=== PATIENT | female | born 1995 | race Caucasian/White ===

== ENCOUNTER 2020-06-27 22:24 | Outpatient (REF) | payer MEDICARE, MEDICAID, SELFPAY ==
[2020-06-27 20:25] LABS: Abs Immature Grans 0.01 10^3/uL (0.0-0.06); Absolute Basophil Count 0.04 10^3/uL (0.0-0.2); Absolute Lymphocyte Count 2.31 10^3/uL (1.2-3.4); Absolute Monocyte Count 0.61 10^3/uL (0.1-0.8); Absolute Neutrophil Count 4.68 10^3/uL (1.2-6.7); Basophils % 0.5; Eosinophils % 1.3; HCT 40.9 % (36.0-46.0); HGB 13.3 g/dL (11.2-15.7); Immature Grans % 0.1; Lymphocytes % 29.8; MCH 31.3 pg (27.0-33.0); MCHC 32.5 % (32.0-36.0); MCV 96.2 fL (80-95); MPV 10.3 fL (8.0-11.0); Monocytes % 7.9; Neutrophils % 60.4; Nucleated RBC 0 %; Platelet Count 260 10^3/uL (130-400); RBC 4.25 10^6/uL (3.93-5.22); RDW 12.1 % (11.7-14.6); RDW-SD 42.7 fL; WBC 7.75 10^3/uL (4.4-10.8)
[2020-06-27 21:10] LABS: ALT 21 U/L (14-59); AST 20 U/L (15-37); Albumin 4.1 g/dL (3.4-5.0); Alkaline Phosphatase 60 U/L (46-116); BUN 13 mg/dL (7-18); Bilirubin, Total 0.8 mg/dL (0.2-1.0); CREATININE 0.7 mg/dL (0.55-1.02); Calcium 8.4 mg/dL (8.5-10.1); Chloride 105 mmol/L (98-107); Glucose 78 mg/dL (74-106); Sodium 140 mmol/L (136-145); TSH (W/Ref FT4) 0.84 uIU/mL (0.36-3.74); Total Protein 7.3 g/dL (6.4-8.2)
[2020-07-03 13:56] LABS: IgA 333 mg/dL (85-499); Interpretation (See Note); Tissue Transglutaminase IgA <1.2 U/mL (<4.0)
== END 2020-06-27 22:25 | disposition home or self-care (01) ==
LOC: NCHCN 22:24
PROVIDERS: PCP Family Medicine; Visit Provider Family Medicine
DX: R10.84 Generalized abdominal pain (principal); K59.09 Other constipation
CPT/HCPCS: 80053; 82784; 83516; 84443; 85025

== ENCOUNTER 2021-02-24 18:42 | Outpatient (REF) | payer MEDICARE, MEDICAID, SELFPAY ==
[2021-02-26 15:35] LABS: COVID-19 RT-PCR UVMMC Result Negative (Negative)
== END 2021-02-24 18:43 | disposition home or self-care (01) ==
LOC: LBN 18:42
PROVIDERS: PCP Family Medicine; Visit Provider Physician Assistant Medical
DX: Z20.822 Contact with and (suspected) exposure to COVID-19 (principal)
CPT/HCPCS: U0003

== ENCOUNTER 2021-03-08 15:08 | Outpatient (CLI) | payer MEDICARE, MEDICAID, SELFPAY ==
--- NOTE | 2021-03-08 09:00 | DI.RAD_ITS ---
Exam(s) XR KNEE LT 4V AP,LAT,FRANCISCO,PAT EXAM: XR KNEE LT 4V AP,LAT,FRANCISCO,PAT CLINICAL HISTORY: left knee pain. TECHNIQUE: 2D digital imaging was performed. COMPARISON: No exams were available for comparison FINDINGS: There is no evidence of acute fracture or obvious joint effusion. No joint space narrowing. No oste ophytes. No osteochondral defects seen. Growth arrest lines are incidentally noted in the femur and tibia. IMPRESSION: DATA REPOSITORY: RADIATION DOSE DELIVERED:
== END 2021-03-08 15:09 | disposition home or self-care (01) ==
LOC: DIORS 15:08
PROVIDERS: PCP Family Medicine; Referring Provider Family Medicine; Visit Provider Student in an Organized Health Care Education/Training Program
DX: M25.562 Pain in left knee (principal); S83.005A Unspecified dislocation of left patella, initial encounter; X58.XXXA Exposure to other specified factors, initial encounter
CPT/HCPCS: 99203; 73564

== ENCOUNTER → 2021-05-24 08:41 | Outpatient (BNVA) | payer MEDICARE, MEDICAID, SELFPAY | PROVIDERS: PCP Family Medicine; Referring Provider Family Medicine; Visit Provider Student in an Organized Health Care Education/Training Program | DX: M23.92 Unspecified internal derangement of left knee (principal); W19.XXXA Unspecified fall, initial encounter | CPT/HCPCS: 99213 ==

== ENCOUNTER 2021-05-29 02:54 | Outpatient (CLI) | payer MEDICARE, MEDICAID, SELFPAY ==
--- NOTE | 2021-05-29 11:40 | DI.MRI_ITS ---
Exam(s) MR LOWER JOINT LT WO EXAM: MR LOWER JOINT LT WO CLINICAL HISTORY: LT KNEE PAIN,DISLOCATION LT PATELLA,S83.005A,M25.562. TECHNIQUE: Multiplanar multisequence MRI was performed. COMPARISON: CR XR KNEE LT 4V AP,LAT,FRANCISCO,PAT from 03/08/2021 FINDINGS: BONES: There is no fracture or contusion pattern. JOINTS: Articular cartilage is unremarkable. No effusion is present. TENDONS: Extensor mechanism: Unremarkable. Medial retinaculum: Unremarkable. Lateral retinaculum: Unremarkable. Popliteus: Unremarkable. MUSCLES: Unremarkable. MENISCI: There is hyperintense signal seen in the body and posterior horn of the medial meniscus cons istent with a tear. The lateral meniscus is unremarkable. SOFT TISSUES: There is mild edema seen in the soft tissues anterior to the inferior patella. LIGAMENTS: Anterior Cruciate: The anterior cruciate ligament is not visualized and is entirely consistent with a tear. Posterior Cruciate: Unremarkable. Medial Collateral:Unremarkable. Lateral Collateral: Unremarkable. OTHER: IMPRESSION: 1. Findings of a tear of the body and posterior horn of the medial meniscus. 2. Findings of anterior cruciate ligament tear. 3. No findings to suggest an occult fracture. DATA REPOSITORY:
== END 2021-05-29 03:14 ==
PROVIDERS: PCP Family Medicine; Visit Provider Student in an Organized Health Care Education/Training Program
DX: M25.562 Pain in left knee (principal); S83.512A Sprain of anterior cruciate ligament of left knee, initial encounter; S83.242A Other tear of medial meniscus, current injury, left knee, initial encounter; S83.092A Other subluxation of left patella, initial encounter; X58.XXXA Exposure to other specified factors, initial encounter
CPT/HCPCS: 73721

== ENCOUNTER → 2021-05-30 15:48 | Outpatient (BNVA) | payer MEDICARE, MEDICAID, SELFPAY | PROVIDERS: PCP Family Medicine; Referring Provider Family Medicine; Visit Provider Student in an Organized Health Care Education/Training Program | DX: S83.242A Other tear of medial meniscus, current injury, left knee, initial encounter (principal); W19.XXXA Unspecified fall, initial encounter | CPT/HCPCS: 99214 ==

== ENCOUNTER 2021-07-18 02:21 | Outpatient (CLI) | payer MEDICARE, MEDICAID, SELFPAY ==
[2021-07-18 11:37] LABS: Source Nasal/Nares
[2021-07-18 22:43] LABS: COVID-19 PCR Negative (Negative)
== END 2021-07-18 02:22 | disposition home or self-care (01) ==
LOC: LBO 02:21
PROVIDERS: PCP Family Medicine; Visit Provider Student in an Organized Health Care Education/Training Program
DX: Z20.822 Contact with and (suspected) exposure to COVID-19 (principal)
CPT/HCPCS: 87635

== ENCOUNTER 2021-07-20 07:16 | Day surgery (SDC) | payer MEDICARE, MEDICAID, SELFPAY ==
[2021-07-20] VITALS (9 sets, daily range): BP systolic 84–125; BP diastolic 40–96; PULSE 64–97; RESP 14–20; TEMP 36.5–36.9; O2SAT 99–100; BMI 27.8
--- NOTE | 2021-07-20 06:55 | W.ANESPRE ---
General Info Date of Service Date Performed: 07/20/21 Height: 4 ft 9 in Weight: 58.315 kg Body Mass Index (BMI): 27.8 Surgical Procedure: Operation Date: 07/20/21 10:40 Proposed Procedure Side Surgeon p Knee ACL Reconstruction, allograft and lateral meniscus repair Getachew Leon MD Meds Allergies and Home Medications Allergies Allergy/AdvReac Type Severity Reaction Status Date / Time No Known Allergies Allergy Unverified 07/20/21 07:41 Home Medication Medication Instructions Recorded cholecalciferol (vitamin D3) 25 2,000 unit PO DAILY 12/20/13 mcg (1,000 unit) capsule pramipexole 4.5 mg tablet,extended 4.5 mg PO PRN PRN 08/16/16 release 24 hr (Mirapex ER) clonazepam 0.125 mg disintegrating 0.125 mg PO DAILY PRN 03/09/21 tablet Current Visit Medications: Current Medications Generic Name Dose Route Start Last Admin Trade Name Freq PRN Reason Stop Dose Admin Ringer's Solution 1,000 mls @ 100 mls/hr 07/20/21 06:00 IV 08/02/21 23:59 INFUSION JARRETT Cefazolin Sodium/Dextrose 2 gm in 50 mls @ 100 mls/hr 07/20/21 06:00 Ancef Duplex IVPB 07/20/21 23:59 PREOP JARRETT IV Miscellaneous Supplies 1 each 07/20/21 06:00 Iv Access IV 08/02/21 23:59 DIRECTED JARRETT Sodium Chloride 0 ml 07/20/21 06:00 Normal Saline Flush 10 Ml Syr IV 08/02/21 23:59 PRN PRN Sodium Chloride 0 ml 07/20/21 06:00 Normal Saline 10 Ml Vial IJ 08/02/21 23:59 DIRECTED PRN Sterile Water 0 ml 07/20/21 06:00 Water,Injection,Sterile 10 Ml Vial IJ 08/02/21 23:59 DIRECTED PRN PFSH Active Problems Active Problems: Problem Status Onset Code Chronic constipation K59.09 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 Has had multi back surgerys and has had a ralph placed in her back. Surgical History Surgical History (Updated 07/19/21 @ 10:05 by Lashawn Campos RN) History of back surgery Per patient mother has Ralph in her back and has had multi back surgical procedures. History of ear surgery Per patient mother, patient had an abscess form from ear tube which required surgery. History of placement of ear tubes History of removal of skin mole History of repair of congenital atrial septal defect (ASD) Tobacco Smoking/Tobacco Use Status: Never Passive smoking exposure: No Second hand exposure: No Alcohol Alcohol Intake: never Substance Use Substance use: Never Substance use type: does not use Vital Signs and Lab Results Vital Signs Most Recent Vital Signs in EMR: Temp Pulse Resp BP Pulse Ox 36.5 C 66 16 123/70 100 07/20/21 07:43 07/20/21 07:43 07/20/21 07:43 07/20/21 07:43 07/20/21 07:43 Lab Results Blood Type / Crossmatch: No Data to Display Complete Blood Count: No Data to Display Complete Metabolic Panel: No Data to Display Liver Function Panel: No Data to Display Coagulation Panel: No Data to Display Cardiac Panel: No Data to Display Arterial Blood Gas: No Data to Display Venous Blood Gas: No Data to Display Pancreas Panel: No Data to Display Thyroid Panel: No Data to Display Infectious Disease: Coronavirus (COVID-19)(PCR) Negative (Negative) 07/18/21 10:00 07/18/21 Coronavirus 2019 Source Nasal/Nares 07/18/21 10:00 07/18/21 Blood Cultures: No Data to Display Toxicology Panel: No Data to Display Panel: No Data to Display Imaging and Studies Imaging and Studies Study information below may be from another EMR and interpreted by another provider. Please see original notes in EMR for more complete details. Echocardiogram Summary: 07/18/21: no residual atrial septal defect or PDA. trivial MR, TV mild prolapse. Anesthesia Assessment and Plan Anesthesia History Personal History: No History of Anesthesia Complications Family History: No Family History of Anesthesia Complications Exercise Tolerance Exercise Tolerance: Metabolic Equivalents>4 Cardiac & Pulmonary Exam Cardiac Exam: Normal S1/S2 Heart Sounds Pulmonary Exam: Clear Bilateral Breath Sounds Implantable Cardiac Device Does patient have a Pacemaker or an ICD?: No Airway Exam Known Difficult Airway: No Mallampati Class: 4 Mouth Opening: Narrow (< 3cm) Thyromental Distance: Less than 3 cm Neck Range of Motion: Full ROM Neck Circumference: Normal Teeth Condition: Normal Dentition ASA Classification ASA Score: ASA 3 Emergency Case?: No NPO Status NPO Status: NPO Clears >2 hours, Solids >8 hours Status Status: Not Relevant due to Medical History Anesthesia Plan Resuscitation Status: Full Code Anesthesia Technique: General Anesthesia Airway Planned: Endotracheal Tube Pain Management: Surgeon and patient request nerve block Monitors Used: Standard Monitors Preoperative Comments:: 25 yo female for ACL. Sig PMHx: chromosome 2 partial deletion, scoliosis with rodding, pseudobulbar affect. Angelman syndrome is listed on the problem list, but mother is certain that this is not the case. Plan: GA with regional anes (iPAK, adductor, genicular).
[2021-07-20] MEDS: Lactated Ringers 1,000 ML 100 ML IV (08:40)
--- NOTE | 2021-07-20 09:59 | W.ANESNERVE ---
Nerve Block Single Injection Procedure Date and Time Date Performed: 07/20/21 Procedure Start: 09:20 Location Where Procedure Performed Procedure Location: Day Surgery Unit Reason Performed: Postoperative Analgesia Requesting Provider: Getachew Leon Timeout Performed Timeout Performed: Yes Monitoring Used ECG, Blood Pressure and SpO2 Sterility Sterility: Hand Hygiene, Surgical Cap, Surgical Mask, Sterile Gloves and Chlorhexidine Sedation Given During Procedure Sedation Given (Indicate Dose Given): Versed IV Dose:: 5 mg Patient Mental Status Patient Mental Status: Awake Nerve Block 1st Nerve Block: Laterality: Left Block Type: iPACK Needle / Catheter Used: 100mm SonoPlex II Local Anesthetic Bolus (Indicate Dose Given): Lidocaine used for local infiltration of skin, Injected in 3-5ml increments after negative blood aspiration and Bupivacaine 0.25% Dose:: 12 mL Additives (Indicate Dose Given): Epinephrine to make 1:200,000 (5mcg/ml) Dose:: 5 mcg/ml and Decadron Dose:: 2 mg Ultrasound: Sterile probe cover and gel used Ultrasound Image Saved?: Yes Nerve Stimulator: Not Used Paresthesia: None Procedure Tolerated: No Complications Procedure Outcome: Successful Performed By: Dami Verma 2nd Nerve Block: Laterality: Left Block Type: Adductor Canal Needle / Catheter Used: 100mm SonoPlex II Local Anesthetic Bolus (Indicate Dose Given): Lidocaine used for local infiltration of skin and Bupivacaine 0.375% Dose:: 7 mL Additives (Indicate Dose Given): Epinephrine to make 1:200,000 (5mcg/ml) Dose:: 5 mcg/ml and Decadron Dose:: 2 mg Ultrasound: Sterile probe cover and gel used Ultrasound Image Saved?: Yes Nerve Stimulator: Not Used Paresthesia: None Procedure Tolerated: No Complications Procedure Outcome: Successful Performed By: Dami Verma 3rd Nerve Block: Laterality: Left Block Type: Other Needle / Catheter Used: 100mm SonoPlex II Local Anesthetic Bolus (Indicate Dose Given): Lidocaine used for local infiltration of skin and Bupivacaine 0.25% Dose:: 16 mL Additives (Indicate Dose Given): Epinephrine to make 1:200,000 (5mcg/ml) Dose:: 5 mcg/ml and Decadron Dose:: 2 Ultrasound: Sterile probe cover and gel used Ultrasound Image Saved?: Yes Nerve Stimulator: Not Used Paresthesia: None Procedure Tolerated: No Complications Procedure Outcome: Successful Procedure Comment: 4 mL applied to SMGN, ILGN, SLGN, IMGN. At the end of the procedure the mother noted that the knee did have some ecemosis on the front that she states was not there before. likely inadvertent superficial vessel puncture. Performed By: Dami Verma
[2021-07-20] MEDS: ceFAZolin 2 GM/50 ML BAG IVPB (10:24)
[2021-07-20] MEDS: EPINEPHrine 30 MG/30 ML VIAL (12:19)
[2021-07-20] MEDS: Bupivacaine 0.25% Pres-Free 30 ML VIAL (12:30)
--- NOTE | 2021-07-20 12:54 | ROE_ITS ---
Date of service: 07/20/21 Time of Service: 11:00 Operative Note Operative Note DATE OF PROCEDURE: 07/20/21 PRE-OP DIAGNOSIS: Left knee: 1. ACL rupture 2. Medial meniscus tear PROCEDURE: Left knee: 1. Allograft ACL reconstruction, CPT #89176 2. Partial medial meniscectomy, CPT #60037 SURGEON: Getachew Leon ANESTHESIA TYPE: Local By Surgeon, General LMA/ETT and Primary Nerve Block Refer to Anesthesia Record ESTIMATED BLOOD LOSS: 10 TOURNIQUET TIME: 0 COMPLICATIONS: None Patient was transported to: PACU Patient's condition: stable Implants: Arthrex ACL TightRope II RT and 8x20 mm tibial BioComposite FastThread interference screw Indications: Please see complete medical record for details. Findings: Significant knee laxity with about 15 degrees hyperextension and significant translation with Lida anterior drawer no endpoint. Positive obvious pivot shift. Procedure Description: In the operating room, general anesthesia was induced. The patient was positioned supine on the operating room table. All bony prominences were well- padded. Preoperative antibiotics were administered. The knee was prepped and draped in the usual sterile fashion. The correct patient, procedure, and side of the procedure were all verified prior to incision. Exam under anesthesia was performed. The standard high and tight anterolateral anteromedial portals were established and a complete diagnostic arthroscopy was performed with relevant findings detailed above. An 8 x 2 passport was inserted in both the anteromedial anterolateral portals. In the intercondylar area, the mechanical shaver was used to remove the remnant ACL leaving but leave just enough footprint on the femur and tibia to localize tunnels. Only a small notchplasty was necessary to allow visualization of the back wall as well as optimize bone marrow stimulation for healing. Medial meniscus tear was vertical somewhat white zone with displacement of this tissue from the posterior horn into the medial compartment. The tear was rasped there was limited healthy tissue at the margin with fraying showing chronicity and no bleeding. Consideration was made for trephination and repair. The all inside device was localized to the tear but the needle insertion size was larger than the diminutive knee and meniscus size. Inside out versus outside in techniques were considered with a needle brought in for posterior medial to the tear location and again showed diminutive meniscus and tear size. Given the somewhat degenerative nature and largely avascular location of the tear decision was made to proceed with meniscectomy instead of repair. Meniscus biter was used to free the anterior margin and the shaver used to resect the resulting free edge and smooth at the posterior horn body junction and near the root contoured to a stable margin. The remnant was probed and showed no other tears and resulting stable posterior horn. On the back table the allograft was prepared. The graft was doubled over in Arthrex tight rope device and each and prepared with fiber loop stitches. The doubled over diameter was 7 mm. Back in the knee, the 6 and 9 guide was used to target the appropriate location for anatomic placement of the ACL origin. A small incision was made at the lateral thigh for placement of the drill guide down to bone. The flip cutter was used targeting the appropriate location. The drill guide malleted 7 mm appropriately into the far cortex. The remainder of the handling guide was removed. The flip cutter was deployed to 7 mm and then retrograde reaming done for socket of 30 mm depth. A fiber stick was then used to find the entrance to the tunnel laterally and then securing shuttle suture through the anterior lateral portal. The tibial guide was then used in some remnant ACL at the tibial insertion was removed centrally to allow best placement for the guide. A pretibial incision was made in the drill guide placed on bone. The flip cutter was then used to drill drilled to the appropriate location. The drill guide malleted 7 mm into the cortex the remainder of the guide and handle removed. The flip cutter deployed to 7 mm and then in retrograde fashion a socket of 25 mm created before removing the drill guide and completing the tunnel out the anterior tibial cortex. The mechanical shaver was used to remove bone drilling debriding thoroughly as well as carefully chamfer and remove soft tissue from the edges of the sockets to allow for best graft passage. The femoral passing sutures were then withdrawn out the tibial tunnel. The graft and device were marked for planned femoral tunnel length flipping and at least 20 m meters of graft insertion on the femoral side. The prepared graft was then brought over to the knee. The femoral tight rope sutures were then shuttled through the tunnel into the knee and out the lateral thigh. Under direct visualization the button was then advanced into the femoral tunnel and then at the appropriate felipa advanced slightly further than flipped on the cortex. This was confirmed with tactile feedback, pullback, and confirmed under direct visualization. Maintaining appropriate countertraction the graft was then advanced with the tightening sutures through the tibial tunnel into the knee and then into the femoral tunnel. It was advanced just past 20 mm cheung. The knee was then tested through range of motion and the graft demonstrated excellent isometry. The leg was brought into full extension on the table with extension and moderate reverse Lockman downward pressure maintained by the pathology assistant. The sutures were maintained distally under traction with the interference screw clinical data management director, wire, and then screw inserted taking care to and the screw flush with the anterior tibial cortex to avoid prominence. The femoral tightening sutures were then advanced as fully as possible. The knee ranged about 22 times through cycles motion. The knee was brought back into full extension with a reverse Lida applied and final tightening applied to the femoral side. The camera is brought back in the knee and the graft demonstrated excellent trajectory with no notching in full extension and good tension. Pulling the tibial sutures demonstrated no sliding of the graft. There was no more advancing of the femoral side tightening sutures. The knee was copiously irrigated and then drained of arthroscopic fluid. The shuttle sutures were cut and removed on the femoral side. Knots were tied as backup over the femoral device. The graft was then cut flush on the pretibial side to avoid prominence. Knee exam demonstrated excellent firm endpoint to Lida exam. Pivot shift was negative. All portals and incisions were copiously irrigated. 3-0 Monocryl was used to close the portals and small incisions in a buried interrupted fashion. Mastisol Steri-Strips Xeroform and 4 x 4 gauze applied over the incisions. 30 cc lidocaine and bupivacaine was infiltrated about the portals and ACL surgical sites. The knee was wrapped in sterile soft roll and the extremity gently in an Raghav bandage. The soft knee immobilizer placed. The patient awoke from anesthesia without complication and was transferred to the recovery room in a stable condition.
--- NOTE | 2021-07-20 12:54 | W.PM.DSUDISC ---
Discharge Plan Disposition Patient Disposition: HOME Condition: Stable Discharge Details Reason For Visit: Left knee surgery Attending Provider: Getachew Leon Primary Care Provider: Sara Gaines Home Meds and New Rx's Prescriptions: New naproxen 250 mg tablet 250 - 500 mg PO BID PRNQty: 40 0RF Rx Instructions: take with a meal aspirin 81 mg tablet,delayed release (DR/EC) 81 mg PO DAILY 14 Days Qty: 14 0RF oxycodone 5 mg tablet 5 - 10 mg PO Q4H MDD 30 mg PRN (Reason: moderate to severe pain) Qty: 18 0RF Continued clonazepam 0.125 mg tablet,disintegrating 0.125 mg PO DAILY PRN0RF cholecalciferol (vitamin D3) 1,000 UNIT capsule 2,000 unit PO DAILY 0RF pramipexole [Mirapex ER] 4.5 MG tablet extended release 24 hr 4.5 mg PO PRN PRN0RF Discharge Instructions Additional Instructions: Surgery: Left knee arthroscopy with partial medial meniscectomy and allograft ACL reconstruction Activity: Weightbearing as tolerated. Advance range of motion as comfort allows. No knee brace or walker needed as soon as comfortable. Recommend avoiding sporting activiteis for 6-9 months. A physical therapy prescription will be sent electronically to start in about 3 weeks. Prescriptions: Aspirin 81 mg take 1 daily to prevent a blood clot for 14 days Naproxen 250 mg take 1-2 every 12 hours with a meal as needed for moderate pain Oxycodone 5 mg take 1-2 every 4-6 hours as needed for severe pain You may use [id number] Tylenol (acetaminophen) as needed for mild pain. These pain medications may be taken all at once or in different combinations as needed. Also, recommend Colace (docusate) as a stool softener as surgery and pain medicine cause constipation. Dressings: Leave dressing in place for 5 days. May then remove and leave open to air or cover incisions with Band-Aids. May shower after 7 days. Follow-up: 10-[address] Leon Let us know right away if you develop any redness, drainage, fevers, chest pain, or trouble breathing. Do not drink alcohol or drive for at least 24 hours after anesthesia. Please call the office during business hours with any questions or concerns. Referrals: Getachew Leon MD [ [facility] STAFF PHYSICIAN] - Discharge Orders Discharge Orders: Discharge Order (Routine); Ordered 07/20/21 Ordered By: Getachew Leon DS: Diagnosis Discharge Diagnosis (1) Acute medial meniscus tear of left knee: Status: Acute (2) Left ACL tear: Status: Acute
--- NOTE | 2021-07-20 14:22 | W.ANESPOSTOP ---
Postoperative Evaluation Date, Time and Location Date Performed: 07/20/21 Time Performed: :22 Patient Location: Day Surgery Unit Vital Signs Most Recent Imported Vital Signs: Most Recent Vital Signs Temp Pulse Resp BP Pulse Ox 36.5 C 73 16 90/59 L 99 07/20/21 13:44 07/20/21 13:44 07/20/21 13:44 07/20/21 13:44 07/20/21 13:44 Pain Score Most Recent Pain Score: Most Recent Pain Score Pain Level 0 07/20/21 13:44 Assessment Mental Status: Awake (Alert & Oriented to Patient Baseline) Airway and Respiratory Function: Patent airway with normal (patient baseline) respiratory exam Cardiovascular Function: Hemodynamically Stable Hydration Status: Adequately Hydrated Nausea & Vomiting: No Nausea or Vomiting Pain: Pain is tolerable per patient Peripheral Nerve Block: Regional nerve block not resolved at time of post operative discharge
== END 2021-07-20 15:00 | disposition home or self-care (01) ==
PROVIDERS: PCP Family Medicine; Visit Provider Student in an Organized Health Care Education/Training Program
PROC: (CPT 29888; principal; 2021-07-20 10:30)
DX: S83.242A Other tear of medial meniscus, current injury, left knee, initial encounter (principal); S83.512A Sprain of anterior cruciate ligament of left knee, initial encounter; X58.XXXA Exposure to other specified factors, initial encounter; Q93.89 Other deletions from the autosomes
CPT/HCPCS: 29888; 29881; C1776; 76942; 81025; 99213; J0131; J0171; J0690; J1100; J1885; J2001; J2250; J2270; J2405; J2704; J3475

== ENCOUNTER → 2021-08-01 13:11 | Outpatient (BNVA) | payer MEDICARE, MEDICAID, SELFPAY | PROVIDERS: PCP Family Medicine; Referring Provider Family Medicine; Visit Provider Student in an Organized Health Care Education/Training Program | DX: S83.242A Other tear of medial meniscus, current injury, left knee, initial encounter (principal); S83.512A Sprain of anterior cruciate ligament of left knee, initial encounter; X58.XXXA Exposure to other specified factors, initial encounter ==

== ENCOUNTER → 2021-09-26 08:06 | Outpatient (BNVA) | payer MEDICARE, MEDICAID, SELFPAY | PROVIDERS: PCP Family Medicine; Referring Provider Family Medicine; Visit Provider Student in an Organized Health Care Education/Training Program | DX: X58.XXXA Exposure to other specified factors, initial encounter (principal); S83.242A Other tear of medial meniscus, current injury, left knee, initial encounter; S83.512A Sprain of anterior cruciate ligament of left knee, initial encounter ==

== ENCOUNTER 2022-04-24 15:20 | Outpatient (CLI) | payer MEDICARE, MEDICAID, SELFPAY ==
--- NOTE | 2022-04-24 15:15 | DI.RAD_ITS ---
Exam(s) XR KNEE LT 2V AP,LAT EXAM: XR KNEE LT 2V AP,LAT CLINICAL HISTORY: left knee pain. TECHNIQUE: 2D digital imaging was performed. COMPARISON: CR XR KNEE LT 4V AP,LAT,FRANCISCO,PAT from 03/08/2021 FINDINGS: Two views: There has been interval ACL surgery. No fracture nor obvious joint effusion. No obvious degenerativ e changes. IMPRESSION: ACL surgery. No joint effusion. DATA REPOSITORY: RADIATION DOSE DELIVERED:
== END 2022-04-24 15:21 | disposition home or self-care (01) ==
LOC: DIORS 04-25 07:59
PROVIDERS: PCP Family Medicine; Visit Provider Student in an Organized Health Care Education/Training Program
DX: S83.242D Other tear of medial meniscus, current injury, left knee, subsequent encounter (principal); S83.512D Sprain of anterior cruciate ligament of left knee, subsequent encounter; X58.XXXD Exposure to other specified factors, subsequent encounter
CPT/HCPCS: 99214; 73560

== ENCOUNTER 2022-05-04 19:13 | Emergency (ER) | payer MEDICARE, MEDICAID, SELFPAY ==
[2022-05-04 19:27] VITALS: BP 107/65; PULSE 76; RESP 16; TEMP 36.4; O2SAT 100
--- NOTE | 2022-05-04 20:00 | DI.RAD_ITS ---
Exam(s) XR ABDOMEN FLAT PLATE EXAM: 2D digital imaging was performed. CLINICAL HISTORY: rectal mass, probable prolapse. COMPARISON: No exams were available for comparison TECHNIQUE: Supine views of the abdomen performed. FINDINGS: BOWEL GAS PATTERN: Nondistended. Large quantity of stool. CALCIFICATIONS: No radiopaque calcifications. OSSEOUS STRUCTURES: Scoliosis. Rods in the spine. OTHER FINDINGS: Visualized left lungs are clear. IMPRESSION: 1. Nonobstructive bowel gas pattern. Large quantity of stool. 2. No radiopaque calculi. DATA REPOSITORY: RADIATION DOSE DELIVERED:
--- NOTE | 2022-05-04 20:03 | ED.GENADUL_ITS ---
Discharge Plan Disposition Patient Disposition: Home Condition: Stable Discharge Details Clinical Impression: Rectal prolapse Primary Care Provider: Sara Gaines ED Provider: Christopher Avery Home Meds and New Rx's Prescriptions: Continued clonazepam 0.125 mg tablet,disintegrating 0.125 mg PO DAILY PRN cholecalciferol (vitamin D3) 1,000 UNIT capsule 2,000 unit PO DAILY pramipexole [Mirapex ER] 4.5 MG tablet extended release 24 hr 4.5 mg PO PRN PRN naproxen 250 mg tablet 250 - 500 mg PO BID PRNQty: 40 0RF Rx Instructions: take with a meal Discharge Instructions Instructions: Constipation in Children (ED), Constipation (ED) Additional Instructions: Continue regular medications. Please try to avoid prolonged seated time on the toilet. Add daily fiber such as Metamucil 1-2 times per day. Our care managers will refer you to general surgery clinic. Medical Decision Making 26-year-old female with chronic constipation, on MiraLAX, often has prolonged se ated time on the toilet. We will having a bowel movement this evening there is noted to be a protuberant mass from her rectum. It was bloody and appeared raw. The family came to the ER and by the time of evaluation the mass had self reduced. On exam there is normal rectal tone and unremarkable internal digital rectal examination. I am highly suspicious for rectal prolapse, now reduced. Screening abdominal flatplate was obtained. We will have the patient add fiber to the diet, continue MiraLAX, and I will refer to general surgery clinic for further evaluation, examination. High suspicion for rectal prolapse. [facility] General Mode of arrival: ambulatory . Date/Time Provider Initiated Documentation: 05/04/22 19:13 . Limitations to Documentation: no limitations . Information obtained by: patient . History of Present Illness 26 year old F presents to the emergency department with the chief complaint of Rectal mass, now reduced, described as moderate, and is localized to the abdomen. Patient reports no radiation. Patient started experiencing this minute(s) No relieving factors improve symptom(s), No exacerbating factors reported . Patient notes denies syncope and weakness. Patient did receive the following treatments prior to arrival, none Related Data Home Medications Medication Instructions Recorded Confirmed cholecalciferol (vitamin D3) 25 2,000 unit PO DAILY 08/18/14 12/21/22 mcg (1,000 unit) capsule pramipexole 4.5 mg tablet,extended 4.5 mg PO PRN PRN 08/16/16 04/24/22 release 24 hr (Mirapex ER) clonazepam 0.125 mg disintegrating 0.125 mg PO DAILY PRN 03/09/21 04/24/22 tablet naproxen 250 mg tablet 250 - 500 mg PO BID PRN #40 tabs 07/20/21 04/24/22 Previous Rx's Medication Instructions Recorded naproxen 250 mg tablet 250 - 500 mg PO BID PRN #40 tabs 07/20/21 Allergies Allergy/AdvReac Type Severity Reaction Status Date / Time No Known Allergies Allergy Unverified 04/24/22 15:14 General Stated Complaint: GenMedical YUSUF: 3 Review of Systems Narrative: No recent illness, normal recent menses. Chronic constipation and prolonged seated time on the toilet. 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 History of ear surgery Per patient mother, patient had an abscess form from ear tube which required surgery. History of placement of ear tubes History of removal of skin mole History of repair of congenital atrial septal defect (ASD) Family History Maternal Grandmother Heart disease Paternal Grandfather Cancer Maternal Grandmother Cancer Maternal Grandmother Diabetes Social History Smoking/Tobacco Use Status: Never Second Hand Exposure: No Smoking risk assessment performed?: Yes Alcohol Intake: never Drug use: Never Substance use type: does not use Current gender identity: female Do you feel safe at home: Yes Do you feel safe in your relationship?: Yes Additional Social history: unable to assess privately Exam Narrative Exam Narrative: GEN: awake, alert, pleasant, well groomed, interactive. HEAD: Normocephalic, atraumatic ENT: Mucous membranes moist, oropharynx unremarkable, External ear exam unr emarkable EYES: PERRL, EOMI NECK: Full ROM, no ROBERT, no menigismus CHEST/RESP: Nontender, clear to auscultation bilateral, no wheeze/rhonchi/rales CARDIOVASCULAR: RRR, no murmur, rub sanjay. 2+ Rad pulse bilateral ABDOMEN: Soft, nontender, no mass. Normal rectal tone and inspection. Internal digital rectal exam without mass. No blood present. +Bowel sounds EXT: Full ROM, no edema, no rash Neuro: Grossly normal neurologic exam, conversant, interactive. Psych: Speech fluent, thoughts congruent, affect normal Course Vital Signs Vital signs: Vital Signs Temperature 36.4 C L 05/04/22 19:27 Pulse 76 05/04/22 19:27 Respiratory Rate 16 05/04/22 19:27 Blood Pressure 107/65 05/04/22 19:27 Pulse Oximetry 100 05/04/22 19:27 Temperature 36.4 C L 05/04/22 19:27 Temperature Source Tympanic 05/04/22 19:27 Pulse 76 05/04/22 19:27 Respiratory Rate 16 05/04/22 19:27 Respiratory Effort 05/04/22 19:23 Respiratory Depth Normal 05/04/22 19:23 Respiratory Pattern Normal 05/04/22 19:23 Blood Pressure 107/65 05/04/22 19:27 Pulse Oximetry 100 05/04/22 19:27 Oxygen Delivery Method Room Air 05/04/22 19:27 Oxygen Flow Rate 0 05/04/22 19:27 Pain Level 0 05/04/22 19:27
--- NOTE | 2022-05-04 20:55 | DI.VRAD_ITS ---
PROCEDURE INFORMATION: Exam: XR Abdomen Exam date and time: 05/04/2022 8:31 PM Age: 26 years old Clinical indication: Mass, lump, or swelling; Prior surgery; Surgery type: Lspine rods; Patient HX: Rectal mass, probable prolapse TECHNIQUE: Imaging protocol: Radiologic exam of the abdomen. Views: Frontal supine view of the abdomen. 1 View. COMPARISON: No relevant prior studies available. FINDINGS: Gastrointestinal tract: No bowel obstruction or distention. Pelvic soft tissues are unremarkable. Urinary bladder is evident. Mildly distended. Bones/joints: Previous scoliosis surgery with Handy hernan placement across the thoracolumbar junction. Degenerative thoracolumbar spine features. IMPRESSION: 1. No acute bowel obstruction or edema evident. 2. Mildly distended urinary bladder. 3. Previous scoliosis surgery with bilateral Handy rods. Degenerative thoracolumbar spine change. Dictated and Authenticated by: Azam Soler MD. Ordering:LOBITO White MD
[2022-05-04 21:00] VITALS: BP 111/79; PULSE 81; RESP 18; TEMP 37; O2SAT 99
--- NOTE | 2022-05-04 23:21 | NUR.NOTE ---
[facility]erral [facility]-2 [facility] f/u, rectal prolapse.Nursing Note:
== END 2022-05-04 21:00 | disposition home or self-care (01) ==
PROVIDERS: Emergency Provider Emergency Medicine; PCP Family Medicine
DX: K62.3 Rectal prolapse (principal); K59.09 Other constipation
CPT/HCPCS: 99283; 74018

== ENCOUNTER 2022-05-17 00:18 | Outpatient (CLI) | payer MEDICARE, MEDICAID, SELFPAY ==
--- NOTE | 2022-05-17 09:45 | DI.MRI_ITS ---
Exam(s) MR LOWER JOINT LT WO EXAM: MR LOWER JOINT LT WO CLINICAL HISTORY: ACL laxity,lt acl tear,[id number]. TECHNIQUE: Multiplanar multisequence MRI was performed. COMPARISON: MR MR LOWER JOINT LT WO from 05/29/2021 CR XR KNEE LT 2V AP,LAT from 04/24/2022 FINDINGS: BONES: There is no fracture or contusion pattern. JOINTS: Articular cartilage is unremarkable. No effusion is present. TENDONS: Extensor mechanism: Unremarkable. Medial retinaculum: Unremarkable. Lateral retinaculum: Unremarkable. Popliteus: Unremarkable. MUSCLES: Unremarkable. MENISCI: The posterior horn is decreased in size likely reflecting prior surgery. No evidence of a r e-tear is seen. The lateral meniscus is unremarkable. SOFT TISSUES: Postsurgical changes are seen anterior to the patellar ligament. LIGAMENTS: Anterior Cruciate: Since the prior examination the patient has undergone an ACL repair. The ACL is p oorly defined but there do appear to be a few intact fibers. There is soft tissue seen anterior to t he ACL repair. It has a spiculated appearance rather than a rounded appearance. Posterior Cruciate: Unremarkable. Medial Collateral:Unremarkable. Lateral Collateral: Unremarkable. OTHER: IMPRESSION: 1. Status post ACL repair. Poorly defined ACL ligament. This may represent a partial tear or scarri ng. 2. Spiculated appearing soft tissue anterior to the ACL. This is likely scarring. Cyclops lesion, t horacio not excluded, may be considered less likely. 3. No other evidence of a ligament or meniscal tear. DATA REPOSITORY:
== END 2022-05-17 00:38 ==
LOC: DI 00:18
PROVIDERS: PCP Family Medicine; Visit Provider Student in an Organized Health Care Education/Training Program
DX: S83.512D Sprain of anterior cruciate ligament of left knee, subsequent encounter (principal)
CPT/HCPCS: 73721

== ENCOUNTER → 2022-05-21 14:56 | Outpatient (BNVA) | payer MEDICARE, MEDICAID, SELFPAY | PROVIDERS: PCP Family Medicine; Referring Provider Family Medicine; Visit Provider Student in an Organized Health Care Education/Training Program | DX: S83.512D Sprain of anterior cruciate ligament of left knee, subsequent encounter (principal); X58.XXXD Exposure to other specified factors, subsequent encounter | CPT/HCPCS: 20610; 99214; J1030 ==

== ENCOUNTER → 2022-07-23 15:02 | Outpatient (BNVA) | payer MEDICARE, MEDICAID, SELFPAY | PROVIDERS: PCP Family Medicine; Referring Provider Family Medicine; Visit Provider Student in an Organized Health Care Education/Training Program | DX: Z47.89 Encounter for other orthopedic aftercare (principal); M25.562 Pain in left knee | CPT/HCPCS: 99213 ==

== ENCOUNTER → 2023-06-23 02:26 | Outpatient (CLI) | payer MEDICARE, MEDICAID, SELFPAY ==
--- NOTE | 2023-06-23 | DI.US_ITS ---
Exam(s) US ABDOMEN EXAM: US ABDOMEN CLINICAL HISTORY: CHRONIC ABD PAIN R10.9 TECHNIQUE: Ultrasound abdomen performed using standard protocol. COMPARISON: CR,XR XR ABDOMEN FLAT PLATE from 05/04/2022 FINDINGS: ABDOMINAL AORTA AND IVC: Visualized portions normal caliber. PANCREAS: Normal where visualized. LIVER: Normal. Hepatopedal flow in the Portal Vein. GALLBLADDER:The gallbladder is not visualized on this examination. BILIARY SYSTEM: Common bile duct measures < 7 mm. No intrahepatic biliary ductal dilation. KIDNEYS: The right kidney was not well visualized. The lower pole could not be seen sonographically. The kidney was obscured by overlying bowel gas. No evidence of renal calculi. No evidence of hydro nephrosis. No renal mass or cyst identified. SPLEEN: Not enlarged. ASCITES: None seen. IMPRESSION: 1. Examination limited by overlying bowel gas. 2. The gallbladder was not visualized on this examination. There is no biliary ductal dilatation. 3. If there is continued clinical concern, CT scan of the abdomen may be considered for further evalu ation. DATA REPOSITORY:
== END ==
PROVIDERS: PCP Family Medicine; Visit Provider Family Medicine
DX: R10.9 Unspecified abdominal pain (principal)
CPT/HCPCS: 76700

== ENCOUNTER 2023-09-24 15:44 | Outpatient (CLI) | payer MEDICARE, MEDICAID, SELFPAY ==
--- NOTE | 2023-09-24 10:47 | DI.RAD_ITS ---
Exam(s) XR KNEE LT 3V AP,LAT,FRANCISCO EXAM: XR KNEE LT 3V AP,LAT,FRANCISCO CLINICAL HISTORY: pain. TECHNIQUE: 2D digital imaging was performed. COMPARISON: CR XR KNEE LT 2V AP,LAT from 04/24/2022 FINDINGS: Four views. Again noted is evidence of prior ACL surgery. There is no evidence of fracture nor progressive joint space narrowing. Joint space in all 3 compart ment appears satisfactory. Mild degenerative changes in the medial compartment but without significa nt narrowing on the weight-bearing view. Bone density normal. No osseous lesions. No patellar disp lacement. IMPRESSION: Stable appearance without radiographic change from 04/24/2022. Evidence of ACL surgery again evident . DATA REPOSITORY: RADIATION DOSE DELIVERED:
== END 2023-09-24 15:45 | disposition home or self-care (01) ==
LOC: DIORS 15:45
PROVIDERS: PCP Family Medicine; Referring Provider Family Medicine; Visit Provider Student in an Organized Health Care Education/Training Program
DX: S83.242D Other tear of medial meniscus, current injury, left knee, subsequent encounter (principal); S83.512D Sprain of anterior cruciate ligament of left knee, subsequent encounter; X58.XXXD Exposure to other specified factors, subsequent encounter
CPT/HCPCS: 73562; 99214

== ENCOUNTER 2024-02-05 13:12 | Outpatient (CLI) | payer MEDICARE, MEDICAID, SELFPAY ==
--- OUTSIDE RECORDS SUMMARY | 2024-02-05 13:18 | XMS_ITS | Encounter Summary ---
Author Organization [facility] Address [facility] [place] [address] Care Team Providers Care Sound Technician Name Role Phone Baltazar Gaines MD Primary Care Provider [phone] Reason for Visit * Reason Comments Skin Check * Consultation (Routine) - Specialty Diagnoses / Procedures Referred By Contleena t Referred To Contact Dermatology Diagnoses Other benign neoplasm of skin, unspecified Baltazar Gaines MD [address] [place] [address] [facility] Dermatology [address] [place] [address] Referral ID Status Reason Start Date Expiration Date V isits Requested Visits Authorized [id number] Consult, Test & Treat [facility] PCP Updated and/or Approved 06/27/2020 08/08/2020 6 6 Encounter Details Date Type Department Care Team (Late st Contact Info) Description 07/31/2020 3:00 PM EDT Office Visit Dermatology at [facility] [address] [place] [address] Tatyana Mensah MD [facility] [place] [address] Multiple benign nevi Social History Tobacco Use Types Packs/Day Years Used Date Smoking Tobacco: Never Assessed Sex and Gender Information Value Date Recorded Sex Assigned at Not on file Gender Identity Not on file Sexual Orientation Not on file documented as of this encounter Progress Notes * Tatyana Barlow MD - 07/31/2020 3:00 PM EDT Images from the original note were not included. DERMATOLOGY - NEW PATIENT NOTE Date of service: 07/31/2020 Alison Thornton : 1995, 24 y.o. Chief Complaint: Chief Complaint Patient presents with ??? Skin Check HPI: Alison Thornton is a 24 y.o. female referred by Baltazar Gaines MD with the following concerns: New patient here today for a full skin exam. She has some concerning lesions on the abdomen and back that have been present since . Mom reports that they are not bothersome to the patient but appear to be oddly shaped and may be getting larger. Relevant Skin History: - Okay to leave detailed message with results? Yes, speak with Mom-Rachel - Skin cancer (including type): no Family History: Melanoma: Maternal and paternal grandparents- per patient's mom Meds: No current outpatient medications on file. No current facility-administered medications for this visit. Allergies: Not on File Review of Systems: - General: Feels well - Skin: No other skin concerns. Examination: - Constitutional: Patient was alert, well-appearing and in no noticeable distress. - Full Skin Exam: Skin examination of the scalp, face, ears, neck, back, chest, axillae, abdomen, right and left upper extremities, right and left lower extremities, hands, feet, and buttocks was normal with the exception of the findings listed below. Genitalia not examined. - A nurse/MA was present and on standby during my examination. Diagnosis/Skin findings/Assessment/Plan: #. Benign nevi - Scattered medium-brown macules and papules on the trunk and extremities. Lower abdomen and macules with more oblong shaped, slightly raised macules and papules with brown pigment in the center and pink pigment at the periphery - Reassured of benign appearance on exam today. - Reviewed ABCDEs of melanoma - Recommend daily sun protection with protective clothing and SPF 30+ RTC: 1 year FSE, recall placed Note initiated by NAOMI Ashby. I, NAOMI Ashby, have performed the documentation for this encounter in the presence of and acting as a scribe for Tatyana Barlow MD. I performed the services which were documented by the scribe, and I agree with the accuracy of the documentation in this encounter. Tatyana Barlow MD Reviewed and signed by Tatyana Barlow MD Resident in Dermatology [facility] Patient seen in conjunction with staff sealer dry cell: Freddy Kunz MD Department of Dermatology [facility] * Freddy Kunz MD - 07/31/2020 3:00 PM EDT I directly supervised Dr. Barlow during this office visit. Dr. Barlow presented the history and physical exam to me. I, then, saw and examined this patient with Dr. Barlow. We reviewed the history and pertinent details and I confirmed the physical findings. I agree with the details of the history and physical exam as documented in Dr. Barlow's note. FREDDY KUNZ MD Staff Physician documented in this encounter Plan of Treatment Not on file documented as of this encounter Visit Diagnoses Diagnosis Multiple benign nevi Benign neoplasm of skin, site unspecified documented in this encounter Care Teams Sound Technician Relationship Specialty Start Date End Date Baltazar Gaines MD [address] [place] [address] PCP - General Family Medicine 07/05/20 documented as of this encounter
--- OUTSIDE RECORDS SUMMARY | 2024-02-05 13:18 | XMS_ITS | Clinical Summary ---
Author Organization [facility] [place] [address] Care Team Providers Care Assistant Chief Train Dispatcher Name Role Phone Baltazar Gaines MD Primary Care Provider [phone] Social History Tobacco Use Types Packs/Day Years Used Date Smoking Tobacco: Never Assessed Sex and Gender Information Value Date Recorded Sex Assigned at Not on file Gender Identity Not on file Sexual Orientation Not on file Plan of Treatment Health Maintenance Due Date Last Done Comments HIV screen 2014 Hepatitis C Screening 2014 Hepatitis B vaccine (0-59 yrs) (1) 08/20/2015 Tetanus/Diphtheria/Pertussis Vaccines (1 - Tdap) 08/19 PAP Smear 2017 Covid-19 Vaccine (1 - season) 2024 Influenza (Flu) vaccine (1 o f 1 - Influenza standard series) 01/04/2024 Care Teams Assistant Chief Train Dispatcher Relationship Specialty Start Date End Date Baltazar Gaines MD [address] [place] [address] PCP - General Family Medicine 07/05/20
--- OUTSIDE RECORDS SUMMARY | 2024-02-05 13:18 | XMS_ITS | Encounter Summary ---
Author Organization [facility] Address [address] [place] [address] Care Team Providers Care Mold Making Plastics Sheets Supervisor Name Role Phone Deandra Ramos MD Primary Care Provider [phone] Reason for Visit * Reason Comments Heart Disease hx. of an ASD, s/p s urgical closure 08/25/97. Here today for f/u. No concerns from mother. Has been healthy. Gets physical therapy at school twice a week - on the treadmill & with a ball. Gym class also. Encounter Details Date Type Department Care Team (Late st Contact Info) Description 03/06/2011 13:00 EDT Office Visit [facility] Pediatric Cardiology - Main [place] [address] [place] [id number] Luzma Neri MD ASD (atrial septal defect) (Primary Dx) Discharge Disposition: Auto Discharge Social History Tobacco Use Types Packs/Day Years Used Date Smoking Tobacco: Never Alcohol Use Standard Drinks/Week Comments No 0 (1 standard drink = 0.6 oz pur e alcohol) ? exposure at dad's house Sex and Gender Information Value Date Recorded Sex Assigned at Not on file Gender Identity Not on file Sexual Orientation Not on file documented as of this encounter Last Filed Vital Signs Vital Sign Reading Time Taken Comments Blood Pressure 111/58 03/06/2011 1328 EDT r. arm Pulse 92 03/06/2011 1328 EDT Temperature - - Respiratory Rate 16 03/06/2011 1328 EDT Oxygen Saturation 100% 03/06/2011 1328 EDT Inhaled Oxygen Concentration - - Weight 48.6 kg (107 lb 2.3 oz) 03/06/2011 1328 E DT Height 147.8 cm (4' 10.19) 03/06/2011 1328 EDT Body Mass Index 22.25 03/06/2011 1328 EDT Body Mass Index Percentile 76.70% 03/06/2011 132 8 EDT Growth Chart: CDC (Girls, 2- 20 Years) documented in this encounter Discharge Disposition Disposition Code Departure Means Destination Auto Discharge documented in this encounter Progress Notes * Luzma Neri MD - 03/08/2011 1239 EDT Subjective: Patient ID: Alison Thornton is an 15 y.o. female. Chief Complaint Patient presents with ??? Heart Disease hx. of an ASD, s/p surgical closure 08/25/97. Here today for f/u. No concerns from mother. Has been healthy. Gets physical therapy at school twice a week - on the treadmill & with a ball. Gym class also. HPI We have followed Alison since infancy. She was initially seen for evaluation of a murmur and by examand echo she had a small muscular ventricular septal defect. 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 There has been spontaneous closure of her ventricular defect. She required surgical closure of the atrial defect. ligation of a small patent ductus arrteriosus and the LSVC was ligated so the deoxygenated blood no longer could reach the systemic circuit. She has a right SVC as well. Alison tolerated her surgery well and has not had any significant cardiac abnormalities. She is here for a routinely scheduled visit. Alison is due to have another surgical procedure for her scoliosis at [facility]. This will be her 10th or 11th surgery for spinal surgery and she has had an excellent result. There have been no anesthetic complications. Her other medical history includes developmental delay and she has really come along well with a 1:1 Aide and is using a talking board for communication in addition to speech. She is followed by Dr. Donaldson for osteopenia. There have been two humeral fractures since our last visit. There is no history of apparent chest pains, palpitations, a racing heart, dizzy spells or syncope. She has not had a decline in exercise tolerance and is not easily fatigued or short of gloria ath.There have been no hospitalizations. Patient Active Problem List Diagnoses ??? Developmental delay ??? Scoliosis ??? Spitz nevus ??? 2q partial monosomy syndrome ??? Mitral valve regurgitation ??? Hearing impairment Past Medical History Diagnosis Date ??? ASD (atrial septal defect) 08/14/2009 ??? Hydrocephalus 08/14/2009 ??? Strabismus ? ? Fracture of arm 2009 & 2009 fractured each arm - almost a year apart - fall 1st time, ? second injury- not witnessed ??? Osteopenia [address] Donaldson re. this ??? 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 Asd repair 08/25/97 This was performed with a pericardial patch of the ASD. She has had a small residual ventricular atrial septal defect with no other cardiovascular abnormality. 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 The left superior vena cava was ligated, as well as ligation of the patent ductus arteriosus. ??? Spine surgery first was 05/2005, most recent 02/2010 multiple procedures for scoliosis ??? Tympanostomy tube placement 2005 ??? Dental surgery 2000 Family History Family Problem Relation Name Age of Onset Comments Source as of 03/06/2011 Diabetes Other [facility]GGM T2 Provider Glaucoma Other MGGM Provider High Blood Pressure Other MGGM Provider High Cholesterol Other MGGM Provider Heart Disease Other MGGM has had two CT's Provider Recurrent Fractures Neg Hx Provider Osteoporosis Neg Hx Provider Urolithiasis Neg Hx Provider Hearing Loss Neg Hx Provider Thyroid Disease Neg Hx Provider High Blood Pressure Maternal Grandfather Provider High Cholesterol Maternal Grandfather Provider Diabetes Maternal Grandfather borderline Provider Cancer Paternal Grandfather ? prostate Provider Cancer Other [facility] cancer in the spine Provider Family Status Relation Name Status Age Comments Source as of 03/06/2011 Other MGGM Alive Provider Mother Alive Provider Father Alive Provider Sister Torsten Alive -04/23/2008, half sib dad's, healthy Provider Brother Frankie Alive -10/29/89, healthy Provider Maternal Grandmother Alive Provider Maternal Grandfather Alive Provider Paternal Grandmother Alive Provider Paternal Grandfather Alive Provider Brother Corby Alive -10/07/90, healthy Provider Other MGGF Provider Social Social History ??? Lives with Equally between both parents' homes ? ? Other individuals living in the home mother's partner in mom's house/ dad's household his & their children ??? Parents status ??? Mother's name Delilah Santiago ??? Mother's employment [employer] master ??? Father's name Frankie Thornton Sr. ??? Father's employment Unemployed ??? Stepfather's name Osiel Cooper mother's partner ??? Stepfather's employment scrap carrier ??? Education Grade 8 ??? 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 Reported academic performance Doing well ? ? Pets Yes 2 dogs & guinea pig ??? Carpets Yes History Social History ??? Marital Status: Single Spouse Name: N/A Number of Children: N/A ??? Years of Education: N/A Occupational History ??? Not on file. Social History Main Topics ??? Smoking status: Never Smoker ??? Smokeless tobacco: Not on file ??? Alcohol Use: No ? exposure at dad's house ??? Drug Use: No limited for soda intake ??? Sexually Active: Other Topics Concern ??? Not on file Social History Narrative ??? No narrative on file Outpatient Prescriptions Marked as Taking for the 03/06/11 encounter (Office Visit) with Luzma Neri MD Medication Sig Dispense Refill ??? amoxicillin-clavulanate (AUGMENTIN) 500-125 mg per tablet Take 4 Tabs by mouth once. 4 tabs, 500 mg each for dentist appointment today ??? Cholecalciferol, Vitamin D3, 2,000 unit Cap Take 2,000 Units by mouth daily. 90 Cap 1 Allergies No Known Allergies Review of Systems Constitutional: Negative for fever, weight loss and malaise/fatigue. HENT: Negative for congestion. Eyes: Negative for discharge. Respiratory: Negative for cough, shortness of breath and wheezing. Cardiovascular: Negative for chest pain and palpitations. Gastrointestinal: Negative for abdominal pain. Genitourinary: Negative for dysuria. Musculoskeletal: Negative for myalgias. Skin: Negative for rash. Neurological: Negative for dizziness and seizures. Psychiatric/Behavioral: Negative for depression. Seems to be doing well with school secretary Objective: BP 111/58 Pulse 92 Resp 16 Ht 147.8 cm (58.19) Wt 48.6 kg (107 lb 2.3 oz) BMI 22.25 kg/m2 SpO2 100% LMP 02/28/2011 Body mass index is 22.25 kg/(m^2). Body surface area is 1.41 meters squared. 76.70% of growth percentile based on BMI-for-age. Normalized gadsdv-hoj-bteebwovn length data available only for age 0 to 36 months. 1.86% of growth percentile based on wadrgdw-vwt-qub. 39.64% of growth percentile based on pjljca-kqz-ktc. Physical Exam Constitutional: She appears well-developed and well-nourished. No distress. HENT: Head: Normocephalic. Mouth/Throat: No oropharyngeal exudate. Eyes: Conjunctivae are normal. Pupils are equal, round, and reactive to light. Only brief eye contact; has glasses on Neck: Normal range of motion. No JVD present. No thyromegaly present. Pulmonary/Chest: Effort normal and breath sounds normal. No respiratory distress. She has no wheezes. Abdominal: Soft. She exhibits no distension and no mass. Musculoskeletal: Normal range of motion. She exhibits no edema. Lymphadenopathy: She has no cervical adenopathy. Neurological: She is alert. She exhibits normal muscle tone. Coordination normal. Skin: No rash noted. Well healed sternotomy and spinal scars Psychiatric: She has a normal mood and affect. EKG - Sinus rhythm with normal intervals and QRS axis. No atrial enlargement, ventricular hypertrophy or ST, T wave changes of significance. (ECHO in 2009 revealed a very small residual atrial septal defect with no right ventricular volume overload. no residual patent ductus arteriosus, trivial mitral regurgitation with no mitral valve prolapse and normal biventricular systolic function.) Assessment: Alison is a young girl with a history of a secundum ASD that required surgical closure along with ligation of a left SVC draining into the left atrium that required ligation. There is no connecting vein readily seen so if central venous acces is required I would suggest using the right sided neck veins. She has had no post-operative difficulties and we do not anticipate any significant cardiac issues to develop in future. I like to follow patients for any change in history, exam or EKG. Alison has had a trivial residual atrial defect and mild mitral regurgitation and I would like to keep an eyeon these issues as well. There is no mitral regurgitation murmur today and I have not felt a follow-up echocardiogram is indicated at this time. Plan: We have suggested routine cardiology visit in another year. No restrictions to physical activity. SBE prophylaxis is indicated due to a residual atrial defect by the surgical patch. We encourage good daily oral hygiene as well as routine physical activity for overall cardiovascular health. Copy of today's letter to be sent to Dr. Khan @ [facility] in [place], [place]. documented in this encounter Procedure Notes * Manager Security, Scan - 03/18/2011 0846 ESTAssociated Order(s): ECG REPORT - SCANNED documented in this encounter Plan of Treatment Scheduled Orders Name Type Priority Associated Diagnoses Orde r Schedule EKG 12-LEAD ECG Routine ASD (atrial septal defect) Ordered: 03/06/2011 documented as of this encounter Procedures Procedure Name Priority Date/Time Associated Diagnosis Comments ECG REPORT - SCANNED 03/18/2011 8:46 EST documented in this encounter Results * ECG REPORT - SCANNED (03/18/2011 8:46 EST) 03/18/2011 8:46 EST Narrative Transcriptions Manager Security, Scan - 03/18/2011 8:46 EST Scan Manager Security PROCEDURE/MINOR SURG ICAL ORDERABLES documented in this encounter Visit Diagnoses Diagnosis ASD (atrial septal defect)- Primary Ostium secundum type atrial septal defect documented in this encounter Discontinued Medications Medication Sig Discontinue Reason Start Date End Da te SODIUM FLUORIDE (FLUORIDE TATI ORAL) Take by mouth daily. Discontinued by another clinician 12/26/2010 03/06/2011 documented as of this encounter Care Teams [employer] Supervisor Relationship Specialty Start Date End Date Deandra Ramos MD [address] [place] [phone] PCP - General 12/15/09 06/23/22 documented as of this encounter
--- OUTSIDE RECORDS SUMMARY | 2024-02-05 13:18 | XMS_ITS | Encounter Summary ---
Author Organization [facility] Address [address] [place] [address] Care Team Providers Care Boat Outfitter Name Role Phone Deandra Ramos MD Primary Care Provider [phone] Reason for Visit * Reason Onset Date Comments MEDICATION CHECK 11/10/2012 Encounter Details Date Type Department Care Team (Late st Contact Info) Description 11/10/2012 Telephone [facility] Main [place] [address], [place] [id number] Pradeep Castillo MD [address] [place] [address] [place] [phone] MEDICATION CHECK Social History Tobacco Use Types Packs/Day Years Used Date Smoking Tobacco: Never Alcohol Use Standard Drinks/Week Comments No 0 (1 standard drink = 0.6 oz pur e alcohol) Sex and Gender Information Value Date Recorded Sex Assigned at Not on file Gender Identity Not on file Sexual Orientation Not on file documented as of this encounter Ordered Prescriptions Prescription Sig Dispensed Refills Start Date End Da te mometasone (ELOCON) 0.1 % ointment Use topically as directed, one 45 gram tube 1 Tube 1 11/11/2012 04/04/2020 documented in this encounter Miscellaneous Notes * Telephone Encounter - Lucho Leavitt, RN - 11/11/2012 1456 EDT elecon oint [address] Dr. Castillo. * Telephone Encounter - Aneta Jones - 11/10/2012 1356 EDT Mom states that she was asked to call back with a medication that the patient is on and it's [place]-cortisone cream 2.5%. documented in this encounter Plan of Treatment Not on file documented as of this encounter Visit Diagnoses Not on filedocumented in this encounter Care Teams Boat Outfitter Relationship Specialty Start Date End Date Deandra Ramos MD [address] [place] [phone] PCP - General 12/15/09 06/23/22 documented as of this encounter
--- OUTSIDE RECORDS SUMMARY | 2024-02-05 13:18 | XMS_ITS | Encounter Summary ---
Author Organization [facility] Address [address] [place] [address] Care Team Providers Care Mattress Renovator Name Role Phone Baltazar Gaines MD Primary Care Provide r Reason for Visit * Reason Onset Date Comments Pre-Op Clearance 11/03/2023 Encounter Details Date Type Department Care Team (Late st Contact Info) Description 11/03/2023 Telephone [facility] Card[facility] - [facility] [address] [place] [address] Sánchez Leon MD [address] [place], [place] [address] [facility] [address] [place] [address] Pre-Op Clearance Social History Tobacco Use Types Packs/Day Years Used Date Smoking Tobacco: Never Smokeless Tobacco: Never Alcohol Use Standard Drinks/Week Comments No 0 (1 standard drink = 0.6 oz pur e alcohol) Interpersonal Safety Answer Date Record ed Physically Hurt Never 02/22/2020 Verbally Threaten Not on file 02/22/2020 Sex and Gender Information Value Date Recorded Sex Assigned at Not on file Gender Identity Not on file Sexual Orientation Not on file documented as of this encounter Miscellaneous Notes * Telephone Encounter - Erasto Diop RN - 11/03/2023 1554 EDT Clearance form signed and faxed back to [facility] * Telephone Encounter - Lin Ahn - 11/03/2023 1358 EDT Renata singh from [facility] requesting update on clearance for 11/04 endoscopies originally faxed on 10/30. Please call back to advise. documented in this encounter Plan of Treatment Not on file documented as of this encounter Visit Diagnoses Not on filedocumented in this encounter Care Teams Mattress Renovator Relationship Specialty Start Date End Date Baltazar Gaines MD [address] [place] [id number] PCP - General 06/24/22 documented as of this encounter
--- OUTSIDE RECORDS SUMMARY | 2024-02-05 13:18 | XMS_ITS | Encounter Summary ---
Author Organization [facility] Address [address] [place] [address] Care Team Providers Care Meeting Specialist Name Role Phone Baltazar Gaines MD Primary Care Provide r Reason for Visit * Cardiology (Routine/Next Available) - Closed Specialty Diagnoses / Procedures Referred By Contac t Referred To Contact Diagnoses H/O congenital atrial septal defect (ASD) repair Adult congenital heart disease Procedures CONGENITAL TRANSTHORACIC ECHO (TTE) COMPLETE [place] ECHO XTHORACIC,KENNY ANOM,COMPLETE Sánchez Leon MD [employer] [facility] [address] [place] [address] [facility] Referral ID Status Reason Start Date Expiration Date Visits Re quested Visits Authorized [id number] Closed 07/24/2022 1 1 Encounter Details Date Type Department Care Team (Latest Contact Info) Description 04/22/2023 7:15 EST Ancillary Procedure [facility] Cardiology - [address] [place] [address] H/O congenital atrial septal defect (ASD) repair; Adult congenital heart disease Social History Tobacco Use Types Packs/Day Years [...] Sign Reading Time Taken Comments Blood Pressure 122/81 04/22/2023 0802 EST Pulse - - Temperature - - Respiratory Rate - - Oxygen Saturation - - Inhaled Oxygen Concentration - - Weight 57.2 kg (126 lb) 04/22/2023 08 EST Height 152.4 cm (5') 04/22/2023 0802 EST Body Mass Index 24.61 04/22/2023 08 EST documented in this encounter Plan of Treatment Not on file documented as of this encounter Procedures Procedure Name Priority Date/Time Associated Diagnosis Comments CONGENITAL TRANSTHORACIC ECHO (TTE) COMPLETE Routine 04/22/2023 7:56 EST H/O congenital atrial septal defect (ASD) repair Adult congenital heart disease documented in this encounter Results * CONGENITAL TRANSTHORACIC ECHO (TTE) COMPLETE NO CONTRAST (04/22/2023 7:56 EST) Pathologist [facility] Mitral deceleration time 257 ms MERGE CARDIO LV Diastolic Volume 108 mL MERGE CARDIO LV Systolic Volume 44 mL MERGE CARDIO Mitral A-wave peak velocity 0.5 m/s MERGE CARDIO Mitral E-wave peak velocity 0.8 m/s MERGE CARDIO Mitral peak gradient, D 3 mmHg MERGE CARDIO Stroke volume (SV), LVOT DP 69 ml MERGE CARDIO LVOT VTI, S 27.3 cm MERGE CARDIO LVOT peak velocity, S 1.3 m/s MERGE CARDIO LVOT area 2.5 cm2 MERGE CARDIO LVOT ID, S 1.8 cm MERGE CARDIO LV IVRT, DP 74 msec MERGE CARDIO AV LVOT peak gradient 6 mmHg MERGE CARDIO LVOT mean gradient, S 4 mmHg MERGE CARDIO LV ejection fraction, 1-p A4C 60 % MERGE CARDIO LV ejection fraction, 1-p A2C 61 % MERGE CARDIO Aortic root ID 2.1 cm MERGE CARDIO EF 61 % MERGE CARDIO LV ID, ES, PLAX 3.3 2.1 - 4.0 cm MERGE CARDIO LV PW thickness, ED, PLAX 0.9 0.6 - 1.1 cm MERGE CARDIO LV ID, ED, PLAX 4.8 3.5 - 6.0 cm MERGE CARDIO LVIDD BY MMODE 4.8 cm MERGE CARDIO LA volume/bsa, ES, BP 18.0 ml/m2 MERGE CARDIO LA volume, ES, BP 27.0 ml MERGE CARDIO LA volume/bsa, ES, A4C 17.0 ml/m2 MERGE CARDIO LA Atrial Area A2C 12.0 cm2 MERGE CARDIO LA Atrial Length A2C 4.0 cm MERGE CARDI O LA volumes, ES, A4C 27.0 ml MERGE CARDIO LA Atrial Area A4C 12.0 cm2 MERGE CARDIO LA Atrial Length A4C 3.9 cm MERGE CARDI O Pulmonic valve mean velocity, S 1 cm/s MERGE CARDIO LA ID, A-P, ES 2.8 cm MERGE CARDIO LV end-diastolic volume, 1-p A4C 56 ml MERGE CARDIO LV end diastolic volume 1-p A2C 56 ml MERGE CARDIO Stroke index (SV/bsa) LVOT DP 45.0 ml/m2 MERGE CARDIO LA/aortic root ratio 1.33 MERGE CARDI O LV E/e', medial 9.7 MERGE CARDIO LV e', lateral 14.00 m/s MERGE CARDIO LV e', medial 9.70 m/s MERGE CARDIO LVOT mean velocity, S 0.9 m/s MERGE CARDIO Interventricular Septum to Posterior Wall Thickness Ratio 1 MERGE CARDIO Anatomical Region Laterality Modality Ultrasound Narrative 04/22/2023 8:43 EST ?Left??Ventricle: The left ventricular cavity was normal in size. Left ventricular systolic function was normal with an ejection fraction of 60-65%. The left ventricular estimated ejection fraction by biplane Barnes's method was 61%. Left ventricular diastolic parameters were normal. ?Right??Ventricle: The right ventricular cavity was normal in size. Right ventricular systolic function was normal. Normal tricuspid annular plane systolic excursion (TAPSE) >1.7 cm. Normal RV S' >9.5cm/s. ?Left??Atrium: There was no evidence of residual flow across the surgically repaired atrial septal defect. ?Pulmonic??Artery: Pulmonary systolic pressure was within the normal range, estimated to be 25 mmHg. Left Ventricle The left ventricular cavity was normal in size. Left ventricular systolic function was normal with an ejection fraction of 60-65%. The left ventricular estimated ejection fraction by biplane Barnes's method was 61%. Left ventricular diastolic parameters were normal. Left ventricular wall thickness was normal. Left ventricular wall motion was normal; there were no regional wall motion abnormalities. Right Ventricle The right ventricular cavity was normal in size. Right ventricular systolic function was normal. Normal tricuspid annular plane systolic excursion (TAPSE) >1.7 cm. Normal RV S' >9.5cm/s. Right ventricular wall thickness was normal. Left Atrium The left atrium was normal in size. There was no evidence of residual flow across the surgically repaired atrial septal defect. Right Atrium The right atrium was normal in size. IVC/SVC The inferior vena cava was normal in size. Mitral Valve Mitral valve structure was normal. There was trace mitral regurgitation. There was no significant mitral valve stenosis. Tricuspid Valve Tricuspid valve structure was normal. There was trace tricuspid valve regurgitation. There was no tricuspid valve stenosis. Aortic Valve The aortic valve structure was probably trileaflet. The aortic leaflets were not thickened. There was no aortic valve stenosis. There was trace aortic valve regurgitation. Pulmonic Valve There was no significant pulmonic valve regurgitation. There was no pulmonic valve stenosis. Ascending Aorta The aortic root was normal in size. The transverse aorta was normal in size. Pericardium There was no pericardial effusion. Pulmonic Artery Pulmonary systolic pressure was within the normal range, estimated to be 25 mmHg. Study Details Study status: Routine. Transthoracic echocardiography. M-Mode, complete 2D, complete spectral Doppler, and color Doppler.The study was interpreted by [facility]. Pertinent images and digital data are archived for permanent storage and are available for subsequent review. Scanning was performed from the apical, parasternal, subcostal and suprasternal acoustic windows. Overall the study quality was adequate. The study was difficult due to patient body habitus. Images were obtained using cardiac ultrasound machine EPIQ #12. Sánchez Leon MD CARDIAC ECHO O RDERABLES documented in this encounter Visit Diagnoses Diagnosis H/O congenital atrial septal defect (ASD) repair Adult congenital heart disease Unspecified congenital anomaly of heart documented in this encounter Care Teams Meeting Specialist Relationship Specialty Start Date End Date Baltazar Gaines MD [address] [facility] [address] [place] [address] PCP - General 06/24/22 documented as of this encounter
--- OUTSIDE RECORDS SUMMARY | 2024-02-05 13:18 | XMS_ITS | Encounter Summary ---
Author Organization [facility] Address [address] [place] [address] Care Team Providers Care Research Manager Name Role Phone Deandra Ramos MD Primary Care Provider [phone] Reason for Referral * Cardiology (Routine) - Closed Specialty Diagnoses / Procedures Referred By Camacho murray Referred To Contact Cardiology / Pediatric Cardiology Diagnoses ASD (atrial septal defect) Procedures CONGENITAL ECHOCARDIOGRAM OK ECHO XTHORACIC,KENNY ANOM,COMPLETE OK DOPPLER ECHO HEART,COMPLETE OK DOPPLER COLOR FLOW VELOCITY MAP Luzma Singh MD [facility] Ep4 Pedi Cardiology [address] [place] [id number] Referral ID Status Reason Start Date Expiration Date Visits Re quested Visits Authorized [id number] Closed 01/31/2014 1 1 Reason for Visit * Reason Comments 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 Mild M.R. Hx. of scoliosis, mult. surgeries. No new health history to report. Has gym class at school, no sports or other physical activity. Encounter Details Date Type Department Care Team (Late st Contact Info) Description 01/31/2014 12:00 EDT Office Visit [facility] [place] [address] Luzma Singh MD ASD (atrial septal defect) (Primary Dx) [...] Sign Reading Time Taken Comments Blood Pressure 108/66 01/31/2014 1214 EDT r. 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 female. Chief Complaint Patient presents with ??? 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 Mild M.R. Hx. of scoliosis, mult. surgeries. No new health history to report. Has gym class at school, no sports or other physical activity. Salty has generally been well with no change in her exercise tolerance. She enjoys riding the Trike her family bought last year and she is no easily fatigued or short of breath. She has had no newmedical problems and mostly is seen for her conductive hearing loss and ear infections. Her mother has been doing a great job helping avoid cerumen impaction. Juan does not like to brush her teeth, however her parents have been diligent about brushing the mat least once a day and she sees the dentist every 3 months. There have been no apparent chest pain or dizzy spells and she has not experience syncope. Her scoliosis repair has healed well and she has no interventions planned in the forseeable future. She takes vitamin D for osteopenia Juan has a modified gym class and she seems to enjoy this. She will be able to stay in her school for several more years on her IEP. Her mother and step father relay no concerns today. Patient Active Problem List Diagnosis ??? Developmental delay ??? Scoliosis ??? 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 Mitral valve insufficiency ??? Hearing loss ??? Status post patch closure of atrial septal defect Past Medical History Diagnosis Date ??? ASD [...] chromosome 2 None Past Surgical History Procedure Laterality Date ??? Asd repair 08/25/97 Dr. Gonzalez @ [facility] This was performed with a pericardial patch of the ASD. She has had a small residual ventricular atrial septal defect with no other cardiovascular abnormality. 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 The left superior vena cava was ligated, as well as ligation of the patent ductus arteriosus. ??? Spine surgery first was 05/2005, most recent 02/2010 multiple procedures for scoliosis ??? Tympanostomy tube placement 2005 ??? Dental surgery 2000 ??? Hx atrial septal defect repair ??? Mastoidectomy 10/22/2005 Left CWD tympanomastoidectomy, absent stapes superstructure, Dr. 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 Father's name Frankie Parker Sr. ??? Father's employment Unemployed ??? Stepfather's name Osiel Cooper mother's partner ??? Stepfather's employment bat carrier ??? Education Grade 11 ? ? Educational Aides 1-to-1 aide PT, OT & INSURANCE APPLICATION INVESTIGATOR at school ??? Reported academic performance Doing well ??? Pets Yes 2 dogs ??? Carpets Yes History Social History ??? Marital Status: Single Spouse Name: N/A Number of Children: N/A ??? Years of Education: N/A Occupational History ??? Not on file. Social History Main Topics ??? Smoking status: Never Smoker ??? Smokeless tobacco: Not on file ??? Alcohol Use: No ??? Drug Use: No Comment: caffeine -limited for soda intake ??? Sexual Activity: Not on file Other Topics Concern ??? Not on file Social History Narrative ??? No narrative on file Outpatient Prescriptions Marked as Taking for the 01/31/14 encounter (Office Visit) with Luzma Singh MD Medication Sig Dispense Refill ??? Cholecalciferol, Vitamin D3, 2,000 unit Cap Take 2,000 Units by mouth daily. 90 Cap 1 ??? PEG 3350-Electrolytes (MIRALAX) 17 gram packet Take 17 g by mouth daily. No Facility-Administered Medications for the 01/31/14 encounter (Office Visit) with Luzma Singh MD. Allergies No Known Allergies ROS 10 point ROS performed with pertinent positives and negatives in HPI Objective: BP 108/66 Pulse 76 Resp 20 Ht 149.7 cm (58.94) Wt 56.4 kg (124 lb 5.4 oz) BMI 25.17 kg/m2 SpO2 100% LMP 01/18/2014 Body mass index is 25.17 kg/(m^2). Body surface area is 1.53 meters squared. 84%ile (Z=0.99) based on CDC 2-20 Years BMI-for-age data. Normalized mylcix-cvo-hptukcvfv length data available only for age 0 to 36 months. 2%ile (Z=-2.06) based on CDC 2-20 Years qckjfyg-vsn-pir data. 53%ile (Z=0.09) based on CDC 2-20 Years cxqrgx-rfr-wfh data. No flowsheet data found. Physical Exam Constitutional: She appears well-developed and well-nourished. No distress. Cooperative and speaks slow single words to me with nasal phonation. HENT: Head: Normocephalic. Hearing aids in place; fair oral hygiene with plaque noted Eyes: Conjunctivae and EOM are normal. Neck: Normal range of motion. No JVD present. No tracheal deviation present. No thyromegaly present. Cardiovascular: Normal precordial impulse with no bulge, pectus or thrill. The heart sounds are regular with normalintensity and normal S2 split and closure. There is no click or ectopy. There is only a very soft grade 1/6 early systolic murmur heard at the LLSB when seated. There is no radiation of the murmur and no diastolic murmur or rub is present. The pulses are equal in the upper and lower extremities without delay. There is no JVD or hepatomegaly. Pulmonary/Chest: Effort normal and breath sounds normal. No respiratory distress. She has no wheezes. Abdominal: Soft. She exhibits no distension and no mass. Musculoskeletal: Normal range of motion. She exhibits no edema. Lymphadenopathy: She has no cervical adenopathy. Neurological: She is alert. She exhibits normal muscle tone. Coordination normal. Skin: Skin is warm. No rash noted. Well healed, thin sternal scar Psychiatric: She has a normal mood and affect. EKG - Sinus rhythm vs low right atrial rhythm with mild interventricular conduction delay with normal intervals and QRS axis. No atrial enlargement, ventricular hypertrophy or ST, T wave changes of significance. ECHO - On initial review, there is no residual atrial septal defect noted. She has no structural abnormality is identified. There is mild mitral and tricuspid regurgitation.There are normal chamber sizes with normal biventricular systolic function Assessment and Plan: In summary, Juan is a young girl who has undergone surgical closure of an atrial septal defect with no residual septal defect noted at this time. She has mild mitral regurgitation by echocardiogram that is a bit easier to appreciate on todays study but is not associated with any murmur of significance She has no residual cardiac defect that should place her at and increased risk for endocarditis, however we again reviewed the importance of good daily oral hygiene. SBE prophylaxis is no longer suggested given her echo today and the fact that pericardium was used for her atrial defect closure.I would suggest a visit in another 2 years for repeat exam, EKG and tentative echocardiogram. In the interim we are certainly available if there is any questions or concerns about her cardiovascular status or there is any murmur suggesting increase AV valve regurgitation. No restrictions are placedon her activities and I would encourage her continued participation in physical activities. documented in this encounter Plan of Treatment Not on file documented as of this encounter Procedures Procedure Name Priority Date/Time Associated Diagnosis Comments ECG REPORT - SCANNED 02/02/2014 9:56 EDT CONGENITAL ECHOCARDIOGRAM Routine 01/31/2014 12:35 EDT ASD (atrial septal defect) EKG 12-LEAD Routine 01/31/2014 12:17 EDT ASD (atrial septal defect) documented in this encounter Results * ECG REPORT - SCANNED (02/02/2014 9:56 EDT) 02/02/2014 9:56 EDT Scan 2 Hearing Screener PROCEDURE/MINOR GISELA GICAL ORDERABLES * CONGENITAL ECHOCARDIOGRAM (01/31/2014 12:35 EDT) Anatomical Region Laterality Modality Other 01/31/2014 12:3 5 EDT Narrative 02/01/2014 15:22 EDT Patient Name: JUAN PARKER Chart Number: [id number] Site Location: Date of Appt: Friday, January 31, 2014, 12:35 PM Pediatric Echocardiogram Report Demographics and Visit Data: : 1995. ??Age: 18y/5m/12d. ??Sex: F. ??BSA (m 2): 1.55. ?? Height (cm): 149.7. ??Weight (kg): 56.4. ??BMI (kg/m 2): 25.17. ?? Height Centile: 1.32. ??Weight Centile: 48.29. ??Person requesting test: EL COWART MD. ?? Slater Apprentice: Linda Baeza. ??Reason for test: 745.5-Ostium secundum type atrial septal nqfalo-XSO-1-CM; ASD repair. ?? 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 LSVC. ??Procedure Description: CONGENITAL ECHOCARDIOGRAM. ?? Summary: Difficult parasternal and suprasternal notch echocardiogram images. 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 No residual atrial septal defect or patent ductus arteriosus seen. Very mild mitral regurgitation with mildly redundant mitral valve with no mitral valve prolapse. Very mild tricuspid regurgitation with low estimated right ventricular pressure. Normal Doppler study of the other intracardiac valves. Normal left ventricular size, wall thickness and systolic function. Qualitatively good right ventricular systolic function. Complete 2-dimensional study performed, with pulse/continuous wave Doppler samplings, and color flow Doppler imaging reviewed. Findings: ?? Veins and Atria: ?? >> Superior vena cava entering left atrium Status post ligation of the left superior vena cava. There is brief color demonstrated in the innominate vein. No imaging or color Doppler is seen in the right superior vena cava likely due to limited suprasternal notch images. ?? >> S/p secundum atrial septal defect surgery There is no residual atrial septal defect detected by images or color Doppler. ?? >> Normal Left Atrium >> Normal Right Atrium ?? A-V Canal: ?? >> Mitral regurgitation, mild The mitral valve is mildly thickened with leaflets that superintendent meters towards the left atrium with no mitral valve prolapse demonstrated. There is very mild mitral regurgitation demonstrated by color Doppler. ?? >> Tricuspid regurgitation, mild Very mild tricuspid regurgitation. By tricuspid regurgitation jet, the estimated right ventricular pressure is approximately 21 mmHg plus right atrial pressure. ? Ventricles: ?? >> Left ventricular dysfunction, ruled out Difficult parasternal imaging. The left ventricular function is brisk with no regional wall motion abnormalities identified. ?? >> Left ventricular dilation or enlargement, ruled out >> Right ventricular dysfunction global, ruled out Qualitatively preserved right ventricular function. ?? >> Right ventricular dilation or enlargement, ruled out On limited images, the right ventricular size does not appear enlarged. ? Conotruncus: ?? >> Aortic regurgitation, ruled out >> Pulmonary stenosis, ruled out Only the very proximal branch pulmonary arteries are seen with no pulmonary stenosis identified. ? Great Arteries: ?? >> Left aortic arch No coarctation noted. ?? >> S/p patent ductus arteriosus surgery No residual patent ductus arteriosus flow seen. ?? >> Normal Aorta Adjacent to the aortic valve. ? Pericardium: ?? (No abnormalities seen) ?? Measures: ?? Systemic Arterial Function: ?? Name ?Value ?Units ?Z-Score ?Min ?Max ?? Systolic BP ? 108 ?mmHg ? 0.05 ? 83.75 ??131.04 ?? Diastolic BP ?66 ? mmHg ? 1.1 ?36.67 ??74.31 ?? Pulse Pressure ?42.00 ?mmHg ? Mean BP ? 80.0 ? mmHg ? 0.09 ? 58.11 ??99.93 ? M-Mode: ?? Name ?Value ?Units ?Z-Score ?Min ?Max ?? LV Diastolic Septal ? 0.86 ? cm ? -0.21 ?0.63 ?? 1.15 ?? Thickness M-Mode LV Diastolic ? 4.61 ? cm ? -0.33 ?4.05 ?? 5.4 ?? Dimension LV Diastolic Wall ? 0.80 ? cm ? -0.31 ?0.61 ?? 1.06 ?? Thickness M-Mode LV Systolic ?3.00 ? cm ? -0.15 ?2.42 ?? 3.68 ?? Dimension LV Fractional Shortening ?34.92 ?% ?-0.03 ?28.82 ??42.57 ?? M-Mode LV Mass / Height 2 ? 55.41 ?g/m 2 ? Relative Wall Thickness ? 0.36 ? LV Systolic Function: ?? Name ?Value ?Units ?Z-Score ?Min ?Max ?? Endocardial FS ?34.92 ?% ?-0.03 ?28.82 ??42.57 ?? FS Vs Stress ?34.92 ?% ? Cardiac Geometry: ?? Name ?Value ?Units ?Z-Score ?Min ?Max ?? M-Mode LV Mass ?124.17 ?? gm ? -0.32 ?89.99 ??194.29 ?? M-Mode LV Mass Index ?80.11 ?g/m 2 ? LV Midwall Diastolic ?5.41 ? cm ? -0.43 ?4.89 ?? 6.23 ?? Dimension M-Mode LV Mass / Height ? 82.94 ?g/m ? M-Mode LV Mass / ?41.77 ?g/m ? 19.4 ?? 38.6 ?? Height 2.7 ?? Aorta: ?? Name ?Value ?Units ?Z-Score ?Min ?Max ?? Ao Annulus Diameter ? 1.76 ? cm ? -1.05 ?1.6 ?2.31 ?? Ao Root Diameter ?2.60 ? cm ? 0.1 ?2.02 ?? 3.13 ?? AV Area (using Diameter) ?2.43 ? cm 2 ? Sinotubular Junction ?2.43 ? cm ? 0.83 ? 1.73 ?? 2.71 ?? Diameter Ascending Ao Diameter ? 2.51 ? cm ? 0.62 ? 1.8 ?2.88 ? Analysis Aortic Valve Doppler: ?? Name ?Value ?Units ?? AV Area (using Diameter) ?2.43 ? cm 2 ? [place]'s Name: LUZMA SINGH MD Date/time of reading: Feb 01 2014 - 3:21:12 PM Report created at 3:23:01 PM on Saturday, February 01, 2014 Report Number: Note:Study interpreted at [facility] unless otherwise noted Procedure Note 02/01/2014 Patient Name: JUAN PARKER Chart Number: [id number] Site Location: Date of Appt: Friday, January 31, 2014, 12:35 PM Pediatric Echocardiogram Report Demographics and Visit Data: : 1995. Age: 18y/5m/12d. Sex: F. BSA (m 2): 1.55. Height (cm): 149.7. Weight (kg): 56.4. BMI (kg/m 2): 25.17. Height Centile: 1.32. Weight Centile: 48.29. Person requesting test: EL COWART MD. Slater Apprentice: Linda Baeza. Reason for test: 745.5-Ostium secundum type atrial septal melpxe-UXN-1-CM; ASD repair. 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 LSVC. Procedure Description: CONGENITAL ECHOCARDIOGRAM. Summary: Difficult parasternal and suprasternal notch echocardiogram images. 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 No residual atrial septal defect or patent ductus arteriosus seen. Very mild mitral regurgitation with mildly redundant mitral valve with no mitral valve prolapse. Very mild tricuspid regurgitation with low estimated right ventricular pressure. Normal Doppler study of the other intracardiac valves. Normal left ventricular size, wall thickness and systolic function. Qualitatively good right ventricular systolic function. Complete 2-dimensional study performed, with pulse/continuous wave Doppler samplings, and color flow Doppler imaging reviewed. Findings: Veins and Atria: >> Superior vena cava entering left atrium Status post ligation of the left superior vena cava. There is brief color demonstrated in the innominate vein. No imaging or color Doppler is seen in the right superior vena cava likely due to limited suprasternal notch images. >> S/p secundum atrial septal defect surgery There is no residual atrial septal defect detected by images or color Doppler. >> Normal Left Atrium >> Normal Right Atrium A-V Canal: >> Mitral regurgitation, mild The mitral valve is mildly thickened with leaflets that superintendent meters towards the left atrium with no mitral valve prolapse demonstrated. There is very mild mitral regurgitation demonstrated by color Doppler. >> Tricuspid regurgitation, mild Very mild tricuspid regurgitation. By tricuspid regurgitation jet, the estimated right ventricular pressure is approximately 21 mmHg plus right atrial pressure. Ventricles: >> Left ventricular dysfunction, ruled out Difficult parasternal imaging. The left ventricular function is brisk with no regional wall motion abnormalities identified. >> Left ventricular dilation or enlargement, ruled out >> Right ventricular dysfunction global, ruled out Qualitatively preserved right ventricular function. >> Right ventricular dilation or enlargement, ruled out On limited images, the right ventricular size does not appear enlarged. Conotruncus: >> Aortic regurgitation, ruled out >> Pulmonary stenosis, ruled out Only the very proximal branch pulmonary arteries are seen with no pulmonary stenosis identified. Great Arteries: >> Left aortic arch No coarctation noted. >> S/p patent ductus arteriosus surgery No residual patent ductus arteriosus flow seen. >> Normal Aorta Adjacent to the aortic valve. Pericardium: (No abnormalities seen) Measures: Systemic Arterial Function: Name Value Units Z-Score Min Max Systolic BP 108 mmHg 0.05 83.75 131.04 Diastolic BP 66 mmHg 1.1 36.67 74.31 Pulse Pressure 42.00 mmHg Mean BP 80.0 mmHg 0.09 58.11 99.93 M-Mode: Name Value Units Z-Score Min Max LV Diastolic Septal 0.86 cm -0.21 0.63 1.15 Thickness M-Mode LV Diastolic 4.61 cm -0.33 4.05 5.4 Dimension LV Diastolic Wall 0.80 cm -0.31 0.61 1.06 Thickness M-Mode LV Systolic 3.00 cm -0.15 2.42 3.68 Dimension LV Fractional Shortening 34.92 % -0.03 28.82 42.57 M-Mode LV Mass / Height 2 55.41 g/m 2 Relative Wall Thickness 0.36 LV Systolic Function: Name Value Units Z-Score Min Max Endocardial FS 34.92 % -0.03 28.82 42.57 FS Vs Stress 34.92 % Cardiac Geometry: Name Value Units Z-Score Min Max M-Mode LV Mass 124.17 gm -0.32 89.99 194.29 M-Mode LV Mass Index 80.11 g/m 2 LV Midwall Diastolic 5.41 cm -0.43 4.89 6.23 Dimension M-Mode LV Mass / Height 82.94 g/m M-Mode LV Mass / 41.77 g/m 19.4 38.6 Height 2.7 Aorta: Name Value Units Z-Score Min Max Ao Annulus Diameter 1.76 cm -1.05 1.6 2.31 Ao Root Diameter 2.60 cm 0.1 2.02 3.13 AV Area (using Diameter) 2.43 cm 2 Sinotubular Junction 2.43 cm 0.83 1.73 2.71 Diameter Ascending Ao Diameter 2.51 cm 0.62 1.8 2.88 Analysis Aortic Valve Doppler: Name Value Units AV Area (using Diameter) 2.43 cm 2 [place]'s Name: LUZMA SINGH MD Date/time of reading: Feb 01 2014 - 3:21:12 PM Report created at 3:23:01 PM on Saturday, February 01, 2014 Report Number: Note:Study interpreted at [facility] unless otherwise noted Luzma Singh MD CARDIAC ECHO ORDERA BLES * EKG 12-LEAD (01/31/2014 12:17 EDT) 01/31/2014 12:1 7 EDT Narrative [facility] EKG - 01/31/2014 20:38 EDT ?[facility] ? Test Date: ?2014-01-31 Pat Name: ? JUAN PARKER ?Department: ?? [facility] ? Room: ? Gender: ? F ?Automat Car Attendant: ?? [id number] : ?1995 ? Requested By: LUZMA SINGH MD Order Number: [id number] ?Reading : ?? LUZMA SINGH MD ? Measurements Intervals ?[place] ? Rate: ? 69 ? P: ?6 OK: ? 93 ? QRS: ?14 QRSD: ? 86 ? T: ?24 QT: ? 389 ? QTc: ?418 ? Interpretive Statements SINUS RHYTHM mild interventricular conduction delay Compared to ECG 05/29/2012 08:49:08 No significant changes I reviewed the tracing and agreed or edited the report. Electronically Signed On 01-31-14 20:38:58 EDT by LUZMA SINGH MD. Procedure Note Luzma Singh MD - 01/31/2014 [facility] Test Date: 2014-01-31 Pat Name: JUAN PARKER Department: Pedi-Card Room: Gender: F Automat Car Attendant: [id number] : 1995 Requested By: LUZMA SINGH MD Order Number: [id number] Reading MD: LUZMA SINGH MD Measurements Intervals [place] Rate: 69 P: 6 OK: 93 QRS: 14 QRSD: 86 T: 24 QT: 389 QTc: 418 Interpretive Statements SINUS RHYTHM mild interventricular conduction delay Compared to ECG 05/29/2012 08:49:08 No significant changes I reviewed the tracing and agreed or edited the report. ElectronicallySigned On 01-31-14 20:38:58 EDT by LUZMA SINGH MD. Luzma Singh MD CARDIAC ECG ORDERAB LES [facility] EKG documented in this encounter Visit Diagnoses Diagnosis ASD (atrial septal defect)- Primary Ostium secundum type atrial septal defect documented in this encounter Discontinued Medications Medication Sig Discontinue Reason Start Date End Da te Psyllium Seed-Sucrose (METAMUCIL) Powd Take by mouth. Taking 1 tablespoon daily Error 01/31/2014 documented as of this encounter Historical Medications * This list may reflect changes made after this encounter. Medication Sig Dispensed Refills Start Date End Date PEG 3350-Electrolytes (MIRALAX) 17 gram packet Take 17 g by mouth daily as needed. added in this encounter Care Teams Research Manager Relationship Specialty Start Date End Date Deandra Ramos MD [address] [place] [id number] PCP - General 12/15/09 06/23/22 documented as of this encounter
--- OUTSIDE RECORDS SUMMARY | 2024-02-05 13:18 | XMS_ITS | Encounter Summary ---
Author Organization [facility] Address [address] [place] [address] Care Team Providers Care Virtual Customer Assistant Name Role Phone Deandra Ramos MD Primary Care Provider [phone] Reason for Referral * Referral (Other (Specify in Question)) - Closed Specialty Diagnoses / Procedures Referred By Contact Referred To Contact Cardiovascular Disease / Cardiology Diagnoses Mitral regurgitation, congenital Status post patch closure of atrial septal defect S/P repair of PDA Halle, MD Carolyn Adair, Sánchez Ma MD [address] [place] [phone] Referral ID Status Reason Start Date Expiration Date V isits Requested Visits Authorized [id number] Closed Specialty Services Required 06/12/2020 1 1 Question Answer Reason for Request: transition to Dr. Leon dx: MR, hx PDA & ASD repair Scheduling Comments (optional ? describe specific scheduling needs if applicable): 3 years - 04/2023 Reason for Visit * Reason Onset Date Comments Referral Request 06/12/2020 Encounter Details Date Type Department Care Team (Late st Contact Info) Description 06/12/2020 Telephone [facility] Pediatric Cardiology - Main [place] [address] [place] [address] Arlin Cardoza, BETY [address] [place] [address] Referral Request Social History Tobacco Use Types Packs/Day Years [...] encounter Miscellaneous Notes * Telephone Encounter - Arlin Cardoza RN - 06/12/[address] Neri, f/u in [address] Leon. Order placed and routed to adult schedulers. documented in this encounter Plan of Treatment Scheduled Referrals Name Type Priority Associated Diagnoses Order Schedule AMB CONS/FOLLOW UP CARDIOLOGY Outpatient Referral Routine Mitral regurgitation, congenital Status Post Patch Closure Of Atrial Septal Defect S/P repair of PDA Expected: 04/11/2023 documented as of this encounter Visit Diagnoses Diagnosis Mitral regurgitation, congenital- Primary Congenital mitral insufficiency Status post patch closure of atrial septal defect Other postprocedural status S/P repair of PDA Other postprocedural status documented in this encounter Care Teams Virtual Customer Assistant Relationship Specialty Start Date End Date Deandra Ramos MD [address] [place] [phone] PCP - General 12/15/09 06/23/22 documented as of this encounter
--- OUTSIDE RECORDS SUMMARY | 2024-02-05 13:18 | XMS_ITS | Encounter Summary ---
Author Organization [facility] Address [address] [place] [address] Care Team Providers Care Order Builder Loader Name Role Phone Baltazar Gaines MD Primary Care Provide r Encounter Details Date Type Department Care Team (Late st Contact Info) Description 10/28/[address] [facility] Pelvic Medicine and Reconstructive Surgery - Medical Office [facility] [address] [place] [phone] Getachew Forrest MD [address] [facility], [address] [place] [address] Social History Tobacco Use Types Packs/Day Years [...] encounter Miscellaneous Notes * Telephone Encounter - Jamil Garrett - 10/28/2022 1047 EDT lmom to reschedule OV with Lon documented in this encounter Plan of Treatment Not on file documented as of this encounter Visit Diagnoses Not on filedocumented in this encounter Care Teams Order Builder Loader Relationship Specialty Start Date End Date Baltazar Gaines MD [address] [facility] [address] [place] [address] PCP - General 06/24/22 documented as of this encounter
--- OUTSIDE RECORDS SUMMARY | 2024-02-05 13:18 | XMS_ITS | Encounter Summary ---
Author Organization [facility] Address [address] [place] [address] Care Team Providers Care Looping Inspector Name Role Phone Deandra Ramos MD Primary Care Provider [phone] Reason for Visit * Reason Comments New Patient Visit excessivecrying * Consult (Routine) - Closed Specialty Diagnoses / Procedures Referred By Contleena t Referred To Contact Pediatric Neurology Diagnoses Hemiplegia, unspecified affecting unspecified side (HCC-CMS) Unspecified intellectual disabilities Deandra Ramos MD [address] [place] [phone] Provider, Pedi-Neuro Referral ID Status Reason Start Date Expiration Date Visits Re quested Visits Authorized [id number] Closed 1 1 Encounter Details Date Type Department Care Team (Late st Contact Info) Description 10/04/2016 14:45 EDT Office Visit [facility] Pediatric Neurology - [address] [id number] Sanket Maldonado MD [address] [place] [address], [facility] [address] [place] [phone] Obsessive-compulsive behavior (Primary Dx); 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 Discharge Disposition: Auto Discharge Social History Tobacco [...] Sign Reading Time Taken Comments Blood Pressure 106/62 10/04/2016 1459 EDT Pulse 58 10/04/2016 1459 EDT Temperature - - Respiratory Rate 16 10/04/2016 1459 EDT Oxygen Saturation - - Inhaled Oxygen Concentration - - Weight 55.3 kg (122 lb) 10/04/2016 1459 EDT Height 151.9 cm (4' 11.8) 10/04/2016 1459 EDT Body Mass Index 23.99 10/04/2016 1459 EDT documented in this encounter Discharge Diagnoses Diagnosis R46.81 Obsessive-compulsive behavior-R46.81[ICD-10-CM] F79 Unspecified intellectual disabilities-F79[ICD-10-CM] F80.9 Developmental disorder of speech and language, unspecified-F80.9[ICD-10-CM] documented in this encounter Ordered Prescriptions Prescription Sig Dispensed Refills Start Date End Da te clonazePAM (KLONOPIN WAFERS) 0.125 mg disintegrating tablet Take 1 Tab by mouth as needed for Anxiety. Daily Max: 0.25 mg 12 Tab 1 10/04/2016 04/22/2023 documented in this encounter Discharge Disposition Disposition Code Departure Means Destination Auto Discharge documented in this encounter Progress Notes * Sanket Maldonado MD - 10/04/2016 1445 EDT General: No adenopathy, normal range of motion, no remarkable skin lesions, normal heart sounds, easy clear respirations, no mucosal lesions, good peripheral pulses, benign abdomen. Neurological Exam Active, non-verbal, doesn't clearly or consistently follow commands;without dyskinesias Full eye movements, good red reflex, face symmetric, tongue midline Normal tone, reflexes This office note has been dictated. 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 Unfortunately, I had to start about 30 minutes late for our scheduled visit, but the family was patient, and we had time to push into the next hour and over a net 60-minute visit, I spent 32 minutes in coordination of care regarding behavioral approaches to what seems to be an increased reactivity rather than a pseudobulbar affect, per se; options for pharmacotherapeutic approach including sertraline or clonazepam where we settled on a trial of clonazepam and I reviewed side effects, emphasizing sedation or dangerous effect on respiration at high doses; the basis of my impression that this is not pseudobulbar affect, per se, and represents a dimension of baseline tenacious OCD, as her parents' put it, style or temperament, natural course of her signs and symptoms that are of concern and the essential family core value is at stake and their concern about what has emerged in the last 2 years, persistent tearfulness in certain circumstances. We also had a detailed discussion about a p.r.n. approach to pharmacotherapy versus daily medicine and the trial nature of this approach and side effects of SSRIs including increased irritability, depression or suicidality. The full details of her pre and history and early developmental history are as per medical record, incoming, and we spent most of our time discussing her emotional reactions. She has had remotely in her life history the cardiac surgery at [facility]. She is described as always having had some degree of a rigid temperament and having resistance to change, though in other respects in terms of her social interactiveness, understanding of her family's emotions and empathy for them, she does not have a clear picture of autism, but we did spend some time discussing the autistic-type features that she has and the idea of an autistic spectrum and thepros and cons or value of such a diagnosis in this setting and that was not the main focus of the visit. For instance, in terms of her rigidity, the position of a garbage can in the home, a bed time ritual, checking rooms at departure, irritability with self- limited fusses that may go on for 2 minutes or up to an hour when routines are changed and both self-directed and outwardly directed aggression in that setting, throwing a fit, spitting, self picking. With this and independent of these reactive mood changes, she has repetitive phrases, what might be termed echolalia to doctors for example on the way into the visit today. She has nice ready way of laughing and smiling and in an appropriate context, and it seems that hercrying behavior which can be surprisingly tenacious is uniformly in reaction to certain settings, thus contradicting the initial sense it makes no sense, there is no reason, which is really to say I think from the parents own account that the precipitants are relatively small. She also has some tics including a shoulder tic and some eye movements that fit in a general way with developmental delay with an obsessive-compulsive temperamental style. We took some time to discuss the threshold between temperament style and disorder in the setting of obsessive-compulsive behaviors, and it is not entirely clear to me that she does warrant a diagnosis of OCD, but she certainly approaches that borderline considering the troubles that arise because of her tenacious fixation on certain details. Other than mother's history of tic, there is no other relevant family history here and I infer thatthe chromosome anomaly is a new event. Developmentally, she is said to span ages 2 to 4 chronologically. Medical history is remarkable for no other surgeries. She is said to have had hydrocephalus that was shunted, chromosome anomaly, congenital heart disease and previous MRI and I will review those. She has some ability to self regulate and reflect upon her crying behavior, which is promising in terms of any approach to promote her own creative habits such as drawing or painting to help integrate these behaviors in this scheme and continuity of her experiences, though she could learn to regulate them better, which I think she probably can, as opposed to a pharmacotherapeutic approach. The family has worked with behavior therapists in detail and it seems that they are at a point where they feel that all behavioral management type approaches have been tried and failed, and I did not explore that in greater detail with them. Examination shows mildly decrease resting tone, motor incoordination, definitively immature speech patterns relative to her chronologic age, but a nice sociable way and good eye contact, and she is patient in the course of the lengthy interview, which does reflect some degree of resilience and flexibility considering the stressful situation and it also reflects on her own sense of this appointment perhaps over the crying behavior because this had been sustained for nearly 2 hours it seems during the course of the car ride, paradoxically since the night before, she had been in a happy excitement about the prospect of the doctor visit today. Her weight is 122 pounds, height near 5 feet. No signs of neurocutaneous disease. Mild facial dysmorphism commensurate with her chromosome difference and differences with the digit; for example, a remarkably foreshortened index finger compared to other digits and a small nail on the 5th digits of her hands and there are likely other mild dysmorphic f eatures. Reflexes present. Good red reflex, conjugate gaze, normal head and spine. I did not measure her head circumference. We will initiate a trial of Klonopin and I emphasized in the coordination of care to the family that this will depend on their own sense of reliably being able to predict periods of upset and crying and that there could be a backfire in effect, a worsening of the symptom intended to be improved with the clonazepam or sedation, but were using a decidedly low dose to start, that is 0.125 to 0.25 mgand they will choose whether they want to keep a formal record, as though some type of graphing could support any impression of efficacy versus an overwhelming sense of efficacy that might result which would obviate the need for such close tracking, which can have its own problems in terms of the family self consciousness about the child's symptoms. We will follow up by phone in 1 or 2 months' time or whenever the parents' deem appropriate and I did not suggest other neurodiagnostic testing considering what is outlined above, the low likelihood of a neurological diagnostic yield. I appreciate the chance to see Alison and hope the above is helpful. 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
--- OUTSIDE RECORDS SUMMARY | 2024-02-05 13:18 | XMS_ITS | Encounter Summary ---
Author Organization [facility] Address [address] [place] [address] Care Team Providers Care Internal Communications Writer Name Role Phone Deandra Ramos MD Primary Care Provider [phone] Reason for Visit * Reason Onset Date Comments Follow-up 10/25/2014 Encounter Details Date Type Department Care Team (Late st Contact Info) Description 10/25/2014 Telephone [facility] Pediatric Cardiology - Main [address] [id number] Sally Jose RN Follow-up Social History Tobacco Use Types Packs/Day Years Used Date Smoking Tobacco: Never Alcohol Use Standard Drinks/Week Comments No 0 (1 standard drink = 0.6 oz pur e alcohol) Sex and Gender Information Value Date Recorded Sex Assigned at Not on file Gender Identity Not on file Sexual Orientation Not on file documented as of this encounter Miscellaneous Notes * Telephone Encounter - Sally Jose - 10/25/2014 1620 EDT [facility] office requesting medical documents from 08/2012 to present. Medical release obtained with parent having guardianship. Records mailed as requested. documented in this encounter Plan of Treatment Not on file documented as of this encounter Visit Diagnoses Not on filedocumented in this encounter Care Teams Internal Communications Writer Relationship Specialty Start Date End Date Deandra Ramos MD [address] [place] [phone] PCP - General 12/15/09 06/23/22 documented as of this encounter
--- OUTSIDE RECORDS SUMMARY | 2024-02-05 13:18 | XMS_ITS | Encounter Summary ---
Author Organization [facility] Address [address] [place] [address] Care Team Providers Care Metal Grinder Name Role Phone Baltazar Gaines MD Primary Care Provide r Reason for Referral * Cardiology (Routine/Next Available) - Closed Specialty Diagnoses / Procedures [facility] To [facility] Diagnoses H/O congenital atrial septal defect (ASD) repair Adult congenital heart disease Procedures CONGENITAL TRANSTHORACIC ECHO (TTE) COMPLETE CT ECHO XTHORACIC,KENNY ANOM,COMPLETE Sánchez Leon MD [address] [place] [phone] [facility] Referral ID Status Reason Start Date Expiration Date Visits Re quested Visits Authorized [id number] Closed 07/24/2022 1 1 Encounter Details Date Type Department Care Team (Late st Contact Info) Description 07/24/2022 Orders Only [facility] Cardiology - [place] [address] [place] [address] Sánchez Leon MD [address] [place] [phone] H/O congenital atrial septal defect (ASD) repair (Primary Dx); Adult congenital heart disease Social History Tobacco [...] on file documented as of this encounter Plan of Treatment Not on file documented as of this encounter Results * CONGENITAL TRANSTHORACIC ECHO (TTE) COMPLETE NO CONTRAST (04/22/2023 7:56 EST) Mitral deceleration time 257 ms MERGE CARDIO [...] color Doppler.The study was interpreted by [facility]. Pertinent images and digital [...] Diagnosis H/O congenital atrial septal defect (ASD) repair- Primary Adult congenital heart disease Unspecified congenital anomaly of heart H/O congenital atrial septal defect (ASD) repair Adult congenital heart disease Unspecified congenital anomaly of heart documented in this encounter Care Teams Metal Grinder Relationship Specialty Start Date End Date Baltazar Gaines MD [address] [place] [phone] PCP - General 06/24/22 documented as of this encounter
--- OUTSIDE RECORDS SUMMARY | 2024-02-05 13:18 | XMS_ITS | Referral Summary ---
Author Organization [facility] Address [address] [place] [address] Care Team Providers Care Actuarial Mathematician Name Role Phone Baltazar Gaines MD Primary Care Provide r Encounters Date Type Department Care Team Description 12/22/[address] [facility] Cardiology - [facility] [address] [place] [address] Sánchez Leon MD Advice Only 11/07/2023 Lab Requisition [facility] Pathology & Laboratory Medicine - [facility] [address] [place] [address] Costa Kramer MD Diarrhea, unspecified; Change in bowel habit; Nausea with vomiting, unspecified from Last 3 Months Allergies No known active allergies Medications Medication Sig Dispensed Refills Start Date End Date Status Cholecalciferol, Vitamin D3, 2,000 unit Cap Take 2,000 Units by mouth daily. 90 Cap 1 06/15/2010 Active PEG 3350-Electrolytes (MIRALAX) 17 gram packet Take 17 g by mouth daily as needed. Active psyllium husk (METAMUCIL ORAL) Take by mouth. 1 tea daily Active UNABLE TO FIND 2 times daily. 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 Social History Tobacco Use Types Packs/Day Years [...] on file Sexual Orientation Not on file Last Filed Vital Signs Vital Sign Reading Time Taken Comments Blood Pressure 114/76 04/22/2023 0823 EST Pulse 66 04/22/2023 0823 EST Temperature - - Respiratory Rate 18 04/04/2020 1418 EST Oxygen Saturation 97% 04/22/2023 08 EST Inhaled Oxygen Concentration - - Weight 59.4 kg (131 lb) 04/22/2023 08 EST Height 152.4 cm (5') 04/22/2023 0802 EST Body Mass Index 25.58 04/22/2023 0802 EST Plan of Treatment Not on file Procedures Procedure Name Priority Date/Time Associated Diagnosis Comments SURGICAL PATHOLOGY Today 11/05/2023 10 :53 EDT Diarrhea, unspecified Change in bowel habit Nausea with vomiting, unspecified from Last 3 Months Results * SURGICAL PATHOLOGY (11/05/2023 10:53 EDT) Note to Patient The following pathology results have been interpreted by your pathologist and may be available to you before your health provider has had the opportunity to review them. Please allow time for your provider to receive these results and explore management options, if applicable. 11/10/2023 14:19 EDT [facility] Final Diagnosis A. DUODENUM, BIOPSY: - Duodenal mucosa with no significant pathologic change. B. DUODENAL BULB, BIOPSY: - Duodenal mucosa with chronic inflammation and Ronald gland hyperplasia, consistent with peptic etiology. - No evident active inflammation or significant increase in intraepithelial lymphocytes; preserved villous architecture. C. STOMACH, ANTRUM, BIOPSY: - Antral mucosa with features of reactive (chemical) gastropathy. - No evident active inflammation or intestinal metaplasia. - No Helicobacter pylori like organisms identified on routine sections. D. STOMACH, BODY, BIOPSY: - Oxyntic mucosa with chronic inflammation and solitary lymphoid aggregate. - No evident active inflammation or intestinal metaplasia. - No Helicobacter pylori like organisms identified on routine sections. E. DISTAL ESOPHAGUS, BIOPSY: - Squamous mucosa with no significant pathologic change. - No evident active inflammation or intraepithelial eosinophils. F. MID ESOPHAGUS, BIOPSY: - Squamous mucosa with no significant pathologic change. - No evident active inflammation or intraepithelial eosinophils. 11/10/2023 14:19 [facility] Diagnosis Comment The technical component of the specimen processing was performed at the Pathology Department, [address] [place] [address] (CLIA [id number]). The professional component of the specimen evaluation (slide review and issuing of the final diagnosis) was performed at [facility], [address] [place] [address] (CLIA License Number [id number]). 11/10/2023 14:19 [facility] Attestation By the signature below, the attending physician certifies that they have 1) personally conducted a gross and/or microscopic examination of the described specimen(s), and/or personally interpreted the results of laboratory testing of the described specimen(s), and 2) personally rendered or confirmed the above diagnosis. 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 Received in formalin labelled with proper patient identification (initials M, A) and A. Duodenum are six rausch tissues (0.2 x 0.2 x 0.1 cm to 0.4 x 0.3 x 0.2 cm). Entirely submitted in A1 and A2. B. Received in formalin labelled with proper patient identification (initials M, A) and B. Duodenal bulb is a rausch tissue (0.6 x 0.3 x 0.1 cm). Entirely submitted in B1. C. Received in formalin labelled with proper patient identification (initials M, A) and C. Gastric antrum are 2 white-rausch tissues (0.3 x 0.3 x 0.1 cm and 0.4 x 0.2 x 0.1 cm). Entirely submitted in C1. D. Received in formalin labelled with proper patient identification (initials M, A) and D. Gastric body is a rausch tissue (0.4 x 0.3 x 0.2 cm). Entirely submitted in D1. E. Received in formalin labelled with proper patient identification (initials M, A) and E. Distal esophagus are 2 white tissues (0.2 x 0.1 x 0.1 cm and 0.3 x 0.2 x 0.1 cm). Entirely submitted in E1. F. Received in formalin labelled with proper patient identification (initials M, A) and F. Mid esophagus are 2 white semi-translucent tissues (0.2 x 0.1 x 0.1 cm and 0.3 x 0.2 x 0.1 cm). Entirely submitted in F1, however the smallest tissue may not survive processing. LAURA DAWSON(ASC) 11/07/2023 9:49 11/10/2023 14:19 EDT [facility] Performing Lab [facility] 14:19 EDT [facility] Scanned Images 11/10/2023 14:19 EDT [facility] Tissue ESOPHAGEAL STRUCTURE / Unknown 11/05/2023 10:53 EDT 11/07/2023 8:42 EDT Tissue specimen (specimen) STRUCTURE OF SMALL INTESTINE / Unknown 11/05/2023 10:53 EDT 11/07/2023 8:42 EDT Tissue specimen (specimen) STOMACH STRUCTURE / Unknown 11/05/2023 10:53 EDT 11/07/2023 8:42 EDT Tissue specimen (specimen) STOMACH STRUCTURE / Unknown 11/05/2023 10:53 EDT 11/07/2023 8:42 EDT Tissue specimen (specimen) ESOPHAGEAL STRUCTURE / Unknown 11/05/2023 10:53 EDT 11/07/2023 8:42 EDT Tissue specimen (specimen) ESOPHAGEAL STRUCTURE / Unknown 11/05/2023 10:53 EDT 11/07/2023 8:42 EDT Costa Kramer MD PATHOLOGY ORD ERABLES [facility] [address] [place], [place] [id number] from Last 3 Months Care Teams Actuarial Mathematician Relationship Specialty Start Date End Date Baltazar Gaines MD [address] [facility] [address] [place] [address] [facility] - General 06/24/22
--- OUTSIDE RECORDS SUMMARY | 2024-02-05 13:18 | XMS_ITS | Encounter Summary ---
Author Organization [facility] Address [address] [place] [address] Care Team Providers Care Coo & Co Founder Name Role Phone Deandra Ramos MD Primary Care Provider [phone] Baltazar Gaines MD Primary Care Provide r Reason for Visit * Reason Comments Other Encounter Details Date Type Department Care Team (Late st Contact Info) Description 05/01/2011 Refill [facility] Pediatric [facility]ocrinology - [facility] [address] [place], [place] [id number] [facility] [address] [place] [phone] Other Social History Tobacco Use Types Packs/Day Years [...] on filedocumented in this encounter Care Teams Coo & Co Founder Relationship Specialty Start Date End Date [place] [phone] PCP - General 12/15/09 06/23/22 Baltazar Gaines MD [address] [place] [address] PCP - General 06/24/22 documented as of this encounter
--- OUTSIDE RECORDS SUMMARY | 2024-02-05 13:18 | XMS_ITS | Encounter Summary ---
Author Organization [facility] Address [address] [place] [address] Care Team Providers Care Performance Instructor Name Role Phone Deandra Ramos MD Primary Care Provider [phone] Reason for Visit * Reason Onset Date Comments Results 06/15/2010 Medication Management 06/15/2010 Encounter Details Date Type Department Care Team (Late st Contact Info) Description 06/15/2010 Telephone [facility] Pediatric Endocrinology - [address] [address] Kellie Marcus RN [address] [place] [address] Results; Medication Management Social History Tobacco Use Types Packs/Day Years Used Date Smoking Tobacco: Never Assessed Sex and Gender Information Value Date Recorded Sex Assigned at Not on file Gender Identity Not on file Sexual Orientation Not on file documented as of this encounter Ordered Prescriptions Prescription Sig Dispensed Refills Start Date End Da te Cholecalciferol, Vitamin D3, 2,000 unit Cap Take 2,000 Units by mouth daily. 90 Cap 1 06/15/2010 documented in this encounter Miscellaneous Notes * Telephone Encounter - Kellie Marcus RN - 06/15/2010 1422 EST Message copied by KELLIE MARCUS on FriJun 15, 2010 1422 ------ Message from: IDALMIS KNOWLES Created: FriJun 15, 2010 1251 Vit D a little low, even after starting the Calcium and D supplement Want to increase the vit D intake, not so concerned about the calcium intake given her diet Discontinue the Ca + D supplement Start Vit D 2,000 IU per day Rest of labs look good, including some evidence of early puberty Bone age Xray showed that she has completed about 97% of her growth (wanted to know this due to timing of future spine surgery) Left message on phone for mom, Delilah, about the lab results with medication changes as above, and her BA x-ray. documented in this encounter Plan of Treatment Not on file documented as of this encounter Visit Diagnoses Not on filedocumented in this encounter Discontinued Medications Medication Sig Discontinue Reason Start Date End Da te CALCIUM CARBONATE/VITAMIN D3 (CALCIUM + D ORAL) Take by mouth. 750mg Calcium 500IU Vit D Duplicate Therapy 06/15/2010 documented as of this encounter Care Teams Performance Instructor Relationship Specialty Start Date End Date Deandra Ramos MD [address] [place] [phone] PCP - General 12/15/09 06/23/22 documented as of this encounter
--- OUTSIDE RECORDS SUMMARY | 2024-02-05 13:18 | XMS_ITS | Encounter Summary ---
Author Organization [facility] Address [address] [place] [address] Care Team Providers Care Tax Associate Name Role Phone Deandra Ramos MD Primary Care Provider [phone] Reason for Visit * Reason Onset Date Comments Returning Call 06/28/2021 Encounter Details Date Type Department Care Team (Late st Contact Info) Description 06/28/2021 Telephone [facility] Pediatric Cardiology - Main [address] [phone] Luzma Neri MD Returning Call Social History Tobacco Use Types Packs/Day Years [...] encounter Miscellaneous Notes * Telephone Encounter - Andria Galloway RN - 06/28/2021 1402 EST Called mother back. No answer, left message to call back. Mother called back returning Arlin's (RN) call on 06/15. Per mother, pt has a speech problem and is unable to call herself and mother is guardian. Pt has surgery on 07/20. Arlin's phone call likely related to this. Relayed to mother that per chart review, it does not appear that there are any concerns re: surgery from the cardiology perspective. However, this RN to confirm with Arlin (RN) when she returns next week. This office to follow up with mother next week. Mother agreeable. * Telephone Encounter - Marion Zoila - 06/28/2021 1353 EST Mom is calling to follow up on RN call from encounter dated 06/15. Please call Mom sometime this afternoon to discuss. documented in this encounter Plan of Treatment Not on file documented as of this encounter Visit Diagnoses Not on filedocumented in this encounter Care Teams Tax Associate Relationship Specialty Start Date End Date Deandra Ramos MD [address] [place] [phone] PCP - General 12/15/09 06/23/22 documented as of this encounter
--- OUTSIDE RECORDS SUMMARY | 2024-02-05 13:18 | XMS_ITS | Encounter Summary ---
Author Organization [facility] Address [address] [place] [address] Care Team Providers Care Coating Mixer Supervisor Name Role Phone Deandra Ramos MD Primary Care Provider [phone] Reason for Referral * Cardiology (Routine) - New Request Specialty Diagnoses / Procedures Referred By Camacho murray Referred To Contact Diagnoses Status post patch closure of atrial septal defect Mitral regurgitation, congenital S/P repair of PDA Procedures TRANSTHORACIC ECHO (TTE) COMPLETE Luzma Singh MD Referral ID Status Reason Start Date Expiration Date V isits Requested Visits Authorized [id number] New Request 04/04/2020 1 1 Reason for Visit * Reason Comments Heart Disease s/p ASD surgical donna sure 08/25/97, mild MR. Hx. of 2 Q partial monosomy sequence. Doing well per mom. No new medical hx. or concerns. Was volunteering in multiple places & working - all on hold with [employer]abi. Has a personal crae attendant that works with her while mom is working- 50 hrs/wk. Encounter Details Date Type Department Care Team (Late st Contact Info) Description 04/04/2020 14:00 EST Office Visit [facility] Pediatric Cardiology - Main [place] [address] [place] [address] Luzma Singh MD 2Q partial monosomy syndrome (Primary Dx); Status post patch closure of atrial septal defect; Mitral regurgitation, congenital; S/P repair of PDA Social History Tobacco Use Types Packs/Day Years [...] on file Sexual Orientation Not on file COVID-19 Exposure Response Date Recorded In the last month, have you been in contact with someone who was confirmed or suspected to have Coronavirus / COVID-19? No / Unsure 04/04/2020 14:12 EST documented as of this encounter Last Filed Vital Signs Vital Sign Reading Time Taken Comments Blood Pressure 110/66 04/04/2020 1418 EST Pulse 96 04/04/2020 1418 EST Temperature - - Respiratory Rate 18 04/04/2020 1418 EST Oxygen Saturation 100% 04/04/2020 1418 EST Inhaled Oxygen Concentration - - Weight 56.3 kg (124 lb 1.9 oz) 04/04/[address] Height 150.9 cm (4' 11.41) 04/04/2020 1418 EST Body Mass Index 24.72 04/04/2020 1418 EST documented in this encounter Progress Notes * Luzma Singh MD - 04/04/2020 1400 EST Subjective: Patient ID: Juan Parker is an 24 y.o. female. Chief Complaint Patient presents with ??? Heart Disease s/p ASD surgical closure 08/25/97, mild MR. Hx. of 2 Q partial monosomy sequence. Doing well per mom. No new medical hx. or concerns. Was volunteering in multiple places & working - all on hold with [employer]. Has a personal crae attendant that works with her while mom is working- 50 hrs/wk. HPI Juan is seen in cardiology clinic today with her mother for follow up after uncomplicated surgical ASD closure and PDA ligation and ligation of a left SVC draining into the left atrium in 1997. Since our visit almost 4 years ago, Juan has been healthy with no chronic or significant acute medical illnesses. She has had stable scoliosis since hernan placement and she sees no other subspecialistsat this time. 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 Unforturtunately due to Covid pandemic, she has had to give up these jobs but still has daily activities with her HUMAN RESOURCES BENEFITS MANAGER, Mojgan. They go to the gym most days and Juan has had no exerciseintolerance, apparent chest discomfort or shortness of breath. She has maintained good oral hygienewith assistance. No concerns are raised today. Patient Active Problem List Diagnosis ??? Developmental delay ??? Scoliosis ??? Epithelioid and spindle cell nevus ??? 2Q partial monosomy syndrome ??? Mitral valve insufficiency ??? Hearing loss ??? Status post patch closure of atrial septal defect Past Medical History: Diagnosis Date ??? ASD (atrial septal defect) 08/14/2009 ??? 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 ? Fracture of arm 2009 & 2009 fractured each arm - almost a year apart - fall 1st time, ? second injury- not witnessed ??? Hydrocephalus (HCC-CMS) 08/14/2009 ??? Osteopenia [address] Donaldson re. this ??? Strabismus as of 04/04/2020 None Past Surgical History: Procedure Laterality Date ??? ASD REPAIR 08/25/97 Dr. Gonzalez @ [facility] This was performed with a pericardial patch of the ASD. Small residual atrial septal defect initially post-op with no other cardiovascular abnormality. 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 The left superior vena cava was ligated, as well as ligation of the patent ductus arteriosus. ??? DENTAL SURGERY 05/05/2000 ??? HX ATRIAL SEPTAL DEFECT REPAIR ??? MASTOIDECTOMY 10/22/2005 Left CWD tympanomastoidectomy, absent stapes superstructure, Dr. Skaggs ??? SPINE SURGERY first was 05/2005, most recent 02/2010 multiple procedures for scoliosis ??? TYMPANOSTOMY TUBE PLACEMENT 05/05/2005 Family History Family as of 04/04/2020 Problem Relation Name Age of Onset Comments Source Diabetes Other MGGM -- T2 Provider Glaucoma Other MGGM -- -- Provider High Blood Pressure Other MGGM -- -- Provider High Cholesterol Other MGGM -- -- Provider Heart Disease Other MGGM -- has had two AL's Provider High Blood Pressure Maternal Grandfather -- -- -- Provider High Cholesterol Maternal Grandfather -- -- -- Provider Diabetes Maternal Grandfather -- -- borderline Provider Dementia Paternal Grandmother -- -- -- Provider Cancer Paternal Grandfather -- -- ? prostate Provider Cancer Other MGGF -- cancer in the spine Provider Recurrent Fractures Neg Hx -- -- -- Provider Osteoporosis Neg Hx -- -- -- Provider Urolithiasis Neg Hx -- -- -- Provider Hearing Loss Neg Hx -- -- -- Provider Thyroid Disease Neg Hx -- -- -- Provider Family Status as of 04/04/2020 Relation Name Status Comments Sex (Gender) Father Mother Source Other MGGM Alive -- U -- -- Provider Mother -- Alive -- F Patient's maternal grandfather Patient's maternal grandmother Provider Father -- Alive -- M Patient's paternal grandfather Patient's paternal grandmother Provider Sister Torsten Alive -04/23/2008, half sib dad's, healthy F Patient's father Patient's mother Provider Brothlourdes David Alive -10/29/89, healthy M Patient's father Patient's mother Provider Maternal Grandmother -- Alive -- F -- -- Provider Maternal Grandfather -- Alive -- M -- -- Provider Paternal Grandmother -- -- F -- -- Provider Paternal Grandfather -- -- M -- -- Provider Brothlourdes Tavarez Alive -10/07/90, healthy M Patient's father Patient's mother Provider Other MGGF -- U -- -- Provider Neg Hx -- -- -- -- -- -- Social Social History ??? Lives with Mother exclusively ? ? Other individuals living in the home & mom's ??? Other caregivers regularly involved interpersonal communications professor - about 50 hrs./wk. ??? Parents status ??? Mother's name Delilah Santiago ??? Mother's employment Post master ??? Father's name Frankie Parker Sr. ??? Father's employment Unemployed ??? Stepfather's name Osiel Cooper mother's partner ??? Stepfather's employment mold carrier ??? Pets Yes ??? Carpets Yes Outpatient Medications Marked as Taking for the 04/04/20 encounter (Office Visit) with Luzma Singh MD Medication Sig Dispense Refill ??? Cholecalciferol, Vitamin D3, 2,000 unit Cap Take 2,000 Units by mouth daily. 90 Cap 1 ??? PEG 3350-Electrolytes (MIRALAX) 17 gram packet Take 17 g by mouth daily as needed. Allergies No Known Allergies ROS 10 point ROS performed with pertinent positives and negatives in HPI Objective: BP 110/66 (BP Cuff Location: Right arm, BP Patient Position: Sitting, BP Cuff Sizes: Adult, regular) Pulse 96 Resp 18 Ht (!) 150.9 cm (59.41) Wt 56.3 kg (124 lb 1.9 oz) LMP 04/02/2020 (Approximate) SpO2 100% BMI 24.72 kg/m?? Body mass index is 24.72 kg/m??. Body surface area is 1.54 meters squared. Facility age limit for growth percentiles is 20 years. Facility age limit for growth percentiles is 20 years. Facility age limit for growth percentiles is 20 years. Facility age limit for growth percentiles is 20 years. Vitals - PT Extended 05/24/2016 10/04/2016 04/04/2020 Orthostatic BP -- -- -- Orthostatic Pulse -- -- -- BP (PT) -- -- -- BP Device -- -- -- BP Cuff Location Right arm Left arm Right arm BP Cuff Sizes Adult, regular Adult, small Adult, regular BP Patient Position Sitting Sitting Sitting Physical Exam Constitutional: She is a tabitha young woman who is well developed and well- nourished with no distress. Head: Normocephalic. Hearing aids noted. Mask in place Eyes: Conjunctivae and EOM are normal. Neck: Normal range of motion. No JVD present. Normal carotid pulses Cardiovascular: Normal precordial impulse with no bulge, pectus or thrill. The heart sounds are regular with normal intensity and normal S2 split with no click or ectopy. There is no murmur of significance on careful auscultation supine and when seated. Her pulses are equal in the upper and lower extremities without delay. Pulmonary/Chest: Effort normal and breath sounds normal with no wheezing noted. Abdominal: Soft with no hepatomegaly Musculoskeletal: Normal range of motion with no peripheral edema. Lymphadenopathy: No cervical adenopathy Neurological: She is alert. Grossly normal muscle tone and strength. Skin: Skin is warm. No rash noted. Well healed, thin sternal scar Psychiatric: She is cooperative and follows her mothers requests without difficulty EKG - Sinus rhythm vs low atrial rhythm with normal intervals. No atrial enlargement or ventricularhypertrophy. ECHO ?Status post surgical closure of an atrial septal defect, patent ductus ?arteriosus and ligation of left superior vena cava to left atrium. ?No residual atrial septal defect or patent ductus arteriosus seen on suboptimal images ?Trivial mitral regurgitation with normal appearing valve ? Mildly redundant tricuspid valve with suggestion of prolapse. There are two small jets of tricuspid regurgitation with low estimated right ventricular pressure ?Normal Doppler study of the other intracardiac valves. ?Normal left ventricular size, wall thickness and systolic function. ?Normal appearing right ventricular size with qualitatively normal systolic function. Assessment and Plan: In summary, Juan is a young woman status post surgical closure of an atrial septal defect. Although there was a little residual septal defect noted on her first postoperative echo, we have not been able to see any residual defect since then and she has normal RV size. In past she had mild mitral regurgitation that now is trivial and would be considered within normal limits for age. Interestingly, her tricuspid valve leaflets are mildly elongated with appearance of prolapse in the apical view and this would warrant follow up in several years to be sure there is no progressive regurgitation. She has no other structural abnormalities noted. We reviewed the importance of good daily oral hygiene and we discussed that SBE prophylaxis is not needed at this time. No restrictions are placed on her activities and I would encourage her continued participation in physical activities. I do not anticipate any significant change in Juan's cardiovascular status in early adult life butwould recommend that she be followed periodically to be sure. I have suggested a visit with our adult cardiology colleague, Dr. Sánchez Leon, in 3 years. I have reviewed with her mother that if a significant murmur is noted on examination a sooner appointment would be jimenez. I would be happy to help with appropriate cardiac care if there are any questions or concerns before Juan's visit with Dr. Leon. It has been a real pleasure to help care for Juan during her young life and we wish herwell in future. documented in this encounter Plan of Treatment Not on file documented as of this encounter Procedures Procedure Name Priority Date/Time Associated Diagnosis Comments ECG REPORT - SCANNED 04/07/2020 11:46 EST EKG 12-LEAD Routine 04/04/2020 14:22 EST 2Q partial monosomy syndrome Status post patch closure of atrial septal defect documented in this encounter Results * ECG REPORT - SCANNED (04/07/2020 11:46 EST) 04/07/2020 11:4 6 EST Scan 2 Electrical Instrument Maker PROCEDURE/MINOR GISELA GICAL ORDERABLES * TRANSTHORACIC ECHO (TTE) COMPLETE W/DOPPLER W/CF NO CONTRAST (04/04/2020 15:49 EST) Anatomical Region Laterality Modality Ultrasound 04/04/2020 15:0 0 EST Narrative 04/04/2020 18:19 EST Pediatric Cardiology [address] [place] [address] Date of study: 04/04/2020 Transthoracic Echocardiogram Report M-mode, complete 2D, complete spectral Doppler, and color Doppler *STUDY CONCLUSIONS* Summary: - Difficult echocardiogram images. ??Status post surgical closure of an atrial septal defect, patent ductus ??arteriosus and ligation of left superior vena cava to left atrium. ??No residual atrial septal defect or patent ductus arteriosus seen. ??Trivial mitral regurgitation with no mitral valve prolapse or mitral ??stenosis . ??Two small jets of tricuspid regurgitation with low estimated right ??ventricular pressure. On apical images, the tricuspid valve appears to ??have mild prolapse. ??Normal Doppler study of the other intracardiac valves. ??Normal left ventricular size, wall thickness and systolic function. ??Normal appearing right ventricular size with qualitatively good right ??ventricular systolic function. *PATIENT PRESENTATION* Age: ?24yr Height: ? 151cm (59.4in ) S/D Pressure: 110 / 66 Weight: ? 56.3kg (123.9lb ) BSA: ?1.55m^2 Location: ? Echocardiography Laboratory Facility: ? [facility] Attending: ?Luzma Singh MD Referring: ?Luzma Singh MD ?Liana Ordering: ? Luzma Singh MD Test start time: ??03:00 PM. Test stop time: ??03:40 PM. *PROCEDURE DATA* Procedure information: ??Pertinent images and digital data are archived for permanent storage and are available for subsequent review. ??Study status: ??Routine. Transthoracic echocardiography. ??M-mode, complete 2D, complete spectral Doppler, and color Doppler. Transthoracic echocardiography was performed. Images were obtained using a [employer] Epiq 16 cardiac ultrasound machine. ??Blood pressure: ? 110/66 *INDICATIONS AND HISTORY* Indications: ?? (Q21.1) ASD. ??I34.0. ??Q21.1. ??Q26.1. ??Asd. ??Mr. ??Lscv. Asd. History: ?? PMH: ?? Patent ductus arteriosus. Labs, prior tests, procedures, and surgery: Secundum atrial septal defect repair. ?Pericardial patch closure of a large secundum atrial septal defect 08/25/97. There is no residual atrial septal defect detected by images or color Doppler. Patent ductus arteriosus ligation. ?08/25/97. Status post ligation of a patent ductus arteriosus with no residual patent ductus arteriosus detected. *CARDIAC ANATOMY* VEINS AND ATRIA Left atrium: ??Normal Left Atrium. Right atrium: ??Normal Right Atrium. 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 Status post surgical ligation 08/25/97. The superior vena cava/innominate vein are not imaged on this study. A-V CANAL Tricuspid valve: ??From apical image the tricuspid valve leaflets appear mildly elongated with suggestion of mild prolapse. Two small jets of mild tricuspid regurgitation. By tricuspid regurgitation jet, the estimated right ventricular pressure is 18 mmHg plus right atrial pressure. ?Transvalvular velocity is within the normal range. Mitral valve: ?? The valve is structurally normal. ? There is no evidence for stenosis. ?? There is trivial regurgitation. VENTRICLES Right ventricle: ??The cavity size is normal. Wall thickness is normal. Systolic function is qualitatively normal. Left ventricle: ??The cavity size is normal. Systolic function is qualitatively normal. Difficult parasternal imaging. The left ventricular function is brisk with no regional wall motion abnormalities identified. CONOTRUNCUS Aortic valve: ? Transvalvular velocity is within the normal range. There is no regurgitation. Pulmonary valve: ?? Poorly visualized. ? There is no evidence for stenosis. GREAT ARTERIES Aorta: ??The aorta is normal. Aortic arch: Left Aortic Arch. No coarctation noted. PERICARDIUM There is no significant pericardial effusion. *MEASUREMENT TABLES* Left ventricle ?Value ? 05/24/2016 Reference ?? Z LV ID, ED, MM ? 4.60 ??cm ?4.85 ? 4.05 - 5.39 -0.4 LV ID/bsa, ED, MM ? 3.0 ?? cm/m^2 ??3.2 ? ---- LV mid-wall fx ?20 ?% ? 16 ? ---- shortening, MM LV PW thickness, ?0.73 ??cm ?0.95 ? 0.61 - 1.06 -0.9 ED, MM IVS/LV PW ratio, ?1 ? 1 ?0.72 - 1.41 -0.4 ED, MM LV relative wall ?0.32 ?0.39 ? ---- thickness, ED, MM LV wall mass, MM ?105 ?? g ? 162 ?90 - 204 ?-1.2 LV wall mass/bsa, ? 68 ?g/m^2 ?? 105 ? ---- MM LV mass/height, MM ?0.69 ??g/cm ?1.07 ? ---- LV mass/height^2.7, ? 34.44 g/m^2.7 53.77 ? ---- MM Ventricular septum ?Value ? 05/24/2016 Reference ?? Z IVS thickness, ED, ?0.73 ??cm ?0.95 ? 0.63 - 1.15 -1.2 MM Legend: (L) ??and ??(H) ??felipa values outside specified reference range. I have personally reviewed the images and have reviewed and edited the reported findings. Electronically signed by Luzma Singh MD 04/04/2020 18:19 Procedure Note Luzma Singh MD - 04/04/2020 Pediatric Cardiology [address] [place] [address] Date of study: 04/04/2020 Transthoracic Echocardiogram Report M-mode, complete 2D, complete spectral Doppler, and color Doppler *STUDY CONCLUSIONS* Summary: - Difficult echocardiogram images. 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 No residual atrial septal defect or patent ductus arteriosus seen. Trivial mitral regurgitation with no mitral valve prolapse or mitral stenosis . Two small jets of tricuspid regurgitation with low estimated right ventricular pressure. On apical images, the tricuspid valve appears to have mild prolapse. Normal Doppler study of the other intracardiac valves. Normal left ventricular size, wall thickness and systolic function. Normal appearing right ventricular size with qualitatively good right ventricular systolic function. *PATIENT PRESENTATION* Age: 24yr Height: 151cm (59.4in ) S/D Pressure: 110 / 66 Weight: 56.3kg (123.9lb ) BSA: 1.55m^2 Location: Echocardiography Laboratory Facility: [facility] Attending: Luzma Singh MD Referring: Luzma Singh MD [facility] Ordering: Luzma Singh MD Test start time: 03:00 PM. Test stop time: 03:40 PM. *PROCEDURE DATA* Procedure information: Pertinent images and digital data are archived for permanent storage and are available for subsequent review. Study status: Routine. Transthoracic echocardiography. M-mode, complete 2D, complete spectral Doppler, and color Doppler. Transthoracic echocardiography was performed. Images were obtained using a [employer] Epiq 16 cardiac ultrasound machine. Blood pressure: 110/66 *INDICATIONS AND HISTORY* Indications: (Q21.1) ASD. I34.0. Q21.1. Q26.1. Asd. Mr. Graham. Asd. History: PMH: Patent ductus arteriosus. Labs, prior tests, procedures, and surgery: Secundum atrial septal defect repair. Pericardial patch closure of a large secundum atrial septal defect 08/25/97. There is no residual atrial septal defect detected by images or color Doppler. Patent ductus arteriosus ligation. 08/25/97. Status post ligation of a patent ductus arteriosus with no residual patent ductus arteriosus detected. *CARDIAC ANATOMY* VEINS AND ATRIA Left atrium: Normal Left Atrium. Right atrium: Normal Right Atrium. 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 Status post surgical ligation 08/25/97. The superior vena cava/innominate vein are not imaged on this study. A-V CANAL Tricuspid valve: From apical image the tricuspid valve leaflets appear mildly elongated with suggestion of mild prolapse. Two small jets of mild tricuspid regurgitation. By tricuspid regurgitation jet, the estimated right ventricular pressure is 18 mmHg plus right atrial pressure. Transvalvular velocity is within the normal range. Mitral valve: The valve is structurally normal. There is no evidence for stenosis. There is trivial regurgitation. VENTRICLES Right ventricle: The cavity size is normal. Wall thickness is normal. Systolic function is qualitatively normal. Left ventricle: The cavity size is normal. Systolic function is qualitatively normal. Difficult parasternal imaging. The left ventricular function is brisk with no regional wall motion abnormalities identified. CONOTRUNCUS Aortic valve: Transvalvular velocity is within the normal range. There is no regurgitation. Pulmonary valve: Poorly visualized. There is no evidence for stenosis. GREAT ARTERIES Aorta: The aorta is normal. Aortic arch: Left Aortic Arch. No coarctation noted. PERICARDIUM There is no significant pericardial effusion. *MEASUREMENT TABLES* Left ventricle Value 05/24/2016 Reference Z LV ID, ED, MM 4.60 cm 4.85 4.05 - 5.39 -0.4 LV ID/bsa, ED, MM 3.0 cm/m^2 3.2 ---- LV mid-wall fx 20 % 16 ---- shortening, MM LV PW thickness, 0.73 cm 0.95 0.61 - 1.06 -0.9 ED, MM IVS/LV PW ratio, 1 1 0.72 - 1.41 -0.4 ED, MM LV relative wall 0.32 0.39 ---- thickness, ED, MM LV wall mass, MM 105 g 162 90 - 204 -1.2 LV wall mass/bsa, 68 g/m^2 105 ---- MM LV mass/height, MM 0.69 g/cm 1.07 ---- LV mass/height^2.7, 34.44 g/m^2.7 53.77 ---- MM Ventricular septum Value 05/24/2016 Reference Z IVS thickness, ED, 0.73 cm 0.95 0.63 - 1.15 -1.2 MM Legend: (L) and (H) felipa values outside specified reference range. I have personally reviewed the images and have reviewed and edited the reported findings. Electronically signed by Luzma Singh MD 04/04/2020 18:19 Luzma Singh MD CARDIAC ECHO ORDERA BLES * EKG 12-LEAD (04/04/2020 14:22 EST) 04/04/2020 14:2 2 EST Narrative [facility] EKG - 04/04/2020 17:44 EST ? [facility] ? Test Date: ?2020-04-04 Pat Name: ? JUAN PARKER ?Department: ?? [id number] ? Room: ? Gender: ? Female ? Rn Supplemental: ?? [id number] : ?1995 ? Requested By: SAMANTHA PATEL Order Number: [id number] ?Reading : ?? LUZMA SINGH MD ? Measurements Intervals ?[place] ? Rate: ? 100 ?P: ?-6 [place]: ? 97 ? QRS: ?30 QRSD: ? 90 ? T: ?36 QT: ? 337 ? QTc: ?435 ? Interpretive Statements Sinus rhythm vs low right atrial rhythm. Compared to ECG 05/24/2016 09:16:14 atrial rhythm has shifted and is similar to the EKG in 2013 I reviewed the tracing and have either agreed or edited the findings in this report. Electronically Signed On 04-04-2020 17:44:21 EST by LUZMA SINGH MD. Procedure Note Luzma Singh MD - 04/04/2020 [facility] Test Date: 2020-04-04 Pat Name: JUAN PARKER Department: [id number] Room: Gender: Female Rn Supplemental: [id number] : 1995 Requested By: SAMANTHA PATEL Order Number: [id number] Reading MD: LUZMA SINGH MD Measurements Intervals [place] Rate: 100 P: -6 [place]: 97 QRS: 30 QRSD: 90 T: 36 QT: 337 QTc: 435 Interpretive Statements Sinus rhythm vs low right atrial rhythm. Compared to ECG 05/24/2016 09:16:14 atrial rhythm has shifted and is similar to the EKG in 2013 I reviewed the tracing and have either agreed or edited the findings inthis report. Electronically Signed On 04-04-2020 17:44:21 EST by LUZMA TAI. 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 Status post patch closure of atrial septal defect Other postprocedural status Mitral regurgitation, congenital Congenital mitral insufficiency S/P repair of PDA Other postprocedural status Status post patch closure of atrial septal defect Other postprocedural status Mitral regurgitation, congenital Congenital mitral insufficiency S/P repair of PDA Other postprocedural status documented in this encounter Discontinued Medications Medication Sig Discontinue Reason Start Date End Da te mometasone (ELOCON) 0.1 % ointment Use topically as directed, one 45 gram tube Therapy completed 11/11/2012 04/04/2020 documented as of this encounter Care Teams Coating Mixer Supervisor Relationship Specialty Start Date End Date Deandra Ramos MD [address] [place] [address] PCP - General 12/15/09 06/23/22 documented as of this encounter
--- OUTSIDE RECORDS SUMMARY | 2024-02-05 13:18 | XMS_ITS | Encounter Summary ---
Author Organization [facility] Address [address] [place] [address] Care Team Providers Care Plunger Machine Operator Name Role Phone Deandra Ramos MD Primary Care Provider [phone] Reason for Visit * Reason Onset Date Comments Follow-up 02/14/2014 Encounter Details Date Type Department Care Team (Late st Contact Info) Description 02/14/2014 Telephone [facility] Pediatric Cardiology - Main [address] [phone] Luzma Neri MD Follow-up Social History Tobacco Use Types Packs/Day Years Used Date Smoking Tobacco: Never Alcohol Use Standard Drinks/Week Comments No 0 (1 standard drink = 0.6 oz pur e alcohol) Sex and Gender Information Value Date Recorded Sex Assigned at Not on file Gender Identity Not on file Sexual Orientation Not on file documented as of this encounter Miscellaneous Notes * Telephone Encounter - Zofia Kathleen - 02/15/2014 0904 EDT We tried to fax the notes three times yesterday and called to double check the fax number. They hadgiving us their phone number. The notes have now been faxed over to [phone]. * Telephone Encounter - Lester Sanders - 02/14/2014 5084 EDT Checking on the notes that were to be faxed to their office: [phone] documented in this encounter Plan of Treatment Not on file documented as of this encounter Visit Diagnoses Not on filedocumented in this encounter Care Teams Plunger Machine Operator Relationship Specialty Start Date End Date Deandra Ramos MD [address] [place] [address] PCP - General 12/15/09 06/23/22 documented as of this encounter
--- OUTSIDE RECORDS SUMMARY | 2024-02-05 13:18 | XMS_ITS | Encounter Summary ---
Author Organization [facility] Address [address] [place] [address] Care Team Providers Care Instrument Panel Assembler Name Role Phone Deandra Ramos MD Primary Care Provider [phone] Reason for Visit * Reason Onset Date Comments Appointment Related 09/16/2019 Encounter Details Date Type Department Care Team (Late st Contact Info) Description 09/16/2019 Telephone [facility] Pediatric Cardiology - Main [place] [address] [place], [place] [phone] Luzma Neri MD Appointment Related Social History Tobacco Use Types Packs/Day Years Used Date Smoking Tobacco: Never Alcohol Use Standard Drinks/Week Comments No 0 (1 standard drink = 0.6 oz pur e alcohol) Sex and Gender Information Value Date Recorded Sex Assigned at Not on file Gender Identity Not on file Sexual Orientation Not on file documented as of this encounter Miscellaneous Notes * Telephone Encounter - Sandra Hu - 09/16/2019 1050 EDT Called to schedule an in-person appointment with Dr. Neri. Left message, included c/b number. documented in this encounter Plan of Treatment Not on file documented as of this encounter Visit Diagnoses Not on filedocumented in this encounter Care Teams Instrument Panel Assembler Relationship Specialty Start Date End Date Deandra Ramos MD [address] [place] [id number] PCP - General 12/15/09 06/23/22 documented as of this encounter
--- OUTSIDE RECORDS SUMMARY | 2024-02-05 13:18 | XMS_ITS | Encounter Summary ---
Author Organization [facility] Address [address] [place] [address] Care Team Providers Care Multicultural Manager Name Role Phone Deandra Ramos MD Primary Care Provider [phone] Reason for Visit * Reason Onset Date Comments Medication Management 10/09/2010 Encounter Details Date Type Department Care Team (Late st Contact Info) Description 10/09/2010 Telephone [facility] Pediatric Endocrinology - [address] [phone] Rigoberto Donaldson, [facility] [address] [place] [phone] Medication Management Social History Tobacco Use Types Packs/Day Years Used Date Smoking Tobacco: Never Assessed Sex and Gender Information Value Date Recorded Sex Assigned at Not on file Gender Identity Not on file Sexual Orientation Not on file documented as of this encounter Miscellaneous Notes * Telephone Encounter - Kellie Lopez RN - 10/09/2010 1142 EDT Original rx was for Vitamin D, 90 capsules + 1 RF. Called and left message for mom, Delilah, that there should be a refill left. If not, I will certainly contact pharmacy. * Telephone Encounter - Ruth Avendano - 10/09/2010 1015 EDT She has been on vitamin D and will run out, if Dr. Donaldson wants her to continue they will need a new RX called in to [facility]. She will not be seeing Dr. Donaldson again until December 26. Call mom to let her know if she is to continue or not. documented in this encounter Plan of Treatment Not on file documented as of this encounter Visit Diagnoses Not on filedocumented in this encounter Care Teams Multicultural Manager Relationship Specialty Start Date End Date Deandra Ramos MD [address] [place] [phone] PCP - General 12/15/09 06/23/22 documented as of this encounter
--- OUTSIDE RECORDS SUMMARY | 2024-02-05 13:18 | XMS_ITS | Encounter Summary ---
Author Organization [facility] Address [address] [place] [address] Care Team Providers Care Digital Performance Analyst Name Role Phone Deandra Ramos MD Primary Care Provider [phone] Reason for Referral * Cardiology (Routine) - Closed Specialty Diagnoses / Procedures Referred By Camacho murray Referred To Contact Diagnoses ASD secundum Mitral valve insufficiency, unspecified etiology LSVC (persistent left superior vena cava) VSD (ventricular septal defect) Procedures CONGENITAL ECHOCARDIOGRAM Luzma Singh MD Referral ID Status Reason Start Date Expiration Date Visits Re quested Visits Authorized [id number] Closed 05/24/2016 1 1 Reason for Visit * Reason Comments Heart Disease hx. of a secundum D s/p surgical closure 08/25/97. Mild M.R. Here for f/u. No new medical hx. since last seen & no concerns. Mom wondering about if she needs SBE for dental visits -may need wisdom teeth removed. Will need letter for her dentist either way. Has a hernan in her back from past spinal surgery. Encounter Details Date Type Department Care Team (Late st Contact Info) Description 05/24/2016 9:00 EST Office Visit [facility] Pediatric Cardiology - [address] [place] [address], [place] [id number] Luzma Singh MD ASD secundum (Primary Dx); Mitral valve insufficiency, unspecified etiology; LSVC (persistent left superior vena cava); VSD (ventricular septal defect); Status post patch closure of atrial septal defect Discharge Disposition: Auto Discharge Social History Tobacco [...] Sign Reading Time Taken Comments Blood Pressure 110/74 05/24/2016912 EST Pulse 72 05/24/2016912 EST Temperature - - Respiratory Rate 20 05/24/2016912 EST Oxygen Saturation 100% 05/24/2016912 EST Inhaled Oxygen Concentration - - Weight 55.5 kg (122 lb 5.7 oz) 05/24/2016912 E ST Height 150.3 cm (4' 11.17) 05/24/2016912 EST Body Mass Index 24.57 05/24/2016912 EST documented in this encounter Discharge Diagnoses Diagnosis Q21.1 Atrial septal defect-Q21.1[ICD-10-CM] I34.0 Nonrheumatic mitral (valve) insufficiency-I34.0[ICD-10-CM] documented in this encounter Discharge Disposition Disposition Code Departure Means Destination Auto Discharge documented in this encounter Progress Notes * Luzma Singh MD - 05/24/2016 09 EST Subjective: Patient ID: Juan Parker is an 20 y.o. female. Chief Complaint Patient presents with ??? Heart Disease hx. of a secundum ASD s/p surgical closure 08/25/97. Mild M.R. Here for f/u. No new medical hx. since last seen & no concerns. Mom wondering about if she needs SBE for dental visits -may need wisdom teeth removed. Will need letter for her dentist either way. Has a hernan in her back from past spinal surgery. HPI Juan is seen in cardiology clinic today with her mother. She has generally been well since hervisit a couple of years ago and there is no new medical history for review. She sees no other subspecialists and really seems to be coming along quite well. The only medical concern at present is that Juan will likely be needing her wisdom teeth removed. We have discussed that her cardiovascular history should not pose significant increased risk for anesthesia and that antibiotic prophylaxis is not necessary. Juan's mother has been doing a great job brushing her teeth however Juan does not do this if left alone. She sees the dentist every 3 months. There have been no chest pains or dizzy sp rebecca and Juan's mother feels her activity level is normal. She has not had any problems related toher scoliosis repair. Patient Active Problem List Diagnosis ??? Developmental [...] ? second injury- not witnessed ??? Hydrocephalus 08/14/2009 ??? Osteopenia [address] Donaldson re. this ??? Strabismus None Past Surgical History: Procedure Laterality Date ??? ASD REPAIR 08/25/97 Dr. Gonzalez @ [facility] This was performed with a pericardial patch of the ASD. She has had a small residual ventricular atrial septal defect with no other cardiovascular abnormality. 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 The left superior vena cava was ligated, as well as ligation of the patent ductus arteriosus. ??? DENTAL SURGERY 2000 ??? HX ATRIAL SEPTAL DEFECT REPAIR ??? MASTOIDECTOMY 10/22/2005 Left CWD tympanomastoidectomy, absent stapes superstructure, Dr. Skaggs ??? SPINE SURGERY first was 05/2005, most recent 02/2010 multiple procedures for scoliosis ??? TYMPANOSTOMY TUBE PLACEMENT 2006 Family History Family Problem Relation Name Age of Onset Comments Source as of 05/24/2016 Diabetes Other MGGM T2 Provider Glaucoma Other MGGM Provider High Blood Pressure Other MGGM Provider High Cholesterol Other MGGM Provider Heart Disease Other MGGM has had two MS's Provider High Blood Pressure Maternal Grandfather Provider High Cholesterol Maternal Grandfather Provider Diabetes Maternal Grandfather borderline Provider Cancer Paternal Grandfather ? prostate Provider Cancer Other MGGF cancer in the spine Provider Recurrent Fractures Neg Hx Provider Osteoporosis Neg Hx Provider Urolithiasis Neg Hx Provider Hearing Loss Neg Hx Provider Thyroid Disease Neg Hx Provider Family Status Relation Name Status Comments Sex as of 05/24/2016 Other MGGM Alive U Mother Alive F Father Alive M Sister Torsten Alive -04/23/2008, half sib dad's, healthy F Brother Frankie Alive -10/29/89, healthy M Maternal Grandmother Alive F Maternal Grandfather Alive M Paternal Grandmother Alive F Paternal Grandfather Alive M Brother Corby Alive -10/07/90, healthy M Other MGGF U Neg Hx Social Social History ??? Lives with Mother exclusively ? ? Other individuals living in the home & mom's ??? Parents status ??? Mother's name Delilah Santiago ??? Mother's employment Post master ??? Father's name Frankie Parker Sr. ??? Father's employment Unemployed ??? Stepfather's name Osiel Cooper mother's partner ??? Stepfather's employment core carrier ??? Education Grade 12 ? ? 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 Reported academic performance Doing well ??? Pets Yes 2 dogs ??? Carpets Yes Social History Social History ??? Marital status: Single Spouse name: N/A ??? Number of children: N/A ??? Years of education: N/A Occupational History ??? Not on file. Social History Main Topics ??? Smoking status: Never Smoker ??? Smokeless tobacco: Not on file ??? Alcohol use No ??? Drug use: No Comment: caffeine -limited for soda intake ??? Sexual activity: Not on file Other Topics Concern ??? Not on file Social History Narrative Outpatient Prescriptions Marked as Taking for the 05/24/16 encounter (Office Visit) with Luzma Singh MD Medication Sig Dispense Refill ??? Cholecalciferol, Vitamin D3, 2,000 unit Cap Take 2,000 Units by mouth daily. 90 Cap 1 ??? mometasone (ELOCON) 0.1 % ointment Use topically as directed, one 45 gram tube 1 Tube 1 ??? PEG 3350-Electrolytes (MIRALAX) 17 gram packet Take 17 g by mouth daily. Allergies No Known Allergies ROS 10 point ROS performed with pertinent positives and negatives in HPI Objective: Visit Vitals ??? BP 110/74 (BP Cuff Location: Right arm, Patient Position: Sitting, BP Cuff Sizes: Adult, regular) ??? Pulse 72 ??? Resp 20 ??? Ht (!) 150.3 cm (59.17) ??? Wt 55.5 kg (122 lb 5.7 oz) ??? LMP 05/07/2016 (Approximate) ??? SpO2 100% ??? BMI 24.57 kg/m2 Body mass index is 24.57 kg/(m^2). Body surface area is 1.52 meters squared. 76 %ile (Z= 0.71) based on CDC 2-20 Years BMI-for-age data using vitals from 05/24/2016. Normalized onbhti-dgq-qdrqmwhuv length data not available for patients older than 36 months. 2 %ile (Z= -2.00) based on CDC 2-20 Years jashzxm-hya-jet data using vitals from 05/24/2016. 39 %ile (Z= -0.28) based on [facility] 2-20 Years ftswpb-ncz-hre data using vitals from 05/24/2016. Extended Vitals 05/24/2016 BP -- BP Device -- BP Cuff Location Right arm BP Cuff Sizes Adult, regular Patient Position Sitting Physical Exam Constitutional: She appears well-developed and well-nourished and in no distress. Head: Normocephalic. Hearing aids in place; fair oral hygiene Eyes: Conjunctivae and EOM are normal. Neck: Normal range of motion. No JVD present. No tracheal deviation present. No thyromegaly present. Cardiovascular: Normal precordial impulse with no bulge, pectus or thrill. The heart sounds are regular with normal intensity and normal S2 split and closure. There [...] hepatomegaly. Pulmonary/Chest: Effort normal and breath sounds normal with no wheezing noted. Abdominal: Soft. She exhibits no distension and no mass. Musculoskeletal: Normal range of motion. She exhibits no edema. Lymphadenopathy: She has no cervical adenopathy or JVD. Neurological: She is alert. She exhibits normal muscle tone. Skin: Skin is warm. No rash noted. Well healed, thin sternal scar Psychiatric: She is cooperative and follows her mothers requests without difficulty EKG - probable low atrial rhythm P-wave axis of -90 (as on some of her prior EKGs). She has normal intervals with no atrial enlargement or ventricular hypertrophy. ECHO Fair echocardiogram images. ?Status post surgical closure of an atrial septal defect, patent ductus ?arteriosus and ligation of left superior vena cava to left atrium. ?No residual atrial septal defect or patent ductus arteriosus seen. ?Normal flow noted in the right superior vena cava with no left ?superior vena cava seen. ?Mild mitral regurgitation with mildly redundant mitral valve with no ?mitral valve prolapse. ?Mild tricuspid regurgitation with low estimated right ventricular ?pressure. ?Normal Doppler study of the other intracardiac valves. ?Normal left ventricular size, wall thickness and systolic function. ?Qualitatively good right ventricular systolic function. ?No significant change since the study 01/31/14. Assessment and Plan: In summary, Juan is a young woman status post surgical closure of an atrial septal defect with no residual septal defect. She has very mild mitral regurgitation by echocardiogram that has not progressed over the past several years. She has no other structural abnormalities noted. I do not anticipate her mitral regurgitation to change significantly during early adult life but would recommend thatpartha be followed intermittently to be sure this is the case. I have reviewed with her mother that ifa significant murmur is noted on examination it would be jimenez to give us a call. I must say that onexamination today she had only a very soft early systolic murmur only noted at the apex. We again reviewed the importance of good daily oral hygiene and we discussed that SBE prophylaxis is not needed at this time. As Juan is having her wisdom teeth removed a copy of today's letter will be sent home for reference. I will plan on scheduling Juan to see us in another 3 years or so however will remain available if there is any questions or concerns about her cardiovascular status before that visit. No restrictions are placed on her activities and I would encourage her continued participation in physical activities. Enrollment in [facility]: Reviewed. Patient was enrolled in clinic. 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) VSD (ventricular septal defect) EKG 12-LEAD Routine 05/24/2016 9:16 EST ASD secundum documented in this encounter Results * STRESS TEST - SCANNED (05/31/2016 6:29 EST) Anatomical Region Laterality Modality Other 05/31/2016 6:29 EST Scan 2 Advertising Sales Agent IMG OTHER IMAGING O RDERABLES * ECG REPORT - SCANNED (05/28/2016 8:26 EST) 05/28/2016 8:26 EST Scan 2 Advertising Sales Agent PROCEDURE/MINOR GISELA GICAL ORDERABLES * CONGENITAL ECHOCARDIOGRAM (05/24/2016 10:44 EST) Anatomical Region Laterality Modality Other 05/24/2016 10:4 4 EST Narrative 05/24/2016 15:32 EST Pediatric Cardiology [address] [place] [address] Date of study: 05/24/2016 Transthoracic Echocardiogram Report M-mode, complete 2D, complete spectral Doppler, and color Doppler *STUDY CONCLUSIONS* Summary: - Fair echocardiogram images. ??Status post surgical closure of an atrial septal defect, patent ductus ??arteriosus and ligation of left superior vena cava to left atrium. ??No residual atrial septal defect or patent ductus arteriosus seen. ??Normal flow noted in the right superior vena cava with no left ??superior vena cava seen. ??Mild mitral regurgitation with mildly redundant mitral valve with no ??mitral valve prolapse. ??Mild tricuspid regurgitation with low estimated right ventricular ??pressure. ??Normal Doppler study of the other intracardiac valves. ??Normal left ventricular size, wall thickness and systolic function. ??Qualitatively good right ventricular systolic function. ??No significant change since the study 01/31/14. *PATIENT PRESENTATION* Age: ?20yr Height: ? 150.3cm (59.2in ) S/D Pressure: 110 / 76 Weight: ? 55.5kg (122.1lb ) BSA: ?1.53m^2 Location: ? Echocardiography Laboratory Facility: ? [facility] Advisor: ??Elyssa Strong Attending: ?Luzma Singh MD Referring: ?Deandra Ramos Ordering: ? Luzma Singh MD Test start time: ??Test start time: 09:30 AM. Test stop time: ??Test stop time: 10:00 AM. *PROCEDURE DATA* Procedure information: ??Pertinent images and digital data are archived for permanent storage and are available for subsequent review. ??Study status: ??Routine. Congenital transthoracic echocardiography. ??M-mode, complete 2D, complete spectral Doppler, and color Doppler. Transthoracic echocardiography was performed. Images were obtained using a [employer] Genaro IE33 2 cardiac ultrasound machine. ??Blood pressure: ? 110/76 Height percentile: 2.3. ?Weight percentile: 42.1. *INDICATIONS AND HISTORY* Indications: ?? I34.0. ??Q21.1. ??Q26.1. ??Asd. ??Mr. ??Lscv. ??Asd. History: ?? PMH: ?? Patent ductus arteriosus. [...] Right atrium: ??Normal Right Atrium. Systemic veins: Superior vena cava: Normal flow is noted in the right superior vena cava. 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 Status post surgical ligation 08/25/97. No left superior vena cava is seen. A-V CANAL Tricuspid valve: ??Very mild tricuspid regurgitation. By tricuspid regurgitation jet, the estimated right ventricular pressure is less than 20 mmHg plus right atrial pressure. ?There is mild regurgitation. Mitral valve: ??The mitral valve is mildly thickened with mild bending of the anterior leaflet towards the left atrium with no mitral valve prolapse demonstrated. There is very mild mitral regurgitation demonstrated by color Doppler. ?There is mild regurgitation. VENTRICLES Right ventricle: ??The cavity size is normal. On limited images, the right ventricular size does not appear enlarged. Left ventricle: ??The cavity size is normal. Systolic function is qualitatively normal. Difficult parasternal imaging. The left ventricular function is brisk with no regional wall motion abnormalities identified. CONOTRUNCUS Aortic valve: ? Transvalvular velocity is within the normal range. There is no regurgitation. Pulmonary valve: ? There is no evidence for stenosis. ?? There is no regurgitation. GREAT ARTERIES Aorta: ??The aorta is normal. Adjacent to the aortic valve. Aortic arch: Left Aortic Arch. No coarctation noted. PERICARDIUM There is no significant pericardial effusion. *MEASUREMENT TABLES* Left ventricle ?Value ? 01/31/2014 Reference ?? Z LV end-diastolic ?56 ?ml ? ---- volume, 3D LV end-systolic ? 13 ?ml ? ---- volume, 3D LV ejection ? 77 ?% ? ---- fraction, 3D Stroke volume, 3D ? 43 ?ml ? ---- LV end-diastolic ?36 ?ml/m^2 ?? ---- volume/bsa, 3D LV end-systolic ? 8 ? ml/m^2 ?? ---- volume/bsa, 3D Stroke volume/bsa, ?27.8 ??ml/m^2 ?? ---- 3D LV wall mass, 3D ?102 ?? g ? ---- LV wall mass/bsa, ? 66 ?g/m^2 ?? ---- 3D LV mass/height, 3D ?0.68 ??g/cm ? ---- LV mass/height^2.7, ? 33.95 g/m^2.7 ---- 3D LV ID, ED, MM ? 4.85 ??cm ?4.61 ? 4.04 - 5.37 0.4 LV ID, ES, MM ? 3.29 ??cm ?3.00 ? 2.41 - 3.66 0.8 LV ID/bsa, ED, MM ? 3.2 ?? cm/m^2 ??3.0 ? ---- LV ID/bsa, ES, MM ? 2.1 ?? cm/m^2 ??1.9 ? ---- LV fx shortening, ? 32 ?% ? 35 ? 29 - 43 ? -0.8 MM LV mid-wall fx ?16 ?% ? 18 ? ---- shortening, MM LV PW thickness, ?0.95 ??cm ?0.80 ? 0.61 - 1.05 1.1 ED, MM IVS/LV PW ratio, ?1 ? 1.08 ? 0.72 - 1.42 -0.4 ED, MM LV relative wall ?0.39 ?0.36 ? ---- thickness, ED, MM LV end-diastolic ?63 ?ml ? ---- volume, Teichholz MM LV end-systolic ? 19 ?ml ? ---- volume, Teichholz MM LV ejection ? 70 ?% ? ---- fraction, Teichholz MM LV end-diastolic ?41 ?ml/m^2 ?? ---- volume/bsa, Teichholz MM LV end-systolic ? 12 ?ml/m^2 ?? ---- volume/bsa, Teichholz MM LV wall mass, MM ?162 ?? g ? 124 ?89 - 201 ?0.9 LV wall mass/bsa, ? 105 ?? g/m^2 ?? 80 ? ---- MM LV mass/height, MM ?1.07 ??g/cm ?0.83 ? ---- LV mass/height^2.7, ? 53.77 g/m^2.7 41.78 ? ---- MM Ventricular septum ?Value ? 01/31/2014 Reference ?? Z IVS thickness, ED, ?0.95 ??cm ?0.86 ? 0.62 - 1.14 0.5 MM Aortic valve ?Value ? 01/31/2014 Reference ?? Z Aortic annulus ?1.83 ??cm ? 1.61 - 2.24 - 0.6 diameter, S Aorta ? Value ? 01/31/2014 Reference ?? Z Aortic root ID ?2.69 ??cm ?2.60 ? 2.07 - 3.11 0.4 Aortic root ID, ? 2.15 ??cm ? 1.73 - 2.53 0.1 STJ, S Legend: (L) ??and ??(H) ??felipa values outside specified reference range. I have personally reviewed the images and have reviewed and edited the reported findings. Electronically signed by Luzma Singh MD 05/24/2016 15:31 Procedure Note Luzma Singh MD - 05/24/2016 Pediatric Cardiology [address] [place] [address] Date of study: 05/24/2016 Transthoracic Echocardiogram Report M-mode, complete 2D, complete spectral Doppler, and color Doppler *STUDY CONCLUSIONS* Summary: - Fair echocardiogram images. 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 No residual atrial septal defect or patent ductus arteriosus seen. Normal flow noted in the right superior vena cava with no left superior vena cava seen. Mild mitral regurgitation with mildly redundant mitral valve with no mitral valve prolapse. Mild tricuspid regurgitation with low estimated right ventricular pressure. Normal Doppler study of the other intracardiac valves. Normal left ventricular size, wall thickness and systolic function. Qualitatively good right ventricular systolic function. No significant change since the study 01/31/14. *PATIENT PRESENTATION* Age: 20yr Height: 150.3cm (59.2in ) S/D Pressure: 110 / 76 Weight: 55.5kg (122.1lb ) BSA: 1.53m^2 Location: Echocardiography Laboratory Facility: [facility] [place] [employer] Advisor: Elyssa Strong Attending: Luzma Singh MD Referring: Deandra Ramos Ordering: Luzma Singh MD Test start time: Test start time: 09:30 AM. Test stop time: Test stop time: 10:00 AM. *PROCEDURE DATA* Procedure information: Pertinent images and digital data are archived for permanent storage and are available for subsequent review. Study status: Routine. Congenital transthoracic echocardiography. M-mode, complete 2D, complete spectral Doppler, and color Doppler. Transthoracic echocardiography was performed. Images were obtained using a [employer] Genaro IE33 2 cardiac ultrasound machine. Blood pressure: 110/76 Height percentile: 2.3. Weight percentile: 42.1. *INDICATIONS AND HISTORY* Indications: I34.0. Q21.1. Q26.1. Asd. Mr. Graham. Asd. [...] Right atrium: Normal Right Atrium. Systemic veins: Superior vena cava: Normal flow is noted in the right superior vena cava. 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 Status post surgical ligation 08/25/97. No left superior vena cava is seen. A-V CANAL Tricuspid valve: Very mild tricuspid regurgitation. By tricuspid regurgitation jet, the estimated right ventricular pressure is less than 20 mmHg plus right atrial pressure. There is mild regurgitation. Mitral valve: The mitral valve is mildly thickened with mild bending of the anterior leaflet towards the left atrium with no mitral valve prolapse demonstrated. There is very mild mitral regurgitation demonstrated by color Doppler. There is mild regurgitation. VENTRICLES Right ventricle: The cavity size is normal. On limited images, the right ventricular size does not appear enlarged. Left ventricle: The cavity size is normal. Systolic function is qualitatively normal. Difficult parasternal imaging. The left ventricular function is brisk with no regional wall motion abnormalities identified. CONOTRUNCUS Aortic valve: Transvalvular velocity is within the normal range. There is no regurgitation. Pulmonary valve: There is no evidence for stenosis. There is no regurgitation. GREAT ARTERIES Aorta: The aorta is normal. Adjacent to the aortic valve. Aortic arch: Left Aortic Arch. No coarctation noted. PERICARDIUM There is no significant pericardial effusion. *MEASUREMENT TABLES* Left ventricle Value 01/31/2014 Reference Z LV end-diastolic 56 ml ---- volume, 3D LV end-systolic 13 ml ---- volume, 3D LV ejection 77 % ---- fraction, 3D Stroke volume, 3D 43 ml ---- LV end-diastolic 36 ml/m^2 ---- volume/bsa, 3D LV end-systolic 8 ml/m^2 ---- volume/bsa, 3D Stroke volume/bsa, 27.8 ml/m^2 ---- 3D LV wall mass, 3D 102 g ---- LV wall mass/bsa, 66 g/m^2 ---- 3D LV mass/height, 3D 0.68 g/cm ---- LV mass/height^2.7, 33.95 g/m^2.7 ---- 3D LV ID, ED, MM 4.85 cm 4.61 4.04 - 5.37 0.4 LV ID, ES, MM 3.29 cm 3.00 2.41 - 3.66 0.8 LV ID/bsa, ED, MM 3.2 cm/m^2 3.0 ---- LV ID/bsa, ES, MM 2.1 cm/m^2 1.9 ---- LV fx shortening, 32 % 35 29 - 43 -0.8 MM LV mid-wall fx 16 % 18 ---- shortening, MM LV PW thickness, 0.95 cm 0.80 0.61 - 1.05 1.1 ED, MM IVS/LV PW ratio, 1 1.08 0.72 - 1.42 -0.4 ED, MM LV relative wall 0.39 0.36 ---- thickness, ED, MM LV end-diastolic 63 ml ---- volume, Teichholz MM LV end-systolic 19 ml ---- volume, Teichholz MM LV ejection 70 % ---- fraction, Teichholz MM LV end-diastolic 41 ml/m^2 ---- volume/bsa, Teichholz MM LV end-systolic 12 ml/m^2 ---- volume/bsa, Teichholz MM LV wall mass, MM 162 g 124 89 - 201 0.9 LV wall mass/bsa, 105 g/m^2 80 ---- MM LV mass/height, MM 1.07 g/cm 0.83 ---- LV mass/height^2.7, 53.77 g/m^2.7 41.78 ---- MM Ventricular septum Value 01/31/2014 Reference Z IVS thickness, ED, 0.95 cm 0.86 0.62 - 1.14 0.5 MM Aortic valve Value 01/31/2014 Reference Z Aortic annulus 1.83 cm 1.61 - 2.24 -0.6 diameter, S Aorta Value 01/31/2014 Reference Z Aortic root ID 2.69 cm 2.60 2.07 - 3.11 0.4 Aortic root ID, 2.15 cm 1.73 - 2.53 0.1 STJ, S Legend: (L) and (H) felipa values outside specified reference range. I have personally reviewed the images and have reviewed and edited the reported findings. Electronically signed by Luzma Singh MD 05/24/2016 15:31 Luzma Singh MD CARDIAC ECHO ORDERA BLES * EKG 12-LEAD (05/24/2016 9:16 EST) 05/24/2016 9:16 EST Narrative [facility] EKG - 05/24/2016 14:38 EST ? [facility] ? Test Date: ?2016-05-24 Pat Name: ? JUAN PARKER ?Department: ?? [id number] ? Room: ? Gender: ? F ?Food Porter: ?? [id number] : ?1995 ? Requested By: SAMANTHA ACOSTA JORGE Order Number: [id number] ?Reading MD: ?? LUZMA SINGH MD ? Measurements Intervals ?[place] ? Rate: ? 73 ? P: ?263 FL: ? 96 ? QRS: ?12 QRSD: ? 87 ? T: ?23 QT: ? 368 ? QTc: ?406 ? Interpretive Statements Low right atrial rhythm with P waves best seen in the inferior leads. ?? No other abnormality identified. ?? Compared to ECG 01/31/2014 12:17:46 there has been a change in P-wave focus I reviewed the tracing and have either agreed or edited the findings in this report. Electronically Signed On 05-24-16 14:38:15 EST by LUZMA SINGH MD. Procedure Note Luzma Singh MD - 05/24/2016 [facility] [facility] Test Date: 2016-05-24 Pat Name: JUAN PARKER Department: [id number] Room: Gender: Food Porter: [id number] : 1995 Requested By: SAMANTHA PATEL Order Number: [id number] Reading MD: LUZMA SINGH MD Measurements Intervals [place] Rate: 73 P: 263 FL: 96 QRS: 12 QRSD: 87 T: 23 QT: 368 QTc: 406 Interpretive Statements Low right atrial rhythm with P waves best seen in the inferior leads. No other abnormality identified. Compared to ECG 01/31/2014 12:17:46 there has been a change in P-wave focus I reviewed the tracing and have either agreed or edited the findings inthis report. Electronically Signed On 05-24-16 14:38:15 EST by LUZMA TAI. 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
--- OUTSIDE RECORDS SUMMARY | 2024-02-05 13:18 | XMS_ITS | Encounter Summary ---
Author Organization [facility] Address [address] [place] [address] Care Team Providers Care Emergency Generator Mechanic Name Role Phone Deandra Ramos MD Primary Care Provider [phone] Baltazar Gaines MD Primary Care Provide r Encounter Details Date Type Department Care Team (Late st Contact Info) Description 06/28/2020 Lab Requisition [facility] Pathology & Laboratory Medicine - [facility] [address], [place] [id number] Outr Resulting Lab, Provider Social History Tobacco Use Types Packs/Day Years [...] Procedure Name Priority Date/Time Associated Diagnosis Comments CELIAC DISEASE PANEL Routine 06/27/2020 11:33 EST documented in this encounter Results * CELIAC DISEASE PANEL (06/27/2020 11:33 EST) Tissue Transglutaminase Antibody IGA <1.2 <4.0 U/mL 07/03/2020 13:51 EST [facility] Comment: A negative result may be due to IgA deficiency and does not rule out celiac disease. ? Negative: ??<4.0 U/mL ? Weak Positive: ??4.0 - 10.0 U/mL ? Positive: ??>10.0 U/mL Results were obtained with the [employer] QUANTA Lite R h-tTG IgA JAVIER assay on the [employer] DSX. IgA 333 85 - 499 mg/dL 07/03/2020 13:51 EST [facility] Celiac Disease Interpretation Negative Serology. Celiac disease unlikely. Approximately 10% of patients with celiac disease are seronegative. Patients who are already adhering to a gluten-free diet may also be seronegative. If celiac disease is highly clinically suspected, referral to gastroenterology for additional evaluation is recommended. 07/03/2020 13:51 EST [facility] Blood VENOUS BLOOD / Unknown 06/27/2020 11:33 EST 06/28/2020 16:08 EST Provider Outr Resulting Lab IMMUNOLOGY A ND SEROLOGY ORDERABLES Performing Organization Address [facility] Co de Phone Number [facility] [address] [place] [address] documented in this encounter Visit Diagnoses Not on filedocumented in this encounter Care Teams Emergency Generator Mechanic Relationship Specialty Start Date End Date Deandra Ramos MD [address] [place] [phone] PCP - General 12/15/09 06/23/22 Baltazar Gaines MD 4 [facility] [address] [place], [place] [address] PCP - General 06/24/22 documented as of this encounter
--- OUTSIDE RECORDS SUMMARY | 2024-02-05 13:18 | XMS_ITS | Encounter Summary ---
Author Organization [facility] Address [address] [place] [address] Care Team Providers Care Carrot Tier Name Role Phone Deandra Ramos MD Primary Care Provider [phone] Reason for Visit * Reason Comments Heart Disease hx. of a ASD, s/p genao rgical closure 08/25/97. Mild M.R. Hx. of scoliosis, s/p multiple surgeries. No recent surgeries & no more planned for the future, has finished growing & is stable. Has had a little cold lately. No concerns from mom. Physical activity includes treadmill & bike use, goes for walks when at home. Encounter Details Date Type Department Care Team (Latest Contact Info) Description 05/29/2012 8:30 EST Office Visit [facility] Pediatric Cardiology - [address] [address] Luzma Singh MD Status post patch closure of ASD (Primary Dx); Mitral regurgitation; Mitral valve insufficiency Social History Tobacco Use Types Packs/Day Years [...] Sign Reading Time Taken Comments Blood Pressure 105/70 05/29/2012 0854 EST r. arm Pulse 84 05/29/2012 0854 EST Temperature - - Respiratory Rate 16 05/29/2012 0854 EST Oxygen Saturation 99% 05/29/2012 0854 EST Inhaled Oxygen Concentration - - Weight 52.9 kg (116 lb 10 oz) 05/29/2012 0854 ES T Height 149.7 cm (4' 10.94) 05/29/2012 0854 EST Body Mass Index 23.61 05/29/2012 0854 EST Body Mass Index Percentile 80.55% 05/29/2012 085 4 EST Growth Chart: [facility] (Girls, 2- 20 Years) documented in this encounter Progress Notes * Luzma Singh MD - 05/29/2012 0912 EST Subjective: Patient ID: Juan Parker is an 16 y.o. female. Chief Complaint Patient presents with ??? Heart Disease hx. of a ASD, s/p surgical closure 08/25/97. Mild M.R. Hx. of scoliosis, s/p multiple surgeries. No recent surgeries & no more planned for the future, has finished growing & is stable. Has hada little cold lately. No concerns from mom. Physical activity includes treadmill & bike use, goes for walks when at home. HPI Juan is a young girl who is status post surgical closure of a large secundum atrial septal defect as well as ligation of a patent ductus arteriosus and ligation of a left superior vena cava. Shehas had no significant cardiovascular abnormality since that time. On her last echocardiogram therewas a very small residual atrial defect with no significant shunt and trivial mitral regurgitation.She returns at this time for followup visit. She seems to be coming along quite well and enjoys school. She has been receiving OT and PT at school and seems to have good result using the [employer] for communication. Her mother states she is able to speak short sentences and is progressively improving. She remembers to put in her hearing aids every day and has been in speech therapy 2 days a week. She has had normal diet and sleep pattern. There was difficulty with large bulky stools which has improved after MiraLax was begun. She has had good dental hygiene and is seen every 3 months and is dueto be seen later today. The only concern that remains at this time is that Juan has had a couple of bone fractures and she is on vitamin D. She unfortunately remains uncoordinated and when she fallshe does not tend to catch herself. She has had scoliosis repair and there are no further surgeries planned in future. She has not had any decline in exercise tolerance and is not easily short of breath or dizzy. She has not had apparent chest pains or syncope. Patient Active Problem List Diagnoses ??? Developmental delay ??? Scoliosis ??? 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 Mitral valve insufficiency ??? Hearing loss ??? Status post patch closure of ASD Past Medical History Diagnosis Date ??? ASD [...] History Procedure Date ??? Asd repair 08/25/97 Dr. Gonzalez @ [facility] This was performed with a [...] 2000 ??? Hx atrial septal defect repair Family History Family Problem Relation Name Age of Onset Comments Source as of 05/29/2012 Diabetes Other MGGM T2 Provider Glaucoma Other MGGM Provider High Blood Pressure Other MGGM Provider High Cholesterol Other MGGM Provider Heart Disease Other MGGM has had two AK's Provider Recurrent Fractures Neg Hx Provider Osteoporosis [...] Name Status Age Comments Source as of 05/29/2012 Other MGGM Alive Provider Mother Alive Provider [...] Osiel Cooper mother's partner ??? Stepfather's employment key carrier ??? Education Grade 9 ? ? 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 Reported academic performance Doing [...] Alcohol Use: No ??? Drug Use: No caffeine -limited for soda intake ??? Sexually Active: Not on file Other Topics Concern ??? Not on file Social History Narrative ??? No narrative on file Outpatient Prescriptions Marked as Taking for the 05/29/12 encounter (Office Visit) with Luzma Singh MD Medication Sig Dispense Refill ??? amoxicillin-clavulanate (AUGMENTIN) 500-125 mg per tablet Take 4 Tabs by mouth once. 4 tabs, 500 mg each for dentist appointment today ??? Cholecalciferol, Vitamin D3, 2,000 unit Cap Take 2,000 Units by mouth daily. 90 Cap 1 (Takes Miralax not metamucil) Allergies No Known Allergies ROS10 point ROS performed with pertinent positives and negatives in HPI Objective: BP 105/70 Pulse 84 Resp 16 Ht 149.7 cm (58.94) Wt 52.9 kg (116 lb 10 oz) BMI 23.61 kg/m2 SpO2 99% LMP 05/23/2012 Body mass index is 23.61 kg/(m^2). Body surface area is 1.48 meters squared. 80.56%ile based on CDC 2-20 Years BMI-for-age data. Normalized yalzvj-rjk-hnebsfyww length data available only for age 0 to 36 months. 2.43%ile based on CDC 2-20 Years brtendk-zor-uyl data. 47.22%ile based on CDC 2-20 Years hdexqz-sar-pqv data. Physical Exam Constitutional: She appears well-developed and well-nourished. No distress. Cooperative and speaks slow single words to me with nasal phonation. HENT: Head: Normocephalic. Hearing aids in place Eyes: Conjunctivae and EOM are normal. Neck: Normal range of motion. No JVD present. No tracheal deviation present. No thyromegaly present. Cardiovascular: Cardiac - normal precordial impulse with no bulge, pectus or thrill. The heart sounds are regular with normal intensity and normal S2 split and variation with respiration. No click, gallop or ectopy.There is no murmur or rub. The pulses are equal in the upper [...] a normal mood and affect. EKG - Low right atrial rhythm with a mild interventricular conduction delay, normal intervals and QRS axis. No atrial enlargement, ventricular hypertrophy or ST, T wave changes of significance. ECHO - ordered for today, but given Juan's dental appointment at 10 AM we will perform this at hernext visit. Assessment and Plan: In summary, Juan is a young girl who has undergone surgical closure of an atrial septal defect. Tariq noted very mild mitral regurgitation by echocardiogram in past. I do not hear any murmur today to suggest cardiovascular pathology of significance. I would suggest a visit in another year for repeat exam, EKG and echocardiogram. In the interim we are certainly available if there is any questions or concerns about her cardiovascular status. I reviewed with Juan's mother that SBE prophylaxis is not indicated as I had thought there was no residual atrial defect. On review of the echo report after our visit, however, there was a small residual defect noted at the last echo, so we would suggest SBE prophylaxis be followed until we relook at her heart. I was able to speak with Juan's motherby phone after her visit and she had given Juan her antibiotic prior to the dental visit and understands we would suggest this for the time being. A copy of this letter will be sent to [facility] to be sure they are aware of our suggestion as well. Juan is followed every 3 months fordental evaluation and she has become compliant enough that she no longer requires inhaled relaxants. They are no restrictions placed on her physical activities. She really seems to be doing quite well at this time and I am quite pleased with her progress. documented in this encounter Procedure Notes * BOOKSTORE CLERK, SCAN 2 - 06/09/2012 1012 ESTAssociated Order(s): ECG REPORT - SCANNED documented in this encounter Plan of Treatment Not on file documented as of this encounter Procedures Procedure Name Priority Date/Time Associated Diagnosis Comments ECG REPORT - SCANNED 06/09/2012 10:12 EST EKG 12-LEAD Routine 05/29/2012 8:49 EST Status post patch closure of ASD Mitral regurgitation documented in this encounter Results * ECG REPORT - SCANNED (06/09/2012 10:12 EST) 06/09/2012 10:1 2 EST Narrative 06/09/2012 15:16 EST Procedure Note BOOKSTORE CLERK, SCAN 2 - 06/09/2012 10:12 EST Scan 2 Sustainable Design Coordinator PROCEDURE/MINOR GISELA GICAL ORDERABLES * EKG 12-LEAD (05/29/2012 8:49 EST) 05/29/2012 8:49 EST Narrative [facility] - 06/07/2012 9:36 EST ?[facility] ? Test Date: ?2012-05-29 Pat Name: ? JUANPiotr PARKER ?Department: ?? Pedi-Card ? Room: ? Gender: ? F ?Floor Mechanic: ?? [id number] : ?1995 ? Requested By: SAMANTHA ACOSTA JORGE Order Number: [id number] ?Reading MD: ?? LUZMA SINGH MD ? Measurements Intervals ?[place] ? Rate: ? 69 ? P: ?-22 [place]: ? 115 ?QRS: ?19 QRSD: ? 80 ? T: ?31 QT: ? 353 ? QTc: ?372 ? Interpretive Statements ..PEDIATRIC ECG INTERPRETATION SINUS RHYTHM VS LOW RIGHT ATRIAL RHYTHM RV3 INTERVENTRICULAR CONDUCTION DELAY Electronically Signed On 06-07-12 09:36:01 EST by LUZMA SINGH MD Procedure Note Luzma Singh MD - 06/07/2012 [facility] Test Date: 2012-05-29 Pat Name: JUAN PARKER Department: Pedi-Card Room: Gender: F Floor Mechanic: [id number] : 1995 Requested By: SAMANTHA PATEL Order Number: [id number] Fortunato MD: LUZMA SINGH MD Measurements Intervals [place] Rate: 69 P: -22 WV: 115 QRS: 19 QRSD: 80 T: 31 QT: 353 QTc: 372 Interpretive Statements ..PEDIATRIC ECG INTERPRETATION SINUS RHYTHM VS LOW RIGHT ATRIAL RHYTHM RV3 INTERVENTRICULAR CONDUCTION DELAY Electronically Signed On 06-07-12 09:36:01 EST by LUZMA SINGH MD Luzma Singh MD CARDIAC ECG ORDERAB LES [facility] [address] [place] [address] documented in this encounter Visit Diagnoses Diagnosis Status post patch closure of ASD- Primary Other postprocedural status Mitral regurgitation Mitral valve disorders Mitral valve insufficiency Mitral valve disorders documented in this encounter Historical Medications * This list may reflect changes made after this encounter. Medication Sig Dispensed Refills Start Date End Date Psyllium Seed-Sucrose (METAMUCIL) Powd Take by mouth. Taking 1 tablespoon daily 01/31/2014 added in this encounter Care Teams Carrot Tier Relationship Specialty Start Date End Date Deandra Ramos MD [address] [place] [phone] PCP - General 12/15/09 06/23/22 documented as of this encounter
--- OUTSIDE RECORDS SUMMARY | 2024-02-05 13:18 | XMS_ITS | Encounter Summary ---
Author Organization [facility] Address [address] [place] [address] Care Team Providers Care Art Handler Name Role Phone Deandra Ramos MD Primary Care Provider [phone] Encounter Details Date Type Department Care Team (Late st Contact Info) Description 12/26/2010 Phlebotomy Only [facility] [address] [place] [address] Dentist Private Practice, Outpatient Osteopenia Social History Tobacco Use Types Packs/Day Years Used Date Smoking Tobacco: Never Assessed Sex and Gender Information Value Date Recorded Sex Assigned at Not on file Gender Identity Not on file Sexual Orientation Not on file documented as of this encounter Plan of Treatment Not on file documented as of this encounter Procedures Procedure Name Priority Date/Time Associated Diagnosis Comments VITAMIN D (25,OH) Routine 12/26/2010 13: 40 EDT Osteopenia PHOSPHORUS Routine 12/26/2010 13:40 EDT Osteopenia ALKALINE PHOSPHATASE Routine 12/26/2010 13:40 EDT Osteopenia CALCIUM Routine 12/26/2010 13:40 EDT Osteopenia documented in this encounter Results * ALKALINE PHOSPHATASE (12/26/2010 13:40 EDT) Total Alkaline Phosphatase 194 70 - 230 U/L [facility] Blood specimen (specimen) 12/26/2010 13:40 EDT 12/26/2010 13:42 EDT [facility] CHEMIS TRY & BLOOD GAS ORDERABLES Performing Organization Address [facility] [address] [facility] de Phone Number [facility] [address] [place] [address] * CALCIUM (12/26/2010 13:40 EDT) Calcium 9.1 8.5 - 10.5 mg/dl [facility] Calculated Calcium 8.8 8.5 - 10.5 mg/dl [facility] Blood specimen (specimen) 12/26/2010 13:40 EDT 12/26/2010 13:42 EDT [facility]oberto Donalds[facility] CHEMIS TRY & BLOOD GAS ORDERABLES Performing Organization Address [facility] de Phone Number [facility] [address] [place] [address] * PHOSPHORUS (12/26/2010 13:40 EDT) Phosphorus 4.9 2.9 - 5.4 mg/dl [facility] Blood specimen (specimen) 12/26/2010 13:40 EDT 12/26/2010 13:42 EDT Rigoberto Donaldson [facility] CHEMIS TRY & BLOOD GAS ORDERABLES Performing Organization Address [facility] de Phone Number [facility] [address] [place] [address] * VITAMIN D (25,OH) (12/26/2010 13:40 EDT) 25OH Vitamin D Tot 40.0 ng/ml [facility] Comment: Reference Range: <10 ng/ml: Deficient 10-30 ng/ml: Insufficient 30-100 ng/ml: Sufficient >100 ng/ml: Toxic Blood specimen (specimen) 12/26/2010 13:40 EDT 12/26/2010 13:42 EDT [facility]ober[facility] Donalds[facility] CHEMIS TRY & BLOOD GAS ORDERABLES Performing Organization Address [facility] [address]/[facility] Co de Phone Number [facility] [address] [place] [address] documented in this encounter Visit Diagnoses Diagnosis Osteopenia Disorder of bone and cartilage, unspecified documented in this encounter Care Teams Art Handler Relationship Specialty Start Date End Date Deandra Ramos MD [address] [place] [address] PCP - General 12/15/09 06/23/22 documented as of this encounter
--- OUTSIDE RECORDS SUMMARY | 2024-02-05 13:18 | XMS_ITS | Encounter Summary ---
Author Organization [facility] Address [address] [place] [address] Care Team Providers Care Mover Name Role Phone Deandra Ramos MD Primary Care Provider [phone] Encounter Details Date Type Department Care Team (Late st Contact Info) Description 12/26/2010 13:32 EDT - 12/26/2010 23:59 EDT Hospital Encounter [facility] - [address] [address] [facility] [address] [place] [phone] Discharge Disposition: Home or Self Care Social History Tobacco Use Types Packs/Day Years Used Date Smoking Tobacco: Never Assessed Sex and Gender Information Value Date Recorded Sex Assigned at Not on file Gender Identity Not on file Sexual Orientation Not on file documented as of this encounter Medications at Time of Discharge Medication Sig Dispensed Refills Start Date End Date Cholecalciferol, Vitamin D3, 2,000 unit Cap Take 2,000 Units by mouth daily. 90 Cap 1 06/15/2010 amoxicillin-clavulanat e (AUGMENTIN) 500-125 mg per tablet Take 4 Tabs by mouth once. 4 tabs, 500 mg each for dentist appointment today 12/26/2010 11/09/2012 SODIUM FLUORIDE (FLUORIDE TATI ORAL) Take by mouth daily. 12/26/2010 03/06/2011 documented as of this encounter Discharge Disposition Disposition Code Departure Means Destination Home or Self Snf documented in this encounter Plan of Treatment Not on file documented as of this encounter Visit Diagnoses Not on filedocumented in this encounter Care Teams Mover Relationship Specialty Start Date End Date Deandra Ramos MD [address] [place] [phone] PCP - General 12/15/09 06/23/22 documented as of this encounter
--- OUTSIDE RECORDS SUMMARY | 2024-02-05 13:18 | XMS_ITS | Encounter Summary ---
Author Organization [facility] Address [address] [place] [address] Care Team Providers Care Railroad Maintenance Clerk Name Role Phone Deandra Ramos MD Primary Care Provider [phone] Baltazar Gaines MD Primary Care Provide r Encounter Details Date Type Department Care Team (Late st Contact Info) Description 02/25/2021 Lab Requisition [facility] Pathology & Laboratory Medicine - [facility] [address] [place], [place] [address] Outr Resulting Lab, Provider Social History Tobacco [...] Procedure Name Priority Date/Time Associated Diagnosis Comments ZZCOVID-19 TEST [facility] PCR Today 02/24/2021 13:05 EDT COVID-19 TESTING Routine 02/24/2021 13:0 5 EDT documented in this encounter Results * COVID-19 TEST [facility] PCR (02/24/2021 13:05 EDT) Swab ENTIRE NASOPHARYNX / Unknown 02/24/2021 13:05 EDT 02/25/2021 16:50 EDT Provider Outr Resulting Lab MICROBIOLOGY - GENERAL ORDERABLES [facility] [address] [place] [address] * COVID-19 TESTING (02/24/2021 13:05 EDT) COVID-19 rt-PCR Result Negative Negative 02/26/2021 15:29 EDT [facility] Comment: This test has not been FDA cleared or approved. This test has been authorized by FDA under an EUA for use by authorized laboratories. This test has been authorized only for detection of nucleic acid from 2019-nCoV, not for any other viruses or pathogens. This test is only authorized for the duration of the declaration that circumstances exist justifying the authorization of emergency use of in vitro diagnostic tests for detection and/or diagnosis of 2019-nCoV under section 564(b)(1) of Act, 21 U.S.C ?? 360bbb-3(b) (1), unless the authorization is terminated or revoked sooner. Negative results do not preclude 2019-nCoV infection and should not be used as the sole basis for treatment or other patient management decisions. Negative results must be combined with clinical observations, patient history, and epidemiological information. Testing was performed using the alicja SARS-CoV-2 assay ([employer] on the Alicja 6800 System Performing Lab Alicja [address] [facility] 02/26/2021 15:29 EDT [facility] Swab 02/24/2021 13:0 5 EDT 02/25/2021 16:50 EDT Provider Outr Resulting Lab MICROBIOLOGY - GENERAL ORDERABLES [facility] [address] [place] [address] documented in this encounter Visit Diagnoses Not on filedocumented in this encounter Care Teams Railroad Maintenance Clerk Relationship Specialty Start Date End Date Deandra Ramos MD [address] [place] [address] PCP - General 12/15/09 06/23/22 Baltazar Gaines MD [address] [address] PCP - General 06/24/22 documented as of this encounter
--- OUTSIDE RECORDS SUMMARY | 2024-02-05 13:18 | XMS_ITS | Encounter Summary ---
Author Organization [facility] Address [address] [place] [address] Care Team Providers Care Supply Coordinator Name Role Phone Deandra Ramos MD Primary Care Provider [phone] Encounter Details Date Type Department Care Team (Latest Contact Info) Description 04/04/2020 Travel Social History Tobacco Use Types Packs/Day Years [...] 14:12 EST documented as of this encounter Plan of Treatment Not on file documented as of this encounter Visit Diagnoses Not on filedocumented in this encounter Care Teams Supply Coordinator Relationship Specialty Start Date End Date Deandra Ramos MD [address] [place] [phone] PCP - General 12/15/09 06/23/22 documented as of this encounter
--- OUTSIDE RECORDS SUMMARY | 2024-02-05 13:18 | XMS_ITS | Clinical Summary ---
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 Gonzalez @ [facility] This was performed with a pericardial patch of the ASD. Small residual atrial septal defect initially post-op with no other cardiovascular abnormality. 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 The left superior vena cava was ligated, as well as ligation of the patent ductus arteriosus. SPINE SURGERY first was 05/2005, most recent 02/2010 multiple procedures for scoliosis TYMPANOSTOMY TUBE PLACEMENT 05/05/2005 DENTAL SURGERY 05/05/2000 HX ATRIAL SEPTAL DEFECT REPAIR MASTOIDECTOMY 10/22/2005 Left CWD tympanomastoidectomy, absent stapes superstructure, Dr. Skaggs Medical History Medical History Date Comments ASD (atrial septal defect) 08/14/2009 Hydrocephalus (HCC-CMS) 08/14/2009 Strabismus Fracture of arm 2009 & 2009 fractured each arm - almost a year apart - fall 1st time, ? second injury- not witnessed Osteopenia [address] Blood as re. 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 prostate Dementia Paternal Grandmother Hearing Loss Neg Hx Osteoporosis Neg Hx Recurrent Fractures Neg Hx Thyroid Disease Neg Hx Urolithiasis Neg Hx Relation Status Comments Brother 1 Alive -10/29/89, hea lthy Brother 2 Alive -10/07/90, heal thy Father Alive Maternal Grandfather Alive Maternal Grandmother Alive Mother Alive Other 1 Alive Other 2 Paternal Grandfather Paternal Grandmother Sister Alive -04/23/2008, half sib dad's, healthy Social History Tobacco Use Types Packs/Day Years [...] on file Sexual Orientation Not on file Obstetrics History Last Filed Vital Signs Vital Sign Reading Time Taken Comments Blood Pressure 114/76 04/22/2023 0823 EST Pulse 66 04/22/2023 0823 EST Temperature - - Respiratory Rate 18 04/04/2020 1418 EST Oxygen Saturation 97% 04/22/2023 0823 EST Inhaled Oxygen Concentration - - Weight 59.4 kg (131 lb) 04/22/2023 0823 EST Height 152.4 cm (5') 04/22/2023 0802 EST Body Mass Index 25.58 04/22/2023 0802 EST Plan of Treatment Health Maintenance Due Date Last Done Comments Hepatitis C Screen 1996 Hepatitis B Vaccine (1 of - + 3-dose series) 08/19 COVID-19 Vaccine (2022- season) 2024 Procedures Procedure Name Priority Date/Time Associated Diagnosis [...] management options, if applicable. 11/10/2023 14:19 [facility] Final Diagnosis A. DUODENUM, BIOPSY: [...] active inflammation or intraepithelial eosinophils. 11/10/2023 14:19 [facility] Diagnosis Comment The technical component of the specimen processing was performed at the [facility] Pathology Department, [address] [place] [address] (CLIA [id number]). The professional component of the specimen evaluation (slide review and issuing of the final diagnosis) was performed at [facility], [address] [place] [address] (CLIA License Number [id number]). 11/10/2023 14:19 [facility] Attestation By the signature below, the attending physician certifies that they have 1) personally conducted a gross and/or microscopic examination of the described specimen(s), and/or personally interpreted the results of laboratory testing of the described specimen(s), and 2) personally rendered or confirmed the above diagnosis. 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 Received in [...] smallest tissue may not survive processing. LAURA DAWSON([facility]) 11/07/2023 9:49 11/10/2023 14:19 [facility] Performing Lab [facility] 14:19 [facility] Scanned Images 11/10/2023 14:19 [facility] Tissue ESOPHAGEAL STRUCTURE / Unknown [...] EDT Costa Kramer MD PATHOLOGY ORD ERABLES [facility] [address] [place], [place] [address] from Last 3 Months Bishop Thorntonyse C Personal/Famil y Self 1995 [address] [facility] [place] [address] Bishop Thorntonyse C Personal/Famil y Self 1995 [address] [facility] [place] [address] Bishop Thorntonyse C Personal/Famil y Self 1995 [address] [facility] [place] [address] Care Teams Logistics Support Relationship Specialty Start Date End Date Baltazar Gaines MD [address] [facility] [address] [place] [address] [facility] - General 06/24/22
--- OUTSIDE RECORDS SUMMARY | 2024-02-05 13:18 | XMS_ITS | Encounter Summary ---
Author Organization [facility] Address [address] [place] [address] Care Team Providers Care Drainage Inspector Name Role Phone Baltazar Gaines MD Primary Care Provide r Reason for Visit * Reason Onset Date Comments Advice Only 12/22/2023 Encounter Details Date Type Department Care Team (Late st Contact Info) Description 12/22/2023 Telephone [facility] - [facility] [address] [place] [address] Sánchez Leon MD [address] [place] [address] Advice Only Social History Tobacco Use Types Packs/Day Years [...] Telephone Encounter - Erasto Diop RN - 12/24/2023 0808 EDT This question needs to be directed to patients orthopedic team. Spoke deseano Delilah to advise. She is all set. Was able to obtain information. No questions or barriers to learning. * Telephone Encounter - Devan Alexander - 12/22/2023 1634 EDT Patient's mother called states she is legal guardian and calling to speak with nurse about what type of hardware patient has in her back; states she no longer has access to patient mychart information to locate documentation documented in this encounter Plan of Treatment Not on file documented as of this encounter Visit Diagnoses Not on filedocumented in this encounter Care Teams Drainage Inspector Relationship Specialty Start Date End Date Baltazar Gaines MD [address] [facility] [address] [place] [address] PCP - General 06/24/22 documented as of this encounter
--- OUTSIDE RECORDS SUMMARY | 2024-02-05 13:18 | XMS_ITS | Encounter Summary ---
Author Organization [facility] Address [address] [place] [address] Care Team Providers Care Geophysical Engineer Name Role Phone Deandra Ramos MD Primary Care Provider [phone] Reason for Visit * Cardiology (Routine) - New Request Specialty Diagnoses / Procedures Referred By Camacho murray Referred To Contact Diagnoses Status post patch closure of atrial septal defect Mitral regurgitation, congenital S/P repair of PDA Procedures TRANSTHORACIC ECHO (TTE) COMPLETE Luzma Neri MD Referral ID Status Reason Start Date Expiration Date V isits Requested Visits Authorized [id number] New Request 04/04/2020 1 1 Encounter Details Date Type Department Care Team (Latest Contact Info) Description 04/04/2020 14:45 EST Ancillary Procedure [facility] Pediatric Cardiology - Main [place] [address] [place] [address] Status post patch closure of atrial septal [...] Procedure Name Priority Date/Time Associated Diagnosis Comments TRANSTHORACIC ECHO (TTE) COMPLETE Routine 04/04/2020 15:49 EST Status post patch closure of atrial septal defect Mitral regurgitation, congenital S/P repair of PDA documented in this encounter Results * TRANSTHORACIC ECHO (TTE) COMPLETE W/DOPPLER W/CF NO CONTRAST (04/04/2020 15:49 EST) Anatomical Region Laterality Modality Ultrasound 04/04/2020 15:0 0 EST Narrative 04/04/2020 18:19 EST Pediatric Cardiology [address] [place] [address] Date of study: 04/04/2020 Transthoracic Echocardiogram Report [...] ?1.55m^2 Location: ? Echocardiography Laboratory Facility: ? [facility] Attending: ?Luzma Neri MD Referring: ?Luzma Neri MD ?Liana Ordering: ? Luzma Neri MD Test start time: ??03:00 PM. Test stop time: ??03:40 PM. *PROCEDURE DATA* Procedure information: ??Pertinent images and digital data are archived for permanent storage and are available for subsequent review. ??Study status: ??Routine. Transthoracic echocardiography. ??M-mode, complete 2D, complete spectral Doppler, and color Doppler. Transthoracic echocardiography was performed. Images were obtained using a [employer] Epiq 16 cardiac ultrasound machine. ??Blood pressure: [...] the reported findings. Electronically signed by Luzma Neri MD 04/04/2020 18:19 Procedure Note Luzma Neri MD - 04/04/2020 Pediatric Cardiology [address] [place] [address] Date of study: 04/04/2020 Transthoracic Echocardiogram Report [...] ) BSA: 1.55m^2 Location: Echocardiography Laboratory Facility: [facility] Attending: Luzma Neri MD Referring: Luzma Neri MD [facility] Ordering: Luzma Neri MD Test start time: 03:00 PM. Test stop time: 03:40 PM. *PROCEDURE DATA* Procedure information: Pertinent images and digital data are archived for permanent storage and are available for subsequent review. Study status: Routine. Transthoracic echocardiography. M-mode, complete 2D, complete spectral Doppler, and color Doppler. Transthoracic echocardiography was performed. Images were obtained using a [employer] Epiq 16 cardiac ultrasound machine. Blood pressure: 110/66 *INDICATIONS AND HISTORY* Indications: (Q21.1) ASD. I34.0. Q21.1. Q26.1. Asd. Mr. Lscv. Asd. History: PMH: Patent ductus arteriosus. Labs, [...] the reported findings. Electronically signed by Luzma Neri MD 04/04/2020 18:19 Luzma Neri MD CARDIAC ECHO ORDERA BLES documented in this encounter Visit Diagnoses Diagnosis Status post patch closure of atrial septal defect Other postprocedural status Mitral regurgitation, congenital Congenital mitral insufficiency S/P repair of PDA Other postprocedural status documented in this encounter Care Teams Geophysical Engineer Relationship Specialty Start Date End Date Deandra Ramos MD [address] [place] [phone] PCP - General 12/15/09 06/23/22 documented as of this encounter
--- OUTSIDE RECORDS SUMMARY | 2024-02-05 13:18 | XMS_ITS | Encounter Summary ---
Author Organization [facility] Address [address] [place] [address] Care Team Providers Care Motorcycle Riding Instructor Name Role Phone Deandra Silvestre MD Primary Care Provider [phone] Reason for Referral * (Routine/Next Available) - Closed Specialty Diagnoses / Procedures Referred By Camacho murray Referred To Contact Diagnoses CHL (conductive hearing loss) Procedures HEARING EVALUATION Pradeep Castillo MD [address] [place] [address] [place] [phone] Referral ID Status Reason Start Date Expiration Date Visits Re quested Visits Authorized [id number] Closed 11/10/2012 1 1 Reason for Visit * Reason Comments Hearing Loss Ear Drainage mostly right ear Encounter Details Date Type Department Care Team (Late st Contact Info) Description 11/09/2012 13:30 EDT Office Visit [facility]- Main [address] [id number] Pradeep Castillo MD [address] [place] [address] [place] [phone] CHL (conductive hearing loss) (Primary Dx); Impacted cerumen Social History Tobacco Use Types Packs/Day Years Used Date Smoking Tobacco: Never Alcohol Use Standard Drinks/Week Comments No 0 (1 standard drink = 0.6 oz pur e alcohol) Sex and Gender Information Value Date Recorded Sex Assigned at Not on file Gender Identity Not on file Sexual Orientation Not on file documented as of this encounter Progress Notes * Pradeep Castillo MD - 11/09/2012 5751 EDT DIVISION OF OTOLARYNGOLOGY CONSULTATION 11/09/2012 CHIEF COMPLAINT: Hearing loss HPI: The patient is a 17-year-old white female who is seen today in consultation at the request of Faith Null for evaluation of bilateral conductive hearing loss. The patient previously had been seen in our department by Dr Angulo and Dr Skaggs. The patient has a history of left tympanoplasty with mastoidectomy on 10/22/2005 for left cholesteatoma. The patient has a past history of 1 set of myringotomy tubes at approximately 2-1/2 years of age. The patient has worn binaural amplification for 4 years. Over the past 6 months, the family has found it quite difficult to keep the hearing aids on Alison due to significant irritation of the ears. The patient appears to be pressing on the hearing aids, which is irritating and excoriating the skin of the pinnae. The patient has had different fittingsfor her hearing aids; however, due to the significant difficulty she is having using the hearing aids, ENT evaluation was recommended for consideration of a bone-anchored hearing aid. The patient hasdermatitis of the scalp and has used ointment on the pinnae at times but not regularly. Past Medical History Diagnosis Date ??? ASD (atrial septal defect) 08/14/2009 ??? Hydrocephalus 08/14/2009 ??? Strabismus ? ? Fracture of arm 2009 & 2009 fractured each arm - almost a year apart - fall 1st time, ? second injury- not witnessed ??? Osteopenia [address] Donaldson re. this ??? 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 Asd repair 08/25/97 Dr. Gonzalez @ [facility] This was performed with a [...] CWD tympanomastoidectomy, absent stapes superstructure, Dr. Skaggs Current Outpatient Prescriptions Medication Sig Dispense Refill ??? Psyllium Seed-Sucrose (METAMUCIL) Powd Take by mouth. Taking 1 tablespoon daily ??? Cholecalciferol, Vitamin D3, 2,000 unit Cap Take 2,000 Units by mouth daily. 90 Cap 1 No Known Allergies Family History Problem Relation Age of Onset ??? Diabetes Other T2 ??? Glaucoma Other ??? High Blood Pressure Other ??? High Cholesterol Other ??? Heart Disease Other has had two [place]'s ??? Recurrent Fractures Neg Hx ??? Osteoporosis Neg Hx ??? Urolithiasis Neg Hx ??? Hearing Loss Neg Hx ??? Thyroid Disease Neg Hx ??? High Blood Pressure Maternal Grandfather ??? High Cholesterol Maternal Grandfather ??? Diabetes Maternal Grandfather borderline ??? Cancer Paternal Grandfather ? prostate ??? Cancer Other cancer in the spine History Social History ??? Marital Status: Single Spouse Name: N/A Number of Children: N/A ??? Years of Education: N/A Social History Main Topics ??? Smoking status: Never Smoker ??? Smokeless tobacco: Not on file Review of systems: Negative for ten point review of systems Department of Otolaryngology PHYSICAL EXAMINATION CONSTITUTIONAL: APPEARANCE: The patient appears alert, cooperative, and comfortable. ABILITY TO COMMUNICATE / VOICE: Normal HEAD AND FACE: SALIVARY GLANDS: Submandibular and Parotid glands are normal bilaterally FACIAL STRENGTH: Intact and symmetrical bilaterally EARS, NOSE, MOUTH AND THROAT: OTOSCOPY: Right external auditory canal: obstructed by cerumen Left external auditory canal: Meatoplasty widely patent Right tympanic membrane: intact and normally mobile without retraction, perforation or effusion Left tympanic membrane: retracted onto the facial nerve. Stapes superstructure absent. NOSE: normal turbinates and mucosa: septum in midline LIPS, TEETH & GUMS: normal for age ORAL CAVITY & OROPHARYNX: normal HYPOPHARYNX & PHARYNGEAL HURD: Not examined LARYNX: Not examined NECK: GENERAL: Supple, no asymmetry or crepitus, trachea midline THYROID: Not examined LYMPHATIC: CERVICAL LYMPH NODES: No pathologic cervical lymphadenopathy noted Bilateral pinna have excoriations in the process of healing. ENT Cerumenectomy Indications for Procedure: Cerumen impairs exam of clinically significant portions of the ear(s). Careful examination of the ear and removal of cerumen was done on the right ear using the operatingmicroscope and microinstruments/suction. The patient tolerated this procedure well. Complications: None Findings: See physical exam AUDIOGRAM: I have reviewed the audiogram performed today by our audiology staff on Alison Thornton and it demonstrates: Bilateral CHL which is worse on the Left. DATA REVIEW: Audiometric testing and notes from Faith Null MS, [facility] have been reviewed. CT temporal bones from 2005 have been reviewed. There is no obvious source for the Right conductivehearing loss. ASSESSMENT: Bilateral CHL Right cerumen impaction removed today Left CWD mastoid cavity which appears to be self-cleaning. PLAN: Examination findings, audiometric testing results, past CT images and outside notes were reviewed with the patient's parents. The patient is found to have left-sided conductive hearing loss; however,she has absent stapes superstructure and a significantly retracted tympanic membranes. The patient's parents were informed that revision surgery for the left mastoid would not likely be beneficial and would possibly contribute to cholesteatoma formation. The right conductive hearing loss may be related to stapes fixation or lateral chain fixation; however, the CT scan did not show any obvious abnormality. On my review of the CT scan, the oval window is positioned in an axial plane as opposed toa sagittal plane, which make work on the stapes footplate difficult. Due to the narrow nature of the ear canals, the patient would likely require postauricular approach for access to the middle ear. It is most likely that surgery would only reveal difficult anatomy which may preclude surgical interv ention for the conductive hearing loss. I discussed bone anchored hearing aids with the patient's family. We previously were entertaining consideration of a sophono device, which is completely implanted magnets with a magnetic attached to bone oscillator. [facility] has decided not to pursue this device. The [employer] cooperation has stated that they are coming out with a completely implantable device within the next 12 months. The patient's name has been reported by our implant twisting frame fixer and they will be contacted once this is available for further discussion. At this point, I recommended avoidance of hearing aid use for at least 2 weeks with use of steroid ointment on the affected portions of the pinna twice a day for 1 week. The patient's mother will call with the name of the ointment that they have home in order to determine if we need to provide a different prescription. Pradeep Castillo MD CC: DEANDRA SILVESTRE MD documented in this encounter Procedure Notes * SLATER APPRENTICE, SCAN 2 - 12/01/2012 0854 EDTAssociated Order(s): AUDIOGRAM - SCANNED documented in this encounter Plan of Treatment Scheduled Orders Name Type Priority Associated Diagnoses Orde r Schedule HEARING EVALUATION Audiology Routine CHL (conductive hearing loss) Ordered: 11/10/2012 documented as of this encounter Procedures Procedure Name Priority Date/Time Associated Diagnosis Comments AUDIOGRAM - SCANNED 12/01/2012 8:54 EDT documented in this encounter Results * AUDIOGRAM - SCANNED (12/01/2012 8:54 EDT) 12/01/2012 8:54 EDT Narrative 12/01/2012 8:54 EDT Procedure Note SLATER APPRENTICE, SCAN 2 - 12/01/2012 8:54 EDT Scan 2 Meter Inspector PROCEDURE/MINOR GISELA GICAL ORDERABLES documented in this encounter Visit Diagnoses Diagnosis CHL (conductive hearing loss)- Primary Unspecified conductive hearing loss Impacted cerumen documented in this encounter Discontinued Medications Medication Sig Discontinue Reason Start Date End Da te amoxicillin-clavulanat e (AUGMENTIN) 500-125 mg per tablet Take 4 Tabs by mouth once. 4 tabs, 500 mg each for dentist appointment today 12/26/2010 11/09/2012 documented as of this encounter Care Teams Motorcycle Riding Instructor Relationship Specialty Start Date End Date Deandra Silvestre MD [address] [place] [address] [place] [phone] PCP - General 12/15/09 06/23/22 documented as of this encounter
--- OUTSIDE RECORDS SUMMARY | 2024-02-05 13:18 | XMS_ITS | Encounter Summary ---
Author Organization [facility] Address [address] [place] [address] Care Team Providers Care Mat Repairer Name Role Phone Deandra Ramos MD Primary Care Provider [phone] Reason for Visit * Reason Onset Date Comments Paperwork request 06/14/2021 Encounter Details Date Type Department Care Team (Late st Contact Info) Description 06/14/2021 Telephone [facility] Pediatric Cardiology - Main [address] [id number] Luzma Neri MD Paperwork request Social History Tobacco Use Types Packs/Day Years [...] encounter Miscellaneous Notes * Telephone Encounter - Miguel Cardoza RN - 06/15/2021 1125 EST D/w provider and left detailed message. Faxed copy of encounter. MIGUEL CARDOZA RN 06/15/2021 11:25' * Telephone Encounter - Miguel Cardoza RN - 06/15/2021 1101 EST Received call from Elyssa at [facility]. Pt have allograft ACL and lateral menicus w/ [facility] through [facility] on 07/20. Faxed last note for continuity of care. Will verify no concerns from provider perspective. MIGUEL CARDOZA RN 06/15/2021 11:06 * Telephone Encounter - Miguel Cardoza RN - 06/15/2021 0944 EST LM with RN to determine what was being performed to discuss with provider. MIGUEL CARDOZA RN 06/15/2021 9:44 * Telephone Encounter - Miguel Cardoza RN - 06/15/2021 0842 EST Called Alison to obtain more information. Left detailed message to call back and then can follow up with [facility] office. MIGUEL CARDOZA RN 06/15/2021 8:43 * Telephone Encounter - Avis Dorman - 06/14/2021 1427 EST Nurse Elyssa calling from [facility]. They are looking for cardiology clearance for upcoming procedure Alison has in July. C/b number is [phone]. documented in this encounter Plan of Treatment Not on file documented as of this encounter Visit Diagnoses Not on filedocumented in this encounter Care Teams Mat Repairer Relationship Specialty Start Date End Date Deandra Ramos MD [address] [place] [phone] PCP - General 12/15/09 06/23/22 documented as of this encounter
--- OUTSIDE RECORDS SUMMARY | 2024-02-05 13:18 | XMS_ITS | Encounter Summary ---
Author Organization [facility] Address [address] [place] [address] Care Team Providers Care Hydrogeology Professor Name Role Phone Deandra Ramos MD Primary Care Provider [phone] Reason for Visit * Reason Onset Date Comments Paperwork request 06/20/2010 Encounter Details Date Type Department Care Team (Late st Contact Info) Description 06/20/2010 Telephone [facility] Pediatric Endocrinology - [address] [phone] Rigoberto Donadlson, [facility] [address] [place] [phone] Paperwork request Social History Tobacco Use Types Packs/Day Years Used Date Smoking Tobacco: Never Assessed Sex and Gender Information Value Date Recorded Sex Assigned at Not on file Gender Identity Not on file Sexual Orientation Not on file documented as of this encounter Miscellaneous Notes * Telephone Encounter - Ruth Avendano - 06/20/2010 1343 EST Sent progress note to mom as requested for meeting at school. * Telephone Encounter - Nithya Sinha - 06/20/2010 1138 EST Mother states she has a meeting at school today and is waiting for report to be faxed to her. Her fax number is [phone]. documented in this encounter Plan of Treatment Not on file documented as of this encounter Visit Diagnoses Not on filedocumented in this encounter Care Teams Hydrogeology Professor Relationship Specialty Start Date End Date Deandra Ramos MD [address] [place] [phone] PCP - General 12/15/09 06/23/22 documented as of this encounter
--- OUTSIDE RECORDS SUMMARY | 2024-02-05 13:18 | XMS_ITS | Encounter Summary ---
Author Organization [facility] Address [address] [place] [address] Care Team Providers Care Diorama Model Maker Name Role Phone Deandra Silvestre MD Primary Care Provider [phone] Reason for Visit * Reason Comments Osteopenia Encounter Details Date Type Department Care Team (Late st Contact Info) Description 12/26/2010 12:30 EDT Office Visit [facility] Pediatric Endocrinology - [address] [phone] Rigoberto Knowles [facility] [address] [place] [address] Osteopenia (Primary Dx) Social History Tobacco Use Types Packs/Day Years Used Date Smoking Tobacco: Never Assessed Sex and Gender Information Value Date Recorded Sex Assigned at Not on file Gender Identity Not on file Sexual Orientation Not on file documented as of this encounter Last Filed Vital Signs Vital Sign Reading Time Taken Comments Blood Pressure 101/68 12/26/2010 1232 EDT Pulse 113 12/26/2010 1232 EDT Temperature - - Respiratory Rate - - Oxygen Saturation - - Inhaled Oxygen Concentration - - Weight 46.4 kg (102 lb 4.7 oz) 12/26/2010 1232 EDT Height 147.1 cm (4' 9.93) 12/26/2010 1 232 EDT 147.1, 146.9, 147.4 Body Mass Index 21.43 12/26/2010 1232 EDT Body Mass Index Percentile 71.19% 12/26 1232 EDT Growth Chart: CDC (Girls, 2- 20 Years) documented in this encounter Progress Notes * Rigoberto Knowles MD - 12/26/2010 1244 EDT Pediatric Endocrinology Progress note Patient Identification: 15 y.o. 4 m.o. old female Reason for follow up: osteopenia on bone mineral density Date of service: 12/26/2010 Primary Care Provider: DEANDRA SILVESTRE MD History obtained from: mother Interval history: No interval illnesses. No interval fractures. No concerns regarding bone pain. Scheduled for final spine surgery in 03/2011. No longer wearing a brace. Weight bearing: no restrictions and ambulates independantly although clumsy, mother states that the school is no longer restricting her physical activity level Pubertal status: menarche 07/2010, menses have been regular Reported intake of vitamin D and calcium: 18-24 oz of fortified milk per day, 16 oz of calcium and vitamin D fortified juice per day , 0-1 servings of cheese per day and 1 servings of yogurt per day and the vitamin D supplement of 2,000 IU per day Glucocorticoid exposure: none Anti-convulsant exposure: no Tobacco use: no Carbonated beverages: 1-2x/month Positive for: nothing reported Negative for: bone pain, back pain, flank pain, weight change, appetite change , polyuria, dysuria and hematuria Review of Systems: A ten point review of systems was performed. Pertinent items are noted in the HPI, all others are negative. Bone History: Fracture history: 05/2009: right humerus, non-displaced, fell from standing height and tripped while walking, sling 03/2010: left humerus, non-displaced, mechanism of injury unknown, was at father's house, reportedly was in pain but was not brought in to see MD until several days later (mother's report) sling only Had DEXA scan performed at [facility] on 04/19/2010 because of the unknown mechanism of injury resulting in the last fracture. DEXA machine type not reported but used pediatric normative data, z-score ofhip -2.6 and spine could not be evaluated due to rods Problem List Patient Active Problem List Diagnoses Code ??? Developmental delay 315.9V ??? Scoliosis 737.30D ??? Spitz nevus 216.9EC ??? 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 Mitral valve regurgitation 424.0Q ??? Hearing impairment 389.9V Past Medical History: Past Medical History Diagnosis Date ??? ASD (atrial septal defect) 08/14/2009 ??? Hydrocephalus 08/14/2009 ??? Strabismus Medications: Current outpatient prescriptions Medication Sig Dispense Refill ??? SODIUM FLUORIDE (FLUORIDE TATI ORAL) Take by mouth daily. ??? amoxicillin-clavulanate (AUGMENTIN) 500-125 mg per tablet Take 4 Tabs by mouth once. 4 tabs, 500 mg each for dentist appointment today ??? Cholecalciferol, Vitamin D3, 2,000 unit Cap Take 2,000 Units by mouth daily. 90 Cap 1 Allergies: Review of patient's allergies indicates no known allergies. Social History: Living Conditions ??? Lives with Equally between both parents' homes Weekdays ??? Education Grade 7 ??? 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 Physical Exam: Vitals: BP 101/68 Pulse 113 Ht 147.1 cm (57.93) Wt 46.4 kg (102 lb 4.7 oz) BMI 21.43 kg/m2 Height: 147.1 cm (57.93) (1.62%) Weight: 46.4 kg (102 lb 4.7 oz) (31.93%) Body mass index is 21.43 kg/(m^2). 71.27% of growth percentile based on BMI-for-age. General Appearance: comfortable, well-hydrated and in no apparent distress ENT: moist mucous membranes and oropharnyx clear Eyes: EOMI, GAURI and examined with glasses on Thyroid: no palpable goiter Lymphatic: no palpable lymphadenopathy of neck Respiratory: clear, no wheezes or crackles and good air entry bilaterally Cardiovascular: RRR, normal S1 and S2 and no murmur Gastrointestinal: benign, soft, non-tender, no palpable masses and no hepatosplenomegaly Neurologic: 2+ DTRs and moderate generalized hypotonia Musculoskeletal: no clubbing and no palpable tenderness along long bones or spinal column Skin: normal temperature, normal texture and normal turgor Sexual Development: breasts James stage 3 and pubic hair Jaems stage 3 Data Review/Investigations: 04/19/10 DEXA performed at [facility] and reported using pediatric normative data DEXA machine type not reported, z-score of hip -2.6 and spine could not be evaluated due to rods 06/2010: bone age read by me as 13y6m Previous Growth Data: no prior growth data available at time of consult mother states that only height gain is with each of her spinal hernan extensions Assessment: 15 y.o. 4 m.o. old female seen in consultation for osteopenia on bone mineral density and two fractures of the humerus. Alison has been well with no interval fractures. One of (and possibly the other) fracture occurred following a fall from a standing height without any protective reflex of outstretched arms. Both fractures reportedly occurred where the humerus would meet the edge of her hard plastic brace for scoliosis, which may have contributed to the force of injury. Nonetheless, there is no clear explanation for the second fracture. While her DEXA z-score is compatible with osteopenia, the value of this test is limited by the factors noted below. And while I do believe that Alison may be at a higher risk for fractures given the risk factors noted below, I do not believe that the available investigations indicate that Connors osteopenia is severe enoughto cause spontaneous fractures or fractures from minimal trauma (such as bumping into the edge of something). Alison's risk factors for osteopenia are diminished overall force of weightbearing due to her poor tone and limitations related to her poor coordination, and vitamin D insufficiency on past testing (despite adequate reported nutritional intake). I am not overly concerned regarding the reported z-score on DEXA as she is much shorter somewhat delayed pubertally compared to the age/sex matched controls which could overestimate the degree of osteopenia. Briefly reviewed the option of bisphosphonates, although would not recommend it at this time given the number and nature of fractures to date. Suggestions/Plan: Investigations: total calcium, phosphorous and 25OH-vitamin D Topics reviewed today: ?? limitations of areal bone mineral density results given degree of short stature ?? lack of prognostic value of pediatric DEXA scan for fracture risk ?? importance of regular weight-bearing activities for optimal bone health ?? recommended maximizing weight-bearing activities as tolerated and with reasonable precautions given her difficulties with coordination Medications prescribed: continue current vitamin D supplementation pending today's test results Disposition: I have not scheduled any follow up in the Endocrine clinic at this time. I wiould recommend a repeat vitamin D 25OH level in 6 months and then annually if stable. I have asked mother to contact me again if Alison should have any fractures in the future. RIGOBERTO KNOWLES MD 12/26/2010 documented in this encounter Plan of Treatment Not on file documented as of this encounter Results * ALKALINE PHOSPHATASE (12/26/2010 13:40 EDT) Total Alkaline Phosphatase 194 70 - 230 U/L [facility] Blood specimen (specimen) 12/26/2010 13:40 EDT 12/26/2010 13:42 EDT Rigoberto Knowles [facility] CHEMIS TRY & BLOOD GAS ORDERABLES Performing Organization Address [facility] de Phone Number [facility] [address] [place] [address] * CALCIUM (12/26/2010 13:40 EDT) Calcium 9.1 8.5 - 10.5 mg/dl [facility] Calculated Calcium 8.8 8.5 - 10.5 mg/dl [facility] Blood specimen (specimen) 12/26/2010 13:40 EDT 12/26/2010 13:42 EDT Rigoberto Knowles [facility] CHEMIS TRY & BLOOD GAS ORDERABLES Performing Organization Address [facility] Co de Phone Number [facility] [address] [place] [address] * PHOSPHORUS (12/26/2010 13:40 EDT) Phosphorus 4.9 2.9 - 5.4 mg/dl [facility] Blood specimen (specimen) 12/26/2010 13:40 EDT 12/26/2010 13:42 EDT Rigoberto Knowles [facility] CHEMIS TRY & BLOOD GAS ORDERABLES Performing Organization Address [facility] Co de Phone Number [facility] [address] [place] [address] * VITAMIN D (25,OH) (12/26/2010 13:40 EDT) 25OH Vitamin D Tot 40.0 ng/ml [facility] Comment: Reference Range: <10 ng/ml: Deficient 10-30 ng/ml: Insufficient 30-100 ng/ml: Sufficient >100 ng/ml: Toxic Blood specimen (specimen) 12/26/2010 13:40 EDT 12/26/2010 13:42 EDT Rigoberto Knowles [facility] CHEMIS TRY & BLOOD GAS ORDERABLES [facility] [address] [place] [address] documented in this encounter Visit Diagnoses Diagnosis Osteopenia- Primary Disorder of bone and cartilage, unspecified documented in this encounter Historical Medications * This list may reflect changes made after this encounter. Medication Sig Dispensed Refills Start Date End Date amoxicillin-clavulanat e (AUGMENTIN) 500-125 mg per tablet Take 4 Tabs by mouth once. 4 tabs, 500 mg each for dentist appointment today 12/26/2010 11/09/2012 SODIUM FLUORIDE (FLUORIDE TATI ORAL) Take by mouth daily. 12/26/2010 03/06/2011 added in this encounter Care Teams Diorama Model Maker Relationship Specialty Start Date End Date Deandra Silvestre MD [address] [place] [phone] PCP - General 12/15/09 06/23/22 documented as of this encounter
--- OUTSIDE RECORDS SUMMARY | 2024-02-05 13:18 | XMS_ITS | Encounter Summary ---
Author Organization [facility] Address [address] [place] [address] Care Team Providers Care Chicken Raiser Name Role Phone Baltazar Gaines MD Primary Care Provide r Reason for Visit * Reason Comments Heart Problem Cardiac Testing Echo Encounter Details Date Type Department Care Team (Late st Contact Info) Description 04/22/2023 8:30 EST Office Visit [facility] Cardiology - [address] [place] [address] Sánchez Sauer MD [address] [place] [address] Deletion of chromosome 2q (Primary Dx); History of repair of congenital atrial septal defect (ASD); Adult congenital heart disease Social History Tobacco [...] 0823 EST Temperature - - Respiratory Rate - - Oxygen Saturation 97% 04/22/2023 0823 EST Inhaled Oxygen Concentration - - Weight 59.4 kg (131 lb) 04/22/2023 0823 EST Height - - Body Mass Index 25.58 04/22/2023 0802 EST documented in this encounter Progress Notes * Sánchez Sauer MD - 04/22/2023 0830 EST Images from the original note were not included. 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 Subjective: Alison Thornton is a 27-year-old young woman. This is her first evaluation in our clinic for adults with congenital heart disease at the [facility]. Alison was previously followed by Luzma Neri MD of our pediatric cardiology group. She last saw Dr Neri on 04/04/2020. An echocardiogram and electrocardiogram were performed as part of the evaluation. Current history: According to Alison's mother, Alison is doing well and has no obvious cardiovascularsymptoms. She goes to the gym and exercises on a near daily basis. 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 She has an associated developmental delay. 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 The surgery was performed when at least was about 2 year of age (08/25/1997; Dr. Gonzalez; [facility]). From a cardiovascular perspective, she has done fine since that time. She has no history of endocarditis. Alison has also had other manifestations of her genetic abnormality secondary to low tone of her skeletal muscle. This includessevere scoliosis. She is status post spine surgery on 2 occasions. Objective: 1. Medications: reviewed and recorded in Epic. Cardiovascular medications: None. 2. Allergies: No known medication allergies. 3. Physical examination: Comfortable appearing. Vitals: Blood pressure 114/76; heart rate 66 (regular); oxygen saturation 97%; weight 131 lbs; height 60 inches; BMI 25.6. HEENT: anicteric sclera, normal conjunctiva, normal mucous membranes. Neck: normal size. Lungs: clear to auscultation; no wheezes or crackles. Cardiovascular: no jugular venous distention. Carotids: normal upstroke and volume. Palpation: no thrill. Auscultation: normal S1 and S2. No systolic murmur, diastolic murmur, gallop, click or rub. Abdomen: Soft and nontender. Extremities: no clubbing, cyanosis, or edema. Bilateral radial pulses were normal. 4. Diagnostic testing: - Echocardiogram: I reviewed the entire study. The rhythm was sinus throughout. 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 At this point, she has a structurally and functionally normalheart. Today's echocardiogram revealed that left ventricular size, wall thickness, systolic function and diastolic function are all normal. Right ventricular size and function are normal. Valvular function is normal. There was no evidence of residual flow across the repaired atrial septal defect. Her patent ductus arteriosus and persistent left superior vena cava have also been successfully ligated. I passed on the good news to Alison and her mother. I have not made any follow-up appointments for Alison to see me, but I would be happy to see her in the future if I can be of any help. SÁNCHEZ SAUER MD Attending Multifocal Button Inspector [facility] I spent a total of 50 minutes on the date of this encounter evaluating Alison. This included review of old/previous records and the results of previous imaging studies, comprehensive review of today'sechocardiogram, history and physical examination, discussion // counseling related to her cardiac issues as outlined above, and time crafting this comprehensive note. Note: Fon dictation software was used to generate this note. Dragon sometimes generates mistakes; I did my best to find and correct any mistakes. documented in this encounter Plan of Treatment Not on file documented as of this encounter Visit Diagnoses Diagnosis Deletion of chromosome 2q- Primary History of repair of congenital atrial septal defect (ASD) Adult congenital heart disease Unspecified congenital anomaly of heart documented in this encounter Discontinued Medications Medication Sig Discontinue Reason Start Date End Da te clonazePAM (KLONOPIN WAFERS) 0.125 mg disintegrating tablet Take 1 Tab by mouth as needed for Anxiety. Daily Max: 0.25 mg 10/04/2016 04/22/2023 documented as of this encounter Care Teams Chicken Raiser Relationship Specialty Start Date End Date Baltazar Gaines MD [address] [address] PCP - General 06/24/22 documented as of this encounter
--- OUTSIDE RECORDS SUMMARY | 2024-02-05 13:18 | XMS_ITS | Encounter Summary ---
Author Organization [facility] Address [address] [place] [address] Care Team Providers Care Aluminum Can Collector Name Role Phone Baltazar Gaines MD Primary Care Provide r Encounter Details Date Type Department Care Team (Late st Contact Info) Description 11/07/2023 Lab Requisition [facility] Pathology & Laboratory Medicine - [facility] [address] [place] [address] Costa Kramer MD [address] [place] [address] Diarrhea, unspecified; Change in bowel habit; Nausea with vomiting, unspecified Social History Tobacco Use Types Packs/Day Years [...] in bowel habit Nausea with vomiting, unspecified documented in this encounter Results * SURGICAL PATHOLOGY (11/05/2023 10:53 EDT) Note to Patient The following pathology results have been interpreted by your pathologist and may be available to you before your health provider has had the opportunity to review them. Please allow time for your provider to receive these results and explore management options, if applicable. 11/10/2023 14:19 [facility] Final Diagnosis A. DUODENUM, BIOPSY: [...] active inflammation or intraepithelial eosinophils. 11/10/2023 14:19 [facility] Diagnosis Comment The technical component of the specimen processing was performed at the Pathology Department, [address] [place] [address] (CLIA [id number]). The professional component of the specimen evaluation (slide review and issuing of the final diagnosis) was performed at [facility], [address] [place] [address] (CLIA License Number [id number]). 11/10/2023 14:19 [facility] Attestation By the signature below, the attending physician certifies that they have 1) personally conducted a gross and/or microscopic examination of the described specimen(s), and/or personally interpreted the results of laboratory testing of the described specimen(s), and 2) personally rendered or confirmed the above diagnosis. 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 Received [...] smallest tissue may not survive processing. LAURA DAWSON(ASCP) 11/07/2023 9:49 11/10/2023 14:19 T [facility] Performing Lab [facility] 14:19 T [facility] Scanned Images 11/10/2023 14:19 [facility] Tissue ESOPHAGEAL STRUCTURE / Unknown [...] EDT Costa Kramer MD PATHOLOGY ORD ERABLES [facility] [address] [place] [address] documented in this encounter Visit Diagnoses Diagnosis Diarrhea, unspecified Change in bowel habit Nausea with vomiting, unspecified documented in this encounter Care Teams Aluminum Can Collector Relationship Specialty Start Date End Date Baltazar Gaines MD [address] [place] [id number] PCP - General 06/24/22 documented as of this encounter
--- OUTSIDE RECORDS SUMMARY | 2024-02-05 13:18 | XMS_ITS | Encounter Summary ---
Author Organization [facility] Address [address] [place] [address] Care Team Providers Care Marketing Executive Name Role Phone Baltazar Gaines MD Primary Care Provide r Reason for Visit * Reason Onset Date Comments Other 08/22/2022 Encounter Details Date Type Department Care Team (Late st Contact Info) Description 08/22/2022 Telephone [facility] Pelvic Medicine and Reconstructive Surgery - Medical Office [facility] [address] [place] [address] Eusebia Morrison RN Other Social History Tobacco Use Types Packs/Day [...] encounter Miscellaneous Notes * Telephone Encounter - Deandra Bucio RN - 08/23/2022 1621 EDT Images from the original note were not included. Getachew Forrest MD You 2 hours ago (13:47) Not routinely but if they are worried about constipation and straining we should meet to discuss changes to the bowel regimen. If they think she is not fully evacuating stool, then an enema may help that, but not the prolapse. You Getachew Forrest MD 2 hours ago (13:35) Pt's mother now asking if you would recommend colonics for her daughter's sx. Left detailed message on mother's ID'd VM. * Telephone Encounter - Deandra Bucio RN - 08/23/2022 1328 EDT TC back to pt's mother. Advised. She states understanding & agrees with plan. Wonders if Dr. Forrest would recommend colonics in a series of 4 treatments. States we can take our time in responding. Routed to Dr. Forrest. Review of chart does not indicate enemas or colon cleansing to be part of current recommendations. * Telephone Encounter - Deandra Bucio RN - 08/23/2022 1049 EDT Images from the original note were not included. Getachew Forrest MD You 17 hours ago (17:34) Same thing, 2 tbsp You Getachew Forrest MD 20 hours ago (13:52) Thanks! What dosing would you like her to start with for Benefiber? Getachew Forrest MD You 21 hours ago (13:27) They can try benefiber. Bloating likely from metamucil. Doubt obstruction. You Getachew Forrest MD 21 hours ago (13:23) Yes. Since increasing to 2 TB Metamucil every day and con't daily Metamucil, her BM's are same consistency but more frequent. Getachew Forrest MD You 21 hours ago (13:13) Is she still taking 2 tbsp of metamucil and daily miralax? You Getachew Forrest MD 22 hours ago (12:04) Jose Francisco Chilel, pt's mother is concerned about shapes of stools, which are happening more frequently. She is worried about a blockage. See note for triage details. Thanks! * Telephone Encounter - Deandra Bucio RN - 08/22/2022 1135 EDT TC back to pt's mother. She describes 7 reccurrences of rectal prolapse. BMs for past few months have been worm-like, long and skinny, or soft rabbit poops. Attributes the rabbit poops to Miralax. Now, since changing bowel regimen to 2 TB Metamucil daily, pt's BMs are more frequent. She says pt c/o discomfort every day and abdomen appears bloated. She has not been able to get a photo of the prolapse. When prolapse happens, they will notice blood on the prolapse. Otherwise, there is no blood in stool. Denies fevers. Prolapse only coming out with BM. They are always able to reduce it. Pt seems to be straining and is frequently on the toilet. Mother attributes this to feeling of pressure. Advised this is typical with rectal prolapse and reducing straining is a goal. Pt's mother states they've been trying but if pressure is bothering pt, she is going to try to go to the bathroom. Primary concern is for a blockage d/t shapes of BMs. No report of nausea/vomiting, or severe abdominal pain in this phone call. Advised this does not sound emergent. Encouraged reach out/seek care if worsening. Routed to Dr. Forrest to advise. * Telephone Encounter - Eusebia Morrison RN - 08/22/2022 1117 EDT Patient's mother Delilah on the requesting a call back. No details given. Preferred call back number is the one selected for incoming call. EUSEBIA MORRISON RN 08/22/2022 11:18 documented in this encounter Plan of Treatment Not on file documented as of this encounter Visit Diagnoses Not on filedocumented in this encounter Care Teams Marketing Executive Relationship Specialty Start Date End Date Baltazar Gaines MD [address] [place] [id number] PCP - General 06/24/22 documented as of this encounter
--- OUTSIDE RECORDS SUMMARY | 2024-02-05 13:18 | XMS_ITS | Encounter Summary ---
Author Organization [facility] Address [address] [place] [address] Care Team Providers Care Marine Farmer Name Role Phone Baltazar Gaines MD Primary Care Provide r Reason for Visit * Reason Comments New Patient Visit Rectal prolapse sinc e 05/04/22 * Referral (Urgent) - Receiving Office to Obtain Authorization Specialty Diagnoses / Procedures Referred By Contac t Referred To Contact Pelvic Medicine Diagnoses Rectal prolapse Baltazar Gaines MD [address] [place] [id number] [facility] Pelvic Medicine [facility] [address] [place] [id number] Referral ID Status Reason Start Date Expiration Date Visits Requested Visits Authorized [id number] Receiving Office to Obtain Authorization 1 1 Encounter Details Date Type Department Care Team (Late st Contact Info) Description 06/24/2022 16:00 EST Office Visit [facility] Pelvic Medicine and Reconstructive Surgery - Medical Office Building [facility] [address] [place] [phone] Getachew Forrest MD [address] [facility], [address] [place] [address] Rectal prolapse (Primary Dx) Social History Tobacco Use Types [...] Sign Reading Time Taken Comments Blood Pressure 102/82 06/24/2022 1600 EST Pulse - - Temperature - - Respiratory Rate - - Oxygen Saturation - - Inhaled Oxygen Concentration - - Weight 57.5 kg (126 lb 11.2 oz) 06/24/2022 1600 EST Height 152.4 cm (5') 06/24/2022 1600 EST Body Mass Index 24.74 06/24/2022 1600 EST documented in this encounter Patient Instructions * Patient Instructions* Getachew Forrest MD - 06/24/2022 16:00 EST Images from the original note were not included. Division of General and Gastrointestinal Surgery [address] [place] [address] [address] [place], [place], [facility] Office: [phone] General Instructions for Constipation Fiber Supplementation Instructions Fiber is the first-line treatment for constipation. Please take a fiber supplement powder (Metamucil, Citrucel, Benefiber or other equivalent) available over the counter. Take 2 tablespoons daily in one glass of water or juice. Drink 8-10 glasses (8ozper glass) of water daily as well. It is ok to start with half the recommended dose for the first 3-5 days. Maintain a high fiber diet (bran cereals, whole grain breads, lots of fruits and vegetables). If too crampy/bloated, try synthetic fiber supplement (Beneful, Citrucel, FiberCon etc.) Goal is to have one formed bowel movement daily. Bowel Hygiene Please minimize the amount of time you spend on the toilet and avoid straining. Both can provoke hemorrhoids, prolapse, or other symptoms. If you are unable to go, get off the toilet! Other Treatment If you are still having troubles with hardened stool, do not stop taking fiber. You may add the following: - Try miraLAX 1 cap 1-2 times daily for 48 hrs - Then try milk of magnesia 2 tbsp 1-2 times daily Call the office if you have not had a bowel movement for 4 days. documented in this encounter Progress Notes * Getachew Forrest MD - 06/24/2022 1600 EST Colorectal Surgery Clinic Note Chief Complaint: Rectal prolapse HPI: Patient is a 26 y.o. female being seen at the request of Baltazar Gaines* for evaluation ofnewly diagnosed rectal prolapse. Alison presents to clinic for a recent diagnosis of rectal prolapse. She first presented to the ER in [place] on ' with a protruding mass from her rectum following a bowel movement. The prolapse was easily able to be reduced. Since this presentation mom reports that she has had 1 additional episode of prolapse that was easily reduced. During episodes of prolapse Alison does nothave significant discomfort. She does have small amounts of bleeding on the prolapse segment but does not have bloody bowel movements routinely. 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 Alison often feels the urge to go to the bathroom and spends prolonged time and on the toilet straining. She does have intermittent incontinence usually related to behavioral excitement. Christy mom reports that her chromosome 2 deletion has led to significant weakness due to poorly developed skeletal muscle which likely is contributing to her propensity to prolapse. Review of Symptoms: Reviewed in detail. She has no pertinent positives on extensive review of systems other than as described above. PMH PSH Past Medical History: Diagnosis Date ??? ASD (atrial septal defect) 08/14/2009 ??? 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 ? Fracture of arm 2009 & 2009 fractured each arm - almost a year apart - fall 1st time, ? second injury- not witnessed ??? Hydrocephalus ([facility]) 08/14/2009 ??? Osteopenia [address] Donaldson re. this ??? Strabismus Past Surgical History: Procedure Laterality Date ??? ASD REPAIR 08/25/97 Dr. Gonzalez @ [facility] This was performed with a pericardial [...] for scoliosis ??? TYMPANOSTOMY TUBE PLACEMENT 05/05/2005 Social History Family history Social History Tobacco Use ??? Smoking status: Never ??? Smokeless tobacco: Never Substance Use Topics ??? Alcohol use: No Family History Problem Relation Age of Onset ??? Diabetes Other T2 ??? Glaucoma Other ??? High Blood Pressure Other ??? High Cholesterol Other ??? Heart Disease Other has had two RI's ??? High Blood Pressure Maternal Grandfather ??? High Cholesterol Maternal Grandfather ??? Diabetes Maternal Grandfather borderline ??? Dementia Paternal Grandmother ??? Cancer Paternal Grandfather ? prostate ??? Cancer Other cancer in the spine ??? Recurrent Fractures Neg Hx ??? Osteoporosis Neg Hx ??? Urolithiasis Neg Hx ??? Hearing Loss Neg Hx ??? Thyroid Disease Neg Hx Current Outpatient Medications Medication ??? Cholecalciferol, Vitamin D3, 2,000 unit Cap ??? clonazePAM (KLONOPIN WAFERS) 0.125 mg disintegrating tablet ??? PEG 3350-Electrolytes (MIRALAX) 17 gram packet ??? psyllium husk (METAMUCIL ORAL) ??? UNABLE TO FIND No current facility-administered medications for this visit. Allergies No Known Allergies Objective: Blood pressure 102/82, height 152.4 cm (60), weight 57.5 kg (126 lb 11.2 oz). Physical Exam: Gen: awake, alert, and oriented x 3, NAD Neck: soft, no thyromegaly, no carotid bruits, no cervical lymphadenopathy CV: regular rate Pulm: CTA bilat, no wheezes or rhonchi Abd: Soft nontender Ext: warm, well perfused,no edema Anorectal: External: Normal perianal skin Internal: No masses or gross blood. Function: Perineal descent with Valsalva. Normal sphincter tone. Strong squeeze, strong force with Valsalva. Unable to reproduce rectal prolapse in left lateral decubitus. Frailty Assessment: 5: Mildly Frail Data Review: Labs: Lab Results Component Value Date WBC 8.04 06/13/2010 HGB 14.6 06/13/2010 HCT 42.8 06/13/2010 PLT 263 06/13/2010 Lab Results Component Value Date CREATININE 0.48 06/13/2010 BUN 12 06/13/2010 NA 139 06/13/2010 K 4.5 06/13/2010 CL 102 06/13/2010 CO2 27 06/13/2010 CALCIUM 9.1 12/26/2010 Lab Results Component Value Date TP 7.7 06/13/2010 LABALBU 4.6 06/13/2010 TBIL <0.5 06/13/2010 Radiology: none Assessment: Alison Thornton is a(n) 26 y.o. old female with rectal prolapse in the setting of a chromosome 2 deletion and chronic constipation. She has significant muscle weakness as result of a chromosomal deletion which is compounded by her constipation likely leading to her rectal prolapse. At this point she is asymptomatic and her prolapse episodes are infrequent. I recommend increasing her bowel regimento minimize the need to strain as well as counseled the patient and her family with regards to modifying her hygiene around bowel movements. If we can minimize her constipation and time the toilet myhope is that her prolapse episodes will be infrequent. Should her prolapse continue to worsen we can discuss surgical intervention, that being said surgery would likely only be a temporizing measure given the underlying connective tissue weakness. I also counseled the family with regards to signs of incarceration and strangulation of rectal prolapse for which they should call my office or presentto the ER. Plan: Increase 2 tablespoons Metamucil daily, continue MiraLAX daily Asked mom to take a picture of the prolapse next time it occurs Follow-up 3 months Getachew Forrest MD 06/24/2022 16:36 documented in this encounter Plan of Treatment Not on file documented as of this encounter Visit Diagnoses Diagnosis Rectal prolapse- Primary documented in this encounter Historical Medications * This list may reflect changes made after this encounter. Medication Sig Dispensed Refills Start Date End Date UNABLE TO FIND 2 times daily. Med Name: Airborne Immune Support psyllium husk (METAMUCIL ORAL) Take by mouth. 1 tea daily added in this encounter Care Teams Marine Farmer Relationship Specialty Start Date End Date Baltazar Gaines MD [address] [address] PCP - General 06/24/22 documented as of this encounter
--- OUTSIDE RECORDS SUMMARY | 2024-02-05 13:19 | XMS_ITS | Encounter Summary ---
Author Organization [facility] Address [address] [place] [address] Care Team Providers Care Nurses' Association Executive Director Name Role Phone Unavailable Primary Care Provider Unavailabl e Encounter Details Date Type Department Care Team (Late st Contact Info) Description 08/07/2005 Before PRISM Converted Visit (Maple) [facility] - Maple conversion [address] [place], [place] [address] Sánchez Skaggs MD [address] [facility], [address] [place] [address] Social History Tobacco Use Types Packs/Day Years Used Date Smoking Tobacco: Never Assessed Sex and Gender Information Value Date Recorded Sex Assigned at Not on file Gender Identity Not on file Sexual Orientation Not on file documented as of this encounter Progress Notes * Sánchez Skaggs MD - 04/15/2009 0437 EST DIVISION OF OTOLARYNGOLOGY PROGRESS/FOLLOWUP NOTE - 08/07/2005 SUBJECTIVE: Alison is an 9-year-old who has had longstanding left ear problems. She had one set of tubes as a child but since that time her dad reports recurrent drainage and chronic problems. She hasdevelopmentally delayed and difficult to test hearing jimenez but his feeling is that her right ear hearing is normal and that her left ear hearing is down. She has had significant recurrent drainage from that left ear and recently has been draining for several months without improvement on drops. Recent CAT scan suggested the possibility of cholesteatoma. She is referred today by Dr. Angulo for consideration and management of this year. OBJECTIVE: On examination Alison is alert and cooperative today. Examination of the right ear shows the drum is in good position. There is shallow attic retraction but no retained debris. No active inflammation or drainage. Examination of the left ear shows granulation in the medial canal and what ap pears to be a retracted drum although it is difficult to tell even under the operating microscope. Some drainage in the canal was cultured today and it was carefully cleaned and Ciprodex drops instilled. Review of the CT scan shows soft tissue filling the medial most external canal, the middle ear,the attic, and the mastoid antrum. The mastoid is quite sclerotic. It is very difficult to tell if this is just inflammatory or truly cholesteatoma. ASSESSMENT: Left chronic otitis media with likely cholesteatoma. PLAN: I think awaiting the culture and treating this aggressively medically and with local debridement is appropriate to try and get things cleared up as best they can. She will certainly likely cometo surgery and the extent of this will depend on our findings as the ear clears or at the time of surgery. I will see her back in one week and in the meantime she will be on Ciprodex drops. Signed by Sánchez Skaggs MD 2005 13:41 Sukh Skaggs MDWivicky Skaggs MD Sánchez Skaggs MD - Sánchez Skaggs MD A - mld Job ID: [id number] Document ID: [id number] cc: Christopher Angulo MD documented in this encounter Plan of Treatment Not on file documented as of this encounter Visit Diagnoses Not on filedocumented in this encounter
--- OUTSIDE RECORDS SUMMARY | 2024-02-05 13:19 | XMS_ITS | Encounter Summary ---
Author Organization [facility] Address [address] [place] [address] Care Team Providers Care Car Packer Name Role Phone Unavailable Primary Care Provider Unavailabl e Encounter Details Date Type Department Care Team (Latest Contact Info) Description 10/15/2004 11:44 EDT - 10/15/2004 11:59 EDT Hospital Encounter [address] [address] Maday Dickens MD [address] [place] [phone] Discharge Disposition: Auto Discharge Social History Tobacco Use Types Packs/Day Years Used Date Smoking Tobacco: Never Assessed Sex and Gender Information Value Date Recorded Sex Assigned at Not on file Gender Identity Not on file Sexual Orientation Not on file documented as of this encounter Discharge Disposition Disposition Code Departure Means Destination Auto Discharge documented in this encounter Plan of Treatment Not on file documented as of this encounter Visit Diagnoses Not on filedocumented in this encounter
--- OUTSIDE RECORDS SUMMARY | 2024-02-05 13:19 | XMS_ITS | Encounter Summary ---
Author Organization [facility] Address [address] [place] [address] Care Team Providers Care Console Manager Name Role Phone Unavailable Primary Care Provider Unavailabl e Encounter Details Date Type Department Care Team (Late st Contact Info) Description 08/07/2005 11:13 EDT - 08/07/2005 11:59 EDT Hospital Encounter [address] [address] Sánchez Skaggs MD [address] [place] [address] [address] [place] [phone] Discharge Disposition: Auto Discharge Social History Tobacco [...] Procedure Name Priority Date/Time Associated Diagnosis Comments BACTERIAL CULTURE, OTHER Routine 08/07/2005 11:30 EDT documented in this encounter Results * BACTERIAL CULTURE, OTHER (08/07/2005 11:30 EDT) Specimen Description Other LT Ear Only one swab received [facility] Result Mod STENOTROPHOMONAS (XANTHOMONAS) MALTOPHILIA Stenotrophomonas maltophilia is intrinsically resistant to most antibiotics. The most effective chemotherapeutic agent in vitro and probably in vivo is trimethoprim sulfamethoxazole . Consult the pathologist if in vitro testing is desired. Few STREPTOCOCCUS, ALPHA HEMOLYTIC [facility] Report Status Final [id number] [facility] 08/07/2005 11:3 0 EDT 08/07/2005 11:46 EDT Sánchez Skaggs MD MICROBIOLOGY - GENERAL ORDERABLES Performing Organization Address City/State/[facility] Co de Phone Number [facility] [address] [place] [address] documented in this encounter Visit Diagnoses Not on filedocumented in this encounter
--- OUTSIDE RECORDS SUMMARY | 2024-02-05 13:19 | XMS_ITS | Encounter Summary ---
Author Organization [facility] Address [address] [place] [address] Care Team Providers Care Customer Strategy Manager Name Role Phone Unavailable Primary Care Provider Unavailabl e Encounter Details Date Type Department Care Team (Late st Contact Info) Description 10/15/2004 Office Visit [facility] - Maple conversion [address] [place] [address] Ivonne Dickens MD [address] [place] [phone] Social History Tobacco Use Types Packs/Day Years Used Date Smoking Tobacco: Never Assessed Sex and Gender Information Value Date Recorded Sex Assigned at Not on file Gender Identity Not on file Sexual Orientation Not on file documented as of this encounter Progress Notes * Ivonne Dickens J - 07/05/2009 0132 EST [facility] - Physician Summary Registration Date/Time: 10/15/2004 11:45 Arrived- By private vehicle. Historian- patient. HISTORY OF PRESENT ILLNESS (Preop physical - see paper form.). CLINICAL IMPRESSION Preop physical see paper form. (Electronically signed by Maday Dickens M.D. 10/15/2004 13:05) [facility] - Nursing Summary Registration Date/Time: 10/15/2004 11:45 TRIAGE Initial Assessment Triage time 12:10 --1210 Claribel Singh,. History Chief Complaint: (PRE OP PE refer to paper file ). --1210 Claribel Singh,. (Pt requires sedation for routine dental proceedure). --1231 Vickie Marin L.P.N. PHYSICAL ASSESSMENT Alert. Appears in no acute distress. --1231 Vickie Marin L.P.N. NURSING PROGRESS NOTES Progress Call light placed in reach of patient and parent. Bed placed in lowest position. Patient ready for evaluation- chart flagged and ED physician notified. --1232 Vickie Marin L.P.N. DISPOSITION / DISCHARGE Condition at departure: stable. Fall risk assessment completed. No fall risk identified. No barriers to learning present. Discharge instructions reviewed with the parent. Parent verbalized understanding. Written instructions provided in Kyrgyz. The patient was discharged home and accompanied by parent. The patient left the Emergency Department ambulatory and via private vehicle. Parent driving. (Copy of POP form faxed bt front desk representative). Patient has no belongings. --1413 Vickie Marin L.P.N. Locked/Released at 10/15/2004 14:13 by Vickie Marin L.P.N. documented in this encounter Plan of Treatment Not on file documented as of this encounter Visit Diagnoses Not on filedocumented in this encounter
--- OUTSIDE RECORDS SUMMARY | 2024-02-05 13:19 | XMS_ITS | Encounter Summary ---
Author Organization [facility] Address [address] [place] [address] Care Team Providers Care Master Barber Name Role Phone Unavailable Primary Care Provider Unavailabl e Encounter Details Date Type Department Care Team (Late st Contact Info) Description 08/21/2005 Before PRISM Converted Visit (Maple) [facility] - Maple conversion [address] [place], [place] [address] Sánchez Skaggs MD [address] [facility], [address] [place] [address] Social History Tobacco Use Types Packs/Day Years Used Date Smoking Tobacco: Never Assessed Sex and Gender Information Value Date Recorded Sex Assigned at Not on file Gender Identity Not on file Sexual Orientation Not on file documented as of this encounter Progress Notes * Sánchez Skaggs MD - 04/15/2009 1803 EST DIVISION OF OTOLARYNGOLOGY PROGRESS/FOLLOWUP NOTE - 08/21/2005 S:comes in for follow up for her left chronic otitis media. She has been on drops and her dad says that the drainage is improved. O: Examination today of the left ear under the operating microscope shows that there still is some granulation and squamous debris medially. I can get some view of the drum, although itvery difficultto make out any landmarks. The active inflammation is better, however. We again suctioned things out and placed some drops today. There was some bleeding from the residual granulation. A: Left chronic otitis media with possible cholesteatoma. P: She is going to continue on the drops, get a CT scan, and return to see me with that scan. Itquite obvious were going to need to do something to this ear to clear it up, however. We have certainlymade some progress just with local care. Ill see her back with the CT scan. Signed by Sánchez Skaggs MD 08/28/2005 13:02 Annmarie Pacheco MD Sánchez Skaggs MD - Sánchez Skaggs MD P - wlp Job ID: [id number] Document ID: [id number] cc: Rubio Augustin MD documented in this encounter Plan of Treatment Not on file documented as of this encounter Visit Diagnoses Not on filedocumented in this encounter
--- OUTSIDE RECORDS SUMMARY | 2024-02-05 13:19 | XMS_ITS | Encounter Summary ---
Author Organization [facility] Address [address] [place] [address] Care Team Providers Care Meter Calibrator Name Role Phone Unavailable Primary Care Provider Unavailabl e Encounter Details Date Type Department Care Team (Late st Contact Info) Description 12/26/2006 Before PRISM Converted Visit (Maple) [facility] - Maple conversion [address], [place] [address] Sánchez Skaggs MD [address] [facility], [address] [place] [address] Social History Tobacco Use Types Packs/Day Years Used Date Smoking Tobacco: Never Assessed Sex and Gender Information Value Date Recorded Sex Assigned at Not on file Gender Identity Not on file Sexual Orientation Not on file documented as of this encounter Progress Notes * Sánchez Skaggs MD - 03/11/2009 0937 EST DIVISION OF OTOLARYNGOLOGY PROGRESS/FOLLOWUP NOTE - 12/26/2006 MIRA Rosas comes in today for routine follow up. Her dad reports that she is doing well without any significant drainage from her ears. Her hearing is subjectively unchanged. OBJECTIVE On examination today the right ear looks fine. The leftear is examined under the operating microscope. There is a little bit of wax at the meatus but otherwise the meatus is nicely healed. The middleear and mastoid cavity both look great. There is no active granulation. I think I can see a stapediopexy. Repeat audiogram today shows again an upsloping bilateral hearing loss. Her speech superintendent stations thresholds are 40 and 45 and bone conduction speech superintendent stations threshold is 15dB. ASSESSMENT Likely bilateral conductive hearing loss but otherwise doing well after left modified radical mastoidectomy. PLAN I am going to forward this information along to the school district. She certainly may be a good candidate for amplification at home as well. If they make that recommendation, we should probably see Alison for ear mold impression here in the office given her difficulty with exam and cooperation. I will see Alison back in six months for routine cleaning otherwise. Signed by Sánchez Skaggs MD 01/14/2007 07:15 Annmarie Pacheco MD Sánchez Skaggs MD - Sánchez Skaggs MD - christopher Job ID: [id number] Doc ID: [id number] cc: MD Brenda Rucker, RN,BS, [facility], [place] [address] and last two audiograms * documented in this encounter Plan of Treatment Not on file documented as of this encounter Visit Diagnoses Not on filedocumented in this encounter
--- OUTSIDE RECORDS SUMMARY | 2024-02-05 13:19 | XMS_ITS | Encounter Summary ---
Author Organization [facility] Address [address] [place] [address] Care Team Providers Care Bicycle Repairman Name Role Phone Unavailable Primary Care Provider Unavailabl e Encounter Details Date Type Department Care Team (Late st Contact Info) Description 01/29/2006 Before PRISM Converted Visit (Maple) [facility] - Maple conversion [address] [place], [place] [id number] Sánchez Skaggs MD [address] [facility], [address] [place] [address] Social History Tobacco Use Types Packs/Day Years Used Date Smoking Tobacco: Never Assessed Sex and Gender Information Value Date Recorded Sex Assigned at Not on file Gender Identity Not on file Sexual Orientation Not on file documented as of this encounter Progress Notes * Sánchez Skaggs MD - 05/11/2009 0932 EST DIVISION OF OTOLARYNGOLOGY PROGRESS/FOLLOWUP NOTE - 02/17/2006 S:comes in to follow up after a left modified radical mastoidectomy. Overall, she is doing well. She has not had a lot of drainage or pain from that ear. She has been very difficult to examine in theoffice in the past. O:examination today, the left mastoid cavity shows crusting and wax out near the meatus. This was removed and there is still granulation and raw area in the lateral mastoid cavity. The more medial drum looks quite good. Alison was very difficult to examine today in the office and required a lot of holding despite minimal trauma to the ear. A: Slow healing left mastoid cavity secondary to difficulty with debridement here in the office. P: She is going to continue on drops and Ill check her back in one month. If wenot making some progress next month, I think it makes sense to have her undergo a brief general anesthetic where we can debride this and perhaps apply some split thickness skin grafts to get it to heal up better. [place]ake that call in a month. Signed by Sánchez Skaggs MD 02/20/2006 10:27 Annmarie Pacheco MD Sánchez Skaggs MD Jmi Skaggs MD P - wlp Job ID: [id number] Document ID: [id number] cc: Rubio Augustin MD * Sánchez Skaggs MD - 05/09/2009 0527 EST DIVISION OF OTOLARYNGOLOGY PROGRESS/FOLLOWUP NOTE - 01/29/2006 S:comes in to follow up after a left modified radical mastoidectomy. Her dad says that she still gets some scant brownish drainage which doesnt smell bad out of that left ear. Otherwise, she seems nadia doing fine. O: Onexamination today, there is significant crusting and debris in the left mastoid cavity. This was removed with some difficulty under the operating microscope because Alison is not terribly cooperative. The underlying lining is granular with just some superficial drainage. This was carefully cleaned and some Boric acid powder applied. A: Granulating left mastoid cavity. P:Alison back on Ciprodex drops that she will use for two weeks until she sees me again. Hopefully, it will calm down the granulation and promote some epithelialization here. Signed by Sánchez Skaggs MD 02/05/2006 15:06 Annmarie Pacheco MD Sánchez Skaggs MD - Tereza Skaggs MD A - wlp Job ID: [id number] Document ID: [id number] cc: Rubio Augustin MD documented in this encounter Plan of Treatment Not on file documented as of this encounter Visit Diagnoses Not on filedocumented in this encounter
--- OUTSIDE RECORDS SUMMARY | 2024-02-05 13:19 | XMS_ITS | Encounter Summary ---
Author Organization [facility] Address [address] [place] [address] Care Team Providers Care Transcript Evaluator Name Role Phone Unavailable Primary Care Provider Unavailabl e Encounter Details Date Type Department Care Team (Late st Contact Info) Description 08/28/2005 8:32 EDT - 08/28/2005 11:59 EDT Hospital Encounter [address] [address] Sánchez Skaggs MD [address] [place] [address], [address] [place] [id number] Discharge Disposition: Auto Discharge Social History Tobacco [...] Procedure Name Priority Date/Time Associated Diagnosis Comments CT SELLA/POST FOSSA WO CONTRAST 08/28/2005 9:07 EDT documented in this encounter Results * CT SELLA/POST FOSSA WO CONTRAST (08/28/2005 9:07 EDT) Anatomical Region Laterality Modality Other 08/28/2005 9:07 EDT Narrative 11/19/2008 11:55 EDT LEFT CHRONIC OTATIS MEDIA WITH LIKELY CLOSTEOTOMA CT OF THE PETROUS BONES: 08/28/05, 8:48 AM IMPRESSION: 1. ? Left coalescent otomastoiditis with erosion of the scutum and partial erosion of the malleus and incus. 2. ? Normal right petrous bones. CLINICAL HISTORY: Left chronic otitis media with likely cholesteatoma. TECHNIQUE: Transverse non-contrast images of the temporal bones were performed with coronal reformations. COMPARISON EXAMINATION: 06/14/05. FINDINGS: No abnormalities are identified on the right side. ??On the left side, the middle ear cavity and mastoid air cells are completely opacified. The scutum is partially eroded. ??The ossicular chain shows more erosion, as compared to the previous CT in June 2005. ??The tegmen tympani is well preserved. ??The findings are consistent with the clinical diagnosis of chronic otitis media and possible cholesteatoma. lucila Procedure Note Pina Carlin MD - 11/19/2008 LEFT CHRONIC OTATIS MEDIA WITH LIKELY CLOSTEOTOMA CT OF THE PETROUS BONES: 08/28/05, 8:48 AM IMPRESSION: 1. Left coalescent otomastoiditis with erosion of the scutum and partial erosion of the malleus and incus. 2. Normal right petrous bones. CLINICAL HISTORY: Left chronic otitis media with likely cholesteatoma. TECHNIQUE: Transverse non-contrast images of the temporal bones were performed with coronal reformations. COMPARISON EXAMINATION: 06/14/05. FINDINGS: No abnormalities are identified on the right side. On the left side, the middle ear cavity and mastoid air cells are completely opacified. The scutum is partially eroded. The ossicular chain shows more erosion, as compared to the previous CT in June 2005. The tegmen tympani is well preserved. The findings are consistent with the clinical diagnosis of chronic otitis media and possible cholesteatoma. lucila Sánchez Skaggs MD IMG CT ORDERABL ES documented in this encounter Visit Diagnoses Not on filedocumented in this encounter
--- OUTSIDE RECORDS SUMMARY | 2024-02-05 13:19 | XMS_ITS | Encounter Summary ---
Author Organization [facility] Address [address] [place] [address] Care Team Providers Care Blasting Clay Miner Name Role Phone Unavailable Primary Care Provider Unavailabl e Encounter Details Date Type Department Care Team (Late st Contact Info) Description 10/22/2005 6:16 EDT - 10/22/2005 11:59 EDT Hospital Encounter [facility]- [address] [address] Sánchez Skaggs MD [address] [place] [address] [address] [place] [phone] Discharge Disposition: Home or Self Care Social History Tobacco Use Types Packs/Day Years Used Date Smoking Tobacco: Never Assessed Sex and Gender Information Value Date Recorded Sex Assigned at Not on file Gender Identity Not on file Sexual Orientation Not on file documented as of this encounter Discharge Disposition Disposition Code Departure Means Destination Home or Self Care documented in this encounter OR Notes * OR Surgeon - Vicente Cazares MD - 10/22/2005 0000 EDT PROCEDURE REPORT PT TYPE: OPPROC PT LOC: [id number] SERVICE DATE: 10/22/2005 SURGEON: ANSON Harrell MDEric Anderson, MDWilliam J Brundage, MD RENTAL SALES AGENT: Vicente Cazares MD PREOPERATIVE DIAGNOSIS: Left chronic otitis media with cholesteatoma. POSTOPERATIVE DIAGNOSIS: Left chronic otitis media with cholesteatoma. PROCEDURE: 1. Left ruzmg-appe-tnqf mastoidectomy with tympanoplasty. 2. Left meatoplasty. ANESTHESIA: General. INDICATIONS: The patient is a 10-year-old girl with chronic draining left ear. She had previous pressure-equatubes. However, recent evaluations were concerning for cholesteatoma. There was significantgranulation tissue, which was difficult to clear with standard therapies, including Otic drops. CT scan was obtained, showing opacification of the mastoid air cells and middle ear space. She was therefore brought to the operating room for the above procedure. FINDINGS: The patient has a significant granulation tissue extruding from the middle ear space through the tympanic membrane. The mastoid is sclerotic with extensive cholesteatoma. The cholesteatoma fills the middle ear space with erosion of the malleusthe long process of the incus, and the stapes s uperstructure. There is erosion of the superior round window niche. The facial nerve is dehiscent near the 2nd genu. is cholesteatoma extending superior to the tegumen. NARRATIVE: The patient was brought to the operating room and placed supine on the operating room table. After adequate general anesthesia was obtained, the patient's left ear was prepped and draped in the standard otologic surgical fashion. The facial nerve monitor electrodes were placed in the orbicularis stacey and orbicularis oculi muscles per protocol. The postauricular space was injected with 1% lidocaine with epinephrine. The external auditory canal was also injected with 1% lidocaine with epinephrine. The operating microscope was then brought into use. The ear was debrided under microscopy. There was significant granulation tissue and debris in the external auditory canal. It was difficult to visualize the tympanic membrane. Thesagittal incisions were made at 6 and 12 oclock in the external auditory canal. The postauricular incision was then made. This was taken down the level of the loose areolar fascia. A portion of the loose areolar fascia was harvested for use as the tympanic membrane graft. was placed on the back table to dry. The pericranium was then divided in a T-shaped incision. The flaps were elevated anteriorly andsuperiorly, then posteriorly. The canal incisions were then comp leted from this posterior approach. Attention was initially turned tothe meatoplasty. A 15-blade scalpel was used to extend the canal incisions onto the conchal bowl in a parallel fashion. These were then connected in a echjxbs-bnf-kzdohmy fashion. The Estelita flap was then reflected and thinned with iris scissors. The appropriate amount of cartilage as excised using iris scissors. The flap was re-placed and the adequacy of the meat oplasty was confirmed. The ear was then reflected forward and held in place with self-retaining retractors. Attention was then turned to the agemy-mruh-jebl mastoidectomy. Using a 4 cutting corrine, mastoidectomy was initiated in the cribrosearea. The mastoid was saucerized. The tegumen was identified initially. The bone over the tegumen was thinned, allowing visualization. This was taken back into the sinodural angle, which was cleared. The sigmoid sinus was identified and skeletonized. Dissection was then carried along the tegumen medially. Cholesteatoma then encountered in the antrum. The antrum was enlarged. The facial ridge was left intact. The incus bridge was thinned. The cholesteatoma pocketwas followed posteriorly until the posterior aspect of the cholesteatoma was identified and was elevated posteriorly. The residual short process of the incus was identified. The malleus was also identified foreshortened long process. The neck of the malleus was incised with a malleus nipper. The long process of the malleus was then removed with cup forceps. The remainder of the malleus head and incus were removed. There was no stapes superstructure identified. The cholesteatoma was gently dissected from the mastoid antrum. The residual cells were taken down with a coarse misael corrine. The facialridge was then taken down. The facial nerve was identified on the middle ear at the 2nd genu. Thereis an area of dehiscence. This is confirmed with the Prass probe. entire cholesteatoma pocket was vi sualized and eradicated. Care was taken to avoid injury to the facial nerve. The facial ridge was taken down to allow easy maintenance andappropriate mastoid bowl. The involved drum remnant was excised with Bellucci scissors. There was a small anterior inferior remnant, whichwas normal-appearing. This was left in situ. The middle ear space was then packed with Gelfoam. Again, there was no stapes superstructure identified. The fracture graft was placed and under the anterior drum remnant. The lateral aspect was draped through the mastoid bowl. The drum was re-placed into its anatomic position.Cortisporinointment was then placed over the drum and filled the external auditory canal. The postauricular incision was then closed in 2 layers. The pericranium was reapproximated using 3-0 Monocryl sutures. The skin was closed using 3-0 inverted Monocryl subcuticular sutures. The Estelita flap was then re-placed in its anatomic position under microscopy. The remainder of the canal was filled with Cortisporin ointment. A cotton ball was placed in theexternal auditory canal. A mastoid dressing was applied and the procedure was terminated. The patient was awakened from anesthesia, extubated, and returned to the recovery room in stable condition. Dr. Skaggs was present and scrubbedthroughout the entire procedure. ESTIMATED BLOOD LOSS: 50 cc. FLUIDS: 250 cc lactated Ringer. COMPLICATIONS: None. Signed by Sánchez Skaggs MD 10/25/2005 15:41 Steve Harrell MDWilliam J Brundage, MD Dictated by: Vicente Cazares MD Sánchez Skaggs MD - Vicente Cazares MD P - ss Job ID: [id number] Document ID: [id number] cc: MD Sánchez Sanz MD Patrick N Keith, MD documented in this encounter Plan of Treatment Not on file documented as of this encounter Visit Diagnoses Not on filedocumented in this encounter
--- OUTSIDE RECORDS SUMMARY | 2024-02-05 13:19 | XMS_ITS | Encounter Summary ---
Author Organization [facility] Address [address] [place] [address] Care Team Providers Care Heel Emery Buffer Name Role Phone Unavailable Primary Care Provider Unavailabl e Encounter Details Date Type Department Care Team (Latest Contact Info) Description 12/08/2002 11:07 EDT - 12/08/2002 11:59 EDT Hospital Encounter [facility] [address] [place] [address] Jenny Solomon MD [address] [facility] [address] [place], [place] [address] Discharge Disposition: Auto Discharge Social History Tobacco [...] Priority Date/Time Associated Diagnosis Comments SURGICAL PATHOLOGY Routine 12/08/2002 0:00 EDT documented in this encounter Results * SURGICAL PATHOLOGY (12/08/2002 0:00 EDT) Pathology Report: SURGICAL PATHOLOGY REPORT Reports generated via electronic interface contain original data; however they are lacking the format of the original report. Caution should be taken when reading/interpreting unformatted reports. Name: ? PANCHO PARKERE Nelson ? Accession #: ? [id number] ? : ? 1995 (Age: 7) ??F ? Collect Date: ? 12/08/2002 ? Location: ? [facility] ? Receive Date: ? 12/08/2002 ? Provider: JENNY SOLOMON MD Copy to: ROBERTA LOPEZ MD ? Final Pathologic Diagnosis: ? Skin of arm, right, excision: 1. ?Melanocytic nevus, junctional Spitz type. ??See microscopic and comment. ? - Nevus does not extend to margins of excision specimen. Comment: ? The biopsy consists of a junctional melanocytic proliferation composed of spindle-shaped melanocytes with abundant melanin pigment. ??The architectural and cytologic features are like those seen in a Spitz nevus or pigmented spindle cell nevus (of Deandre). ??The lesion is encompassed by the margins of the excision. Dr. Andrew Lara has reviewed this case and concurs with the interpretation. ??(Dr. Merritt)/[facility] Microscopic Description: ? Sections consist of an excision of skin that includes a portion of subcutis. ??There is mild epidermal hyperplasia and hyperkeratosis associated with a central melanocytic proliferation. ??The proliferation is generally small and well circumscribed. ??The majority of the melanocytes are within the epidermis and form nests of varying size, shape, and spacing. ??The nests are located on the sides and between rete ridges. ??Most of the nests are vertically oriented and there are areas of transepidermal elimination of nests. ??Individual melanocytes are increased in number to a small degree between the nests and are focally crowded along the dermal-epidermal junction. ??Rare melanocytes are noted in the mid stratum spinosum overlying nests. ??The melanocytes are enlarged and most have voluminous cytoplasm containing abundant coarse melanin pigment. ??Many of the cells are spindle-shaped with irregular nuclei that have prominent nucleoli. ??The dermis is marked by a sparse lymphomononuclear infiltrate and numerous heavily pigmented melanophages. ??(Dr. Merritt)/errol Document reviewed and electronically signed by: Bailey Merritt MD Report ??Date: 12/14/2002 16:25 By the signature above, the attending physician certifies that he/she has personally conducted a gross and/or microscopic examination of the described specimens and rendered or confirmed the above diagnosis. Specimen(s) Received: ? R arm nevus Clinical History: ? R arm nevus, ??? Spitz Gross Description: ? Received in normal saline labelled Norberto is an unoriented, rausch-saucedo skin ellipse which measures 1.2 x 0.5 cm and is excised to a depth of 0.3 cm. There is a central black papule which measures 0.3 cm in diameter. ??The specimen is inked black, serially sectioned and is entirely submitted as follows: BLOCK RICH A1 ?Central sections A2 ?Distal tips, reverse en face (Dr. Vasquez)/errol End of Report [facility] 12/08/2002 12/08/2002 13: 49 EDT Jenny Solomon MD PATHOLOGY O RDERAROBERTO [facility] [address] [place] [address] documented in this encounter Visit Diagnoses Not on filedocumented in this encounter
--- OUTSIDE RECORDS SUMMARY | 2024-02-05 13:19 | XMS_ITS | Encounter Summary ---
Author Organization [facility] Address [address] [place] [address] Care Team Providers Care Senior Billing Consultant Name Role Phone Unavailable Primary Care Provider Unavailabl e Encounter Details Date Type Department Care Team (Late st Contact Info) Description 08/25/2006 Before PRISM Converted Visit (Maple) [facility] - Maple conversion [address] [place], [place] [address] Sánchez Skaggs MD [address] [facility], [address] [place] [address] Social History Tobacco Use Types Packs/Day Years Used Date Smoking Tobacco: Never Assessed Sex and Gender Information Value Date Recorded Sex Assigned at Not on file Gender Identity Not on file Sexual Orientation Not on file documented as of this encounter Progress Notes * Sánchez Skaggs MD - 03/12/2009 1203 EST DIVISION OF OTOLARYNGOLOGY PROGRESS/FOLLOWUP NOTE - 08/25/2006 MIRA Rosas comes in for a left mastoid cavity cleaning. Her dad reports that she had no drainage or problems. She does pick at that ear a bit, but there has been no bleeding or other issues. OBJECTIVE Examination today of the right ear looks quite good with shallow adequate traction, and nothing worrisome. Examination of the left ear shows a nicely patent meatus and healed mastoid cavity. The tympanic membrane is intact and thin. There are some clear bubbles in the middle ear space. There is no evidence of recurrent cholesteatoma and no active infection. A repeat audiogram today shows a probable moderate hearing loss in the low frequencies. It is difficult to sort out ears. ASSESSMENT AND PLAN I talked with Navin Dennis who tested her today and he would prefer to do another hearing test whenI see her back in four months and then think about a trial of amplification after that. We will keep that plan. I will see her sooner if she has any other problems. Signed by Sánchez Skaggs MD 08/31/2006 09:57 Sukh Skaggs MDWivicky Skaggs MD Sánchez Skaggs MD - Tereza Skaggs MD P - wlp Job ID: [id number] Document ID: [id number] cc: Rubio Augustin MD documented in this encounter Plan of Treatment Not on file documented as of this encounter Visit Diagnoses Not on filedocumented in this encounter
--- OUTSIDE RECORDS SUMMARY | 2024-02-05 13:19 | XMS_ITS | Encounter Summary ---
Author Organization [facility] Address [address] [place] [address] Care Team Providers Care Civil Engineering Specialist Name Role Phone Unavailable Primary Care Provider Unavailabl e Encounter Details Date Type Department Care Team (Late st Contact Info) Description 03/04/2007 9:41 EDT Hospital Encounter [facility] [address] [place] [address] Ginette Lobo MD [address] [facility], [address] [place] [address] Social History Tobacco Use Types [...]
--- OUTSIDE RECORDS SUMMARY | 2024-02-05 13:19 | XMS_ITS | Encounter Summary ---
Author Organization [facility] Address [address] [place] [address] Care Team Providers Care Director Of Corporate Marketing Name Role Phone Unavailable Primary Care Provider Unavailabl e Encounter Details Date Type Department Care Team (Late st Contact Info) Description 08/14/2005 Before PRISM Converted Visit (Maple) [facility] - [facility] conversion [address], [place] [address] Sánchez Skaggs MD [address] [facility], [address] [place] [address] Social History Tobacco Use Types Packs/Day Years Used Date Smoking Tobacco: Never Assessed Sex and Gender Information Value Date Recorded Sex Assigned at Not on file Gender Identity Not on file Sexual Orientation Not on file documented as of this encounter Progress Notes * Sánchez Skaggs MD - 04/14/2009 1132 EST DIVISION OF OTOLARYNGOLOGY PROGRESS/FOLLOWUP NOTE - 08/14/2005 S:comes in today to have her left ear cleaned. She has a chronic otitis media and possible cholesteatoma. Underlying problem is a congenital deletion of chromosome 2. Her dad reports that her drainage has been improved since shebeen on the Ciprodex drops. O: On examination of the left ear under the operating microscope today there still is some significant inflammatory process and what looks like retained squamous debris medially. The ear canal is fine. it is very difficult to make out any landmarks. There was minimal drainage which was suctioned out today and some more drops were instilled. Review of the culture we did last time showed Stenotrophomonas which is usually sensitive to Bactrim. A: Left chronic otitis media. P: We put on Bactrim Suspension 3 ?? teaspoons b.i.d. for 10 days. Shes going to continue with the Ciprodex Otic as well and Id like to see her back in one to two weeks. Ilike to continue to try and clear this up medically and then we sort of get it maximally improved, well do a CT scan, repeat hearing test and decide if we need to take any surgical intervention here. Signed by Sánchez Skaggs MD 08/25/2005 16:10 Annmarie Pacheco MD Sánchez Skaggs MD - Sánchez Skaggs MD A - kmb Job ID: [id number] Document ID: [id number] cc: Rubio Augustin MD documented in this encounter Plan of Treatment Not on file documented as of this encounter Visit Diagnoses Not on filedocumented in this encounter
--- OUTSIDE RECORDS SUMMARY | 2024-02-05 13:19 | XMS_ITS | Encounter Summary ---
Author Organization [facility] Address [address] [place] [address] Care Team Providers Care Sec Accountant Name Role Phone Unavailable Primary Care Provider Unavailabl e Encounter Details Date Type Department Care Team (Late st Contact Info) Description 05/30/2005 Before PRISM Converted Visit (Maple) [facility] - Maple conversion [address], [place] [id number] Christopher Angulo MD [address] [facility], [address] [place] [address] Social History Tobacco Use Types Packs/Day Years Used Date Smoking Tobacco: Never Assessed Sex and Gender Information Value Date Recorded Sex Assigned at Not on file Gender Identity Not on file Sexual Orientation Not on file documented as of this encounter Progress Notes * Christopher Angulo MD - 07/05/2009 9696 EST DIVISION OF OTOLARYNGOLOGY - [facility] PROGRESS/FOLLOWUP NOTE - 05/30/2005 S:has had chronic intermittent drainage, but painless from the left ear since her last visit here eighteen months ago. O: Healthy, alert, cooperative female in no distress. The right tympanic membrane and ear canal look normal. Examination of the left ear reveals pus pouring from the ear. The left ear is non tender. A: Chronic otitis media, left ear. P: CT scan of the temporal bones to rule out cholesteatoma. Signed by Christopher Angulo MD 06/03/2005 17:17 Hector Carbajal MD Christopher Angulo MD - Christopher Angulo MD A - bryan Job ID: [id number] Document ID: [id number] cc: MD Jerod Nelson MD documented in this encounter Plan of Treatment Not on file documented as of this encounter Visit Diagnoses Not on filedocumented in this encounter
--- OUTSIDE RECORDS SUMMARY | 2024-02-05 13:19 | XMS_ITS | Encounter Summary ---
Author Organization [facility] Address [address] [place] [address] Care Team Providers Care Support Services Rep Name Role Phone Unavailable Primary Care Provider Unavailabl e Encounter Details Date Type Department Care Team (Latest Contact Info) Description 05/13/2008 8:07 EST - 05/13/2008 11:59 EST Hospital Encounter [facility] [place] [address] [place] [address] Luzma Singh MD Discharge Disposition: Auto Discharge Social History Tobacco [...] Name Priority Date/Time Associated Diagnosis Comments CONGENITAL ECHOCARDIOGRAM 12/15/2009 8:45 EDT CONGENITAL ECHOCARDIOGRAM 05/13/2008 8:35 EST documented in this encounter Results * CONGENITAL ECHOCARDIOGRAM (12/15/2009 8:45 EDT) Anatomical Region Laterality Modality Other 12/15/2009 8:45 EDT Narrative 12/22/2009 18:02 EDT Patient Name: JUAN PARKER Chart Number: [id number] Site Location: Date of Appt: Tuesday, December 15, 2009, 8:45 AM Pediatric Echocardiogram Report Demographics and Visit Data: : 1995. ??Age: 14y/3m/26d. ??BSA (m 2): 1.22. ??Height (cm): 143. ?? Weight (kg): 37.8. ??BMI (kg/m 2): 18.49. ??Patient location: [facility]. ?? Height Centile: 1.02. ??Weight Centile: 10.65. ??Person requesting test: RUBIO AUGUSTIN MD. ?? Mission Commander: Linda Baeza. 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 LSVC. ?? Procedure Description: CONGENITAL ECHOCARDIOGRAM. ?? Summary: Poor echocardiogram images. 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 Small residual atrial septal defect with no right ventricular volume overload. No residual patent ductus arteriosus seen. Trivial mitral regurgitation with no mitral valve prolapse seen. Normal Doppler study of the other intracardiac valves. Normal left ventricular size, wall thickness and systolic function. Qualitatively good right ventricular systolic function. Complete 2-dimensional study performed, with pulse/continuous wave Doppler samplings, and color flow Doppler imaging reviewed. Findings: ?? Veins and Atria: ?? >> Superior vena cava entering left atrium Status post ligation of the left superior vena cava. On limited images, no left superior vena cava was seen. The right superior vena cava was not imaged. ?? >> S/p secundum atrial septal defect surgery There is a small residual atrial septal defect noted on subxiphoid images. The defect is not well seen without color Doppler. ? A-V Canal: ?? >> Mitral regurgitation, mild The mitral valve is mildly thickened with leaflets that reel blade bender furnace tender towards the left atrium with no mitral valve prolapse demonstrated. There is very mild mitral regurgitation demonstrated by color Doppler. ?? >> Tricuspid regurgitation, trivial By tricuspid regurgitation jet, the estimated right ventricular pressure is approximately 23 mmHg plus right atrial pressure. ? Ventricles: ?? >> Left ventricular dysfunction, ruled out Difficult parasternal imaging. The left ventricular function is brisk with no regional wall motion abnormalities identified. ?? >> Left ventricular dilation or enlargement, ruled out >> Right ventricular dysfunction global, ruled out Qualitatively good right ventricular function. ?? >> Right ventricular dilation or enlargement The right ventricle may be mildly enlarged, however images are suboptimal. ? Conotruncus: ?? >> Pulmonary stenosis, ruled out >> Aortic regurgitation, ruled out ?? Great Arteries: ?? >> Left aortic arch No coarctation noted. ?? >> S/p patent ductus arteriosus surgery No residual patent ductus arteriosus flow seen. ? Measures: ?? Systemic Arterial Function: ?? Name ?Value ?Units ?Z-Score ?Min ?Max ?? Systolic BP ? 95 ? mmHg ? -0.91 ?82.76 ??128.13 ?? Diastolic BP ?62 ? mmHg ? 0.82 ? 35.58 ??72.82 ?? Pulse Pressure ?33.00 ?mmHg ? Mean BP ? 73.0 ? mmHg ? -0.44 ?57.42 ??97.6 ? M-Mode: ?? Name ?Value ?Units ?Z-Score ?Min ?Max ?? LV Diastolic Septal ? 0.82 ? cm ? 0.29 ? 0.56 ?? 1.02 ?? Thickness LV Diastolic Dimension ?4.46 ? cm ? 0.57 ? 3.69 ?? 4.89 ?? LV Diastolic Wall ? 0.79 ? cm ? 0.5 ?0.54 ?? 0.94 ?? Thickness LV Systolic Dimension ? 3.09 ? cm ? 1.22 ? 2.21 ?? 3.29 ?? LV Fractional Shortening ?30.72 ?% ?-1.44 ?29.23 ??42.52 ?? M-Mode LV Mass / Height 2 ? 55.19 ?g/m 2 ? Relative Wall Thickness ? 0.36 ? LV Systolic Function: ?? Name ?Value ?Units ?Z-Score ?Min ?Max ?? Endocardial FS ?30.72 ?% ?-1.44 ?29.23 ??42.52 ?? FS Vs Stress ?30.72 ?% ? Cardiac Geometry: ?? Name ?Value ?Units ?Z-Score ?Min ?Max ?? M-Mode LV Mass ?112.86 ?? gm ? 0.93 ? 64.68 ??137.76 ?? M-Mode LV Mass Index ?92.51 ?g/m 2 ? LV Midwall Diastolic ?5.25 ? cm ? 0.71 ? 4.41 ?? 5.64 ?? Dimension M-Mode LV Mass / Height ? 78.93 ?g/m ? M-Mode LV Mass / ?42.97 ?g/m ? 19.4 ?? 38.6 ?? Height 2.7 ?? Aorta: ?? Name ?Value ?Units ?Z-Score ?Min ?Max ?? Ao Annulus Diameter ? 1.60 ? cm ? -0.84 ?1.42 ?? 2.04 ?? Ao Root Diameter ?2.31 ? cm ? 0.12 ? 1.81 ?? 2.76 ?? AV Area (using Diameter) ?2.01 ? cm 2 ? Analysis Aortic Valve Doppler: ?? Name ?Value ?Units ?? AV Area (using Diameter) ?2.01 ? cm 2 ? [place]'s Name: LUZMA SINGH MD Date/time of reading: Dec 22 2009 - 6:01:29 PM Report created at 6:02:12 PM on Tuesday, December 22, 2009 Report Number: Note:Study interpreted at [facility] unless otherwise noted Procedure Note 12/22/2009 Patient Name: JUAN PARKER Chart Number: [id number] Site Location: Date of Appt: Tuesday, December 15, 2009, 8:45 AM Pediatric Echocardiogram Report Demographics and Visit Data: : 1995. Age: 14y/3m/26d. BSA (m 2): 1.22. Height (cm): 143. Weight (kg): 37.8. BMI (kg/m 2): 18.49. Patient location: [facility]. Height Centile: 1.02. Weight Centile: 10.65. Person requesting test: RUBIO AUGUSTIN MD Mission Commander: Linda Baeza. 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 LSVC. Procedure Description: CONGENITAL ECHOCARDIOGRAM. Summary: Poor echocardiogram images. 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 Small residual atrial septal defect with no right ventricular volume overload. No residual patent ductus arteriosus seen. Trivial mitral regurgitation with no mitral valve prolapse seen. Normal Doppler study of the other intracardiac valves. Normal left ventricular size, wall thickness and systolic function. Qualitatively good right ventricular systolic function. Complete 2-dimensional study performed, with pulse/continuous wave Doppler samplings, and color flow Doppler imaging reviewed. Findings: Veins and Atria: >> Superior vena cava entering left atrium Status post ligation of the left superior vena cava. On limited images, no left superior vena cava was seen. The right superior vena cava was not imaged. >> S/p secundum atrial septal defect surgery There is a small residual atrial septal defect noted on subxiphoid images. The defect is not well seen without color Doppler. A-V Canal: >> Mitral regurgitation, mild The mitral valve is mildly thickened with leaflets that reel blade bender furnace tender towards the left atrium with no mitral valve prolapse demonstrated. There is very mild mitral regurgitation demonstrated by color Doppler. >> Tricuspid regurgitation, trivial By tricuspid regurgitation jet, the estimated right ventricular pressure is approximately 23 mmHg plus right atrial pressure. Ventricles: >> Left ventricular dysfunction, ruled out Difficult parasternal imaging. The left ventricular function is brisk with no regional wall motion abnormalities identified. >> Left ventricular dilation or enlargement, ruled out >> Right ventricular dysfunction global, ruled out Qualitatively good right ventricular function. >> Right ventricular dilation or enlargement The right ventricle may be mildly enlarged, however images aresuboptimal. Conotruncus: >> Pulmonary stenosis, ruled out >> Aortic regurgitation, ruled out Great Arteries: >> Left aortic arch No coarctation noted. >> S/p patent ductus arteriosus surgery No residual patent ductus arteriosus flow seen. Measures: Systemic Arterial Function: Name Value Units Z-Score Min Max Systolic BP 95 mmHg -0.91 82.76 128.13 Diastolic BP 62 mmHg 0.82 35.58 72.82 Pulse Pressure 33.00 mmHg Mean BP 73.0 mmHg -0.44 57.42 97.6 M-Mode: Name Value Units Z-Score Min Max LV Diastolic Septal 0.82 cm 0.29 0.56 1.02 Thickness LV Diastolic Dimension 4.46 cm 0.57 3.69 4.89 LV Diastolic Wall 0.79 cm 0.5 0.54 0.94 Thickness LV Systolic Dimension 3.09 cm 1.22 2.21 3.29 LV Fractional Shortening 30.72 % -1.44 29.23 42.52 M-Mode LV Mass / Height 2 55.19 g/m 2 Relative Wall Thickness 0.36 LV Systolic Function: Name Value Units Z-Score Min Max Endocardial FS 30.72 % -1.44 29.23 42.52 FS Vs Stress 30.72 % Cardiac Geometry: Name Value Units Z-Score Min Max M-Mode LV Mass 112.86 gm 0.93 64.68 137.76 M-Mode LV Mass Index 92.51 g/m 2 LV Midwall Diastolic 5.25 cm 0.71 4.41 5.64 Dimension M-Mode LV Mass / Height 78.93 g/m M-Mode LV Mass / 42.97 g/m 19.4 38.6 Height 2.7 Aorta: Name Value Units Z-Score Min Max Ao Annulus Diameter 1.60 cm -0.84 1.42 2.04 Ao Root Diameter 2.31 cm 0.12 1.81 2.76 AV Area (using Diameter) 2.01 cm 2 Analysis Aortic Valve Doppler: Name Value Units AV Area (using Diameter) 2.01 cm 2 [place]'s Name: SAMANTHA FERRER,LUZMA PATEL Date/time of reading: Dec 22 2009 - 6:01:29 PM Report created at 6:02:12 PM on Tuesday, December 22, 2009 Report Number: Note:Study interpreted at [facility] unless otherwise noted Rubio Augustin MD CARDIAC ECHO ORDERAB LES * CONGENITAL ECHOCARDIOGRAM (05/13/2008 8:35 EST) Anatomical Region Laterality Modality Other 05/13/2008 8:35 EST Narrative 09/19/2008 11:04 EDT color pulse Doppler Site Location: Date of Appt: Tuesday, May 13, 2008, 8:35 AM Pediatric Echocardiogram Report Demographics and Visit Data: : 1995. ??Age: 12y/8m/22d. ??BSA (m 2): 1.11. ??Height (cm): 133. Weight (kg): 33.1. ??BMI (kg/m 2): 18.71. ??[facility]. Height Centile: 0.73. ??Weight Centile: 14.67. ??Person requesting test: FARIHA FERRER,RUBIO Velazquez. Mission Commander: Linda Baeza. ??Reason for test: color pulse Doppler. 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 LSVC. ??Procedure Description: COMPLETE CONGENITAL ECHO. 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 Very small residual atrial septal defect. No residual patent ductus arteriosus seen. Trivial mitral regurgitation. Normal Doppler study of the other intracardiac valves. Normal left ventricular size, wall thickness and systolic function. Normal right ventricular size with qualitatively good right ventricular systolic function. Findings: Veins and Atria: >> Superior vena cava entering left atrium Status post ligation of the left superior vena cava. Although no connecting vein had been present pre-operatively, there is a small amount of venous flow noted in the innominate vein region. Normal venous flow seen in the right superior vena cava. >> S/p secundum atrial septal defect surgery There is a very small residual atrial septal defect noted inferiorly. A-V Canal: >> Mitral regurgitation, mild The mitral valve is mildly thickened with leaflets that reel blade bender furnace tender towards the left atrium with no mitral valve prolapse demonstrated. There is very mild mitral regurgitation. >> Tricuspid regurgitation, trivial Ventricles: >> Left ventricular dysfunction, ruled out Difficult parasternal imaging. The left ventricular function is brisk with no regional wall motion abnormalities identified. >> Left ventricular dilation or enlargement, ruled out >> Right ventricular dysfunction global, ruled out Qualitatively good right ventricular function. >> Right ventricular dilation or enlargement, ruled out Conotruncus: >> Aortic regurgitation, ruled out >> Pulmonary stenosis No valvar or branch pulmonary artery stenosis identified. Great Arteries: >> S/p patent ductus arteriosus surgery No residual patent ductus arteriosus flow seen. >> Left aortic arch No coarctation noted. Pericardium: (No abnormalities seen) Measures: Systemic Arterial Function: Name ? Value ?Units ?Z-Score ?Min ?Max Systolic BP ? 114 ?mmHg ? 0.8 ? 86.75 ?? 125.56 Diastolic BP ? 66 ? mmHg ? 1.1 ? 37.99 ?? 73.93 Pulse Pressure ? 48.00 ?mmHg Mean BP ? 82.0 ? mmHg ? 0.36 ?60.69 ?? 96.76 M-Mode: Name ? Value ?Units ?Z-Score ?Min ?Max LV Diastolic Septal Thickness ? 0.69 ? cm ? -0.63 ? 0.56 ?1.05 LV Diastolic Dimension ? 3.72 ? cm ? -1. ? 3.44 ?4.75 LV Diastolic Wall Thickness ? 0.77 ? cm ? 0.37 ?0.57 ?0.95 LV Systolic Dimension ? 2.05 ? cm ? -2.43 ? 2.15 ?3.24 LV Fractional Shortening ? 44.89 ?% ?4.67 ?28.58 ?? 38.26 LV Systolic Function: Name ? Value ?Units ?Z-Score ?Min ?Max Endocardial FS ? 44.89 ?% ?4.67 ?28.58 ?? 38.26 FS Vs Stress ? 44.89 ?% Cardiac Geometry: Name ? Value ?Units ?Z-Score ?Min ?Max M-Mode LV Mass ? 73.41 ?g ?-0.92 ? 59.56 ?? 131.08 M-Mode LV Mass Index ? 66.14 ?g/m 2 LV Midwall Diastolic Dimension ? 4.49 ? cm M-Mode LV Mass / Height ? 55.2 ? g/m M-Mode LV Mass / Height 2.7 ? 33.99 ?g/m ?19.4 ?38.6 Aorta: Name ? Value ?Units ?Z-Score ?Min ?Max Ao Annulus Diameter ? 1.64 ? cm ? 0.27 ?1.31 ?1.89 Ao Root Diameter ? 2.42 ? cm ? 1.44 ?1.66 ?2.54 AV Area (using Diameter) ? 2.11 ? cm 2 Sinotubular Junction Diameter ? 1.74 ? cm ? -0.26 ? 1.43 ?2.15 Ascending Ao Diameter ? 1.98 ? cm ? 0.84 ?1.45 ?2.19 Analysis Aortic Valve Doppler: Name ? Value ?Units AV Area (using Diameter) ? 2.11 ? cm 2 [place]'s Name: LUZMA SINGH MD Date/time of reading: May 13 2008 - 2:38:41 PM Report created at 2:39:21 PM on Tuesday, May 13, 2008 Procedure Note Luzma Singh MD - 09/19/2008 color pulse Doppler Site Location: Date of Appt: Tuesday, May 13, 2008, 8:35 AM Pediatric Echocardiogram Report Demographics and Visit Data: : 1995. Age: 12y/8m/22d. BSA (m 2): 1.11. Height (cm): 133. Weight (kg): 33.1. BMI (kg/m 2): 18.71. Patient [facility]: [facility]. Height Centile: 0.73. Weight Centile: 14.67. Person requesting test: RUBIO AUGUSTIN MD Mission Commander: Linda Baeza. Reason for test: color pulse Doppler. 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 LSVC. Procedure Description: COMPLETE CONGENITAL ECHO. 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 Very small residual atrial septal defect. No residual patent ductus arteriosus seen. Trivial mitral regurgitation. Normal Doppler study of the other intracardiac valves. Normal left ventricular size, wall thickness and systolic function. Normal right ventricular size with qualitatively good right ventricular systolic function. Findings: Veins and Atria: >> Superior vena cava entering left atrium Status post ligation of the left superior vena cava. Although no connecting vein had been present pre-operatively, there is a small amount of venous flow noted in the innominate vein region. Normal venous flow seen in the right superior vena cava. >> S/p secundum atrial septal defect surgery There is a very small residual atrial septal defect noted inferiorly. A-V Canal: >> Mitral regurgitation, mild The mitral valve is mildly thickened with leaflets that reel blade bender furnace tender towards the left atrium with no mitral valve prolapse demonstrated. There isvery mild mitral regurgitation. >> Tricuspid regurgitation, trivial Ventricles: >> Left ventricular dysfunction, ruled out Difficult parasternal imaging. The left ventricular function is briskwith no regional wall motion abnormalities identified. >> Left ventricular dilation or enlargement, ruled out >> Right ventricular dysfunction global, ruled out Qualitatively good right ventricular function. >> Right ventricular dilation or enlargement, ruled out Conotruncus: >> Aortic regurgitation, ruled out >> Pulmonary stenosis No valvar or branch pulmonary artery stenosis identified. Great Arteries: >> S/p patent ductus arteriosus surgery No residual patent ductus arteriosus flow seen. >> Left aortic arch No coarctation noted. Pericardium: (No abnormalities seen) Measures: Systemic Arterial Function: Name Value Units Z-Score Min Max Systolic BP 114 mmHg 0.8 86.75 125.56 Diastolic BP 66 mmHg 1.1 37.99 73.93 Pulse Pressure 48.00 mmHg Mean BP 82.0 mmHg 0.36 60.69 96.76 M-Mode: Name Value Units Z-Score Min Max LV Diastolic Septal Thickness 0.69 cm -0.63 0.56 1.05 LV Diastolic Dimension 3.72 cm -1. 3.44 4.75 LV Diastolic Wall Thickness 0.77 cm 0.37 0.57 0.95 LV Systolic Dimension 2.05 cm -2.43 2.15 3.24 LV Fractional Shortening 44.89 % 4.67 28.58 38.26 LV Systolic Function: Name Value Units Z-Score Min Max Endocardial FS 44.89 % 4.67 28.58 38.26 FS Vs Stress 44.89 % Cardiac Geometry: Name Value Units Z-Score Min Max M-Mode LV Mass 73.41 g -0.92 59.56 131.08 M-Mode LV Mass Index 66.14 g/m 2 LV Midwall Diastolic Dimension 4.49 cm M-Mode LV Mass / Height 55.2 g/m M-Mode LV Mass / Height 2.7 33.99 g/m 19.4 38.6 Aorta: Name Value Units Z-Score Min Max Ao Annulus Diameter 1.64 cm 0.27 1.31 1.89 Ao Root Diameter 2.42 cm 1.44 1.66 2.54 AV Area (using Diameter) 2.11 cm 2 Sinotubular Junction Diameter 1.74 cm -0.26 1.43 2.15 Ascending Ao Diameter 1.98 cm 0.84 1.45 2.19 Analysis Aortic Valve Doppler: Name Value Units AV Area (using Diameter) 2.11 cm 2 [place]'s Name: LUZMA SINGH MD Date/time of reading: May 13 2008 - 2:38:41 PM Report created at 2:39:21 PM on Tuesday, May 13, 2008 Rubio Augustin MD CARDIAC ECHO ORDERAB LES documented in this encounter Visit Diagnoses Not on filedocumented in this encounter
--- OUTSIDE RECORDS SUMMARY | 2024-02-05 13:19 | XMS_ITS | Encounter Summary ---
Author Organization [facility] Address [address] [place] [address] Care Team Providers Care Lcac Radar Operator/Navigator Name Role Phone Unavailable Primary Care Provider Unavailabl e Encounter Details Date Type Department Care Team (Late st Contact Info) Description 09/11/1999 8:30 EDT - 09/11/1999 11:59 EDT Hospital Encounter [address] [address] Christopher Angulo MD [address] [place] [address], [address] [place] [address] Discharge Disposition: Home or Self Care Social History Tobacco Use Types Packs/Day Years Used Date Smoking Tobacco: Never Assessed Sex and Gender Information Value Date Recorded Sex Assigned at Not on file Gender Identity Not on file Sexual Orientation Not on file documented as of this encounter Discharge Disposition Disposition Code Departure Means Destination Home or Self Care documented in this encounter Plan of Treatment Not on file documented as of this encounter Visit Diagnoses Not on filedocumented in this encounter
--- OUTSIDE RECORDS SUMMARY | 2024-02-05 13:19 | XMS_ITS | Encounter Summary ---
Author Organization [facility] Address [address] [place] [address] Care Team Providers Care Airline Attendant Name Role Phone Unavailable Primary Care Provider Unavailabl e Encounter Details Date Type Department Care Team (Late st Contact Info) Description 07/09/2007 9:40 EST Hospital Encounter [facility] [address] [place] [address] Sánchez Skaggs MD [address] [facility], [address] [place] [address] Social History Tobacco Use Types [...]
--- OUTSIDE RECORDS SUMMARY | 2024-02-05 13:19 | XMS_ITS | Encounter Summary ---
Author Organization [facility] Address [address] [place] [address] Care Team Providers Care Drum Reel Cutter Name Role Phone Unavailable Primary Care Provider Unavailabl e Encounter Details Date Type Department Care Team (Latest Contact Info) Description 10/17/2004 6:41 EDT - 10/17/2004 11:59 EDT Hospital Encounter [facility] Perioperative Services - [address] [address] Tray Napier DDS [address] [place], [place] [id number] Discharge Disposition: Home-Health Care Svc Social History Tobacco Use Types Packs/Day Years Used Date Smoking Tobacco: Never Assessed Sex and Gender Information Value Date Recorded Sex Assigned at Not on file Gender Identity Not on file Sexual Orientation Not on file documented as of this encounter Discharge Disposition Disposition Code Departure Means Destination Home-Health Care Svc documented in this encounter OR Notes * OR Surgeon - Tray Napier MD - 10/17/2004 0000 EDT PROCEDURE REPORT PT TYPE: OPPROC PT LOC: [id number] SERVICE DATE: 10/17/2004 SURGEON: Tray Napier DDS LEATHER TACKER: PREOPERATIVE DIAGNOSIS: 1. 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 2. Gross dental caries. POSTOPERATIVE DIAGNOSIS: 1. 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 2. Gross dental caries. PROCEDURE: Complete dental rehabilitation. ANESTHESIA: General. Because of the young age and unmanageability of this patient on an outpatient basis and associated delayed development of her chromosome II deletion, it was necessary to treat her with the aid of a general anesthetic in orderto render her free of infection and pain. NARRATIVE: The patient was brought to the operating room in the accompaniment of her mother where she was induced via mask with oxygen and sevoflurane. At this point, her mother was escorted back to the waiting area and the induction continued with the placement of a nasotracheal tube. The patient was then continued for the duration of the procedure on sevoflurane and oxygen. During the inductionperiod, an intravenous line was established with lactated Ringer solution, which was continued for the duration of the procedure. The patient had previously been premedicated with oral antibiotics because of her continued cardiac defect. Following a thorough examination, which included the exposure and development of two intraoral x-rays, gross decay was noted on all posterior molars. This was consistent the parentreport that they were not able to brush her teeth. In all, four teeth were restored with stainless steel crowns and 12 teeth were restored with multi-surface bonding composite resin restorations. The upper right first primary molar was exposed and was treated with a pulpotomy. At the conclusion of the procedure, thorough prophylaxis and fluoride treatment was accomplished. The patient tolerated the procedure well, blood loss was minimal, and the patient was returned to the recovery machado in satisfactory condition with all packs removed and all bleeding controlled. In the immediate postoperative period, I again counseled the parents in the relationship to their lack of brushing and to Alyses decay problem. They told me at this point, they would try to start brushing her teeth. Signed by Tray Napier DDS 10/24/2004 07:38 Amada Monreal DDSGeorge M Richardson, DDS Tray Napier DDS - Tray Napier DDS P - mt Job ID: [id number] Document ID: [id number] cc: ERIK Puckett IV, DDS Patrick N Keith, MD George M Richardson, DDS . Main ?? documented in this encounter Plan of Treatment Not on file documented as of this encounter Visit Diagnoses Not on filedocumented in this encounter
--- OUTSIDE RECORDS SUMMARY | 2024-02-05 13:19 | XMS_ITS | Encounter Summary ---
Author Organization [facility] Address [address] [place] [address] Care Team Providers Care [employer] Principal Name Role Phone Unavailable Primary Care Provider Unavailabl e Encounter Details Date Type Department Care Team (Latest Contact Info) Description 07/30/2002 13:46 EST Hospital Encounter [facility] [address] [place] [address] Luzma Neri MD Discharge Disposition: Auto Discharge Social History [...]
--- OUTSIDE RECORDS SUMMARY | 2024-02-05 13:19 | XMS_ITS | Encounter Summary ---
Author Organization [facility] Address [address] [place] [address] Care Team Providers Care Dispatcher Tugboat Name Role Phone Unavailable Primary Care Provider Unavailabl e Encounter Details Date Type Department Care Team (Late st Contact Info) Description 09/09/2007 Before PRISM Converted Visit (Maple) [facility] - Maple conversion [address] [place] [address] Charlene Woods MD [address] [address] Social History Tobacco Use Types Packs/Day Years Used Date Smoking Tobacco: Never Assessed Sex and Gender Information Value Date Recorded Sex Assigned at Not on file Gender Identity Not on file Sexual Orientation Not on file documented as of this encounter Progress Notes * Charlene Woods MD - 02/03/2009 0956 EDT DIVISION OF DERMATOLOGY PROGRESS/FOLLOWUP NOTE - 09/09/2007 PROBLEM LIST Scalp psoriasis. SUBJECTIVE Alison returns today for a followup examination of the above-mentioned problem. She was last evaluated in the Dermatology Clinic on 07/08/2007. At that time, Leetonia-Smoothe/FS was initiated. Dad notes that she has been using this nightly with good improvement. Also, they are using T-Gel shampoo daily. Alison no longer complains about the site, although he does find her scratching at this site at bedtime. They did use the hydroxyzine initially, but dad did not feel that it did much. He currently iscovering the Leetonia-Smoothe/FS with a shower cap so that Aliosn cannot grab at this area. They note that there is some persistent crusting, but not nearly as much as there had been in the past. Patient has had no interval health status change. No constitutional symptoms today or any other complaints referable to the skin. OBJECTIVE Physical examination shows a very pleasant, well-behaved 11-year-old female who appears much younger than her stated age, with skin type II. Examination of the left occipital scalp, trailing onto theleft lateral neck shows pink nonblanching telangiectatic patches that have been present since . On the left occipital she has a 5 to 6 cm pink, very think ill-defined plaque with overlying micaceous scale. There is 1 area of hemorrhagic crust. Remainder of exam within normal limits. ASSESSMENT Scalp psoriasis, improved with topical therapy. PLAN 1. Once again discussed with dad that psoriasis is a chronic persistent disease that has to be treated regularly. Recommend that he continue with the Leetonia- Smoothe/FS as needed. Prescriptions were not needed. Also, if she finds that she is more bothered by this at night, he may re-administer the hydroxyzine. They did not feel that this was necessary at that time. Also in addition to the T-Gel shampoo, recommend initiating Locoid scalp solution once daily which may help get this under better control. Prescription given for 60 mL with 6 refills. 2. Follow up in 6 months or sooner if any concerns arise prior to that time. saw and examined the patient with the resident/fellow. I agree with the findings and plan of care documented in the resident's/fellow's note. Signed by Maricel Neville MD 12/31/2007 15:05 Charlene Woods MD Maricel Neville MD - MD Peggy - EDWARD Job ID: [id number] Doc ID: [id number] cc: Rubio Augustin MD - Charlene Woods MD - edward Job ID: [id number] Doc ID: [id number] cc: Rubio Augustin MD documented in this encounter Plan of Treatment Not on file documented as of this encounter Visit Diagnoses Not on filedocumented in this encounter
--- OUTSIDE RECORDS SUMMARY | 2024-02-05 13:19 | XMS_ITS | Encounter Summary ---
Author Organization [facility] Address [address] [place] [address] Care Team Providers Care Integrated Circuit Layout Designer Name Role Phone Deandra Ramos MD Primary Care Provider [phone] Encounter Details Date Type Department Care Team (Late st Contact Info) Description 06/13/2010 12:11 EST - 06/13/2010 23:59 EST Hospital Encounter [address] [address] [facility] [address] [place] [phone] Osteopenia Discharge Disposition: Auto Discharge Social History Tobacco Use Types Packs/Day Years Used Date Smoking Tobacco: Never Assessed Sex and Gender Information Value Date Recorded Sex Assigned at Not on file Gender Identity Not on file Sexual Orientation Not on file documented as of this encounter Medications at Time of Discharge Medication Sig Dispensed Refills Start Date End Date CALCIUM CARBONATE/VITAMIN D3 (CALCIUM + D ORAL) Take by mouth. 750mg Calcium 500IU Vit D 06/15/2010 documented as of this encounter Discharge Disposition Disposition Code Departure Means Destination Auto Discharge Home documented in this encounter Plan of Treatment Not on file documented as of this encounter Procedures Procedure Name Priority Date/Time Associated Diagnosis Comments VITAMIN D (25,OH) Routine 06/13/2010 12: 28 EST Osteopenia TISSUE TRANSGLUTAMINASE ANTIBODY Routine 06/13/2010 12:28 EST Osteopenia IGA Routine 06/13/2010 12:28 EST Osteopenia ESTRADIOL, ADULTS Routine 06/13/2010 12: 28 EST Osteopenia COMPLETE BLOOD COUNT Routine 06/13/2010 12:28 EST Osteopenia TSH Routine 06/13/2010 12:28 EST Osteopenia T4 FREE Routine 06/13/2010 12:28 EST Osteopenia PHOSPHORUS Routine 06/13/2010 12:28 EST Osteopenia LH Routine 06/13/2010 12:28 EST Osteopenia FSH Routine 06/13/2010 12:28 EST Osteopenia COMPREHENSIVE METABOLIC PANEL (CMP) Routine 06/13/2010 12:28 EST Osteopenia documented in this encounter Results * (ABNORMAL) IGA (06/13/2010 12:28 EST) Pathologist [facility] IgA 293(H) 45 - 237 mg/dl [facility] Blood specimen (specimen) 06/13/2010 12:28 EST 06/13/2010 12:30 EST Rigoberto Donaldson [facility] CHEMIS TRY & BLOOD GAS ORDERABLES Performing Organization Address City/[facility]/ZIP Co de Phone Number [facility] [address] [place] [address] * TISSUE TRANSGLUTAMINASE ANTIBODY (06/13/2010 12:28 EST) Pathologist [facility] Tissue Transglutaminase Ab 2.49 <15.01 U/ml [facility] Blood specimen (specimen) 06/13/2010 12:28 EST 06/13/2010 12:30 EST Rigoberto Donaldson [facility] IMMUNO LOGY AND SEROLOGY ORDERABLES [facility] [address] [place] [address] * COMPREHENSIVE METABOLIC PANEL (CMP) (06/13/2010 12:28 EST) Potassium 4.5 3.6 - 5.2 mEq/L [facility] Sodium 139 136 - 145 mEq/L [facility] Chloride 102 96 - 110 mEq/L [facility] CO2 27 24 - 32 mEq/L [facility] Total Alkaline Phosphatase 214 105 - 420 U/L [facility] Bilirubin, Total <0.5 0.0 - 1.4 mg/dl [facility] AST 27 16 - 46 U/L [facility] ALT 23 10 - 30 U/L [facility] Albumin 4.6 3.0 - 5.5 g/dl [facility] Total Protein 7.7 6.3 - 8.6 g/dl [facility] Creatinine 0.48 0.4 - 1.0 mg/dl [facility] GFR, Calculated Age <18 ml/min/1.7 3m2 [facility] BUN 12 7 - 18 mg/dl [facility] Calcium 9.5 8.5 - 10.5 mg/dl [facility] Calculated Calcium 9.3 8.5 - 10.5 mg/dl [facility] Glucose, Serum 71 70 - 100 mg/dl [facility] Fasting? No [facility] Blood specimen (specimen) 06/13/2010 12:28 EST 06/13/2010 12:30 EST Rigoberto Donaldson [facility] CHEMIS TRY & BLOOD GAS ORDERABLES Performing Organization Address City/State/[facility] Co de Phone Number [facility] [address] [place] [address] * HEMAGRAM (06/13/2010 12:28 EST) WBC 8.04 4.5 - 13.0 K/cmm [facility] RBC 4.88 4.10 - 5.10 M/cmm [facility] Hemoglobin 14.6 12.0 - 16.0 gm/dl [facility] HCT 42.8 36.0 - 46.0 % [facility] MCV 88 78 - 102 fl [facility] MCH 29.8 pg [facility] MCHC 34.0 gm/dl [facility] PLT 263 156 - 312 K/cmm [facility] RDW-CV 15.3 % [facility] Blood specimen (specimen) 06/13/2010 12:28 EST 06/13/2010 12:30 EST Rigoberto Donaldson [facility] HEMATO LOGY & PF4 ORDERABLES Performing Organization Address [facility] de Phone Number [facility] [address] [place] [address] * PHOSPHORUS (06/13/2010 12:28 EST) Phosphorus 5.0 3.3 - 5.4 mg/dl [facility] Blood specimen (specimen) 06/13/2010 12:28 EST 06/13/2010 12:30 EST Rigoberto Donaldson [facility] CHEMIS TRY & BLOOD GAS ORDERABLES Performing Organization Address [facility] Phone Number [facility] [address] [place] [address] * VITAMIN D (25,OH) (06/13/2010 12:28 EST) 25OH Vitamin D Tot 28.4 ng/ml [facility] Comment: Reference Range: <10 ng/ml: Deficient 10-30 ng/ml: Insufficient 30-100 ng/ml: Sufficient >100 ng/ml: Toxic Blood specimen (specimen) 06/13/2010 12:28 EST 06/13/2010 12:30 EST Rigoberto Donaldson [facility] CHEMIS TRY & BLOOD GAS ORDERABLES Performing Organization Address [facility] de Phone Number [facility] [address] [place] [address] * ESTRADIOL (06/13/2010 12:28 EST) Estradiol 48 pg/ml [facility] Comment: By day in cycle relative to LH peak: Follicular Phase (-12 to -4 days): ?? 20-144 Midcycle (-3 to +2 days): ? 64-357 Luteal Phase (+4 to +12 days): ??56-214 Postmenopausal: ??0 - 32 New Enhanced Estradiol reagent in use 05/15/10. Blood specimen (specimen) 06/13/2010 12:28 EST 06/13/2010 12:30 EST Rigoberto Donaldson [facility] CHEMIS TRY & BLOOD GAS ORDERABLES Performing Organization Address [facility] de Phone Number [facility] [address] [place] [address] * FSH (06/13/2010 12:28 EST) FSH 4.7 mIU/ml [facility] Comment:Follicular: 2-11 Mid -Cycle Peak: 3.4-35 Luteal: 1-9 Postmenopausal: 25-120 Blood specimen (specimen) 06/13/2010 12:28 EST 06/13/2010 12:30 EST Rigoberto Donaldson [facility] CHEMIS TRY & BLOOD GAS ORDERABLES Performing Organization Address [facility] de Phone Number [facility] [address] [place] [address] * LH (06/13/2010 12:28 EST) LH 2.4 mIU/ml [facility] Comment:Follicular: 1-18 Mid -Cycle Peak: 15-80 Luteal: 0.5-18 Postmenopausal: 12-55 Blood specimen (specimen) 06/13/2010 12:28 EST 06/13/2010 12:30 EST Rigoberto Donaldson [facility] CHEMIS TRY & BLOOD GAS ORDERABLES Performing Organization Address [facility] de Phone Number [facility] [address] [place] [address] * T4 FREE (06/13/2010 12:28 EST) Free T4 1.3 0.8 - 1.5 ng/dL [facility] Blood specimen (specimen) 06/13/2010 12:28 EST 06/13/2010 12:30 EST Rigoberto Lawsontonoamanda [facility] CHEMIS TRY & BLOOD GAS ORDERABLES Performing Organization Address [facility] de Phone Number [facility] [address] [place] [address] * TSH (06/13/2010 12:28 EST) TSH 1.97 0.35 - 5.00 uIU/ml [facility] Blood specimen (specimen) 06/13/2010 12:28 EST 06/13/2010 12:30 EST Rigoberto Lawsontonoamanda [facility] CHEMIS TRY & BLOOD GAS ORDERABLES Performing Organization Address [facility] de Phone Number [facility] [address] [place] [address] documented in this encounter Visit Diagnoses Diagnosis Osteopenia Disorder of bone and cartilage, unspecified documented in this encounter Care Teams Integrated Circuit Layout Designer Relationship Specialty Start Date End Date Deandra Ramos MD [address] [place] [id number] PCP - General 12/15/09 06/23/22 documented as of this encounter
--- OUTSIDE RECORDS SUMMARY | 2024-02-05 13:19 | XMS_ITS | Encounter Summary ---
Author Organization [facility] Address [address] [place] [address] Care Team Providers Care Cut Pressman Name Role Phone Unavailable Primary Care Provider Unavailabl e Encounter Details Date Type Department Care Team (Late st Contact Info) Description 05/11/2008 Before PRISM Converted Visit (Maple) [facility] - Maple conversion [address] [place] [address] Luzma Neri MD Social History Tobacco Use Types Packs/Day Years Used Date Smoking Tobacco: Never Assessed Sex and Gender Information Value Date Recorded Sex Assigned at Not on file Gender Identity Not on file Sexual Orientation Not on file documented as of this encounter Progress Notes * Luzma Neri MD - 11/26/2008 0033 EDT PROGRESS/FOLLOWUP NOTE - 05/11/2008 May 11, 2008 [place] [address] Augustin: I had the pleasure of seeing Alison with her family in our Cardiology Clinic on 05/11/2008. 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 She underwent surgery on 08/25/1997. There was pericardial patch closure of her atrial septal defect, and we have noted a very small residual defect since that time. Her patent ductus arteriosus was ligated. The left superior vena cava was ligated, as well. There was a small left pleural effusion postoperatively, that resolved without complications. We have also followed her for mildly abnormal-appearing mitral valve with very mild mitral regurgitation. She is here for a routinely scheduled visit. Alison has generally been well the past couple of years. She is due to be seen next week at [facility] for surgery for her scoliosis. According to her family, every 6 months or so, she has lengthening of the spinal hrenan. There has been a nice improvement in her scoliosis. She had some complaints of headache with runny nose over the last couple of weeks, but it sounds like this is improving at this time. There has been no cough or fevers. She is walking unassisted and seems nadia doing pretty well. She is not unusually fatigued or short of breath. There have been no episodes of apparent chest pain or dizzy spells. 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 She has had a speech delay and receives therapy. 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 There is no new medical history for review. She is on no routine medications. There are no knowndrug allergies. On physical examination, her height was 133 cm, placing her at less than the 3rd percentile and similar to her past percentile curve. Her weight was 33 kg, placing her at the 10th to 25th percentile.The right arm blood pressure was 114/66 with pulse of 100 and respiratory rate of 16. She was a well-appearing young girl. The precordial impulse was not hyperdynamic. There was a mild pectus carinatum. There was no discomfort to palpation of the chest, and her scar has healed well. Scoliosis was noted with healed surgical scar. She had excellent pulses in the upper and lowerextremities without delay. The equinus varus noted on the right greater than left. The heart sounds were normal, with normal S2 split. Intermittently, there was a prominent mid systolic click, with no associated murmur. There was no rub noted. Normalabdominal examination without hepatomegaly or mass. She was warm and well perfused, without rash. There was no clubbing or cyanosis. Her oxygen saturation was 100%. Her electrocardiogram demonstrated sinus rhythm, with normal P and QRS axis. There were nonspecificT wave changes. There was a mildly short TX interval and upper normal QT corrected interval.No atrial enlargement or ventricuylar hypertrophy was noted. By initial review of her echocardiogram today, she had a small residual atrial septal defect without any other atrial abnormality noted. There was no left superior vena cava noted on brief imaging. There did appear to be a small innominate vein. She had a very mildly abnormal appearing mitral valvewithout prolapse demonstrated. There was mild mitral regurgitation without left atrial enlargement.There was normal Doppler study of her other intracardiac valves. She had normal ventricular size, wall thickness and systolic function. In summary, Alison is a young girl who has undergone surgical closure of an atrial septal defect, ligation of a patent ductus arteriosus, and ligation of the left superior vena cava to left atrium. She has had no postoperative complications. I would like to see Alison in another year and a half or sofor a followup visit to be sure there has been no progression to her mitral valve regurgitation. The click on examination really did sound like a mitral valve prolapse click, and I think this is a valve that could potentially develop this down the road. Please letme know if you have any questions or concerns about how Alison is doing before her next visit. We have not placed restrictions on her phy sical activities. I think it would be jimenez to continue antibiotic prophylaxis in the interim given the little residual atrial defect. Thank you for allowing me to follow Alison with you. Sincerely, Total time spent with patient was 25 minutes; over 50% of the time was spent [id number] on counseling and managing care as described above. Signed by Luzma Neri MD 05/23/2008 10:24 Luzma Neri MD Division of Pediatric Cardiology [phone] - Luzma Neri MD A - SHASHANK Job ID: [id number] Doc ID: [id number] cc: Rubio Augustin MD [facility]* Dr. Skaggs, [facility], [place], [place] * documented in this encounter Plan of Treatment Not on file documented as of this encounter Visit Diagnoses Not on filedocumented in this encounter
--- OUTSIDE RECORDS SUMMARY | 2024-02-05 13:19 | XMS_ITS | Encounter Summary ---
Author Organization [facility] Address [address] [place] [address] Care Team Providers Care Block Hand Name Role Phone Unavailable Primary Care Provider Unavailabl e Encounter Details Date Type Department Care Team (Late st Contact Info) Description 07/09/2007 Before PRISM Converted Visit (Maple) [facility] - Maple conversion [address] [place], [place] [id number] Sánchez Skaggs MD [address] [facility], [address] [place] [address] Social History Tobacco Use Types Packs/Day Years Used Date Smoking Tobacco: Never Assessed Sex and Gender Information Value Date Recorded Sex Assigned at Not on file Gender Identity Not on file Sexual Orientation Not on file documented as of this encounter Progress Notes * Sánchez Skaggs MD - 01/26/2009 0055 EDT DIVISION OF OTOLARYNGOLOGY PROGRESS/FOLLOWUP NOTE - 07/09/2007 SUBJECTIVE Alison comes in for routine mastoid cavity care. She has been wearing her hearing aids successfully and doing very well with them. OBJECTIVE On examination today the right ear looks good. The left ear shows a typical mastoid cavity with modest wax and skin. The underlying cavity looks great. There is no active inflammation or drainage. ASSESSMENT Doing well after left modified radical mastoidectomy with a bilateral sensorineural hearing loss successfully amplified. PLAN I will see Alison back in six months, sooner with any problems. Signed by Sánchez Skaggs MD 08/01/2007 13:02 Sánchez Skaggs MD D: - Sánchez Skaggs MD - [facility] Job ID: [id number] Doc ID: [id number] cc: Rubio Augustin MD documented in this encounter Plan of Treatment Not on file documented as of this encounter Visit Diagnoses Not on filedocumented in this encounter
--- OUTSIDE RECORDS SUMMARY | 2024-02-05 13:19 | XMS_ITS | Encounter Summary ---
Author Organization [facility] Address [address] [place] [address] Care Team Providers Care Editor Name Role Phone Unavailable Primary Care Provider Unavailabl e Encounter Details Date Type Department Care Team (Late st Contact Info) Description 01/29/2006 11:07 EDT - 01/29/2006 11:59 EDT Hospital Encounter [address] [address] Sánchez Skaggs MD [address] [place] [address], [address] [place] [phone] Discharge Disposition: Auto Discharge Social History Tobacco [...]
--- OUTSIDE RECORDS SUMMARY | 2024-02-05 13:19 | XMS_ITS | Encounter Summary ---
Author Organization [facility] [place] Address [address] [place] [address] Care Team Providers Care Dairy Department Manager Name Role Phone Unavailable Primary Care Provider Unavailabl e Encounter Details Date Type Department Care Team (Latest Contact Info) Description 09/09/2007 15:38 EDT Hospital Encounter [facility] [address] [place] [address] Charlene Woods MD [address] [address] Discharge Disposition: Auto Discharge Social History Tobacco [...]
--- OUTSIDE RECORDS SUMMARY | 2024-02-05 13:19 | XMS_ITS | Encounter Summary ---
Author Organization [facility] Address [address] [place] [address] Care Team Providers Care Tool Machinist Name Role Phone Unavailable Primary Care Provider Unavailabl e Encounter Details Date Type Department Care Team (Late st Contact Info) Description 01/20/2007 Before PRISM Converted Visit (Maple) [facility] - Maple conversion [address] [place] [address] Rachel Díaz, LAURA [address] [address] Social History Tobacco Use Types Packs/Day Years Used Date Smoking Tobacco: Never Assessed Sex and Gender Information Value Date Recorded Sex Assigned at Not on file Gender Identity Not on file Sexual Orientation Not on file documented as of this encounter Plan of Treatment Not on file documented as of this encounter Visit Diagnoses * Evaluation - Rachel Romero MD - 03/12/2009 0129 EST DIVISION OF DERMATOLOGY - [facility] PATIENT EVALUATION - 01/20/2007 SUBJECTIVE: This 11-year-old white female presents to the clinic today accompanied by her father for evaluation of a rash on the scalp. 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 give an appropriate history. Father states that this has been an ongoing problem waxing and waning over the past year where he has seen a significant amount of scale. It does seem that she is bothered by it. She scratches at it and now it is getting to the point where he thinks that it might start bleeding. He has been using baby oil which has not really changed the lesions all that much andnow she has started to get more on the top of her scalp. She otherwise is well. There is no historyof psoriasis or eczema in the family. 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 She has also had chronic otitis media with a radical mastoidectomy in the recent past and a history of reactive airway disease. The father has no otherquestions or concerns with reference to her skin. She otherwise is well today, no constitutional complaints as far as the father is aware. For complete past medical history, current medications, medication allergies, review of systems, family history and social history, please see the Dermatology Intake Sheet in the chart. OBJECTIVE: On exam this is an otherwise very pleasant well-behaved 11-year-old skin type II to III female in no apparent distress with appropriate affect and demeanor for a 11-year-old with some developmental delays. On examination of her scalp she has on the left occiput an approximately 5-cm areaof thickened pink plaque with micaceous scaling. She does have yellow waxy scaling with underlying pink patches on the vertex and right parietal scalp as well. ASSESSMENT: Most likely Seborrheic dermatitis versus possible psoriasis scalp. PLAN: Patient/parent education and reassurance. They were given a prescription clobetasol 0.05% solution, dispense 50 mL with 3 refills; this is to be applied on a nightly basis for the next four to six weeks then a couple of times perweek on a p.r.n. basis only after the initial month or so. Once the area has calmed down they can use Head and Shoulders or T/Vernon shampoo and they understands that this needs to be lathered on then kept in place for a good 5 to 10 minutes, then rinse outthoroughly. This may be used a few times per week and I would be more than happy to see them on a p.r.n. basis. The father showed a good understanding of the above conversation. He will call if problems persistor as they arise. Supervising Physician Signed by Maricel Neville MD 02/10/2007 16:33 Reviewed by Rachel Romero PA-C 01/27/2007 15:28 Olga Nieves PA-CKathryn Schwarzenberger, MD Dictated by: Rachel Romero PA-C Maricel Neville MD - Rachel Romero PA-C - SHASHANK Job ID: [id number] Doc ID: [id number] cc: ERIK Puckett MD [facility] Patrick N Keith, MD -SHASHANK Job ID: [id number] Doc ID: [id number] cc: ERIK Puckett MD [facility] Patrick N Keith, MD documented in this encounter
--- OUTSIDE RECORDS SUMMARY | 2024-02-05 13:19 | XMS_ITS | Encounter Summary ---
Author Organization [facility] Address [address] [place] [address] Care Team Providers Care Professional Benefits Sales Consultant Name Role Phone Unavailable Primary Care Provider Unavailabl e Encounter Details Date Type Department Care Team (Late st Contact Info) Description 08/21/2005 10:13 EDT Hospital Encounter [facility] [address] [place] [address] Sánchez Skaggs MD [address] [facility], [address] [place] [address] Social History Tobacco Use Types [...]
--- OUTSIDE RECORDS SUMMARY | 2024-02-05 13:19 | XMS_ITS | Encounter Summary ---
Author Organization [facility] Address [address] [place] [address] Care Team Providers Care Boy'S Adviser Name Role Phone Unavailable Primary Care Provider Unavailabl e Encounter Details Date Type Department Care Team (Late st Contact Info) Description 08/25/2006 9:49 EDT Hospital Encounter [facility] [address] [place] [address] Sánchez Skaggs MD [address] [facility], [address] [place] [address] Social History Tobacco Use Types [...]
--- OUTSIDE RECORDS SUMMARY | 2024-02-05 13:19 | XMS_ITS | Encounter Summary ---
Author Organization [facility] Address [address] [place] [address] Care Team Providers Care Ham Marker Name Role Phone Unavailable Primary Care Provider Unavailabl e Encounter Details Date Type Department Care Team (Late st Contact Info) Description 02/21/1999 13:32 EDT Hospital Encounter [facility] [address] [place] [address] Rachel Rivera MD [address] [facility] [address] [place] [address] Discharge Disposition: Auto Discharge Social History Tobacco [...] Procedure Name Priority Date/Time Associated Diagnosis Comments MR HEAD WO CONTRAST Routine 02/21/1999 1 5:38 EDT documented in this encounter Results * MR HEAD WO CONTRAST (02/21/1999 15:38 EDT) Anatomical Region Laterality Modality Other 02/21/1999 15:3 8 EDT Impressions 03/14/2009 10:11 EST IMPRESSION: 1. Mild ventriculomegaly of the third and lateral ventricles which is unchanged from the prior study. 2. Improved appearance of the left mastoid air cells. The attending radiologist has reviewed the images and concurs with the findings described above. ; /gm Narrative 03/14/2009 10:11 EST F/UP TO MRI DONE ON 07/27/98,? MITROCHONDRAL DISEASE H/O OF CONGENIT... VENTRICULAR ENLARGEMENT MRI BRAIN: 02/21/99, 1445 hours COMPARISON: MRI 08/26/98 HISTORY: History of congenital heart disease, rule out ventricular enlargement. TECHNIQUE: Sagittal T1, axial T2 weighted, FLAIR images of the brain were obtained. A DWI scan was performed. FINDINGS: Again noted is mild ventriculomegaly of the third and lateral ventricles. The fourth ventricle is unremarkable. This is unchanged since the prior examination. The cisterna magna is noted to be enlarged, but unchanged as well. There is no evidence of mitochondrial encephalopathy. The left mastoid air cells are less opacified. There is increased hyperintense signal within the suprasellar cistern region which is likely secondary to turbinate flow and is of no clinical significance. Procedure Note Tray Umaña MD / Markell Galeano MD - 03/14/2009 F/UP TO MRI DONE ON 07/27/98,? MITROCHONDRAL DISEASE H/O OF CONGENIT... VENTRICULAR ENLARGEMENT MRI BRAIN: 02/21/99, 1445 hours COMPARISON: MRI 08/26/98 HISTORY: History of congenital heart disease, rule out ventricular enlargement. TECHNIQUE: Sagittal T1, axial T2 weighted, FLAIR images of the brain were obtained. A DWI scan was performed. FINDINGS: Again noted is mild ventriculomegaly of the third and lateral ventricles. The fourth ventricle is unremarkable. This is unchanged since the prior examination. The cisterna magna is noted to be enlarged, but unchanged as well. There is no evidence of mitochondrial encephalopathy. The left mastoid air cells are less opacified. There is increased hyperintense signal within the suprasellar cistern region which is likely secondary to turbinate flow and is of no clinical significance. IMPRESSION IMPRESSION: 1. Mild ventriculomegaly of the third and lateral ventricles which is unchanged from the prior study. 2. Improved appearance of the left mastoid air cells. The attending radiologist has reviewed the images and concurs with the findings described above. ; / Rachel Rivera MD [facility] MRI ORDERABLES documented in this encounter Visit Diagnoses Not on filedocumented in this encounter
--- OUTSIDE RECORDS SUMMARY | 2024-02-05 13:19 | XMS_ITS | Encounter Summary ---
Author Organization [facility] Address [address] [place] [address] Care Team Providers Care Diesel Dinkey Engineer Name Role Phone Unavailable Primary Care Provider Unavailabl e Encounter Details Date Type Department Care Team (Late st Contact Info) Description 08/14/2005 11:35 EDT - 08/14/2005 11:59 EDT Hospital Encounter [address] [address] Sánchez Skaggs MD [address] [place] [address], [address] [place] [id number] Discharge Disposition: Auto Discharge Social History Tobacco [...]
--- OUTSIDE RECORDS SUMMARY | 2024-02-05 13:19 | XMS_ITS | Encounter Summary ---
Author Organization [facility] Address [address] [place] [address] Care Team Providers Care Curve Cleaner Name Role Phone Unavailable Primary Care Provider Unavailabl e Encounter Details Date Type Department Care Team (Late st Contact Info) Description 05/23/2006 Before PRISM Converted Visit (Maple) [facility] - Maple conversion [address] [place] [address] Luzma Neri MD Social History Tobacco Use Types Packs/Day Years Used Date Smoking Tobacco: Never Assessed Sex and Gender Information Value Date Recorded Sex Assigned at Not on file Gender Identity Not on file Sexual Orientation Not on file documented as of this encounter Progress Notes * Luzma Neri MD - 05/21/2009 4919 EST PROGRESS/FOLLOWUP NOTE - 05/23/2006 Deandra Ramos MD [address] [place] [address] Ramos: I had the pleasure of seeing Alison and her family in our cardiology clinic on May 23, 2006. 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 This was accomplished without significant complications. There was a small left pleural effusion that resolved. She has clinically been healthy from a cardiovascular standpoint. We have noted her to have a small residual atrial defect and very mild mitral regurgitation in the past. She is now here for another evaluation with us. Alison has been clinically well and is developing along her own developmental lines. She had a comprehensive evaluation in the child development clinic [id number]. 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 She has been communicating with the help of a voice box at school and seems to be doing quite well. She really makes her wants known by pointing and vocalizing to her family. 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 She is now going to be seen at [facility] in several weeks for scoliosis surgery. In the meantimeshmarylu has generally been well without pulmonary complications. She has had no decline in exercise tole chloe. She does not seem to easily become fatigued or short of breath and there have been no apparent chest pains or dizzy spells. She is on no routine medications and has no known drug allergies. On physical examination her height was 120.2 cm, placing her under the3rd percentile and just belowher curve in the past. Her weight was 25.2 kg. She had a left arm pressure of 100/62 with a pulse of 92 and respiratory rate of 16. She was a delightful interactive little girl. She remained still for a brief listen. The precordial impulse was not hyperdynamic and although there was a mild pectus carinatum this was not significant. She had thoracic scoliosis noted. Her first and second heart sounds were regular and S2 was normally split. There was no murmur of significance onexamination when she was standing. The heart sounds were regular and no click or gallop was appreciated. There was no murmur noted posteriorly. She had clear lungs. There was no neck vein distention and her abdomen was soft without apparent hepatomegaly by palpation. She was well perfused peripherally without clubbingor cyanosis. There was no pedal edema and her pedal pulses were easily felt. She had an oxygen saturation of 100%. Her electrocardiogram demonstrated sinus rhythm with normal P, QRS and T wave axes. There was a small inverted P in lead V1 suggesting left atrial enlargement, although this was not noted in lead II.I suspect the EKG may have been obtained in a seated position to account for this. There was no evidence of left ventricular hypertrophy by voltages. On echocardiogram today Alison had good biventricular systolic function. She had a very mildly thickened- appearing mitral valve with very mild mitral regurgitation and no prolapse. There was no left atrial enlargement. There was a very small inferiorly located atrial defect as well as perhaps a small defect at the patent foramen ovale. There was no right ventricular volume overload or patent ductus arteriosus. In summary, Alison is a youngster with no evidence of significant residual cardiovascular abnormality. She has had of an atrial septal defect with trivial residual flow. We were unable to image the innominate vein region but in the past there had been no connecting vein noted. She has a trivial amount of mitral regurgitation that has not increased from past evaluations. I would suggest that SBE prophylaxis be used in the future at times of dental visits or operations. We have not placed restrictions on her physical activities and I am pleased that she really has been developing well. I think she should tolerate her scoliosis surgery well from a cardiovascular standpoint and we remain available to the surgeon and anesthesiologist at that time if they would like to speak with us. We will plan on seeing her in another 2 years but would be happy to see her sooner if her examination changes or other concerns arise. Thank you for allowing me to see Alison today. Sincerely, cc: Copy to both parents as dictated Signed by Luzma Neri MD 06/02/2006 21:43 Ty Neri, [facility] [phone] Ann Drucker, MD Luzma Neri MD Division of Pediatric Cardiology [phone] - Neha Neri MD A - O1 Job ID: [id number] Document ID: [id number] cc: ERIK Miller *Frankie Thornton, [address], [place] [address]* *Rachel Santiago, [address] , [place] [address]* documented in this encounter Plan of Treatment Not on file documented as of this encounter Visit Diagnoses Not on filedocumented in this encounter
--- OUTSIDE RECORDS SUMMARY | 2024-02-05 13:19 | XMS_ITS | Encounter Summary ---
Author Organization [facility] Address [address] [place] [address] Care Team Providers Care Collection Systems Worker Name Role Phone Unavailable Primary Care Provider Unavailabl e Encounter Details Date Type Department Care Team (Late st Contact Info) Description 12/26/2006 9:09 EDT Hospital Encounter [facility] [address] [place] [address] Sánchez Skaggs MD [address] [facility], [address] [place] [address] Social History Tobacco Use Types [...]
--- OUTSIDE RECORDS SUMMARY | 2024-02-05 13:19 | XMS_ITS | Encounter Summary ---
Author Organization [facility] Address [address] [place] [address] Care Team Providers Care Boiler Inspector Name Role Phone Unavailable Primary Care Provider Unavailabl e Encounter Details Date Type Department Care Team (Late st Contact Info) Description 11/20/2005 11:43 EDT - 11/20/2005 11:59 EDT Hospital Encounter [address] [address] Sánchez Skaggs MD [address] [place] [address], [address] [place] [phone] Discharge Disposition: Auto Discharge Social History Tobacco [...]
--- OUTSIDE RECORDS SUMMARY | 2024-02-05 13:19 | XMS_ITS | Encounter Summary ---
Author Organization [facility] Address [address] [place] [address] Care Team Providers Care Clamp Carrier Operator Name Role Phone Unavailable Primary Care Provider Unavailabl e Encounter Details Date Type Department Care Team (Late st Contact Info) Description 07/08/2007 Before PRISM Converted Visit (Maple) [facility] - Maple conversion [address] [place] [address] Charlene Woods MD [address] [address] Social History Tobacco Use Types Packs/Day Years Used Date Smoking Tobacco: Never Assessed Sex and Gender Information Value Date Recorded Sex Assigned at Not on file Gender Identity Not on file Sexual Orientation Not on file documented as of this encounter Progress Notes * Charlene Woods MD - 01/30/2009 1126 EDT DIVISION OF DERMATOLOGY PROGRESS/FOLLOWUP NOTE - 07/08/2007 CHIEF COMPLAINT Persistent scaling of scalp and severe excoriation. SUBJECTIVE Alison returns acutely today for a followup examination. She was initially evaluated in the [facility] by Rachel Romero on 01/20/2007. At that time she was given a diagnosis of seborrheic dermatitis versus possible scalp psoriasis and initiated on clobetasol solution nightly. Parents used this on Alison who is a 11-year-old with a chromosome2 deletion with numerous congenital defects withminimal improvement. They also initiated Head and Shoulders shampoo with minimal improvement. They note that the pruritus is most severe at night and do note that Alison is scratching severely at thissite. They have recently initiated over the counter eczema creams as well as oils with minimal impro vement. They are very worried since when they checked her bed this morning there was a large poolof blood. Apparently Alison had been scratching very vigorouslyin the middle of the night. At one time the bleeding was so severe it took 20 minutes of pressure to achieve hemostasis. Alison does not appear to be bothered by it other than at nighttime. They note no other lesions in the groin region although mention that she has some scaling spots on her abdomen where her back bracehas rubbed. PAST MEDICAL HISTORY Significant as mentioned for the chromosome 2 deletion with multiple congenital defects, a small left kidney, a VSD, ASD, patent ductus, left anomalous subclavian, and mitral regurgitation. She also has a history of chronic otitis media with a radical mastoidectomy in the recent past as well as a history of reactive airway disease. Patient has had no interval health status change. No constitutional symptoms today or any other complaints referable to the skin. OBJECTIVE Physical examination shows a very pleasant, well-behaved 11-year-old female who appears younger than her stated age with skin type II to III. Over the left occipital scalp trailing onto the left lateral neck she does have pink nonblanching telangiectatic patches which mom and dad say are her birthmark. Over the left occipital area she has a 5 cm pink plaque with overlying micaceous scale. Centrally she has matted hair with hemorrhagic crust. She has no evidence of such scaling behind her ears, in her umbilicus, or in the inguinal creases. She does have a slight amount of scale on her right lower abdomen at site where back brace rubs. She has no evidence of nail findings to suggest psoriasis. Remainder of exam within normal limits. ASSESSMENT Scalp psoriasis PLAN 1.parents and patient that psoriasis is a chronic disease that they will have to treat off and on as the disease flares. At this point we recommend switching treatment therapies to Playita-Smoothe/FS which is an oil that they can rub in the scalp and thereafter apply a towel turban to scalp nightly. Discussed that this would be good for several reasons: (1) That she could have better penetration of the medicine and (2) With the towel occlusion it is less likely that she can scratch this area. A prescription was given for a large trade size to use as directed with six refills. Discussed that they should use this nightly until it improves and then use it a couple of nights a week thereafter to keep the area under control. Parents were advised that they may have to use Yamilex dish detergent in the morning to rinse out the rest of the oil. Also recommended initiating T/Gel shampoo instead of the Head and Shoulders. They should lather in and leave in for five minutes and rise thereafter. They should do this two to three times weekly. 2. For the pruritus which is most severe I recommend initiating hydroxyzine syrup (10 mg/5 mL) 1 to2 teaspoons by mouth nightly. Discussed with mom and dad that they would have to titrate this medication. Recommend starting with 1/2 to 1 teaspoon nightly to avoid oversedation. Prescription was given for 120 mL with six refills. 3. Both parents showed a good understanding of the above conversation. We did discuss that if this did not improve with these measures when we follow up in two months we may at that point consider biopsy to rule out the less likely possibility of Langerhans cell histiocytosis. saw and examined the patient with the resident/fellow. I agree with the findings and plan of care documented in the resident's/fellow's note. Signed by Maricel Neville MD 07/24/2007 17:43 Reviewed by Charlene Woods MD 07/20/2007 10:40 Charlene Woods MD Maricel Neville MD - Charlene Woods MD - SHASHANK Job ID: [id number] Doc ID: [id number] cc: ERIK Puckett MD Patrick N Keith, MD - SHASHANK Job ID: [id number] Doc ID: [id number] cc: ERIK Puckett MD Patrick N Keith, MD documented in this encounter Plan of Treatment Not on file documented as of this encounter Visit Diagnoses Not on filedocumented in this encounter
--- OUTSIDE RECORDS SUMMARY | 2024-02-05 13:19 | XMS_ITS | Encounter Summary ---
Author Organization [facility] Address [address] [place] [address] Care Team Providers Care Flat Surfacer Name Role Phone Unavailable Primary Care Provider Unavailabl e Encounter Details Date Type Department Care Team (Late st Contact Info) Description 06/14/2005 14:48 EST Hospital Encounter [facility] [address] [place] [address] Christopher Angulo MD [address] [facility], [address] [place] [address] Discharge Disposition: Auto Discharge Social History Tobacco [...] Diagnosis Comments CT SELLA/POST FOSSA WO CONTRAST 06/14/2005 15:16 EST documented in this encounter Results * CT SELLA/POST FOSSA WO CONTRAST (06/14/2005 15:16 EST) Anatomical Region Laterality Modality Other 06/14/2005 15:1 6 EST Narrative 12/02/2008 3:32 EDT CHRONIC PAINLESS DRAINAGE LEFT EAR CT SCAN OF THE TEMPORAL BONES: 06/14/2005 CLINICAL INDICATIONS: Chronic painless drainage from the left ear. ??Rule out cholesteatoma. TECHNIQUE: Transverse non-contrast CT scans of the paranasal sinuses were performed with coronal reformations. IMPRESSIONS: Diffuse opacification of the middle ear with erosion of the long process of the incus at the inferior process of the scutum concerning for a left cholesteatoma. FINDINGS: CT scan of the temporal bones demonstrates diffuse opacification of the middle ear including the epitympanum, mesotympanum, and hypotympanum. ??Opacification extends into Prussak's space and demonstrates displacement of the head of the malleolus from the scutum. ??It also appears that the inferior aspect of the scutum is partially eroded. ??In addition, the long process of the incus appears eroded. ??The left inner ear structures are normal including a normal vestibule cochlea and semicircular canals. ??On the right, the middle ear and external ear canal are well aerated. ??The ossicular chain is normal. ??The scutum has a normal definition. ??The inner ear structures are again normal. /tns Addendum Begins ADDENDUM: The findings in the left middle ear with the ossicular chain and scutum erosion are concerning for cholesteatoma, although these can be seen in infection. ??In addition, the mastoid air cells and the mastoid antrum on the left are completely opacified. ??The mastoid air cells on the right are well pneumatized. D: ? 06/14/05 T: ? 06/17/05 /amn ?? Addendum Ends I have personally reviewed the images and the above interpretation and agree with the findings. Procedure Note Elmer Huddleston MD / Pina Carlin MD - 12/02/2008 CHRONIC PAINLESS DRAINAGE LEFT EAR CT SCAN OF THE TEMPORAL BONES: 06/14/2005 CLINICAL INDICATIONS: Chronic painless drainage from the left ear. Rule out cholesteatoma. TECHNIQUE: Transverse non-contrast CT scans of the paranasal sinuses were performed with coronal reformations. IMPRESSIONS: Diffuse opacification of the middle ear with erosion of the long process of the incus at the inferior process of the scutum concerning for a left cholesteatoma. FINDINGS: CT scan of the temporal bones demonstrates diffuse opacification of the middle ear including the epitympanum, mesotympanum, and hypotympanum. Opacification extends into Prussak's space and demonstrates displacement of the head of the malleolus from the scutum. It also appears that the inferior aspect of the scutum is partially eroded. In addition, the long process of the incus appears eroded. The left inner ear structures are normal including a normal vestibule cochlea and semicircular canals. On the right, the middle ear and external ear canal are well aerated. The ossicular chain is normal. The scutum has a normal definition. The inner ear structures are again normal. /tns Addendum Begins ADDENDUM: The findings in the left middle ear with the ossicular chain and scutum erosion are concerning for cholesteatoma, although these can be seen in infection. In addition, the mastoid air cells and the mastoid antrum on the left are completely opacified. The mastoid air cells on the right are well pneumatized. /amn Addendum Ends I have personally reviewed the images and the above interpretation and agree with the findings. Christopher Angulo MD IMG CT ORDER ROBERT documented in this encounter Visit Diagnoses Not on filedocumented in this encounter
--- OUTSIDE RECORDS SUMMARY | 2024-02-05 13:19 | XMS_ITS | Encounter Summary ---
Author Organization [facility] Address [address] [place] [address] Care Team Providers Care Intake Worker Name Role Phone Unavailable Primary Care Provider Unavailabl e Encounter Details Date Type Department Care Team (Latest Contact Info) Description 05/23/2006 8:21 EST - 05/23/2006 11:59 EST Hospital Encounter [facility] [address] [place] [address] Luzma Singh MD Discharge Disposition: Auto Discharge [...] Priority Date/Time Associated Diagnosis Comments CONGENITAL ECHOCARDIOGRAM 05/23/2006 8:55 EST documented in this encounter Results * CONGENITAL ECHOCARDIOGRAM (05/23/2006 8:55 EST) Anatomical Region Laterality Modality Other 05/23/2006 8:55 EST Narrative 11/12/2008 3:17 EDT color/pulse Doppler Site Location: Date of Appt: Tuesday, May 23, 2006, 8:55 AM Pediatric Echocardiogram Report Demographics and Visit Data: : 1995. ??Age: 10y/9m/2d. ??BSA (m 2): 0.92. ??Height (cm): 120.2. Weight (kg): 25.2. ??[facility] location: [facility]. Height Centile: 0.71. ??Weight Centile: 10.69. ??Person requesting test: RUBIO AUGUSTIN MD Door Framer: Lin Marcus. ??Reason for test: color/pulse Doppler. 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 LSVC. ??Procedure Description: COMPLETE CONGENITAL ECHO. 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 Very small residual atrial septal defect. No residual patent ductus arteriosus seen. Trivial mitral regurgitation. Normal Doppler study of the oher intracardiac valves. Normal left ventricular size, wall thickness and systolic function. Qualitatively good right ventricular systolic function. Findings: Veins and Atria: >> Superior vena cava entering left atrium Status post ligation of the left superior vena cava. Although no connecting vein had been present pre-operatively, there is a small amount of venous flow noted in the innominate vein region. 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 >> S/p secundum atrial septal defect surgery There is a very small residual atrial septal defect noted inferiorly with possible second small defect noted in the patent foramen ovale region. A-V Canal: >> Mitral regurgitation, trivial The mitral valve is very mildly thickened with trivial regurgitation. No mitral valve prolapse is noted. >> Tricuspid regurgitation, mild Ventricles: >> Left ventricular dysfunction, ruled out >> Right ventricular dysfunction global, ruled out Qualitatively good right ventricular function. >> Left ventricular dilation or enlargement, ruled out Great Arteries: >> S/p patent ductus arteriosus surgery No residual patent ductus arteriosus flow seen. Measures: Systemic Arterial Function: Name ? Value ?Units ?Z-Score ?Min ?Max Systolic BP ? 100 ?mmHg ? -0.32 ? 83.75 ?? 122.52 Diastolic BP ? 62 ? mmHg ? 0.83 ?36.51 ?? 72.42 Pulse Pressure ? 38 ? mmHg Mean BP ? 74.7 ? mmHg ? -0.24 ? 58.89 ?? 94.94 M-Mode: Name ? Value ?Units ?Z-Score ?Min ?Max LV Diastolic Septal Thickness ? 0.62 ? cm ? -0.79 ? 0.51 ?0.97 LV Diastolic Dimension ? 3.79 ? cm ? 0.25 ?3.16 ?4.37 LV Diastolic Wall Thickness ? 0.67 ? cm ? 0. ?0.52 ?0.87 LV Systolic Dimension ? 2.46 ? cm ? 0.22 ?1.96 ?2.95 LV Fractional Shortening ? 35.09 ?% ?0.51 ?29. ? 38.68 Cardiac Geometry: Name ? Value ?Units ?Z-Score ?Min ?Max M-Mode LV Mass ? 64.38 ?g M-Mode LV Mass Index ? 69.98 ?g/m 2 LV Midwall Diastolic Dimension ? 4.46 ? cm M-Mode LV Mass / Height ? 53.56 ?g/m M-Mode LV Mass / Height 2.7 ? 39.17 ?g/m ?19.4 ?38.6 Systolic LV Function: Name ? Value ?Units ?Z-Score ?Min ?Max Endocardial % Shortening ? 35.09 ?% ?0.51 ?29. ? 38.68 Aortic Valve: Name ? Value ?Units ?Z-Score ?Min ?Max Ao Annulus Diameter ? 1.44 ? cm ? -0.13 ? 1.18 ?1.73 2D Ao Root Diameter ? 2.18 ? cm ? 1.28 ?1.5 ? 2.33 AV Area (using Diameter) ? 1.63 ? cm 2 Sinotubular Jct Diameter ? 1.70 ? cm ? 0.41 ?1.28 ?1.97 Ascending Ao Diameter ? 1.61 ? cm ? -0.24 ? 1.3 ? 2. Analysis Aortic Valve Doppler: Name ? Value ?Units AV Area (using Diameter) ? 1.63 ? cm 2 Analysis M-Mode Wall Stress: Name ? Value ?Units ?Z-Score ?Min ?Max LV Systolic Dimension ? 2.46 ? cm ? 0.22 ?1.96 ?2.95 LV Maximum Dimension ? 3.79 ? cm [facility] Name: LUZMA SINGH MD Date/time of reading: May 23 2006 - 1:03:32 PM Report created at 1:05:19 PM on Tuesday, May 23, 2006 Procedure Note Luzma Singh MD - 11/12/2008 color/pulse Doppler Site Location: Date of Appt: Tuesday, May 23, 2006, 8:55 AM Pediatric Echocardiogram Report Demographics and Visit Data: : 1995. Age: 10y/9m/2d. BSA (m 2): 0.92. Height (cm): 120.2. Weight (kg): 25.2. Patient location: [facility]. Height Centile: 0.71. Weight Centile: 10.69. Person requesting test: RUBIO AUGUSTIN MD Door Framer: Lin Marcus. Reason for test: color/pulse Doppler. 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 LSVC. Procedure Description: COMPLETE CONGENITAL ECHO. 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 Very small residual atrial septal defect. No residual patent ductus arteriosus seen. Trivial mitral regurgitation. Normal Doppler study of the oher intracardiac valves. Normal left ventricular size, wall thickness and systolic function. Qualitatively good right ventricular systolic function. Findings: Veins and Atria: >> Superior vena cava entering left atrium Status post ligation of the left superior vena cava. Although no connecting vein had been present pre-operatively, there is a small amount of venous flow noted in the innominate vein region. 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 >> S/p secundum atrial septal defect surgery There is a very small residual atrial septal defect noted inferiorlywith possible second small defect noted in the patent foramen ovale region. A-V Canal: >> Mitral regurgitation, trivial The mitral valve is very mildly thickened with trivial regurgitation. No mitral valve prolapse is noted. >> Tricuspid regurgitation, mild Ventricles: >> Left ventricular dysfunction, ruled out >> Right ventricular dysfunction global, ruled out Qualitatively good right ventricular function. >> Left ventricular dilation or enlargement, ruled out Great Arteries: >> S/p patent ductus arteriosus surgery No residual patent ductus arteriosus flow seen. Measures: Systemic Arterial Function: Name Value Units Z-Score Min Max Systolic BP 100 mmHg -0.32 83.75 122.52 Diastolic BP 62 mmHg 0.83 36.51 72.42 Pulse Pressure 38 mmHg Mean BP 74.7 mmHg -0.24 58.89 94.94 M-Mode: Name Value Units Z-Score Min Max LV Diastolic Septal Thickness 0.62 cm -0.79 0.51 0.97 LV Diastolic Dimension 3.79 cm 0.25 3.16 4.37 LV Diastolic Wall Thickness 0.67 cm 0. 0.52 0.87 LV Systolic Dimension 2.46 cm 0.22 1.96 2.95 LV Fractional Shortening 35.09 % 0.51 29. 38.68 Cardiac Geometry: Name Value Units Z-Score Min Max M-Mode LV Mass 64.38 g M-Mode LV Mass Index 69.98 g/m 2 LV Midwall Diastolic Dimension 4.46 cm M-Mode LV Mass / Height 53.56 g/m M-Mode LV Mass / Height 2.7 39.17 g/m 19.4 38.6 Systolic LV Function: Name Value Units Z-Score Min Max Endocardial % Shortening 35.09 % 0.51 29. 38.68 Aortic Valve: Name Value Units Z-Score Min Max Ao Annulus Diameter 1.44 cm -0.13 1.18 1.73 2D Ao Root Diameter 2.18 cm 1.28 1.5 2.33 AV Area (using Diameter) 1.63 cm 2 Sinotubular Jct Diameter 1.70 cm 0.41 1.28 1.97 Ascending Ao Diameter 1.61 cm -0.24 1.3 2. Analysis Aortic Valve Doppler: Name Value Units AV Area (using Diameter) 1.63 cm 2 Analysis M-Mode Wall Stress: Name Value Units Z-Score Min Max LV Systolic Dimension 2.46 cm 0.22 1.96 2.95 LV Maximum Dimension 3.79 cm [facility] Name: LUZMA SINGH MD Date/time of reading: May 23 2006 - 1:03:32 PM Report created at 1:05:19 PM on Tuesday, May 23, 2006 Rubio Augustin MD CARDIAC ECHO ORDERAB LES documented in this encounter Visit Diagnoses Not on filedocumented in this encounter
--- OUTSIDE RECORDS SUMMARY | 2024-02-05 13:19 | XMS_ITS | Encounter Summary ---
Author Organization [facility] Address [address] [place] [address] Care Team Providers Care Sheet Rocker Name Role Phone Unavailable Primary Care Provider Unavailabl e Encounter Details Date Type Department Care Team (Late st Contact Info) Description 03/07/2006 10:57 EST Hospital Encounter [facility] [place] [address] [place] [address] Sánchez Skaggs MD [address] [facility], [address] [place] [address] Social History Tobacco Use Types [...]
--- OUTSIDE RECORDS SUMMARY | 2024-02-05 13:19 | XMS_ITS | Encounter Summary ---
Author Organization [facility] Address [address] [place] [address] Care Team Providers Care Primary Care Nurse Name Role Phone Deandra Silvestre MD Primary Care Provider [phone] Reason for Visit * Reason Comments Osteopenia Encounter Details Date Type Department Care Team (Late st Contact Info) Description 06/13/2010 10:[address] [facility] Pediatric Endocrinology - [facility] [address] [place], [place] [id number] Unknown, ProviderMD Rigoberto Knowles, [address] [address] Kyle, Provider, [address] [place] [address] Osteopenia (Primary Dx) Social History Tobacco Use Types Packs/Day Years Used Date Smoking Tobacco: Never Assessed Sex and Gender Information Value Date Recorded Sex Assigned at Not on file Gender Identity Not on file Sexual Orientation Not on file documented as of this encounter Last Filed Vital Signs Vital Sign Reading Time Taken Comments Blood Pressure 108/75 06/13/2010 1044 EST Pulse - - Temperature - - Respiratory Rate - - Oxygen Saturation - - Inhaled Oxygen Concentration - - Weight 41.9 kg (92 lb 6 oz) 06/13/2010 1044 EST Height 147.3 cm (4' 9.99) 06/13/2010 1044 EST 1 46.8cm; 146.5cm Body Mass Index 19.31 06/13/2010 1044 EST Body Mass Index Percentile 51.29% 06/13/2010 104 4 EST Growth Chart: CDC (Girls, 2- 20 Years) documented in this encounter Progress Notes * Rigoberto Knowles MD - 06/13/2010 1057 EST Pediatric Endocrinology Consult Patient Identification: 14 y.o. 9 m.o. old female Reason for consultation: osteopenia on bone mineral density Date of service: 06/13/2010 Requesting Provider: Deandra Silvestre Primary Care Provider: DEANDRA SILVESTRE MD History obtained from: mother HPI: Fracture history: 05/2009: right humerus, non-displaced, fell from standing height and tripped while walking, sling 03/2010: left humerus, non-displaced, mechanism of injury unknown, was at father's house, reportedly was in pain but was not brought in to see MD until several days later (mother's report) sling only Had DEXA scan performed at [facility] on 04/19/2010 because of the unknown mechanism of injury resulting in the last fracture. DEXA machine type not reported but used pediatric normative data, z-score ofhip -2.6 and spine could not be evaluated due to rods Weight bearing: no restrictions and ambulates independantly although clumsy, mother does note that the school is now restricting activities because of her brittle bones Pubertal status: pre-pubertal, pubic hair noted ~2 yrs ago but no breast development Reported intake of vitamin D and calcium: 18-24 oz of fortified milk per day, MVI (exact contents unknown), 16 oz of calcium and vitamin D fortified juice per day , 0-1 servings of cheese per day and 1 servings of yogurt per day Glucocorticoid exposure: none Anti-convulsant exposure: no Tobacco use: no Carbonated beverages: 1-2x/month Positive for: nothing reported Negative for: bone pain, back pain, flank pain, weight change, appetite change , polyuria, dysuria and hematuria Review of Systems: A ten point review of systems was performed. Pertinent items are noted in the HPI, all others are negative. Problem List Patient Active Problem List Diagnoses Code ??? Developmental delay 315.9V ??? Scoliosis 737.30D ??? Spitz nevus 216.9EC ??? 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 Mitral valve regurgitation 424.0Q ??? Hearing impairment 389.9V Past Medical History: Past Medical History Diagnosis Date ??? ASD (atrial septal defect) 08/14/2009 ??? Hydrocephalus 08/14/2009 ??? Strabismus Medications: Current outpatient prescriptions Medication Sig Dispense Refill ??? CALCIUM CARBONATE/VITAMIN D3 (CALCIUM + D ORAL) Take by mouth. 750mg Calcium 500IU Vit D Allergies: Review of patient's allergies indicates no known allergies. Social History: Living Conditions ??? Lives with Equally between both parents' homes Weekdays ??? Education Grade 7 ??? 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 Physical Exam: Vitals: BP 108/75 Ht 147.3 cm (57.99) Wt 41.9 kg (92 lb 6 oz) Height: 147.3 cm (57.99) (2.82%) Weight: 41.9 kg (92 lb 6 oz) (19.45%) Body mass index is 19.31 kg/(m^2). 51.31% of growth percentile based on BMI-for-age. General [...] texture and normal turgor Sexual Development: breasts early James stage 3 and pubic hair James stage 3 Data Review/Investigations: 04/19/10 DEXA performed at [facility] and reported using pediatric normative data DEXA machine type not reported, z-score of hip -2.6 and spine could not be evaluated due to rods Previous Growth Data: no prior growth data available at time of consult mother states that only height gain is with each of her spinal hernan extensions Assessment: 14 y.o. 9 m.o. old female seen in consultation for osteopenia on bone mineral density and two fractures of the humerus. One of (and possibly the other) fracture occurred following a fall from a standing height without any protective reflex of outstretched arms. Both fractures reportedly occurred where the humerus would meet the edge of her hard plastic brace for scoliosis, which may have contributed to the force of injury. The only obvious risk factor for osteopenia is diminished overall force of weightbearing dueto her poor tone and limitations related to her poor coordination. While there is evidence of earlypubertal development on exam, it is delayed for age. The delayed puberty may further exacerbate anydeficiencies in bone mineralization in the future. I am not particularly concerned regarding the reported z-score on DEXA as she is much shorter somewhat delayed pubertally compared to the age/sex matched controls which could overestimate the degree of osteopenia. Her reported daily vitamin D intake prior to the fractures was quite reasonable and has since been increased with the addition of the Ca/D supplement. Briefly discussed use of bisphosphonates, although would not recommend it at this time given the number and nature of fractures to date. Also discussed the need for continued monitoring for spontaneous pubertal progression to ensure adequate estrogen exposure to optimize bone mineralization. Obtained bone age today to also assess remainder of linear growth potential as mother reports that this is a major factor being used to determine timing of next scoliosis surgery. Suggestions/Plan: Investigations: total calcium, phosphorous and 25OH-vitamin D, CBC, CMP, TSH, free T4, celiac screen, LH, FSH, estradiol, bone age Xray Topics reviewed today: ?? need for use of z-scores rather than t-scores in assessing bone mineral density in children ?? limitations of areal bone mineral density results given degree of short stature ?? lack of prognostic value of pediatric DEXA scan for fracture risk ?? importance of adequate sex hormone exposure for optimal bone health ?? importance of regular weight-bearing activities for optimal bone health ?? recommended maximizing weight-bearing activities as tolerated and with reasonable precautions given her difficulties with coordination Medications prescribed: will titrate vitamin D supplementation based on today's test results Disposition: follow up in Pediatric Endocrine clinic in 6 months RIGOBERTO KNOWLES MD 06/13/2010 11:21 documented in this encounter Plan of Treatment Not on file documented as of this encounter Procedures Procedure Name Priority Date/Time Associated Diagnosis Comments BONE AGE STUDIES Routine 06/13/2010 12:4 9 EST Osteopenia documented in this encounter Results * BONE AGE STUDIES (06/13/2010 12:49 EST) Anatomical Region Laterality Modality Other 06/13/2010 12:4 9 EST 06/13/2010 15:42 EST Narrative 06/13/2010 15:42 EST BONE AGE STUDIES ?? June 13, 2010 12:49:00 PM Clinical History/Comments: ??733.48-[id number] ?? Delayed puberty Findings: ??A single frontal view of the left hand and wrist is obtained for purposes of bone age. By date of of 1996, chronologic age is 14 years 9 months. The average bone age for a 14-year-old female, utilizing the [facility] study data, is 174.2 months + / - 11.3 months. Utilizing the standards of Greulich and Adan, bone age is estimated at 14 years 6 months. Bony mineralization is normal. Overall alignment and position are anatomic. There is unusual possibly abnormal shortening of all the metacarpals which are also widened. The 5th middle phalanx appears widened. Impression: 1. Bone age and chronologic age concordance. 2. Unusual appearance to the bones of the metacarpal suggests possible underlying bony dysplasia. Procedure Note 06/13/2010 BONE AGE STUDIES June 13, 2010 12:49:00 PM Clinical History/Comments: 733.79-[id number] Delayed puberty Findings: A single frontal view of the left hand and wrist is obtained for purposes of bone age. By date of of 1996, chronologic age is 14 years 9 months. The average bone age for a 14-year-old female, utilizing the [facility] study data, is 174.2 months + / - 11.3 months. Utilizing the standards of Greulich and Adan, bone age is estimated at 14 years 6 months. Bony mineralization is normal. Overall alignment and position are anatomic. There is unusual possibly abnormal shortening of all the metacarpals which are also widened. The 5th middle phalanx appears widened. Impression: 1. Bone age and chronologic age concordance. 2. Unusual appearance to the bones of the metacarpal suggests possible underlying bony dysplasia. Rigoberto Verdin Anika [facility] IMG DI AGNOSTIC IMAGING ORDERABLES * (ABNORMAL) IGA (06/13/2010 12:28 EST) Pathologist [facility] IgA 293(H) 45 - 237 mg/dl [facility] Blood specimen (specimen) 06/13/2010 12:28 EST 06/13/2010 12:30 EST Rigoberto Verdin Anika [facility] CHEMIS TRY & BLOOD GAS ORDERABLES Performing Organization Address [facility] de Phone Number [facility] [address] [place] [address] * TISSUE TRANSGLUTAMINASE ANTIBODY (06/13/2010 12:28 EST) [facility] Tissue Transglutaminase Ab 2.49 <15.01 U/ml [facility] Blood specimen (specimen) 06/13/2010 12:28 EST 06/13/2010 12:30 EST Rigoberto Knwoles [facility] IMMUNO LOGY AND SEROLOGY ORDERABLES Performing Organization Address [facility] de Phone Number [facility] [address] [place] [address] * COMPREHENSIVE METABOLIC PANEL (CMP) (06/13/2010 12:28 EST) [facility] Potassium 4.5 3.6 - 5.2 mEq/L [facility] [...] LAB GFR, Calculated Age <18 ml/min/1.7 3m2 [facility] BUN 12 7 - 18 mg/dl [facility] Calcium 9.5 8.5 - 10.5 mg/dl [facility] Calculated Calcium 9.3 8.5 - 10.5 mg/dl [facility] Glucose, Serum 71 70 - 100 mg/dl [facility] Fasting? No [facility] Blood specimen (specimen) 06/13/2010 12:28 EST 06/13/2010 12:30 EST Rigoberto Knowles [facility] CHEMIS TRY & BLOOD GAS ORDERABLES Performing Organization Address [facility] Co de Phone Number [facility] [address] [place] [address] * HEMAGRAM (06/13/2010 12:28 EST) WBC 8.04 4.5 - 13.0 K/cmm [facility] RBC 4.88 4.10 - 5.10 M/cmm [facility] Hemoglobin 14.6 12.0 - 16.0 gm/dl [facility] HCT 42.8 36.0 - 46.0 % [facility] MCV 88 78 - 102 fl [facility] MCH 29.8 pg [facility] MCHC 34.0 gm/dl [facility] PLT 263 156 - 312 K/cmm [facility] RDW-CV 15.3 % [facility] Blood specimen (specimen) 06/13/2010 12:28 EST 06/13/2010 12:30 EST Rigoberto Knowles [facility] HEMATO LOGY & PF4 ORDERABLES Performing Organization Address [facility] Co de Phone Number [facility] [address] [place] [address] * PHOSPHORUS (06/13/2010 12:28 EST) Phosphorus 5.0 3.3 - 5.4 mg/dl [facility] Blood specimen (specimen) 06/13/2010 12:28 EST 06/13/2010 12:30 EST Rigoberto Knowles [facility] CHEMIS TRY & BLOOD GAS ORDERABLES Performing Organization Address [facility] Co de Phone Number [facility] [address] [place] [address] * VITAMIN D (25,OH) (06/13/2010 12:28 EST) 25OH Vitamin D Tot 28.4 ng/ml [facility] Comment: Reference Range: <10 ng/ml: Deficient 10-30 ng/ml: Insufficient 30-100 ng/ml: Sufficient >100 ng/ml: Toxic Blood specimen (specimen) 06/13/2010 12:28 EST 06/13/2010 12:30 EST Rigoberto Knowles [facility] CHEMIS TRY & BLOOD GAS ORDERABLES Performing Organization Address [facility] de Phone Number [facility] [address] [place] [address] * ESTRADIOL (06/13/2010 12:28 EST) Estradiol 48 pg/ml [facility] Comment: By day in cycle relative to LH peak: Follicular Phase (-12 to -4 days): ?? 20-144 Midcycle (-3 to +2 days): ? 64-357 Luteal Phase (+4 to +12 days): ??56-214 Postmenopausal: ??0 - 32 New Enhanced Estradiol reagent in use 05/15/10. Blood specimen (specimen) 06/13/2010 12:28 EST 06/13/2010 12:30 EST Rigoberto Knowles [facility] CHEMIS TRY & BLOOD GAS ORDERABLES Performing Organization Address [facility] de Phone Number [facility] [address] [place] [address] * FSH (06/13/2010 12:28 EST) FSH 4.7 mIU/ml [facility] Comment:Follicular: 2-11 Mid -Cycle Peak: 3.4-35 Luteal: 1-9 Postmenopausal: 25-120 Blood specimen (specimen) 06/13/2010 12:28 EST 06/13/2010 12:30 EST Rigoberto Knowles [facility] CHEMIS TRY & BLOOD GAS ORDERABLES Performing Organization Address [facility] de Phone Number [facility] [address] [place] [address] * LH (06/13/2010 12:28 EST) LH 2.4 mIU/ml [facility] Comment:Follicular: 1-18 Mid -Cycle Peak: 15-80 Luteal: 0.5-18 Postmenopausal: 12-55 Blood specimen (specimen) 06/13/2010 12:28 EST 06/13/2010 12:30 EST Rigoberto Knowles [facility] CHEMIS TRY & BLOOD GAS ORDERABLES Performing Organization Address [facility] de Phone Number [facility] [address] [place] [address] * T4 FREE (06/13/2010 12:28 EST) Free T4 1.3 0.8 - 1.5 ng/dL [facility] Blood specimen (specimen) 06/13/2010 12:28 EST 06/13/2010 12:30 EST Rigoberto Knowles [facility] CHEMIS TRY & BLOOD GAS ORDERABLES Performing Organization Address [facility] de Phone Number [facility] [address] [place] [address] * TSH (06/13/2010 12:28 EST) TSH 1.97 0.35 - 5.00 uIU/ml [facility] Blood specimen (specimen) 06/13/2010 12:28 EST 06/13/2010 12:30 EST Rigoberto Verdin Anika [facility] CHEMIS TRY & BLOOD GAS ORDERABLES [facility] [address] [place] [address] documented in this encounter Visit Diagnoses Diagnosis Osteopenia- Primary Disorder of bone and cartilage, unspecified documented in this encounter Historical Medications * This list may reflect changes made after this encounter. Medication Sig Dispensed Refills Start Date End Date CALCIUM CARBONATE/VITAMIN D3 (CALCIUM + D ORAL) Take by mouth. 750mg Calcium 500IU Vit D 06/15/2010 added in this encounter Care Teams Primary Care Nurse Relationship Specialty Start Date End Date Deandra Silvestre MD [address] [place] [address] PCP - General 12/15/09 06/23/22 documented as of this encounter
--- OUTSIDE RECORDS SUMMARY | 2024-02-05 13:19 | XMS_ITS | Encounter Summary ---
Author Organization [facility] Address [address] [place] [address] Care Team Providers Care Hot Mill Tin Roller Name Role Phone Unavailable Primary Care Provider Unavailabl e Encounter Details Date Type Department Care Team (Late st Contact Info) Description 03/07/2006 Before PRISM Converted Visit (Maple) [facility] - Maple conversion [address] [place] [address] Sánchez Skaggs MD [address] [facility], [address] [place] [address] Social History Tobacco Use Types Packs/Day Years Used Date Smoking Tobacco: Never Assessed Sex and Gender Information Value Date Recorded Sex Assigned at Not on file Gender Identity Not on file Sexual Orientation Not on file documented as of this encounter Progress Notes * Sánchez Skaggs MD - 05/09/2009 0636 EST DIVISION OF OTOLARYNGOLOGY PROGRESS/FOLLOWUP NOTE - 03/07/2006 S: Alison comes in today to follow up on her slow healing left mastoid cavity. Her dad says its beendoing much better since I saw her two weeks ago. Its not been draining since hebeen allowing it to ventilate. O: On examination today, itmuch better epithelialized at this point. There was still some crusting laterally which I was able to remove. The more medial drum looks good. Overall, things are much improved without granulation or active drainage. A: Healing left mastoid cavity. P:up with me in six to eight weeks. Keep it dry. Call sooner if there are any other problems. Signed by Sánchez Skaggs MD 03/14/2006 14:36 Sukh Skaggs MDWillthanh Skaggs MD Sánchez Skaggs MD - Tereza Skaggs MD P - wlp Job ID: [id number] Document ID: [id number] cc: Rubio Augustin MD documented in this encounter Plan of Treatment Not on file documented as of this encounter Visit Diagnoses Not on filedocumented in this encounter
--- OUTSIDE RECORDS SUMMARY | 2024-02-05 13:19 | XMS_ITS | Encounter Summary ---
Author Organization [facility] Address [address] [place] [address] Care Team Providers Care Card Assembler Name Role Phone Unavailable Primary Care Provider Unavailabl e Encounter Details Date Type Department Care Team (Late st Contact Info) Description 02/17/2006 9:44 EDT Hospital Encounter [facility] [address] [place] [address] Sánchez Skaggs MD [address] [facility], [address] [place] [address] Social History Tobacco Use Types [...]
--- OUTSIDE RECORDS SUMMARY | 2024-02-05 13:19 | XMS_ITS | Encounter Summary ---
Author Organization [facility] Address [address] [place] [address] Care Team Providers Care Supervisor Packing Room Name Role Phone Unavailable Primary Care Provider Unavailabl e Encounter Details Date Type Department Care Team (Late st Contact Info) Description 09/02/2000 13:51 EDT Hospital Encounter [facility] [address] [place] [address] Luzma Neri MD Social History Tobacco Use [...]
--- OUTSIDE RECORDS SUMMARY | 2024-02-05 13:19 | XMS_ITS | Encounter Summary ---
Author Organization [facility] Address [address] [place] [address] Care Team Providers Care Dispatcher Tugboat Name Role Phone Unavailable Primary Care Provider Unavailabl e Encounter Details Date Type Department Care Team (Late st Contact Info) Description 11/07/2005 11:06 EDT Hospital Encounter [facility] [address] [place] [address] Ginette Lobo MD [address] [facility], [address] [place] [address] Social History Tobacco Use Types [...]
--- OUTSIDE RECORDS SUMMARY | 2024-02-05 13:19 | XMS_ITS | Encounter Summary ---
Author Organization [facility] Address [address] [place] [address] Care Team Providers Care Box Lidder Name Role Phone Unavailable Primary Care Provider Unavailabl e Encounter Details Date Type Department Care Team (Late st Contact Info) Description 03/04/2007 Before PRISM Converted Visit (Maple) [facility] - Maple conversion [address] [place], [place] [address] Santiago Dennis AuD CCC-A [address] [facility], [address] [place] [address] Social History Tobacco Use Types Packs/Day Years Used Date Smoking Tobacco: Never Assessed Sex and Gender Information Value Date Recorded Sex Assigned at Not on file Gender Identity Not on file Sexual Orientation Not on file documented as of this encounter Progress Notes * Santiago Pimentel CCC-A - 03/15/2009 1035 EST DIVISION OF OTOLARYNGOLOGY PROGRESS/FOLLOWUP NOTE - 03/04/2007 03/04/07 Hearing Aid Note The patient was seen for bilateral ear impressions today. 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 She has a history of a left ear modified radical mastoidectomy. She has no surgical history in her right ear. A trial period with amplification has been recommended. The patients left ear surgical history and subsequent ear anatomy were discussed with Sánchez Skaggs M.D. Bilateral ear impressions were taken following appropriate placement of foam otoblocks. There were no complications. The patients father wishes to pursue amplification closer to home in [facility]. A subsequent telephone call to Faith Null M.A., CCC-A at [facility] revealed that the patient could be seen there. The ear impressions and past audiograms were sent to her. Follow up in our clinic per Dr. Huffman recommendations. Signed by Sánchez Skaggs MD 03/12/2007 14:37 Santiago Dennis MA, CCC-A Sánchez Skaggs MD D: - Santiago Dennis MA, CCC-A - bryan Job ID: Doc ID: [id number] cc: documented in this encounter Plan of Treatment Not on file documented as of this encounter Visit Diagnoses Not on filedocumented in this encounter
--- OUTSIDE RECORDS SUMMARY | 2024-02-05 13:19 | XMS_ITS | Encounter Summary ---
Author Organization [facility] Address [address] [place] [address] Care Team Providers Care Braid Cutter Name Role Phone Unavailable Primary Care Provider Unavailabl e Encounter Details Date Type Department Care Team (Late st Contact Info) Description 07/08/2007 14:[address] [facility] [address] [place] [address] Charlene Woods MD [address] [address] Social History Tobacco Use Types [...]
--- OUTSIDE RECORDS SUMMARY | 2024-02-05 13:19 | XMS_ITS | Encounter Summary ---
Author Organization [facility] Address [address] [place] [address] Care Team Providers Care Services Mgr Name Role Phone Unavailable Primary Care Provider Unavailabl e Encounter Details Date Type Department Care Team (Late st Contact Info) Description 11/07/2005 Before PRISM Converted Visit (Maple) [facility] - Maple conversion [address] [place] [address] Ginette Lobo MD [address] [facility], [address] [place] [address] Social History Tobacco Use Types Packs/Day Years Used Date Smoking Tobacco: Never Assessed Sex and Gender Information Value Date Recorded Sex Assigned at Not on file Gender Identity Not on file Sexual Orientation Not on file documented as of this encounter Progress Notes * Ginette Lobo MD - 04/28/2009 0292 EST DIVISION OF OTOLARYNGOLOGY PROGRESS/FOLLOWUP NOTE - 11/07/2005 S:was here today in follow up after having had a mastoidectomy and tympanoplasty by Dr. Skaggs. Her dad relates that she has been doing well. O:did not have packing placed in her ear canal and this was examined today. She is noted to have some debris and fibrinous tissue which is partially suctioned out. Otherwise, the remaining debris could not be removed secondary to patient cooperation, but overall things look like they are healing well. A: Overall, she is doing well following tympanomastoid surgery. P: She is going to be starting on some drops and will be returning for follow up in a couple of weeks to see Dr. Skaggs. Signed by Ginette Lobo MD 11/14/2005 16:10 Brisa Lobo, Colt Lobo MD Ginette Lobo MD - Ginette Lobo MD A - wlp Job ID: [id number] Document ID: [id number] cc: Sánchez Skaggs MD documented in this encounter Plan of Treatment Not on file documented as of this encounter Visit Diagnoses Not on filedocumented in this encounter
--- OUTSIDE RECORDS SUMMARY | 2024-02-05 13:19 | XMS_ITS | Encounter Summary ---
Author Organization [facility] Address [address] [place] [address] Care Team Providers Care Product Management Manager Name Role Phone Unavailable Primary Care Provider Unavailabl e Encounter Details Date Type Department Care Team (Late st Contact Info) Description 04/16/2006 15:00 [facility] Hospital Encounter [facility] [address] [place] [address] Sánchez Skaggs MD [address] [facility], [address] [place] [phone] Discharge Disposition: Auto Discharge Social History Tobacco [...]
--- OUTSIDE RECORDS SUMMARY | 2024-02-05 13:19 | XMS_ITS | Encounter Summary ---
Author Organization [facility] Address [address] [place] [address] Care Team Providers Care Doll Wig Maker Rooted Hair Name Role Phone Unavailable Primary Care Provider Unavailabl e Encounter Details Date Type Department Care Team (Late st Contact Info) Description 11/20/2005 Before PRISM Converted Visit (Maple) [facility] - Maple conversion [address] [place], [place] [id number] Sánchez Skaggs MD [address] [facility], [address] [place] [address] Social History Tobacco Use Types Packs/Day Years Used Date Smoking Tobacco: Never Assessed Sex and Gender Information Value Date Recorded Sex Assigned at Not on file Gender Identity Not on file Sexual Orientation Not on file documented as of this encounter Progress Notes * Sánchez Skaggs MD - 05/08/2009 2226 EST DIVISION OF OTOLARYNGOLOGY PROGRESS/FOLLOWUP NOTE - 11/20/2005 S:comes in after left modified radical mastoidectomy for cholesteatoma. At the time of surgery, there was significant erosion of the malleus, long process of the incus, and stapes superstructure. There was also some erosion near the superior round window niche. Facial nerve was dehiscent. She has done well with surgery with no drainage from that side and it seems a little tender when she bumps it, but there has been no other pain problems. O: On examination, the left meatoplasty looks fine. The upper part of the ear is a little more outstanding than it was before surgery, but I suspect that will regress as a fibrosis. There is some minimal crusting in the mastoid cavity. There is no granulation or drainage evident today. Overall, things look quite good. A: Doing well after left modified radical mastoidectomy and type IV tympanoplasty. P: Follow up with me in 1 month. They will continue to keep that ear dry and use drops just once a day. Signed by Sánchez Skaggs MD 11/28/2005 10:56 Sukh Skaggs MDWivicky Skaggs MD Sánchez Skaggs MD - Sánchez Skaggs MD P - wlp Job ID: [id number] Document ID: [id number] cc: Rubio Augustin MD documented in this encounter Plan of Treatment Not on file documented as of this encounter Visit Diagnoses Not on filedocumented in this encounter
--- OUTSIDE RECORDS SUMMARY | 2024-02-05 13:19 | XMS_ITS | Encounter Summary ---
Author Organization [facility] Address [address] [place] [address] Care Team Providers Care Production Aide Name Role Phone Unavailable Primary Care Provider Unavailabl e Encounter Details Date Type Department Care Team (Late st Contact Info) Description 08/14/2009 Abstract [facility] - [address], [address] [place] [address] No Pcp, Developmental delay; Congenital heart anomaly; Scoliosis; Hydrocephalus (HCC-CMS); Spitz nevus Social History Tobacco Use Types Packs/Day Years Used Date Smoking Tobacco: Never Assessed Sex and Gender Information Value Date Recorded Sex Assigned at Not on file Gender Identity Not on file Sexual Orientation Not on file documented as of this encounter Plan of Treatment Not on file documented as of this encounter Visit Diagnoses Diagnosis Developmental delay Lack of normal physiological development, unspecified 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
--- OUTSIDE RECORDS SUMMARY | 2024-02-05 13:19 | XMS_ITS | Encounter Summary ---
Author Organization [facility] Address [address] [place] [address] Care Team Providers Care Social Worker School Name Role Phone Unavailable Primary Care Provider Unavailabl e Encounter Details Date Type Department Care Team (Late st Contact Info) Description 08/28/2005 Before PRISM Converted Visit (Maple) [facility] - Maple conversion [address] [place], [place] [address] Sánchez Skaggs MD 111 [facility], [address] [place] [address] Social History Tobacco Use Types Packs/Day Years Used Date Smoking Tobacco: Never Assessed Sex and Gender Information Value Date Recorded Sex Assigned at Not on file Gender Identity Not on file Sexual Orientation Not on file documented as of this encounter Progress Notes * Sánchez Skaggs MD - 04/28/2009 0704 EST DIVISION OF OTOLARYNGOLOGY PROGRESS/FOLLOWUP NOTE - 08/28/2005 S:comes in to follow up today on her left chronic otitis media. Her dad says that she had a bloody drainage for which she was evaluated in the ER. This stopped and hasnt been a problem since. There has been no other drainage. O:of right ear looks quite good. Examination of the left ear shows more normal appearing structuresat the level of the drum. There does appear to be some squamous debris in the posterior-superior quadrant. Review of todays CT scanshows soft tissue filling the middle ear and antrum and sclerotic mastoid. The opposite side is well ventilated. Audiogram today shows bilateral hearing loss and actually the right ear appears slightly worse than the left, although reliability is in question just because of the patient. A: Likely left chronic otitis media with cholesteatoma. P: Discussed tympanoplasty with mastoidectomy. I think its likely that weneed to take the canal wall down as well, but it will depend somewhat on our findings at the time of surgery. I explained the nature of canal wall down mastoidectomy as well as intact canal wall mastoidectomy with Jo today. We discussed the risks to the facial nerve, permanent hearing injury, and the possible need for f urther surgery. Jo understands that given the very poor eustachian tube function here, the half-way possibility of improved hearing is low, but hopefully we can makea safe ear that could be potentially aided in the future. He also understands the potential need for long-term cleaning. Written informed consent was obtained in the office today. [facility]plan [facility] the [facility]. Signed by Sánchez Skaggs MD 09/04/2005 09:51 Annmarie Pacheco MD Sánchez Skaggs MD - Sánchez Skaggs MD A - wlp Job ID: [id number] Document ID: [id number] cc: Rubio Augustin MD documented in this encounter Plan of Treatment Not on file documented as of this encounter Visit Diagnoses Not on filedocumented in this encounter
--- OUTSIDE RECORDS SUMMARY | 2024-02-05 13:19 | XMS_ITS | Encounter Summary ---
Author Organization [facility] Address [address] [place] [address] Care Team Providers Care Residential Life Director Name Role Phone Unavailable Primary Care Provider Unavailabl e Encounter Details Date Type Department Care Team (Late st Contact Info) Description 04/16/2006 Before PRISM Converted Visit (Maple) [facility] - Maple conversion [address] [place], [place] [address] Sánchez Skaggs MD 111 [facility], [address] [place] [address] Social History Tobacco Use Types Packs/Day Years Used Date Smoking Tobacco: Never Assessed Sex and Gender Information Value Date Recorded Sex Assigned at Not on file Gender Identity Not on file Sexual Orientation Not on file documented as of this encounter Progress Notes * Sánchez Skaggs MD - 05/08/2009 3655 EST DIVISION OF OTOLARYNGOLOGY PROGRESS/FOLLOWUP NOTE - 04/16/2006 S:comes in to follow up after a left modified radical mastoidectomy and type IV tympanoplasty. Overall, she is doing better with no drainage. She was diagnosed with a left middle ear infection. She was treated with antibiotics, although itnot clear what her symptoms were. She was with her mom at the time. Currently she is doing well She doesnt complain of any pain and there has been no ear drainage. O: Examination of the left ear shows an epithelialized mastoid cavity. There is some crusting medially, but I did not attempt to remove it as it was mid canal and isncausing her any problems. Alison does not do well under the operating microscope. There is no active granulation or drainage. There isno active infection. Repeat audiogram today shows what appears to be a bilateral moderate hearing loss, although its difficult to tell because of her cooperation during the study. A: Doing well after left modified mastoidectomy. P: Follow up with me in four months, sooner with any problems. Signed by Sánchez Skaggs MD 05/01/2006 09:29 Annmarie Pacheco MD Sánchez Skaggs MD - Tereza Skaggs MD A - wlp Job ID: [id number] Document ID: [id number] cc: documented in this encounter Plan of Treatment Not on file documented as of this encounter Visit Diagnoses Not on filedocumented in this encounter
--- NOTE | 2024-02-05 13:39 | DI.RAD_ITS ---
Exam(s) XR FACIAL BONES COMPLETE EXAM: XR FACIAL BONES COMPLETE CLINICAL HISTORY: CONTUSION, S00,83XA. TECHNIQUE: 2D digital imaging was performed. COMPARISON: CR FACIAL BONES COMPLETE from 05/15/2009 FINDINGS: BONES: No evidence of fracture. Sinuses: Clear as visualized. Temporomandibular joints: No dislocation. SOFT TISSUES: Unremarkable. IMPRESSION: Unremarkable radiographs of the facial bones. DATA REPOSITORY: RADIATION DOSE DELIVERED:
== END 2024-02-05 13:32 ==
LOC: DI 13:15
PROVIDERS: PCP Family Medicine; Visit Provider Physician Assistant Medical
DX: S00.83XA Contusion of other part of head, initial encounter (principal); X58.XXXA Exposure to other specified factors, initial encounter
CPT/HCPCS: 70150

== ENCOUNTER 2024-02-06 11:22 | Emergency (ER) | payer MEDICARE, MEDICAID, SELFPAY ==
[2024-02-06 11:43] VITALS: BP 112/61; PULSE 79; RESP 18; TEMP 36.8; O2SAT 98
[2024-02-06 12:30] VITALS: RESP 18
[2024-02-06 12:32] VITALS: BP 112/61; PULSE 79; RESP 18; TEMP 36.8; O2SAT 98
--- NOTE | 2024-02-06 12:35 | W.ED.GENAD ---
Discharge Plan Disposition Patient Disposition: Home Condition: Stable Discharge Details Clinical Impression: Cellulitis Primary Care Provider: Sara Gaines ED Provider: Osiel Garcia Home Meds and New Rx's Prescriptions: New amoxicillin-pot clavulanate 875-125 mg tablet 1 tab PO BID 7 Days Qty: 14 0RF Continued clonazepam 0.125 mg tablet,disintegrating 0.125 mg PO DAILY PRN pantoprazole 20 mg tablet,delayed release (DR/EC) 20 mg PO DAILY (DME) Left custom knee brace See Rx Instructions .ROUTE .MEDSUPPLY Qty: 1 0RF Rx Instructions: Use during activities Metamucil Fiber Singles 3.4 gram powder in packet 1 packet PO DAILY (DME) Hinged knee brace See Rx Instructions .Route .MEDSUPPLY Qty: 1 0RF Rx Instructions: As directed cholecalciferol (vitamin D3) 1,000 UNIT capsule 2,000 unit PO DAILY Trulance 3 mg tablet 3 mg PO DAILY naproxen 250 mg tablet 250 - 500 mg PO BID PRNQty: 40 0RF Rx Instructions: take with a meal Discharge Instructions Instructions: Amoxicillin and Clavulanate, Cellulitis (Skin Infection), Adult ED Additional Instructions: You were seen in the emergency department for your possible early infected lip laceration repair versus swelling and dependent edema from the lip trauma itself. Please keep icing the area and take the prescribed Augmentin as directed, please use therapeutic dosing of Tylenol (acetamenophen) & Advil (ibuprofen) in an alternating fashion as follows: Take 1000mg of Tylenol every 6 hours without missing doses- that is 4 times per day. Assisted in between the Tylenol dosings, take 400-600mg of Advil also on a 6 hour schedule, that is also 4 times per day. The daily maximum dosing of Tylenol is 4000mg, and the daily maximum dosing of Advil is 2400mg. This is safe to do for weeks. Please note that some common cold medications & prescription pain medications may contain acetamenophen and you need to read OTC drug labels and factor that in to maximum daily dosings. Please return to the emergency department for any acute worsening despite treatment, you should begin to improve significantly by day 3 on antibiotics. Please return for any other emergent concerns Referrals: Sara Gaines [Primary Care Provider] - Discharge Data Discharge Date/Time-TO BE ENTERED AT DEPARTURE: 02/06/24 12:58 HPI General Date/Time Provider Initiated Documentation: 02/06/24 12:01. HPI Narrative: 28 year-old female presents to ED today by POV/ambulating with a chief complaint of lip swelling, had a suture repair from minor laceration yesterday after falling on a treadmill. Quality described as patient is nonverbal, no radiation to hillman erythema, purulent drainage, bleeding, fever, lymphadenitis. Severity is described as unable to quantify. Palliating factors include nothing specific- has iced it. Provoking factors include nothing specific. Patient not anticoagulated. Related Data Home Medications ?Medication ?Instructions ?Recorded ?Confirmed cholecalciferol (vitamin D3) 25 2,000 unit PO DAILY 12/20/13 02/06/24 mcg (1,000 unit) capsule clonazepam 0.125 mg disintegrating 0.125 mg PO DAILY PRN 03/09/21 02/06/24 tablet naproxen 250 mg tablet 250 - 500 mg (1 - 2 x 250 mg) PO 07/20/21 02/06/24 BID PRN #40 tabs psyllium husk (aspartame) 3.4 gram 1 packet PO DAILY 05/21/22 02/06/24 oral powder packet (Metamucil Fiber Singles) Left custom knee brace #1 ea 09/24/23 02/06/24 pantoprazole 20 mg tablet,delayed 20 mg PO DAILY 09/24/23 02/06/24 release Hinged knee brace #1 ea 10/16/23 02/06/24 amoxicillin 875 mg-potassium 1 tab PO BID 7 days #14 tabs 02/06/24 clavulanate 125 mg tablet plecanatide 3 mg tablet (Trulance) 3 mg PO DAILY 02/06/24 02/06/24 Previous Rx's ?Medication ?Instructions ?Recorded naproxen 250 mg tablet 250 - 500 mg (1 - 2 x 250 mg) PO 07/20/21 BID PRN #40 tabs Left custom knee brace #1 ea 09/24/23 Hinged knee brace #1 ea 10/16/23 amoxicillin 875 mg-potassium 1 tab PO BID 7 days #14 tabs 02/06/24 clavulanate 125 mg tablet Allergies Allergy/AdvReac Type Severity Reaction Status Date / Time No Known Allergies Allergy Unverified 02/06/24 11:49 General Stated Complaint: GenMedical YUSUF: 4 Review of Systems All systems reviewed & are unremarkable except as noted in HPI and below Exam Narrative Exam Narrative: GENERAL APPEARANCE: Well-nourished, non-toxic, awake and alert, atraumatic, no acute distress. SKIN: Warm, pink, dry, intact, without rashes/lesions/ulcerations. HEAD: Normocephalic, atraumatic, normal hair distribution for gender/age. EYES: Normal conjunctiva, no exudates on lids/lashes. ENT: Nares patent, no circumoral cyanosis, diffuse swelling to the right upper lip, sutures appear in place, no purulent drainage or erythema, no lymphadenitis spreading outward from the area, no excessive drooling, no trismus, patient is nonverbal NECK: Supple, trachea midline, painless cervical ROM. LUNGS/CHEST: Non-labored respirations, normal A/P diameter, symmetrical expansion, no chest wall deformity HEART (CV/PV): No peripheral edema, no JVD. ABDOMEN: Soft, non-distended, no guarding. MSK: Normal ROM, no swelling/deformity to bilateral UEs or LEs, moving all extremities without weakness, no cyanosis, spine midline without tenderness, normal curvature. NEURO: Mental Status AAOx4 - alert and follows directions, communicating at baseline No facial droop, no forehead involvement. Motor: No focal weakness - strength 5/5 in bilateral UEs and LEs, proximal and distal, symmetric. Sensory: sensation intact to light touch globally. Gait normal: patient ambulated without ataxia into ED room. PSYCH: euthymic, cooperative, pleasant, nonverbal Course Vital Signs Vital signs: Vital Signs Temperature 36.8 C 02/06/24 11:43 Pulse 79 02/06/24 11:43 Respiratory Rate 18 02/06/24 11:43 Blood Pressure 112/61 02/06/24 11:43 Pulse Oximetry 98 02/06/24 11:43 Temperature 36.8 C 02/06/24 12:32 Temperature Source Temporal Artery Scan 02/06/24 12:32 Pulse 79 02/06/24 12:32 Respiratory Rate 18 02/06/24 12:32 Respiratory Effort Normal, Non-Labored 02/06/24 12:30 Respiratory Depth Normal 02/06/24 12:30 Respiratory Pattern Normal 02/06/24 12:30 Blood Pressure 112/61 02/06/24 12:32 Blood Pressure Position Sitting 02/06/24 12:32 Pulse Oximetry 98 02/06/24 12:32 Oxygen Delivery Method Room Air 02/06/24 12:32 Oxygen Flow Rate 0 02/06/24 12:32 Medical Decision Making This dictation utilizes [id number] dictation software and may contain unedited grammatical errors. 28 year-old female presents to ED today by POV/ambulating with a chief complaint of lip swelling, had a suture repair from minor laceration yesterday after falling on a treadmill. Quality described as patient is nonverbal, no radiation to hillman erythema, purulent drainage, bleeding, fever, lymphadenitis. Severity is described as unable to quantify. Palliating factors include nothing specific- has iced it. Provoking factors include nothing specific. Patients' medical history: History of speech problems, chromosome 2P deletion, chronic constipation, scoliosis/kyphosis. Family and social history: noncontributory. Pertinent exam findings / vital signs include gross upper R lip swelling, no trismus, no excessive drooling, no hillman erythema or purulent drainage. Differential / pathologies of concern include cellulitis, dependent edema. Diagnostic studies of: -none. Interventions of: -Rx for augmentin. ED Course/Assessment/Plan: 28-year-old female with developmental disorder, chromosome deletion had a fall on a treadmill, patient is nonverbal but did have a suturable laceration that was repaired by urgent care yesterday, now has severe swelling around her right upper lip without hillman erythema or lymphadenitis, no purulent drainage, is managing secretions well, I discussed with the mother that this is a possibility of just dependent edema and gravity due to the trauma but out of an abundance of caution we did start a prophylactic course of antibiotics, used Augmentin to cover oral jess and reasonable soft tissue cellulitis coverage, I stressed strict return criteria for any worsening swelling despite treatment, difficulty managing secretions or tolerating p.o. intake, trismus, drooling. Findings not consistent with trismus, abscess, severe start cellulitis at this time. Disposition of Cellulitis. Patient verbalized understanding of the plan and return to ED criteria and engaged in shared decision making. Medical Records Medical records reviewed: Yes I reviewed the patient's medical records. 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 History of ear surgery Per patient mother, patient had an abscess form from ear tube which required surgery. History of placement of ear tubes History of removal of skin mole History of repair of congenital atrial septal defect (ASD) Family History Maternal Grandmother Heart disease Paternal Grandfather Cancer Maternal Grandmother Cancer Maternal Grandmother Diabetes Social History Smoking/Tobacco Use Status: Never Second Hand Exposure: No Smoking risk assessment performed?: Yes Alcohol Intake: never Drug use: Never Substance use type: does not use Current gender identity: female Do you feel safe at home: Yes Do you feel safe in your relationship?: Yes Additional Social history: unable to assess privately
== END 2024-02-06 12:58 | disposition home or self-care (01) ==
PROVIDERS: Emergency Provider Physician Assistant; PCP Family Medicine
DX: L03.211 Cellulitis of face (principal)
CPT/HCPCS: 99283; 99284

== ENCOUNTER 2024-03-10 02:04 | Outpatient (CLI) | payer MEDICARE, MEDICAID, SELFPAY ==
--- NOTE | 2024-03-10 | DI.RAD_ITS ---
Exam(s) XR HIP PELVIS ADULT BL EXAM: XR HIP PELVIS ADULT BL CLINICAL HISTORY: CHRONIC LT KNEE PAIN, EVAL HIP ANATOMY/PATHOLOGY, M25.562, G89.29. TECHNIQUE: 2D digital imaging was performed of the pelvis and bilateral hips. Three images were obt ained. AP pelvis and lateral views of both hips were obtained. COMPARISON: CR,XR XR ABDOMEN FLAT PLATE from 05/04/2022 FINDINGS: BONES: No acute fracture is present. No bony destructive lesion is seen. The distal aspects of spinal rods are seen at the top of the images. JOINTS: No dislocation present. The joint spaces are well maintained. The sacroiliac joints and symp hysis pubis are intact. SOFT TISSUE: Normal. IMPRESSION: No acute abnormality. DATA REPOSITORY: RADIATION DOSE DELIVERED:
== END 2024-03-10 02:24 ==
LOC: DI 02:04
PROVIDERS: PCP Family Medicine; Visit Provider Physician Assistant Surgical
DX: G89.29 Other chronic pain (principal); M25.562 Pain in left knee
CPT/HCPCS: 73521

== ENCOUNTER → 2024-04-15 14:02 | Outpatient (BNVA) | payer MEDICARE, MEDICAID, SELFPAY | PROVIDERS: PCP Family Medicine; Referring Provider Family Medicine; Visit Provider Surgery | DX: K59.09 Other constipation (principal); K62.3 Rectal prolapse; Q92.8 Other specified trisomies and partial trisomies of autosomes; Q93.9 Deletion from autosomes, unspecified; Q93.51 Angelman syndrome; Q21.10 Atrial septal defect, unspecified; M41.9 Scoliosis, unspecified; F48.2 Pseudobulbar affect; Z87.39 Personal history of other diseases of the musculoskeletal system and connective tissue | CPT/HCPCS: 99214 ==

== ENCOUNTER 2024-05-04 01:23 | Outpatient (CLI) | payer MEDICARE, MEDICAID, SELFPAY ==
--- NOTE | 2024-05-04 07:21 | DI.CT_ITS ---
Exam(s) CT PELVIC W EXAM: CT PELVIC W CLINICAL HISTORY: right inguinal hernia bulge,PSEUDOBULBAR AFFECT. TECHNIQUE: Imaging Protocol: Axial computed tomography images with coronal and sagittal reformatted images were created and reviewed CONTRAST MATERIAL: Intravenous: Omnipaque 75cc Oral: Yes. Oral contrast was also administered for bowel opacification COMPARISON: CR,XR XR ABDOMEN FLAT PLATE from 05/04/2022 CR XR HIP PELVIS ADULT BL from 03/10/2024 FINDINGS: PELVIS: OSSEOUS:Lower aspect of the Handy rods in the spine are noted. No fractures evident. ANTERIOR ABDOMINAL WALL/GI:There are fat only containing umbilical hernias. Hernia as do not contain bowel loops therein. No evidence of obvious acute inflammatory process in the pelvis nor free fluid . LYMPH NODES: There is no intrapelvic nor inguinal adenopathy. REPRODUCTIVE: Uterus and adnexal regions appear age-appropriate. No free fluid. URINARY BLADDER: The bladder is moderately distended. There are no masses in the bladder nor radiopa que calculi. IMPRESSION: 1. There are bilateral equal size inguinal hernias which contain only fat and no bowel loops evident within either hernia sac 2. Handy rods are noted in the spine. 3. Urinary bladder is moderately distended. RADIATION DOSE DELIVERED: 200.3mGy.cm Total DLP DATA REPOSITORY: All CT scans at this facility are submitted to the National Radiology Data Registry (NRDR) Dose Index Registry (DIR) with the [employer] (ACR). RADIATION OPTIMIZATION: All CT scans at this facility use at least one of these dose optimization te chniques: automated exposure control; mA and/or kV adjustment per patient size (includes targeted exa ms where dose is matched to clinical indication); or iterative reconstruction.
[2024-05-04] MEDS: Breeza Beverage 473 ML BTL PO ×2 (08:42→08:43)
[2024-05-04] MEDS: Omnipaque 350 MG/ML 50 ML BTL PO (08:43)
[2024-05-04] MEDS: Omnipaque 350 MG/ML 100 ML BTL 75 ML IJ (10:30)
[2024-05-04] MEDS: Normal Saline - Diluent 50 ML VIAL IJ (10:31)
== END 2024-05-04 01:43 ==
LOC: DI 01:23
PROVIDERS: PCP Family Medicine; Visit Provider Surgery
DX: K62.3 Rectal prolapse; Z87.39 Personal history of other diseases of the musculoskeletal system and connective tissue; Z87.898 Personal history of other specified conditions
CPT/HCPCS: 72193; J3490; Q9967

== ENCOUNTER → 2024-05-31 14:15 | Outpatient (BNVA) | payer MEDICARE, MEDICAID, SELFPAY | PROVIDERS: PCP Family Medicine; Referring Provider Family Medicine; Visit Provider Surgery | DX: K59.00 Constipation, unspecified (principal) ==

== ENCOUNTER 2024-06-16 13:22 | Outpatient (REF) | payer MEDICARE, MEDICAID, SELFPAY ==
--- NOTE | 2024-06-16 11:30 | PAPFT_PTH ---
PATIENT: Alison Thornton LOC: [facility] U#:[id number] AGE/SX: 28/F ROOM: RE06/16/[address]: Sara Gaines : 1995 BED: DIS: 06/16/2024 SPEC #: [id number] RECD: 06/17/24 12:50 STATUS: KATT REQ #: [id number] EDGAR: 06/16/24 11:[address]: Sara Gaines DEPT: [facility] Cytology RECD BY: Cookie Gaines Tissues: 1 - CX/ENDOCX FOR PAP SMEARS Procedures: PAP THIN PREP/UVM Screening Comments: [id number]
--- OUTSIDE RECORDS SUMMARY | 2024-06-16 13:24 | XMS_ITS | Encounter Summary ---
Author Organization [facility] Address [address] [place] [address] Care Team Providers Care Sql Dba Name Role Phone Baltazar Gaines MD Primary Care Provide r Reason for Visit * Reason Onset Date Comments Pre-Op Clearance 11/03/2023 Encounter Details Date Type Department Care Team (Late st Contact Info) Description 11/03/2023 Telephone [facility] Cardiology - [address] [place] [address] Sánchez Leon MD [address] [place] [address] [address] [place] [address] Pre-Op Clearance Social History Tobacco Use Types Packs/Day Years Used Date Smoking Tobacco: Never Smokeless Tobacco: Never Alcohol Use Standard Drinks/Week Comments No 0 (1 standard drink = 0.6 oz pur e alcohol) Interpersonal Safety Answer Date Record ed Physically Hurt Never 02/22/2020 Verbally Threaten Not on file 02/22/2020 Comments No Sex and Gender Information Value Date Recorded Sex Assigned at Not on file Legal Sex Female 18:10 EST Gender Identity Not on file Sexual Orientation Not on file documented as of this encounter Miscellaneous Notes * Telephone Encounter - Erasto Diop RN - 11/03/2023 1554 EDT Clearance form signed and faxed back to [facility] * Telephone Encounter - Lin Ahn - 11/03/2023 1358 EDT Renata calling from [facility] requesting update on clearance for 11/04 endoscopies originally faxed on 10/30. Please call back to advise. documented in this encounter Plan of Treatment Not on file documented as of this encounter Visit Diagnoses Not on filedocumented in this encounter Care Teams Sql Dba Relationship Specialty Start Date End Date Baltazar Gaines MD [address] [place] [address] PCP - General 06/24/22 documented as of this encounter
--- OUTSIDE RECORDS SUMMARY | 2024-06-16 13:24 | XMS_ITS | Clinical Summary ---
Author Organization [facility] Address [address] [place] [address] Care Team Providers Care Roof Fixer Name Role Phone Baltazar Gaines MD Primary Care Provide r Allergies No known active allergies Medications Cholecalciferol , Vitamin D3, 2,000 unit Cap Take 2,000 Units by mouth daily. 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 Gonzalez @ [facility] This was performed with a pericardial patch [...] Heart Disease Other 1 has had two IL's High Blood Pressure Other 1 High Cholesterol [...] Screen 1996 Hepatitis B Vaccine (1 of 3 - 19+ 3-dose series) 08/19 COVID-19 Vaccine (2023- season) 2024 [place] Care Teams Roof Fixer Relationship Specialty Start Date End Date Baltazar Gaines MD [address] [place] [address] [address] [place] [address] [facility] - General 06/24/22
--- OUTSIDE RECORDS SUMMARY | 2024-06-16 13:24 | XMS_ITS | Encounter Summary ---
Author Organization 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 Alison was previously followed by Luzma Neri [...] 2 year of age (08/25/1996; Dr. Gonzalez; [facility]). From a cardiovascular perspective, she has done [...] of any help. SÁNCHEZ SAUER MD Attending Racehorse Trainer [facility] I spent a total of 50 minutes on the date of this encounter evaluating Alison. This included review of old/previous records and the results of previous imaging studies, comprehensive review of today'sechocardiogram, history and physical examination, discussion // counseling related to her cardiac issues as outlined above, and time crafting this comprehensive note. Note: [employer] software was used to generate this note. [...] documented as of this encounter Care Teams Hospital Staff Pharmacist Relationship Specialty Start Date End Date Baltazar Gaines MD [address] [place] [address] [address] [place] [address] PCP - General 06/24/22 documented as of this encounter
--- OUTSIDE RECORDS SUMMARY | 2024-06-16 13:24 | XMS_ITS | Clinical Summary ---
Author Organization [facility] [place] [address] Care Team Providers Care Product Picker Name Role Phone Baltazar Gaines MD Primary Care Provider [phone] Social History Tobacco Use Types Packs/Day Years [...] Tdap) 08/19 PAP Smear 2017 Covid-19 Vaccine ( - 2023- season) 2024 Influenza (Flu) vaccine (1 o f 1 - Influenza standard series) 01/04/2024 Care Teams Product Picker Relationship Specialty Start Date End Date Baltazar Gaines MD [address] [place] [address] PCP - General Family Medicine 07/05/20
--- OUTSIDE RECORDS SUMMARY | 2024-06-16 13:24 | XMS_ITS | Encounter Summary ---
Author Organization [facility] [place] [address] Care Team Providers Care Senior Technical Business Analyst Name Role Phone Baltazar Gaines MD Primary Care Provider [phone] Reason for Visit * Reason Comments Skin Check * Consultation (Routine) - Specialty Diagnoses / Procedures Referred By Contac t Referred To Contact Dermatology Diagnoses Other benign neoplasm of skin, unspecified Baltazar Gaines MD [address] [place] [address] [facility] Dermatology [address] [place] [address] Referral ID Status Reason Start Date Expiration Date V isits Requested Visits Authorized [id number] Consult, Test [facility] PCP Updated and/or Approved 06/27/2020 08/08/2020 6 6 Encounter Details Date Type Department Care Team (Late st Contact Info) Description 07/31/2020 3:00 PM EDT Office Visit Dermatology at [facility] [address] [place] [address] Tatyana Mensah MD Multiple benign nevi Social History Tobacco Use [...] original note were not included. DERMATOLOGY - [facility] PATIENT NOTE Date of service: 07/31/2020 Alison [...] by Tatyana Barlow MD Resident in Dermatology [facility] Patient seen in conjunction with staff selling manager: Litzy Kunz MD Department of Dermatology [facility] * Litzy Kunz MD - 07/31/2020 3:00 PM EDT [...] exam as documented in Dr. Barlow's note. LITZY KUNZ MD Staff Physician documented in this encounter Plan of Treatment Not on file documented as of this encounter Visit Diagnoses Diagnosis Multiple benign nevi Benign neoplasm of skin, site unspecified documented in this encounter Care Teams Senior Technical Business Analyst Relationship Specialty Start Date End Date Baltazar Gaines MD [facility] [address] [place] [address] PCP - General Family Medicine 07/05/20 documented as of this encounter
--- OUTSIDE RECORDS SUMMARY | 2024-06-16 13:24 | XMS_ITS | Referral Summary ---
Author Organization [facility] Address [address] [place] [address] Care Team Providers Care Fourdrinier Machine Operator Name Role Phone Baltazar Gaines MD Primary [...] cell nevus 08/14/2009 Overview (08/14/2009): Right arm Social History Tobacco Use Types [...] EST Plan of Treatment Not on file [place] Care Teams Fourdrinier Machine Operator Relationship Specialty Start Date End Date Baltazar Gaines MD [address] [facility] [address] [place] [address] PCP - General 06/24/22
--- OUTSIDE RECORDS SUMMARY | 2024-06-16 13:24 | XMS_ITS | Encounter Summary ---
Author Organization [facility] Address [address] [place] [address] Care Team Providers Care Jewelry Designer Name Role Phone Baltazar Gaines MD Primary Care Provide r Encounter Details Date Type Department Care Team (Late st Contact Info) Description 11/07/2023 Lab Requisition [facility] Pathology & Laboratory Medicine - [facility] [address] [place] [address] Costa Kramer MD [address] [place] [address] Diarrhea, unspecified; Change in bowel [...] explore management options, if applicable. 11/10/2023 14:19 [facility] Final Diagnosis A. DUODENUM, [...] active inflammation or intraepithelial eosinophils. 11/10/2023 14:19 [facility] Diagnosis Comment The technical component of the specimen processing was performed at the [facility] Pathology Department, [address] [place] [address] (CLIA [id number]). The professional component of the specimen evaluation (slide review and issuing of the final diagnosis) was performed at [facility], [address] [place] [address] (CLIA License Number [id number]). 11/10/2023 14:19 [facility] Attestation By the signature below, the attending physician certifies that they have 1) personally conducted a gross and/or microscopic examination of the described specimen(s), and/or personally interpreted the results of laboratory testing of the described specimen(s), and 2) personally rendered or confirmed the above diagnosis. 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 Received [...] processing. LAURA DAWSON(ASCP) 11/07/2023 9:49 11/10/2023 14:19 [facility] Performing Lab [facility] 14:19 [facility] Scanned Images 11/10/2023 14:19 [facility] Tissue ESOPHAGEAL STRUCTURE / [...] Unknown 11/05/2023 10:53 EDT 11/07/2023 8:42 EDT us Costa Kramer MD PATHOLOGY ORDERABLES Final Result [facility] [address] [place], [place] [id number] documented in this encounter Visit Diagnoses Diagnosis Diarrhea, unspecified Change in bowel habit Nausea with vomiting, unspecified documented in this encounter Care Teams Jewelry Designer Relationship Specialty Start Date End Date Baltazar Gaines MD [address] [place] [address] PCP - General 06/24/22 documented as of this encounter
--- OUTSIDE RECORDS SUMMARY | 2024-06-16 13:24 | XMS_ITS | Encounter Summary ---
Author Organization [facility] Address [address] [place] [address] Care Team Providers Care Turnstile Collector Name Role Phone Baltazar Gaines MD Primary Care Provide r Reason for Visit * Cardiology (Routine/Next Available) - Closed Specialty Diagnoses / Procedures Referred By Contac t Referred To Contact Diagnoses H/O congenital atrial septal defect (ASD) repair Adult congenital heart disease Procedures CONGENITAL TRANSTHORACIC ECHO (TTE) COMPLETE MT ECHO XTHORACIC,KENNY ANOM,COMPLETE Sánchez Leon MD Phone: tel: fax: [facility] Referral ID Status Reason Start Date Expiration Date Visits Re quested Visits Authorized [id number] Closed 07/24/2022 1 1 Encounter Details Date Type Department Care Team (Latest Contact Info) Description 04/22/2023 7:15 EST Ancillary Procedure [facility] Cardiology - [address] [place], [place] [id number] H/O congenital atrial septal defect (ASD) repair; [...] color Doppler.The study was interpreted by [facility] Cardiology. Pertinent images and digital data are archived for permanent storage and are available for subsequent review. Scanning was performed from the apical, parasternal, subcostal and suprasternal acoustic windows. Overall the study quality was adequate. The study was difficult due to patient body habitus. Images were obtained using cardiac ultrasound machine EPIQ #12. Sánchez Leon MD CARDIAC ECHO ORDERABLE S Final Result documented in this encounter Visit Diagnoses Diagnosis H/O congenital atrial septal defect (ASD) repair Adult congenital heart disease Unspecified congenital anomaly of heart documented in this encounter Care Teams Turnstile Collector Relationship Specialty Start Date End Date Baltazar Gaines MD [address] [facility] [address] [place] [address] PCP - General 06/24/22 documented as of this encounter
--- OUTSIDE RECORDS SUMMARY | 2024-06-16 13:24 | XMS_ITS | Encounter Summary ---
Author Organization [facility] Address [address] [place] [address] Care Team Providers Care Designated Broker Name Role Phone Baltazar Gaines MD Primary Care Provide r Reason for Visit * Reason Onset Date Comments Advice Only 12/22/2023 Encounter Details Date Type Department Care Team (Late st Contact Info) Description 12/22/2023 Telephone [facility] Cardiology - [address] [place] [address] Sánchez Leon MD [address] [facility] [address] [place] [address] Advice Only Social History Tobacco [...] be directed to patients orthopedic team. Spoke wto Delilah to advise. She is all set. [...] on filedocumented in this encounter Care Teams Designated Broker Relationship Specialty Start Date End Date Baltazar Gaines MD [address] [facility] [address] [place] [address] PCP - General 06/24/22 documented as of this encounter
--- OUTSIDE RECORDS SUMMARY | 2024-06-16 13:25 | XMS_ITS | Encounter Summary ---
Author Organization [facility] Address [address] [place] [address] Care Team Providers Care Test Operator Name Role Phone Deandra Ramos MD Primary Care Provider Baltazar Gaines MD Primary Care Provide r Encounter Details Date Type Department Care Team (Late st Contact Info) Description 02/25/2021 Lab Requisition [facility] Pathology & Laboratory Medicine - [facility] [address] [place], [place] [address] Outr Resulting Lab, Provider Social History Tobacco [...] Unknown 02/24/2021 13:05 EDT 02/25/2021 16:50 EDT us Provider Outr Resulting Lab MICROBIOLOGY - GENER AL ORDERABLES Final Result Performing Organization Address [facility] Co de Phone Number [facility] [address] [place] [address] * COVID-19 TESTING (02/24/2021 13:05 EDT) COVID-19 rt-PCR Result Negative Negative 02/26/2021 15:29 EDT [facility] Comment: This test has not [...] was performed using the alicja SARS-CoV-2 assay ([employer] on the Alicja 6800 System Performing Lab Alicja [address] [facility] Lab 02/26/2021 15:29 EDT [facility] Swab 02/24/2021 13:0 5 EDT 02/25/2021 16:50 EDT us Provider Outr Resulting Lab MICROBIOLOGY - GENER AL ORDERABLES Final Result Performing Organization Address [facility]/ZIP Co de Phone Number [facility] [address] [place] [address] documented in this encounter Visit Diagnoses Not on filedocumented in this encounter Care Teams Test Operator Relationship Specialty Start Date End Date Deandra Ramos MD [address] [place] [address] PCP - General 12/15/09 06/23/22 Baltazar Gaines MD [address] [place] [address] PCP - General 06/24/22 documented as of this encounter
--- OUTSIDE RECORDS SUMMARY | 2024-06-16 13:25 | XMS_ITS | Encounter Summary ---
Author Organization [facility] Address [address] [place] [address] Care Team Providers Care Furniture Associate Name Role Phone Deandra Ramos MD Primary Care Provider [phone] Reason for Referral * Cardiology (Routine) - New Request Specialty Diagnoses / Procedures Referred By Camacho murray Referred To Contact Diagnoses Status post patch closure of atrial septal defect Mitral regurgitation, congenital S/P repair of PDA Procedures TRANSTHORACIC ECHO (TTE) COMPLETE Luzma Singh MD Referral ID Status Reason Start Date Expiration Date V isits Requested Visits Authorized [id number] New Request 04/04/2020 1 1 Reason for [...] Info) Description 04/04/2020 14:00 EST [facility] Pediatric Cardiology - [address] [place] [address] [place], [place] [address] Luzma Singh MD 2Q partial monosomy syndrome [...] & working - all on hold with [employer]. 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 Unforturtunately due to Covid pandemic, she has had to give up these jobs but still has daily activities with her OPERATIONS MANAGEMENT TRAINEE, Mojgan. They go to the gym most [...] ? second injury- not witnessed ??? Hydrocephalus ([facility]) 08/14/2009 ??? Osteopenia [address] Donaldson re. this ??? Strabismus as of 04/04/2020 None Past Surgical History: Procedure Laterality Date ??? ASD REPAIR 08/25/97 Dr. Gonzalez @ [facility] This was performed with a pericardial [...] Disease Other MGGM -- has had two RI's Provider High Blood Pressure Maternal Grandfather -- [...] & mom's ??? Other caregivers regularly involved sludge filtration attendant - about 50 hrs./wk. ??? Parents status ??? Mother's name Delilah Santiago ??? Mother's employment Post master ??? Father's name Frankie Parker Sr. ??? Father's employment Unemployed ??? Stepfather's name Osiel Cooper mother's partner ??? Stepfather's employment mail carrier and clerk ??? Pets Yes ??? Carpets Yes Outpatient Medications Marked as Taking for the 04/04/20 encounter (Office Visit) with Samantha, Luzma Patel MD Medication Sig Dispense Refill ??? Cholecalciferol, [...] (04/07/2020 11:46 EST) 04/07/2020 11:4 6 EST us Scan 2 Oil Field Worker PROCEDURE/MINOR SURGICAL OR DERABLES Final Result * TRANSTHORACIC ECHO (TTE) COMPLETE W/DOPPLER W/CF NO CONTRAST (04/04/2020 15:49 EST) Anatomical Region Laterality Modality Ultrasound 04/04/2020 15:0 0 EST Narrative 04/04/2020 18:19 EST Pediatric Cardiology [address] [place] [address] Date of study: 04/04/2020 Transthoracic Echocardiogram Report [...] ?1.55m^2 Location: ? Echocardiography Laboratory Facility: ? [facility] Attending: ?Luzma Singh MD Referring: ?Luzma Singh [...] was performed. Images were obtained using a [employer] Epiq 16 cardiac ultrasound machine. ??Blood pressure: [...] Singh MD - 04/04/2020 Pediatric Cardiology [address] [place] [address] Date of study: 04/04/2020 Transthoracic Echocardiogram Report [...] ) BSA: 1.55m^2 Location: Echocardiography Laboratory Facility: [facility] Attending: Luzma Singh MD Referring: Luzma Singh MD [facility] Ordering: Luzma Singh MD Test start time: 03:00 PM. Test stop time: 03:40 PM. *PROCEDURE DATA* Procedure information: Pertinent images and digital data are archived for permanent storage and are available for subsequent review. Study status: Routine. Transthoracic echocardiography. M-mode, complete 2D, complete spectral Doppler, and color Doppler. Transthoracic echocardiography was performed. Images were obtained using a [employer] Epiq 16 cardiac ultrasound machine. Blood pressure: 110/66 *INDICATIONS AND HISTORY* Indications: (Q21.1) ASD. I34.0. Q21.1. Q26.1. Asd. Mr. Melchorcv. Asd. History: PMH: Patent ductus arteriosus. Labs, [...] signed by Luzma Singh MD 04/04/2020 18:19 us Luzma Singh MD CARDIAC ECHO ORDERABLES Fin al Result * EKG 12-LEAD (04/04/2020 14:22 EST) 04/04/2020 14:2 2 EST Narrative [facility] EKG - 04/04/2020 17:44 EST ? [facility] ? Test Date: ?2020-04-04 Pat Name: ? JUAN PARKER ?Department: ?? [id number] ? Room: ? Gender: ? Female ? Agile Developer: ?? [id number] : ?1995 ? Requested By: SAMANTHA PATEL Order Number: [id number] ?Reading : ?? LUZMA SINGH MD ? Measurements Intervals ?Leslie ? Rate: ? 100 ?P: ?-6 CA: ? 97 ? QRS: ?30 QRSD: ? [...] Note Luzma Singh MD - 04/04/2020 [facility] Test Date: 2020-04-04 Pat Name: JUAN PARKER Department: [id number] Room: Gender: Female Agile Developer: [id number] : 1995 Requested By: SAMANTHA PATEL Order Number: [id number] Fortunato MD: LUZMA SINGH MD Measurements Intervals Leslie Rate: 100 P: -6 CA: 97 QRS: 30 QRSD: 90 T: 36 QT: 337 QTc: 435 Interpretive Statements Sinus rhythm vs low right atrial rhythm. Compared to ECG 05/24/2016 09:16:14 atrial rhythm has shifted and is similar to the EKG in 2014 I reviewed the tracing and have either agreed or edited the findings inthis report. Electronically Signed On 04-04-2020 17:44:21 EST by LUZMA TAI. Luzma Singh MD CARDIAC ECG ORDERABLES Asndra l Result [facility] EKG documented in this encounter [...] documented as of this encounter Care Teams Furniture Associate Relationship Specialty Start Date End Date Deandra Ramos MD [address] [place] [id number] PCP - General 12/15/09 06/23/22 documented as of this encounter
--- OUTSIDE RECORDS SUMMARY | 2024-06-16 13:25 | XMS_ITS | Encounter Summary ---
Author Organization [facility] Address [address] [place] [address] Care Team Providers Care Chief Inspector Name Role Phone Deandra Ramos MD Primary Care Provider [phone] Reason for Visit * Reason Comments New Patient Visit excessivecrying * Consult (Routine) - Closed Specialty Diagnoses / Procedures Referred By Camacho t Referred To Contact Pediatric Neurology Diagnoses Hemiplegia, unspecified affecting unspecified side (HCC-CMS) Unspecified intellectual disabilities Deandra Ramos MD [address] [place] [phone] Phone: tel: fax: Provider, Pedi-Neuro Referral ID Status Reason Start Date Expiration Date Visits Re quested Visits Authorized [id number] Closed 1 1 Encounter Details Date Type Department Care Team (Late st Contact Info) Description 10/04/2016 14:45 EDT Office Visit [facility] Pediatric Neurology - [address] [phone] Sanket Maldonado MD [address] [facility], [address] [place] [address] Obsessive-compulsive behavior (Primary Dx); 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 Daily Max: 0.25 mg 12 Tab 1 10/04/2016 3 documented in this encounter Discharge Disposition Disposition [...] Maldonado MD - 10/04/2016 0000 EDT [facility]Y CONSULTATION - 10/04/2016 Deandra Ramos MD [address] [place] [address] Ramos: The parents, Delilah and [...] her life history the cardiac surgery at [facility]. 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
--- OUTSIDE RECORDS SUMMARY | 2024-06-16 13:25 | XMS_ITS | Encounter Summary ---
Author Organization [facility] Address [address] [place] [address] Care Team Providers Care Pin Sticker Name Role Phone Deandra Ramos MD Primary Care Provider [phone] Reason for Visit * Reason Onset Date Comments Paperwork request 06/14/2021 Encounter Details Date Type Department Care Team (Late st Contact Info) Description 06/14/2021 Telephone [facility] Pediatric Cardiology - Main [address] [address] Luzma Neri MD Paperwork request Social History [...] 1101 EST Received call from Elyssa at [facility]. Pt have allograft ACL and lateral menicus w/ [facility] through [facility] on 07/20. Faxed last note for continuity [...] back and then can follow up with office. MIGUEL CARDOZA RN 06/15/2021 8:43 * Telephone Encounter - Avis Dorman - 06/14/2021 1427 EST Nurse Elyssa calling from [facility]. They are looking for cardiology clearance for upcoming procedure Alison has in July. C/b number is [phone]. documented in this encounter Plan of Treatment Not on file documented as of this encounter Visit Diagnoses Not on filedocumented in this encounter Care Teams Pin Sticker Relationship Specialty Start Date End Date Deandra Ramos MD [address] [place] [address] PCP - General 12/15/09 06/23/22 documented as of this encounter
--- OUTSIDE RECORDS SUMMARY | 2024-06-16 13:25 | XMS_ITS | Encounter Summary ---
Author Organization [facility] Address [address] [place] [address] Care Team Providers Care Coach Professional Athletes Name Role Phone Baltazar Gaines MD Primary Care Provide r Reason for Visit * Reason Onset Date Comments Other 08/22/2022 Encounter Details Date Type Department Care Team (Late st Contact Info) Description 08/22/2022 Telephone [facility] Pelvic Medicine and Reconstructive Surgery - Medical Office [facility] [address] [place] [address] Eusebia Morrison RN Other Social [...] on filedocumented in this encounter Care Teams Coach Professional Athletes Relationship Specialty Start Date End Date Baltazar Gaines MD 4 [facility] [address] [place], [place] [address] PCP - General 06/24/22 documented as of this encounter
--- OUTSIDE RECORDS SUMMARY | 2024-06-16 13:25 | XMS_ITS | Encounter Summary ---
Author Organization [facility] Address [address] [place] [address] Care Team Providers Care Refinery Operator Reforming Unit Name Role Phone Deandra Ramos MD Primary Care Provider [phone] Baltazar Gaines MD Primary Care Provide r Encounter Details Date Type Department Care Team (Late st Contact Info) Description 06/28/2020 Lab Requisition [facility] Pathology & Laboratory Medicine - Main [address] [phone] Outr Resulting Lab, Provider Social History Tobacco [...] IGA <1.2 <4.0 U/mL 07/03/2020 13:51 EST [facility] Comment: A negative result may be due to IgA deficiency and does not rule out celiac disease. ? Negative: ??<4.0 U/mL ? Weak Positive: ??4.0 - 10.0 U/mL ? Positive: ??>10.0 U/mL Results were obtained with the [employer] QUANTA Lite R h-tTG IgA JAVIER assay on the [employer] DSX. IgA 333 85 - 499 mg/dL 07/03/2020 13:51 EST [facility] Celiac Disease Interpretation Negative Serology. Celiac disease unlikely. Approximately 10% of patients with celiac disease are seronegative. Patients who are already adhering to a gluten-free diet may also be seronegative. If celiac disease is highly clinically suspected, referral to gastroenterology for additional evaluation is recommended. 07/03/2020 13:51 EST [facility] Blood VENOUS BLOOD / Unknown 06/27/2020 11:33 EST 06/28/2020 16:08 EST us Provider Outr Resulting Lab IMMUNOLOGY AND SEROL OGY ORDERABLES Final Result Performing Organization Address City/State/[facility] Co de Phone Number [facility] [address] [place] [address] documented in this encounter Visit Diagnoses Not on filedocumented in this encounter Care Teams Refinery Operator Reforming Unit Relationship Specialty Start Date End Date Deandra Ramos MD [address] [place] [phone] PCP - General 12/15/09 06/23/22 Baltazar Gaines MD [address] [place], [place] [phone] PCP - General 06/24/22 documented as of this encounter
--- OUTSIDE RECORDS SUMMARY | 2024-06-16 13:25 | XMS_ITS | Encounter Summary ---
Author Organization [facility] Address [address] [place] [address] Care Team Providers Care Manager Web Name Role Phone Deandra Ramos MD Primary Care Provider [phone] Reason for Visit * Reason Onset Date Comments Follow-up 02/14/2014 Encounter Details Date Type Department Care Team (Late st Contact Info) Description 02/14/[address] [facility] Pediatric Cardiology - [address] [phone] Luzma Neri MD Follow-up Social History Tobacco [...] notes have now been faxed over to [phone]. * Telephone Encounter - Lester Sanders - 02/14/2014 1555 EDT Checking on the notes that were to be faxed to their office: [phone] documented in this encounter Plan of Treatment Not on file documented as of this encounter Visit Diagnoses Not on filedocumented in this encounter Care Teams Manager Web Relationship Specialty Start Date End Date Deandra Ramos MD [address] [place] [address] PCP - General 12/15/09 06/23/22 documented as of this encounter
--- OUTSIDE RECORDS SUMMARY | 2024-06-16 13:25 | XMS_ITS | Encounter Summary ---
Author Organization [facility] Address [address] [place] [address] Care Team Providers Care Painting Technician Name Role Phone Baltazar Gaines MD Primary Care Provide r Reason for Referral * Cardiology (Routine/Next Available) - Closed Specialty Diagnoses / Procedures Referred By Contac t Referred To Contact Diagnoses H/O congenital atrial septal defect (ASD) repair Adult congenital heart disease Procedures CONGENITAL TRANSTHORACIC ECHO (TTE) COMPLETE IN ECHO XTHORACIC,KENNY ANOM,COMPLETE Sánchez Leon MD Phone: tel: fax: [facility] Referral ID Status Reason Start Date Expiration Date Visits Re quested Visits Authorized [id number] Closed 07/24/2022 1 1 Encounter Details Date Type Department Care Team (Late st Contact Info) Description 07/24/2022 Orders Only [facility] Cardiology - [address] [place] [address] Sánchez Leon MD [address] [place] [address] [address] [place] [address] H/O congenital atrial septal defect (ASD) [...] color Doppler.The study was interpreted by [facility]. Pertinent images and digital data are archived for permanent storage and are available for subsequent review. Scanning was performed from the apical, parasternal, subcostal and suprasternal acoustic windows. Overall the study quality was adequate. The study was difficult due to patient body habitus. Images were obtained using cardiac ultrasound machine EPIQ #12. us Sánchez Leon MD CARDIAC ECHO ORDERABLE S Final Result documented in this encounter Visit Diagnoses Diagnosis H/O congenital atrial septal defect (ASD) repair- Primary Adult congenital heart disease Unspecified congenital anomaly of heart H/O congenital atrial septal defect (ASD) repair Adult congenital heart disease Unspecified congenital anomaly of heart documented in this encounter Care Teams Painting Technician Relationship Specialty Start Date End Date Baltazar Gaines MD [address] [place] [address] [address] [place] [address] PCP - General 06/24/22 documented as of this encounter
--- OUTSIDE RECORDS SUMMARY | 2024-06-16 13:25 | XMS_ITS | Encounter Summary ---
Author Organization [facility] Address [address] [place] [address] Care Team Providers Care Machine Tool Rebuilder Name Role Phone Deandra Ramos MD Primary Care Provider [phone] Reason for Referral * Referral (Other (Specify in Question)) - Closed Specialty Diagnoses / Procedures Referred By Contact Referred To Contact Cardiovascular Disease / Cardiology Diagnoses Mitral regurgitation, congenital Status post patch closure of atrial septal defect S/P repair of PDA Luzma Neri MD Hopkins, Sánchez Ma MD Phone: tel: fax: Referral ID Status Reason Start Date Expiration Date V isits Requested Visits Authorized [id number] Closed Specialty Services Required 06/12/2020 1 1 Question Answer Reason for Request: transition to Dr. Leon dx: MR, hx PDA & ASD repair Scheduling Comments (optional ? describe specific scheduling needs if applicable): 3 years - 04/2023 Reason for Visit * Reason Onset Date Comments Referral Request 06/12/2020 Encounter Details Date Type Department Care Team (Late st Contact Info) Description 06/12/2020 Telephone [facility] Pediatric [place] [address] Arlin Cardoza, BETY [address] [place] [address] Referral Request Social History Tobacco Use Types [...] RN - 06/12/[address] Neir, f/u in [address] Leon. [...] status documented in this encounter Care Teams Machine Tool Rebuilder Relationship Specialty Start Date End Date Deandra Ramos MD [address] [place] [address] PCP - General 12/15/09 06/23/22 documented as of this encounter
--- OUTSIDE RECORDS SUMMARY | 2024-06-16 13:25 | XMS_ITS | Encounter Summary ---
Author Organization [facility] Address [address] [place] [address] Care Team Providers Care Buffer Automatic Name Role Phone Baltazar Gaines MD Primary Care Provide r Reason for Visit * Reason Comments New Patient Visit Rectal prolapse sinc e 05/04/22 * Referral (Urgent) - Receiving Office to Obtain Authorization Specialty Diagnoses / Procedures Referred By Contac t Referred To Contact Pelvic Medicine Diagnoses Rectal prolapse Baltazar Gaines MD [address] [place] [address] Phone: tel: fax: [facility] Pelvic Medicine and Reconstructive Surgery - Medical Office [address] [address] Phone: tel: fax: Referral ID Status Reason Start Date Expiration Date Visits Requested Visits Authorized [id number] Receiving Office to Obtain Authorization 1 1 Encounter Details Date Type Department Care Team (Late st Contact Info) Description 06/24/2022 16:00 EST Office Visit [facility] Pelvic Medicine and Reconstructive Surgery - Medical Office [address] [address] Getachew Forrest MD [address] [facility], [address] [place] [phone] Rectal prolapse (Primary Dx) Social History Tobacco [...] included. 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 ASD REPAIR 08/25/97 Dr. Gonzalez @ [facility] This was performed with a [...] ??? Heart Disease Other has had two LA's ??? High Blood Pressure Maternal Grandfather ??? [...] may reflect changes made after this encounter. UNABLE TO FIND 2 times daily. Med Name: Airborne Immune Support psyllium husk (METAMUCIL ORAL) Take by mouth. 1 tea daily added in this encounter Care Teams Buffer Automatic Relationship Specialty Start Date End Date Baltazar Gaines MD [address] [place] [address] PCP - General 06/24/22 documented as of this encounter
--- OUTSIDE RECORDS SUMMARY | 2024-06-16 13:25 | XMS_ITS | Encounter Summary ---
Author Organization [facility] Address [address] [place] [address] Care Team Providers Care Lump Receiver Name Role Phone Deandra Ramos MD Primary Care Provider [phone] Encounter Details Date Type Department Care Team [...] on filedocumented in this encounter Care Teams Lump Receiver Relationship Specialty Start Date End Date Deandra Ramos MD [address] [place] [phone] PCP - General 12/15/09 06/23/22 documented as of this encounter
--- OUTSIDE RECORDS SUMMARY | 2024-06-16 13:25 | XMS_ITS | Encounter Summary ---
Author Organization [facility] Address [address] [place] [address] Care Team Providers Care Substance Abuse Therapist Name Role Phone Baltazar Gaines MD Primary Care Provide r Encounter Details Date Type Department Care Team (Late st Contact Info) Description 10/28/2022 Telephone [facility] Pelvic Medicine and Reconstructive Surgery - Medical Office [facility] [address] [place] [address] Getachew Forrest MD [address] [facility], [address] [place] [address] Social History Tobacco Use Types [...] on filedocumented in this encounter Care Teams Substance Abuse Therapist Relationship Specialty Start Date End Date Baltazar Gaines MD 4 [facility] [address] [place] [address] PCP - General 06/24/22 documented as of this encounter
--- OUTSIDE RECORDS SUMMARY | 2024-06-16 13:25 | XMS_ITS | Encounter Summary ---
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) VSD (ventricular septal defect) Procedures CONGENITAL ECHOCARDIOGRAM Luzma Singh MD Referral ID Status Reason Start Date Expiration Date Visits Re quested Visits Authorized [id number] Closed 05/24/2016 1 1 Reason for Visit [...] Info) Description 05/24/2016 9:00 EST Office Visit [facility] Pediatric Cardiology - [facility] [address] [place], [place] [address] Luzma Singh MD ASD secundum (Primary Dx); [...] Notes * Luzma Singh MD - 05/24/2016 0900 EST Subjective: Patient ID: Juan Parker is [...] been no chest pains or dizzy sp ells and Juan's mother feels her activity level [...] ??? ASD REPAIR 08/25/97 [facility] This was performed with a [...] Heart Disease Other MGGM has had two GA's Provider High Blood Pressure Maternal Grandfather Provider [...] Stepfather's employment key carrier ??? Education Grade 12 ? ? Educational Aides 1-to-1 aide PT, OT & INFUSION NURSE at school ??? Reported academic performance Doing [...] BMI-for-age data using vitals from 05/24/2016. Normalized xdjouh-rhj-unllcqscm length data not available for patients older than 36 months. 2 %ile (Z= -2.00) based on [facility] 2-20 Years uniowhk-jbx-qih data using vitals from 05/24/2016. 39 %ile (Z= -0.28) based on CDC 2-20 Years pxtfeh-eyf-qup data using vitals from 05/24/2016. Extended Vitals [...] continued participation in physical activities. Enrollment in [facility]: Reviewed. Patient was enrolled in clinic. [...] Region Laterality Modality Other 05/31/2016 6:29 EST us Scan 2 Home Designer IMG OTHER IMAGING ORDERABLE S Final Result * ECG REPORT - SCANNED (05/28/2016 8:26 EST) 05/28/2016 8:26 EST us Scan 2 Home Designer PROCEDURE/MINOR SURGICAL OR DERABLES Final Result * CONGENITAL ECHOCARDIOGRAM (05/24/2016 10:44 EST) Anatomical Region Laterality Modality Other 05/24/2016 10:4 4 EST Narrative 05/24/2016 15:32 EST Pediatric Cardiology [address] [place] [address] Date of study: 05/24/2016 Transthoracic Echocardiogram Report [...] ?1.53m^2 Location: ? Echocardiography Laboratory Facility: ? [facility] Hydropulper Operator: ??Elyssa Strong Attending: ?Luzma Singh MD Referring: [...] was performed. Images were obtained using a Progeniq Genaro IE33 2 cardiac ultrasound machine. ??Blood [...] Singh MD - 05/24/2016 Pediatric Cardiology [address] [place] [address] Date of study: 05/24/2016 Transthoracic Echocardiogram Report [...] ) BSA: 1.53m^2 Location: Echocardiography Laboratory Facility: [facility] Hydropulper Operator: Elyssa Strong Attending: Luzma Singh MD Referring: [...] was performed. Images were obtained using a Progeniq Genaro IE33 2 cardiac ultrasound machine. Blood [...] signed by Luzma Singh MD 05/24/2016 15:31 us Luzma Singh MD CARDIAC ECHO ORDERABLES Fin al Result * EKG 12-LEAD (05/24/2016 9:16 EST) 05/24/2016 9:16 EST Narrative [facility] EKG - 05/24/2016 14:38 EST ? [facility] [place] [facility] Pediatric[facility] ? Test Date: ?2016-05-24 Pat Name: ? JUAN PARKER ?Department: ?? [id number] ? Room: ? Gender: ? F ?Boarder Hand: ?? [id number] : ?1995 ? Requested By: SAMANTHA ACOSTA JORGE Order Number: [id number] ?Reading MD: ?? LUZMA SINGH MD ? Measurements Intervals ?[place] ? Rate: ? 73 ? P: ?263 MS: ? 96 ? QRS: ?12 QRSD: ? [...] Date: 2016-05-24 Pat Name: JUAN PARKER Department: [id number] Room: Gender: F Boarder Hand: [id number] : 1995 Requested By: SAMANTHA PATEL Order Number: [id number] Reading MD: LUZMA SINGH MD Measurements Intervals [place] Rate: 73 P: 263 MS: 96 QRS: 12 QRSD: 87 T: 23 [...] On 05-24-16 14:38:15 EST by LUZMA TAI. 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
--- OUTSIDE RECORDS SUMMARY | 2024-06-16 13:25 | XMS_ITS | Encounter Summary ---
Author Organization [facility] Address [address] [place] [address] Care Team Providers Care Clergy Member Name Role Phone Deandra Ramos MD Primary Care Provider [phone] Reason for Visit * Reason Onset Date Comments Appointment Related 09/16/2019 Encounter Details Date Type Department Care Team (Late st Contact Info) Description 09/16/2019 Telephone [facility] Pediatric Cardiology - Main [place] [address] [place], [place] [phone] Luzma Neri MD Appointment Related Social History [...] on filedocumented in this encounter Care Teams Clergy Member Relationship Specialty Start Date End Date Deandra Ramos MD [address] [place] [phone] PCP - General 12/15/09 06/23/22 documented as of this encounter
--- OUTSIDE RECORDS SUMMARY | 2024-06-16 13:25 | XMS_ITS | Encounter Summary ---
Author Organization [facility] Address [address] [place] [address] Care Team Providers Care State Tested Nursing Assistant Name Role Phone Deandra Ramos MD Primary Care Provider [phone] Reason for Visit * Reason Onset Date Comments Follow-up 10/25/2014 Encounter Details Date Type Department Care Team (Late st Contact Info) Description 10/25/2014 Telephone [facility] Pediatric Cardiology - [address] [phone] Sally Jose RN Follow-up Social History Tobacco [...] - Sally Jose - 10/25/2014 1620 EDT [facility] office requesting medical documents from 08/2012 to present. Medical release obtained with parent having guardianship. Records mailed as requested. documented in this encounter Plan of Treatment Not on file documented as of this encounter Visit Diagnoses Not on filedocumented in this encounter Care Teams State Tested Nursing Assistant Relationship Specialty Start Date End Date Deandra Ramos MD [address] [place] [address] PCP - General 12/15/09 06/23/22 documented as of this encounter
--- OUTSIDE RECORDS SUMMARY | 2024-06-16 13:25 | XMS_ITS | Encounter Summary ---
Author Organization [facility] Address [address] [place] [address] Care Team Providers Care President & Ceo Name Role Phone Deandra Ramos MD Primary Care Provider [phone] Reason for Visit * Cardiology (Routine) - New Request Specialty Diagnoses / Procedures Referred By Camacho murray Referred To Contact Diagnoses Status post patch closure of atrial septal defect Mitral regurgitation, congenital S/P repair of PDA Procedures TRANSTHORACIC ECHO (TTE) COMPLETE Luzma Neri MD Referral ID Status Reason Start Date Expiration Date V isits Requested Visits Authorized [id number] New Request 04/04/2020 1 1 Encounter Details Date Type Department Care Team (Latest Contact Info) Description 04/04/2020 14:45 EST Ancillary Procedure [facility] Pediatric Cardiology - Main [place] [address] [place] [address] Status post patch closure of atrial septal [...] Narrative 04/04/2020 18:19 EST Pediatric Cardiology [address] [place] [address] Date of study: 04/04/2020 Transthoracic Echocardiogram Report [...] ?1.55m^2 Location: ? Echocardiography Laboratory Facility: ? [facility] Attending: ?Luzma Neri MD Referring: ?Luzma Neri [...] was performed. Images were obtained using a [employer] Epiq 16 cardiac ultrasound machine. ??Blood pressure: [...] Neri MD - 04/04/2020 Pediatric Cardiology [address] [place] [address] Date of study: 04/04/2020 Transthoracic Echocardiogram Report [...] ) BSA: 1.55m^2 Location: Echocardiography Laboratory Facility: [facility] Attending: Luzma Neri MD Referring: Luzma Neri MD [facility] Ordering: Luzma Neri MD Test start time: 03:00 PM. Test stop time: 03:40 PM. *PROCEDURE DATA* Procedure information: Pertinent images and digital data are archived for permanent storage and are available for subsequent review. Study status: Routine. Transthoracic echocardiography. M-mode, complete 2D, complete spectral Doppler, and color Doppler. Transthoracic echocardiography was performed. Images were obtained using a [employer] Epiq 16 cardiac ultrasound machine. Blood pressure: [...] signed by Luzma Neri MD 04/04/2020 18:19 us Luzma Neri MD CARDIAC ECHO ORDERABLES Fin al Result documented in this encounter Visit Diagnoses Diagnosis Status post patch closure of atrial septal defect Other postprocedural status Mitral regurgitation, congenital Congenital mitral insufficiency S/P repair of PDA Other postprocedural status documented in this encounter Care Teams President & Ceo Relationship Specialty Start Date End Date Deandra Ramos MD [address] [place] [address] PCP - General 12/15/09 06/23/22 documented as of this encounter
--- OUTSIDE RECORDS SUMMARY | 2024-06-16 13:25 | XMS_ITS | Encounter Summary ---
Author Organization [facility] Address [address] [place] [address] Care Team Providers Care Junior Marketing Associate Name Role Phone Deandra Ramos MD Primary Care Provider [phone] Reason for Visit * Reason Onset Date Comments Returning Call 06/28/2021 Encounter Details Date Type Department Care Team (Late st Contact Info) Description 06/28/2021 Telephone [facility] Pediatric Cardiology - Main [address] [address] Luzma Neri MD Returning Call Social History [...] week. Mother agreeable. * Telephone Encounter - Belenrocky Zoila - 06/28/2021 1353 EST Mom is calling to follow up on RN call from encounter dated 06/15. Please call Mom sometime this afternoon to discuss. documented in this encounter Plan of Treatment Not on file documented as of this encounter Visit Diagnoses Not on filedocumented in this encounter Care Teams Junior Marketing Associate Relationship Specialty Start Date End Date Deandra Ramos MD [address] [facility] [place] [place] [phone] PCP - General 12/15/09 06/23/22 documented as of this encounter
--- OUTSIDE RECORDS SUMMARY | 2024-06-16 13:26 | XMS_ITS | Encounter Summary ---
Author Organization [facility] Address [address] [place] [address] Care Team Providers Care Fishing Accessories Maker Name Role Phone Unavailable Primary Care Provider Unavailabl e Encounter Details Date Type Department Care Team (Late st Contact Info) Description 08/25/2006 Before PRISM Converted Visit (Maple) [facility] - Maple conversion [address] [place], [place] [address] Sánchez Skaggs MD [address] [facility], [address] [place] [address] Social History Tobacco Use Types Packs/Day Years Used Date Smoking Tobacco: Never Assessed Comments Unknown Sex and Gender Information Value Date Recorded [...] Signed by Sánchez Skaggs MD 08/31/2006 09:57 Annmarie Pacheco MD Sánchez Skaggs MD - Tereza Skaggs MD P - wlp Job ID: [id number] Document ID: [id number] cc: Rubio Augustin MD documented in this encounter Plan of Treatment Not on file documented as of this encounter Visit Diagnoses Not on filedocumented in this encounter
--- OUTSIDE RECORDS SUMMARY | 2024-06-16 13:26 | XMS_ITS | Encounter Summary ---
Author Organization [facility] Address [address] [place] [address] Care Team Providers Care Bead Trimmer Name Role Phone Unavailable Primary Care Provider Unavailabl e Encounter Details Date Type Department Care Team (Late st Contact Info) Description 05/23/2006 Before PRISM Converted Visit (Maple) [facility] - Maple conversion [address] [place] [address] Luzma Neri MD Social History Tobacco Use Types Packs/Day Years Used Date Smoking Tobacco: Never Assessed Comments Unknown Sex and Gender Information Value Date Recorded Sex Assigned at Not on file Legal Sex Female 18:10 EST Gender Identity Not on file Sexual Orientation Not on file documented as of this encounter Progress Notes * Luzma Neri MD - 05/21/2009 3313 EST PROGRESS/FOLLOWUP NOTE - 05/23/2006 Deandra Ramos MD [address] [place] [address] Ramos: I had the pleasure [...] comprehensive evaluation in the child development clinic [id number]. As you are aware, Alison has a [...] is now going to be seen at [facility] in several weeks for scoliosis surgery. In the meantimepartha has generally been well without pulmonary complications. [...] by Luzma Neri MD 06/02/2006 21:[address] [facility] [id number] Ann Drucker, MD Luzma Neri MD Division of Pediatric Cardiology [phone] - Neha Neri MD A - O1 Job ID: [id number] Document ID: [id number] cc: ERIK Miller *Frankie Thornton, [address], [place] [address]* *Rachel Santiago, [address], [place] [address]* documented in this encounter Plan of Treatment Not on file documented as of this encounter Visit Diagnoses Not on filedocumented in this encounter
--- OUTSIDE RECORDS SUMMARY | 2024-06-16 13:26 | XMS_ITS | Encounter Summary ---
Author Organization [facility] Address [address] [place] [address] Care Team Providers Care Technical Writing Lead/Mgr Name Role Phone Unavailable Primary Care Provider Unavailabl e Encounter Details Date Type Department Care Team (Late st Contact Info) Description 12/26/2006 Before PRISM Converted Visit (Maple) [facility] - Maple conversion [address] [place], [place] [address] Sánchez Skaggs MD [address] [facility], [address] [place] [address] Social History Tobacco Use Types [...] DIVISION OF OTOLARYNGOLOGY PROGRESS/FOLLOWUP NOTE - 12/26/2006 SUBJECTIVE Alison comes in today for routine follow up. [...] an upsloping bilateral hearing loss. Her speech concierge receptionist thresholds are 40 and 45 and bone conduction speech concierge receptionist threshold is 15dB. 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
--- OUTSIDE RECORDS SUMMARY | 2024-06-16 13:26 | XMS_ITS | Encounter Summary ---
Author Organization [facility] Address [address] [place] [address] Care Team Providers Care Technical Service Specialist Name Role Phone Deandra Ramos MD Primary Care Provider [phone] Reason for Visit * Reason Onset Date Comments MEDICATION CHECK 11/10/2012 Encounter Details Date Type Department Care Team (Late st Contact Info) Description 11/10/[address] [id number] Pradeep Castillo MD [address] [place] [address] [place] [phone] MEDICATION CHECK Social History [...] of this encounter Ordered Prescriptions Prescription Sig Dispense Quantity Refills Last Filled Start Date End Date mometasone (ELOCON) 0.1 % ointment Use topically as directed, one 45 gram tube 1 Tube 1 11/11/2012 0 documented in this encounter Miscellaneous Notes * Telephone Encounter - Lucho Leavitt RN - 11/11/2012 1456 EDT elecon oint per Dr. Castillo. * Telephone Encounter - Aneta Jonse - 11/10/2012 1356 EDT Mom states that she was asked to call back with a medication that the patient is on and it's [place]-cortisone cream 2.5%. documented in this encounter Plan of Treatment Not on file documented as of this encounter Visit Diagnoses Not on filedocumented in this encounter Care Teams Technical Service Specialist Relationship Specialty Start Date End Date Deandra Ramos MD [address] [place] [phone] PCP - General 12/15/09 06/23/22 documented as of this encounter
--- OUTSIDE RECORDS SUMMARY | 2024-06-16 13:26 | XMS_ITS | Encounter Summary ---
Author Organization [facility] Address [address] [place] [address] Care Team Providers Care Automatic I Threading Machine Feeder Name Role Phone Unavailable Primary Care Provider Unavailabl e Encounter Details Date Type Department Care Team (Late st Contact Info) Description 01/20/2007 Before PRISM Converted Visit (Maple) [facility] - Maple conversion [address] [place] [address] Rachel Díaz, LAURA [address] [phone] Social History Tobacco Use Types [...] 03/12/2009 0129 EST DIVISION OF DERMATOLOGY - [facility] PATIENT EVALUATION - 01/20/2007 SUBJECTIVE: This [...] Rachel Romero PA-C - SHASHANK Job ID: [id number] Doc ID: [id number] cc: ERIK Puckett MD [facility] Patrick N Keith, MD -SHASHANK Job ID: [id number] Doc ID: [id number] cc: ERIK Puckett MD [facility] Patrick N Keith, MD documented in this encounter
--- OUTSIDE RECORDS SUMMARY | 2024-06-16 13:26 | XMS_ITS | Encounter Summary ---
Author Organization [facility] Address [address] [place] [address] Care Team Providers Care Coder Operator Name Role Phone Deandra Silvestre MD Primary Care Provider [phone] Reason for Visit * Reason Comments Osteopenia Encounter Details Date Type Department Care Team (Late st Contact Info) Description 06/13/2010 10:30 EST Office Visit [facility] Pediatric Endocrinology - [address] [id number] Unknown, Provider, Rigoberto Booker, [address] [phone] Endo, Provider, [address] [place] [phone] Osteopenia (Primary Dx) Social History Tobacco Use [...] sling only Had DEXA scan performed at [facility] on 04/19/2010 because of the unknown [...] early James stage 3 and pubic hair Jamse stage 3 Data Review/Investigations: 04/19/10 DEXA performed at [facility] and reported using pediatric normative data DEXA [...] June 13, 2010 12:49:00 PM Clinical History/Comments: ??733.42-[id number] ?? Delayed puberty Findings: ??A single frontal view of the left hand and wrist is obtained for purposes of bone age. By date of of 1996, chronologic age is 14 years 9 months. The average bone age for a 14-year-old female, utilizing the [facility] study data, is 174.2 months + / [...] June 13, 2010 12:49:00 PM Clinical History/Comments: [id number] Delayed puberty Findings: A single frontal view of the left hand and wrist is obtained for purposes of bone age. By date of of 1996, chronologic age is 14 years 9 months. The average bone age for a 14-year-old female, utilizing the [facility] study data, is 174.2 months + / [...] metacarpal suggests possible underlying bony dysplasia. Rigoberto Knowles [facility] IMG DIAGNOSTIC IMAGING ORDERABLES Final Result * (ABNORMAL) IGA (06/13/2010 12:28 EST) Pathologist [facility] IgA 293(H) 45 - 237 mg/dl [facility] Blood specimen (specimen) 06/13/2010 12:28 EST 06/13/2010 12:30 EST Rigoberto Knowles [facility] CHEMISTRY & BL OOD GAS ORDERABLES Final Result Performing Organization Address [facility] Co de Phone Number [facility] [address] [place] [address] * TISSUE TRANSGLUTAMINASE ANTIBODY (06/13/2010 12:28 EST) [facility] Tissue Transglutaminase Ab 2.49 <15.01 U/ml [facility] Blood specimen (specimen) 06/13/2010 12:28 EST 06/13/2010 12:30 EST Rigoberto Knowles [facility] IMMUNOLOGY AND SEROLOGY ORDERABLES Final Result Performing Organization Address [facility] de Phone Number [facility] [address] [place] [address] * COMPREHENSIVE METABOLIC PANEL (CMP) (06/13/2010 12:28 EST) Pathologist [facility] Potassium 4.5 3.6 - 5.2 mEq/L G[facility]TT [...] LAB Creatinine 0.48 0.4 - 1.0 mg/dl [facility] GFR, Calculated Age <18 ml/min/1.7 3m2 [facility] BUN 12 7 - 18 mg/dl [facility] Calcium 9.5 8.5 - 10.5 mg/dl [facility] Calculated Calcium 9.3 8.5 - 10.5 mg/dl [facility] Glucose, Serum 71 70 - 100 mg/dl [facility] Fasting? No [facility] Blood specimen (specimen) 06/13/2010 12:28 EST 06/13/2010 12:30 EST Rigoberto Knowles [facility] CHEMISTRY & BL OOD GAS ORDERABLES Final Result Performing Organization Address [facility] de Phone Number [facility] [address] [place] [address] * HEMAGRAM (06/13/2010 12:28 EST) WBC 8.04 4.5 - 13.0 K/cmm [facility] RBC 4.88 4.10 - 5.10 M/cmm [facility] Hemoglobin 14.6 12.0 - 16.0 gm/dl [facility] HCT 42.8 36.0 - 46.0 % [facility] MCV 88 78 - 102 fl [facility] MCH 29.8 pg [facility] MCHC 34.0 gm/dl [facility] PLT 263 156 - 312 K/cmm [facility] RDW-CV 15.3 % [facility] Blood specimen (specimen) 06/13/2010 12:28 EST 06/13/2010 12:30 EST Rigoberto Knowles [facility] HEMATOLOGY & P F4 ORDERABLES Final Result Performing Organization Address [facility] de Phone Number [facility] [address] [place] [address] * PHOSPHORUS (06/13/2010 12:28 EST) Phosphorus 5.0 3.3 - 5.4 mg/dl [facility] Blood specimen (specimen) 06/13/2010 12:28 EST 06/13/2010 12:30 EST Rigoberto Knowles [facility] CHEMISTRY & BL OOD GAS ORDERABLES Final Result Performing Organization Address [facility] de Phone Number [facility] [address] [place] [address] * VITAMIN D (25,OH) (06/13/2010 12:28 EST) 25OH Vitamin D Tot 28.4 ng/ml [facility] Comment: Reference Range: <10 ng/ml: Deficient 10-30 ng/ml: Insufficient 30-100 ng/ml: Sufficient >100 ng/ml: Toxic Blood specimen (specimen) 06/13/2010 12:28 EST 06/13/2010 12:30 EST Rigoberto Knowles [facility] CHEMISTRY & BL OOD GAS ORDERABLES Final Result Performing Organization Address [facility] de Phone Number [facility] [address] [place] [address] * ESTRADIOL (06/13/2010 12:28 EST) Pathologist [facility] Estradiol 48 pg/ml [facility] Comment: By day in cycle relative to LH peak: Follicular Phase (-12 to -4 days): ?? 20-144 Midcycle (-3 to +2 days): ? 64-357 Luteal Phase (+4 to +12 days): ??56-214 Postmenopausal: ??0 - 32 New Enhanced Estradiol reagent in use 05/15/10. Blood specimen (specimen) 06/13/2010 12:28 EST 06/13/2010 12:30 EST Rigoberto Knowles [facility] CHEMISTRY & BL OOD GAS ORDERABLES Final Result Performing Organization Address [facility] de Phone Number [facility] [address] [place] [address] * FSH (06/13/2010 12:28 EST) FSH 4.7 mIU/ml [facility] Comment:Follicular: 2-11 Mid -Cycle Peak: 3.4-35 Luteal: 1-9 Postmenopausal: 25-120 Blood specimen (specimen) 06/13/2010 12:28 EST 06/13/2010 12:30 EST Rigoberto Knowles [facility] CHEMISTRY & BL OOD GAS ORDERABLES Final Result Performing Organization Address [facility] Co de Phone Number [facility] [address] [place] [address] * LH (06/13/2010 12:28 EST) LH 2.4 mIU/ml [facility] Comment:Follicular: 1-18 Mid -Cycle Peak: 15-80 Luteal: 0.5-18 Postmenopausal: 12-55 Blood specimen (specimen) 06/13/2010 12:28 EST 06/13/2010 12:30 EST Rigoberto Knowles [facility] CHEMISTRY & BL OOD GAS ORDERABLES Final Result Performing Organization Address [facility] Co de Phone Number [facility] [address] [place] [address] * T4 FREE (06/13/2010 12:28 EST) Free T4 1.3 0.8 - 1.5 ng/dL [facility] Blood specimen (specimen) 06/13/2010 12:28 EST 06/13/2010 12:30 EST Rigoberto Knowles [facility] CHEMISTRY & BL OOD GAS ORDERABLES Final Result Performing Organization Address [facility] Co de Phone Number [facility] [address] [place] [address] * TSH (06/13/2010 12:28 EST) TSH 1.97 0.35 - 5.00 uIU/ml [facility] Blood specimen (specimen) 06/13/2010 12:28 EST 06/13/2010 12:30 EST Rigoberto Knowles [facility] CHEMISTRY & BL OOD GAS ORDERABLES Final Result [facility] [address] [place] [address] documented in this encounter Visit Diagnoses Diagnosis Osteopenia- Primary Disorder of bone and cartilage, unspecified documented in this encounter Historical Medications * This list may reflect changes made after this encounter. CALCIUM CARBONATE/VITAMIN D3 (CALCIUM + D ORAL) Take by mouth. 750mg Calcium 500IU Vit D 06/15/2010 added in this encounter Care Teams Coder Operator Relationship Specialty Start Date End Date Deandra Silvestre MD [address] [facility] [place] [address] PCP - General 12/15/09 06/23/22 documented as of this encounter
--- OUTSIDE RECORDS SUMMARY | 2024-06-16 13:26 | XMS_ITS | Encounter Summary ---
Author Organization [facility] Address [address] [place] [address] Care Team Providers Care Imaging Engineer Name Role Phone Unavailable Primary Care Provider Unavailabl e Encounter Details Date Type Department Care Team (Late st Contact Info) Description 05/11/2008 Before PRISM Converted Visit (Maple) [facility] - Maple conversion [address] [place] [address] Luzma Neri MD Social History Tobacco Use [...] 05/11/2008 May 11, 2008 Rubio [place] [address] Augustin: I had the pleasure [...] due to be seen next week at [facility] for surgery for her scoliosis. According to her family, every 6 months or so, she has lengthening of the spinal hernan. There has been a nice improvement in [...] wave changes. There was a mildly short HI interval and upper normal QT corrected interval.No [...] over 50% of the time was spent [id number] on counseling and managing care as described above. Signed by Luzma Neri MD 05/23/2008 10:24 Luzma Neri MD Division of Pediatric Cardiology [phone] - Luzma Neri MD A - SHASHANK Job ID: [id number] Doc ID: [id number] cc: Rubio Augustin MD [facility]* Dr. Skaggs, [facility], [place], [place] * documented in this encounter Plan of Treatment Not on file documented as of this encounter Visit Diagnoses Not on filedocumented in this encounter
--- OUTSIDE RECORDS SUMMARY | 2024-06-16 13:26 | XMS_ITS | Encounter Summary ---
Author Organization [facility] Address [address] [place] [address] Care Team Providers Care Electronics Mechanic Apprentice Name Role Phone Unavailable Primary Care Provider Unavailabl e Encounter Details Date Type Department Care Team (Late st Contact Info) Description 03/04/2007 9:41 EDT Hospital Encounter [facility] [address] [place] [address] Ginette Lobo MD [address] [facility], [address] [place] [address] Social History Tobacco Use Types [...]
--- OUTSIDE RECORDS SUMMARY | 2024-06-16 13:26 | XMS_ITS | Encounter Summary ---
Author Organization [facility] Address [address] [place] [address] Care Team Providers Care Behavioral Analyst Name Role Phone Unavailable Primary Care Provider Unavailabl e Encounter Details Date Type Department Care Team (Late st Contact Info) Description 03/07/2006 Before PRISM Converted Visit (Maple) [facility] - Maple conversion [address] [place], [place] [address] Sánchez Skaggs MD [address] [facility], [address] [place] [address] Social History Tobacco Use Types [...] Signed by Sánchez Skaggs MD 03/14/2006 14:36 Annmarie Pacheco MD Sánchez Skaggs MD - Tereza Skaggs MD P - wlp Job ID: [id number] Document ID: [id number] cc: Rubio Augustin MD documented in this encounter Plan of Treatment Not on file documented as of this encounter Visit Diagnoses Not on filedocumented in this encounter
--- OUTSIDE RECORDS SUMMARY | 2024-06-16 13:26 | XMS_ITS | Encounter Summary ---
Author Organization [facility] Address [address] [place] [address] Care Team Providers Care Electric Welder Name Role Phone Deandra Ramos MD Primary Care Provider [phone] Baltazar Gaines MD Primary Care Provide r Reason for Visit * Reason Comments Other Encounter Details Date Type Department Care Team (Late st Contact Info) Description 05/01/2011 Refill [facility] Pediatric Endocrinology - [facility] [address] [place], [place] [address] [facility] [address] [place] [phone] Other Social History Tobacco Use Types Packs/Day Years Used Date Smoking Tobacco: Never Alcohol Use Standard Drinks/Week Comments No 0 (1 standard drink = 0.6 oz pur e alcohol) ? exposure at dad's house Comments No Sex and Gender Information Value Date Recorded Sex Assigned at Not on file Legal Sex Female 18:10 EST Gender Identity Not on file Sexual Orientation Not on file documented as of this encounter Plan of Treatment Not on file documented as of this encounter Visit Diagnoses Not on filedocumented in this encounter Care Teams Electric Welder Relationship Specialty Start Date End Date Deandra Ramos [place] [phone] PCP - General 12/15/09 06/23/22 Baltazar Gaines MD [address] [facility] [address] [place] [address] PCP - General 06/24/22 documented as of this encounter
--- OUTSIDE RECORDS SUMMARY | 2024-06-16 13:26 | XMS_ITS | Encounter Summary ---
Author Organization [facility] Address [address] [place] [address] Care Team Providers Care Transportation Economics Teacher Name Role Phone Unavailable Primary Care Provider Unavailabl e Encounter Details Date Type Department Care Team (Late st Contact Info) Description 11/20/2005 Before PRISM Converted Visit (Maple) [facility] - Maple conversion [address] [place], [place] [address] Sánchez Skaggs MD [address] [facility], [address] [place] [address] Social History Tobacco Use [...] Signed by Sánchez Skaggs MD 11/28/2005 10:56 Annmarie Pacheco MD Sánchez Skaggs MD - Sánchez Skaggs MD P - wlp Job ID: [id number] Document ID: [id number] cc: Rubio Augustin MD documented in this encounter Plan of Treatment Not on file documented as of this encounter Visit Diagnoses Not on filedocumented in this encounter
--- OUTSIDE RECORDS SUMMARY | 2024-06-16 13:26 | XMS_ITS | Encounter Summary ---
Author Organization [facility] Address [address] [place] [address] Care Team Providers Care Machine Operator Picker Name Role Phone Deandra Ramos MD Primary Care Provider [phone] Encounter Details Date Type Department Care Team (Late st Contact Info) Description 06/13/2010 12:11 EST - 06/13/2010 23:59 EST Hospital Encounter [facility] - [address] [address] Rigoberto Donaldson [facility] [address] [place] [phone] Osteopenia Discharge Disposition: Auto Discharge Social History Tobacco Use Types Packs/Day Years Used Date Smoking Tobacco: Never Assessed Comments Unknown Sex and Gender Information Value Date Recorded Sex Assigned at Not on file Legal Sex Female 18:10 EST Gender Identity Not on file Sexual Orientation Not on file documented as of this encounter Medications at Time of Discharge CALCIUM CARBONATE/VITAMIN D3 (CALCIUM + D ORAL) [...] Results * (ABNORMAL) IGA (06/13/2010 12:28 EST) IgA 293(H) 45 - 237 mg/dl [facility] Blood specimen (specimen) 06/13/2010 12:28 EST 06/13/2010 12:30 EST Rigoberto Donaldson [facility] CHEMISTRY & BL OOD GAS ORDERABLES Final Result Performing Organization Address [facility] Co de Phone Number [facility] [address] [place] [address] * TISSUE TRANSGLUTAMINASE ANTIBODY (06/13/2010 12:28 EST) Tissue Transglutaminase Ab 2.49 <15.01 U/ml [facility] Blood specimen (specimen) 06/13/2010 12:28 EST 06/13/2010 12:30 EST Rigoberto Donaldson [facility] IMMUNOLOGY AND SEROLOGY ORDERABLES Final Result Performing Organization Address City/[facility]/ZIP Co de Phone Number [facility] [address] [place] [address] * COMPREHENSIVE METABOLIC PANEL (CMP) (06/13/2010 12:28 [...] 100 mg/dl [facility] Fasting? No [facility] Blood specimen (specimen) 06/13/2010 12:28 EST 06/13/2010 12:30 EST Rigoberto Donaldson [facility] CHEMISTRY & BL OOD GAS ORDERABLES Final Result [facility] [address] [place] [address] * HEMAGRAM (06/13/2010 12:28 EST) WBC 8.04 4.5 - 13.0 K/cmm [facility] RBC 4.88 4.10 - 5.10 M/cmm [facility] Hemoglobin 14.6 12.0 - 16.0 gm/dl [facility] HCT 42.8 36.0 - 46.0 % [facility] MCV 88 78 - 102 fl [facility] MCH 29.8 pg [facility] MCHC 34.0 gm/dl [facility] PLT 263 156 - 312 K/cmm [facility] RDW-CV 15.3 % [facility] Blood specimen (specimen) 06/13/2010 12:28 EST 06/13/2010 12:30 EST Rigoberto Donaldson [facility] HEMATOLOGY & P F4 ORDERABLES Final Result Performing Organization Address [facility] Co de Phone Number [facility] [address] [place] [address] * PHOSPHORUS (06/13/2010 12:28 EST) [facility] Phosphorus 5.0 3.3 - 5.4 mg/dl [facility] Blood specimen (specimen) 06/13/2010 12:28 EST 06/13/2010 12:30 EST Rigoberto Donaldson [facility] CHEMISTRY & BL OOD GAS ORDERABLES Final Result Performing Organization Address [facility] de Phone Number [facility] [address] [place] [address] * VITAMIN D (25,OH) (06/13/2010 12:28 EST) [facility] 25OH Vitamin D Tot 28.4 ng/ml [facility] Comment: Reference Range: <10 ng/ml: Deficient 10-30 ng/ml: Insufficient 30-100 ng/ml: Sufficient >100 ng/ml: Toxic Blood specimen (specimen) 06/13/2010 12:28 EST 06/13/2010 12:30 EST Rigoberto Donaldson [facility] CHEMISTRY & BL OOD GAS ORDERABLES Final Result Performing Organization Address [facility] de Phone Number [facility] [address] [place] [address] * ESTRADIOL (06/13/2010 12:28 EST) Pathologist [facility] Estradiol 48 pg/ml [facility] Comment: By day in cycle relative to LH peak: Follicular Phase (-12 to -4 days): ?? 20-144 Midcycle (-3 to +2 days): ? 64-357 Luteal Phase (+4 to +12 days): ??56-214 Postmenopausal: ??0 - 32 New Enhanced Estradiol reagent in use 05/15/10. Blood specimen (specimen) 06/13/2010 12:28 EST 06/13/2010 12:30 EST Rigoberto Donaldson [facility] CHEMISTRY & BL OOD GAS ORDERABLES Final Result Performing Organization Address [facility] de Phone Number [facility] [address] [place] [address] * FSH (06/13/2010 12:28 EST) FSH 4.7 mIU/ml [facility] Comment:Follicular: 2-11 Mid -Cycle Peak: 3.4-35 Luteal: 1-9 Postmenopausal: 25-120 Blood specimen (specimen) 06/13/2010 12:28 EST 06/13/2010 12:30 EST Rigoberto Donaldson [facility] CHEMISTRY & BL OOD GAS ORDERABLES Final Result Performing Organization Address [facility] de Phone Number [facility] [address] [place] [address] * LH (06/13/2010 12:28 EST) LH 2.4 mIU/ml [facility] Comment:Follicular: 1-18 Mid -Cycle Peak: 15-80 Luteal: 0.5-18 Postmenopausal: 12-55 Blood specimen (specimen) 06/13/2010 12:28 EST 06/13/2010 12:30 EST Rigoberto Donaldson [facility] CHEMISTRY & BL OOD GAS ORDERABLES Final Result Performing Organization Address [facility] de Phone Number [facility] [address] [place] [address] * T4 FREE (06/13/2010 12:28 EST) Free T4 1.3 0.8 - 1.5 ng/dL [facility] Blood specimen (specimen) 06/13/2010 12:28 EST 06/13/2010 12:30 EST Rigoberto Perdomo Lambert Lawsonro [facility] CHEMISTRY & BL OOD GAS ORDERABLES Final Result Performing Organization Address [facility] Co de Phone Number [facility] [address] [place] [address] * TSH (06/13/2010 12:28 EST) TSH 1.97 0.35 - 5.00 uIU/ml [facility] Blood specimen (specimen) 06/13/2010 12:28 EST 06/13/2010 12:30 EST Rigoberto Donaldson [facility] CHEMISTRY & BL OOD GAS ORDERABLES Final Result Performing Organization Address [facility] de Phone Number [facility] [address] [place] [address] documented in this encounter Visit Diagnoses Diagnosis Osteopenia Disorder of bone and cartilage, unspecified documented in this encounter Care Teams Machine Operator Picker Relationship Specialty Start Date End Date Deandra Ramos MD [address] [place] [phone] PCP - General 12/15/09 06/23/22 documented as of this encounter
--- OUTSIDE RECORDS SUMMARY | 2024-06-16 13:26 | XMS_ITS | Encounter Summary ---
Author Organization [facility] Address [address] [place] [address] Care Team Providers Care Mutual Fund Sales Agent Name Role Phone Unavailable Primary Care Provider Unavailabl e Encounter Details Date Type Department Care Team (Late st Contact Info) Description 01/29/2006 Before PRISM Converted Visit (Maple) [facility] - Maple conversion [address] [place], [place] [address] Sánchez Skaggs MD [address] [facility], [address] [place] [address] Social History Tobacco Use Types [...] 10:27 Annmarie Pacheco MD Sánchez Skaggs MD - Tereza Skaggs MD P - wlp Job ID: [id number] Document ID: [id number] cc: Rubio Augustin MD * Sánchez Skaggs [...] Skaggs MD A - wlp Job ID: [id number] Document ID: [id number] cc: Rubio Augustin MD documented in this encounter Plan of Treatment Not on file documented as of this encounter Visit Diagnoses Not on filedocumented in this encounter
--- OUTSIDE RECORDS SUMMARY | 2024-06-16 13:26 | XMS_ITS | Encounter Summary ---
Author Organization [facility] Address [address] [place] [address] Care Team Providers Care Distribution Manager Name Role Phone Deandra Ramos MD Primary Care Provider [phone] Reason for Referral * Cardiology (Routine) - Closed Specialty Diagnoses / Procedures Referred By Camacho murray Referred To Contact Cardiology / Pediatric Cardiology Diagnoses ASD (atrial septal defect) Procedures CONGENITAL ECHOCARDIOGRAM AR ECHO XTHORACIC,KENNY ANOM,COMPLETE AR DOPPLER ECHO HEART,COMPLETE AR DOPPLER COLOR FLOW VELOCITY MAP Luzma Singh MD [facility] [address] [address] Phone: tel: fax: Referral ID Status Reason Start Date Expiration Date Visits Re quested Visits Authorized [id number] Closed 01/31/2014 1 1 Reason for Visit * Reason Comments 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 Mild M.R. Hx. of scoliosis, mult. surgeries. No new health history to report. Has gym class at school, no sports or other physical activity. Encounter Details Date Type Department Care Team (Late st Contact Info) Description 01/31/2014 12:00 [place] [address] Luzma Singh MD ASD (atrial septal defect) [...] 84.00% 01/31/2014 121 4 EDT Growth Chart: [facility] (Girls, 2- 20 Years) documented in this encounter Discharge Diagnoses Diagnosis 745.5 SECUNDUM ATRIAL SEPT DEF[ICD-9-CM] documented in this encounter Discharge Disposition Disposition Code Departure Means Destination Auto Discharge documented in this encounter Progress Notes * Luzma Singh MD - 01/31/20142010 EDT Subjective: Patient ID: Juan Parker is an 18 y.o. female. Chief Complaint Patient presents with ??? 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 Mild M.R. Hx. of scoliosis, mult. surgeries. No new health history to report. Has gym class at school, no sports or other physical activity. HPIAlysmarylu has generally been well with no change [...] ??? Asd repair 08/25/97 Dr. Gonzalez @ [facility] This was performed with a pericardial patch [...] Heart Disease Other MGGM has had two [place]'s Provider Recurrent Fractures Neg Hx Provider Osteoporosis [...] Osiel Cooper mother's partner ??? Stepfather's employment shank carrier ??? Education Grade 11 ? ? 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 Reported academic performance Doing [...] on CDC 2-20 Years BMI-for-age data. Normalized ckuyzi-ftn-lsaupdhsl length data available only for age 0 to 36 months. 2%ile (Z=-2.06) based on CDC 2-20 Years znplqit-shr-ucn data. 53%ile (Z=0.09) based on CDC 2-20 Years ceswre-hyt-lhl data. No flowsheet data found. Physical Exam [...] SCANNED (02/02/2014 9:56 EDT) 02/02/2014 9:56 EDT us Scan 2 Clinical Sociologist PROCEDURE/MINOR SURGICAL OR DERABLES Final Result * CONGENITAL ECHOCARDIOGRAM (01/31/2014 12:35 EDT) Anatomical Region Laterality Modality Other 01/31/2014 12:3 5 EDT Narrative 02/01/2014 15:22 EDT Patient Name: JUAN PARKER Chart Number: [id number] Site Location: Date of Appt: Friday, January 31, 2014, 12:35 PM Pediatric Echocardiogram Report Demographics and Visit Data: : 1995. ??Age: 18y/5m/12d. ??Sex: F. ??BSA (m 2): 1.55. ?? Height (cm): 149.7. ??Weight (kg): 56.4. ??BMI (kg/m 2): 25.17. ?? Height Centile: 1.32. ??Weight Centile: 48.29. ??Person requesting test: EL COWART MD. ?? Network Intelligence Analyst: Linda Baeza. ??Reason for test: 745.5-Ostium secundum type atrial septal gaztap-JZH-7-CM; ASD repair. ?? 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 [...] valve is mildly thickened with leaflets that supervisor die casting towards the left atrium with no mitral [...] (using Diameter) ?2.43 ? cm 2 ? Costilla's Name: LUZMA SINGH MD Date/time of reading: Feb 01 2014 - 3:21:12 PM Report created at 3:23:01 PM on Saturday, February 01, 2014 Report Number: Note:Study interpreted at [facility] unless otherwise noted Procedure Note 02/01/2014 Patient Name: JUAN PARKER Chart Number: [id number] Site Location: Date of Appt: Friday, January 31, 2014, 12:35 PM Pediatric Echocardiogram Report Demographics and Visit Data: : 1995. Age: 18y/5m/12d. Sex: F. BSA (m 2): 1.55. Height (cm): 149.7. Weight (kg): 56.4. BMI (kg/m 2): 25.17. Height Centile: 1.32. Weight Centile: 48.29. Person requesting test: EL COWART MD. Network Intelligence Analyst: Linda Baeza. Reason for test: 745.5-Ostium secundum type atrial septal kgqfyc-DAT-2-CM; ASD repair. 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 LSVC. [...] valve is mildly thickened with leaflets that supervisor die casting towards the left atrium with no mitral [...] AV Area (using Diameter) 2.43 cm 2 Costilla's Name: LUZMA SINGH MD Date/time of reading: Feb 01 2014 - 3:21:12 PM Report created at 3:23:01 PM on Saturday, February 01, 2014 Report Number: Note:Study interpreted at [facility] unless otherwise noted us Luzma Singh MD CARDIAC ECHO ORDERABLES Fin al Result * EKG 12-LEAD (01/31/2014 12:17 EDT) 01/31/2014 12:1 7 EDT Narrative [facility] EKG - 01/31/2014 20:38 EDT ?[facility] ? Test Date: ?2014-01-31 Pat Name: ? JUAN PARKER ?Department: ?? Pedi-Card ? Room: ? Gender: ? F ?Screen Vent Binder: ?? [id number] : ?1995 ? Requested By: LUZMA SINGH MD Order Number: [id number] ?Reading : ?? LUZMA SINGH MD ? Measurements Intervals ?[place] ? Rate: ? 69 ? P: ?6 AR: ? 93 ? QRS: ?14 QRSD: ? [...] JUAN PARKER Department: Pedi-Card Room: Gender: F Screen Vent Binder: [id number] : 1995 Requested By: LUZMA SINGH MD Order Number: [id number] Reading MD: LUZMA SINGH MD Measurements Intervals [place] Rate: 69 P: 6 AR: 93 QRS: 14 QRSD: 86 T: 24 QT: 389 QTc: 418 Interpretive Statements SINUS RHYTHM mild interventricular conduction delay Compared to ECG 05/29/2012 08:49:08 No significant changes I reviewed the tracing and agreed or edited the report. ElectronicallySigned On 01-31-14 20:38:58 EDT by LUZMA SINGH MD. Luzma Singh MD CARDIAC ECG ORDERABLES Sandra lilly Result FA EKG documented in this encounter Visit Diagnoses [...] may reflect changes made after this encounter. PEG 3350-Electrolytes (MIRALAX) 17 gram packet Take 17 g by mouth daily as needed. added in this encounter Care Teams Distribution Manager Relationship Specialty Start Date End Date Deandra Ramos MD [address] [place] [phone] PCP - General 12/15/09 06/23/22 documented as of this encounter
--- OUTSIDE RECORDS SUMMARY | 2024-06-16 13:26 | XMS_ITS | Encounter Summary ---
Author Organization [facility] Address [address] [place] [address] Care Team Providers Care Batter Mixer Name Role Phone Unavailable Primary Care Provider Unavailabl e Encounter Details Date Type Department Care Team (Late st Contact Info) Description 07/09/2007 Before PRISM Converted Visit (Maple) [facility] - Maple conversion [address] [place], [place] [address] Sánchez Skaggs MD [address] [facility], [address] [place] [address] Social History Tobacco Use Types [...] Sánchez Skaggs MD - K[facility] Job ID: [id number] Doc ID: [id number] cc: Rubio Augustin MD documented in this encounter Plan of Treatment Not on file documented as of this encounter Visit Diagnoses Not on filedocumented in this encounter
--- OUTSIDE RECORDS SUMMARY | 2024-06-16 13:26 | XMS_ITS | Encounter Summary ---
Author Organization [facility] Address [address] [place] [address] Care Team Providers Care Magistrate Judge Name Role Phone Deandra Ramos MD Primary Care Provider [phone] Reason for Visit * Reason Comments Heart [...] Info) Description 03/06/2011 13:00 EDT [facility] - [place] [address] [place] [address] Luzma Neri MD ASD (atrial septal defect) [...] 76.70% 03/06/2011 132 8 EDT Growth Chart: [facility] (Girls, 2- 20 Years) documented in this [...] another surgical procedure for her scoliosis at [facility]. This will be her 10th or 11th surgery for spinal surgery and she has had an excellent result. There have been no anesthetic complications. Her other medical history includes developmental delay and she has really come along well with a 1:1 Aide and is using a talking board for communication in addition to speech. She is followed by Dr. Donladson for osteopenia. There have been two humeral [...] Heart Disease Other MGGM has had two [place]'s Provider Recurrent Fractures Neg Hx Provider Osteoporosis [...] Osiel Cooper mother's partner ??? Stepfather's employment regulatory manager ??? Education Grade 8 ??? Educational Aides [...] Seems to be doing well with school library media program director Objective: BP 111/58 Pulse 92 Resp 16 Ht 147.8 cm (58.19) Wt 48.6 kg (107 lb 2.3 oz) BMI 22.25 kg/m2 SpO2 100% LMP 02/28/2011 Body mass index is 22.25 kg/(m^2). Body surface area is 1.41 meters squared. 76.70% of growth percentile based on BMI-for-age. Normalized grrren-vij-pxbycbpxa length data available only for age 0 to 36 months. 1.86% of growth percentile based on mifunvx-ysz-ttt. 39.64% of growth percentile based on opffdr-qji-cjw. Physical Exam Constitutional: She appears well-developed and [...] to be sent to Dr. Khan @ [facility] in [place], [place]. documented in this encounter Procedure Notes * Customer Service Sales Consultant, Scan - 03/18/2011 0846 ESTAssociated Order(s): ECG [...] 8:46 EST) 03/18/2011 8:46 EST Narrative Transcriptions Customer Service Sales Consultant, Scan - 03/18/2011 8:46 EST us Scan Customer Service Sales Consultant PROCEDURE/MINOR SURGICAL ORDE RABLES Final Result documented in this encounter Visit Diagnoses Diagnosis ASD (atrial septal defect)- Primary Ostium secundum type atrial septal defect documented in this encounter Discontinued Medications Medication Sig Discontinue Reason Start Date End Da te SODIUM FLUORIDE (FLUORIDE TATI ORAL) Take by mouth daily. Discontinued by another clinician 12/26/2010 03/06/2011 documented as of this encounter Care Teams Magistrate Judge Relationship Specialty Start Date End Date Deandra Ramos MD [address] [place] [address] PCP - General 12/15/09 06/23/22 documented as of this encounter
--- OUTSIDE RECORDS SUMMARY | 2024-06-16 13:26 | XMS_ITS | Encounter Summary ---
Author Organization [facility] Address [address] [place] [address] Care Team Providers Care Director Of Medical Education Name Role Phone Unavailable Primary Care Provider Unavailabl e Encounter Details Date Type Department Care Team (Late st Contact Info) Description 03/07/2006 10:57 EST Hospital Encounter [facility] [address] [place] [address] Sánchez Skaggs MD [address] [facility], [address] [place] [address] Social History Tobacco Use Types [...]
--- OUTSIDE RECORDS SUMMARY | 2024-06-16 13:26 | XMS_ITS | Encounter Summary ---
Author Organization [facility] Address [address] [place] [address] Care Team Providers Care Magento Web Developer Name Role Phone Deandra Silvestre MD Primary Care Provider [phone] Reason for Visit * Reason Comments Osteopenia Encounter Details Date Type Department Care Team (Late st Contact Info) Description 12/26/2010 12:30 EDT Office Visit [facility] Pediatric Endocrinology - [address] [phone] Rigoberto Knowles [address] [address] Osteopenia (Primary Dx) Social History Tobacco [...] sling only Had DEXA scan performed at [facility] on 04/19/2010 because of the unknown [...] breasts James stage 3 and pubic hair James stage 3 Data Review/Investigations: 04/19/10 DEXA performed at [facility] and reported using pediatric normative data [...] 13:40 EDT 12/26/2010 13:42 EDT Rigoberto Knowles [facility] CHEMISTRY & BL OOD GAS ORDERABLES Final Result Performing Organization Address [facility] de Phone Number [facility] [address] [place] [address] * CALCIUM (12/26/2010 13:40 EDT) Calcium 9.1 8.5 - 10.5 mg/dl [facility] Calculated Calcium 8.8 8.5 - 10.5 mg/dl [facility] Blood specimen (specimen) 12/26/2010 13:40 EDT 12/26/2010 13:42 EDT Rigoberto Knowles [facility] CHEMISTRY & BL OOD GAS ORDERABLES Final Result Performing Organization Address [facility] de Phone Number [facility] [address] [place] [address] * PHOSPHORUS (12/26/2010 13:40 EDT) Phosphorus 4.9 2.9 - 5.4 mg/dl [facility] Blood specimen (specimen) 12/26/2010 13:40 EDT 12/26/2010 13:42 EDT Rigoberto Knowles [facility] CHEMISTRY & BL OOD GAS ORDERABLES Final Result Performing Organization Address [facility] Co de Phone Number [facility] [address] [place] [address] * VITAMIN D (25,OH) (12/26/2010 13:40 EDT) 25OH Vitamin D Tot 40.0 ng/ml [facility] Comment: Reference Range: <10 ng/ml: Deficient 10-30 ng/ml: Insufficient 30-100 ng/ml: Sufficient >100 ng/ml: Toxic Blood specimen (specimen) 12/26/2010 13:40 EDT 12/26/2010 13:42 EDT Rigoberto Knowles [facility] CHEMISTRY & BL OOD GAS ORDERABLES Final Result Performing Organization Address [facility] de Phone Number [facility] [address] [place] [address] documented in this encounter Visit Diagnoses Diagnosis Osteopenia- Primary Disorder of bone and cartilage, unspecified documented in this encounter Historical Medications * This list may reflect changes made after this encounter. amoxicillin-clav ulanate (AUGMENTIN) 500-125 mg per tablet Take 4 Tabs by mouth once. 4 tabs, 500 mg each for dentist appointment today 12/26/2010 3 SODIUM FLUORIDE (FLUORIDE TATI ORAL) Take by mouth daily. 12/26/2010 1 added in this encounter Care Teams Magento Web Developer Relationship Specialty Start Date End Date Deandra Silvestre MD [address] [place] [phone] PCP - General 12/15/09 06/23/22 documented as of this encounter
--- OUTSIDE RECORDS SUMMARY | 2024-06-16 13:26 | XMS_ITS | Encounter Summary ---
Author Organization [facility] Address [address] [place] [address] Care Team Providers Care Tallow Pumper Name Role Phone Deandra Ramos MD Primary Care Provider [phone] Reason for Visit * Reason Onset Date Comments Paperwork request 06/20/2010 Encounter Details Date Type Department Care Team (Late st Contact Info) Description 06/20/2010 Telephone [facility] Pediatric Endocrinology - [address] [phone] Rigoberto Donaldson, [facility] [address] [place] [phone] Paperwork request Social History Tobacco Use Types [...] faxed to her. Her fax number is [phone]. documented in this encounter Plan of Treatment Not on file documented as of this encounter Visit Diagnoses Not on filedocumented in this encounter Care Teams Tallow Pumper Relationship Specialty Start Date End Date Deandra Ramos MD [address] [place] [address] PCP - General 12/15/09 06/23/22 documented as of this encounter
--- OUTSIDE RECORDS SUMMARY | 2024-06-16 13:26 | XMS_ITS | Encounter Summary ---
Author Organization [facility] Address [address] [place] [address] Care Team Providers Care Casework Supervisor Name Role Phone Unavailable Primary Care Provider Unavailabl e Encounter Details Date Type Department Care Team (Late st Contact Info) Description 01/29/2006 11:07 EDT - 01/29/2006 11:59 EDT Hospital Encounter [address] [address] Sánchez Skaggs MD [address] [place] [address], Level [address] [place] [phone] Discharge Disposition: Auto Discharge Social History Tobacco [...]
--- OUTSIDE RECORDS SUMMARY | 2024-06-16 13:26 | XMS_ITS | Encounter Summary ---
Author Organization [facility] Address [address] [place] [address] Care Team Providers Care Drapery Hand Name Role Phone Unavailable Primary Care Provider Unavailabl e Encounter Details Date Type Department Care Team (Late st Contact Info) Description 08/14/2009 Abstract [facility] Plastic, Reconstructive & Cosmetic Surgery - [address], [address] [place] [address] No Pcp, Developmental delay; Congenital [...]
--- OUTSIDE RECORDS SUMMARY | 2024-06-16 13:26 | XMS_ITS | Encounter Summary ---
Author Organization [facility] Address [address] [place] [address] Care Team Providers Care Label Tacker Name Role Phone Deandra Ramos MD Primary Care Provider [phone] Encounter Details Date Type Department Care Team (Late st Contact Info) Description 12/26/2010 Phlebotomy Only [facility] [address] [place] [address] Customer Experience Associate, Outpatient Osteopenia Social History Tobacco Use Types [...] EDT 12/26/2010 13:42 EDT Rigoberto Donaldson [facility] CHEMISTRY & BL OOD GAS ORDERABLES Final Result Performing Organization Address [facility] Co de Phone Number [facility] [address] [place] [address] * CALCIUM (12/26/2010 13:40 EDT) Calcium 9.1 8.5 - 10.5 mg/dl [facility] Calculated Calcium 8.8 8.5 - 10.5 mg/dl [facility] Blood specimen (specimen) 12/26/2010 13:40 EDT 12/26/2010 13:42 EDT Rigoberto Donaldson [facility] CHEMISTRY & BL OOD GAS ORDERABLES Final Result Performing Organization Address [facility] de Phone Number [facility] [address] [place] [address] * PHOSPHORUS (12/26/2010 13:40 EDT) Phosphorus 4.9 2.9 - 5.4 mg/dl [facility] Blood specimen (specimen) 12/26/2010 13:40 EDT 12/26/2010 13:42 EDT Rigoberto Donaldson [facility] CHEMISTRY & BL OOD GAS ORDERABLES Final Result Performing Organization Address [facility] de Phone Number [facility] [address] [place] [address] * VITAMIN D (25,OH) (12/26/2010 13:40 EDT) 25OH Vitamin D Tot 40.0 ng/ml [facility] Comment: Reference Range: <10 ng/ml: Deficient 10-30 ng/ml: Insufficient 30-100 ng/ml: Sufficient >100 ng/ml: Toxic Blood specimen (specimen) 12/26/2010 13:40 EDT 12/26/2010 13:42 EDT Rigoberto Donaldson [facility] CHEMISTRY & BL OOD GAS ORDERABLES Final Result [facility] [address] [place] [address] documented in this encounter Visit Diagnoses Diagnosis Osteopenia Disorder of bone and cartilage, unspecified documented in this encounter Care Teams Label Tacker Relationship Specialty Start Date End Date Deandra Ramos MD [address] [place] [phone] PCP - General 12/15/09 06/23/22 documented as of this encounter
--- OUTSIDE RECORDS SUMMARY | 2024-06-16 13:26 | XMS_ITS | Encounter Summary ---
Author Organization [facility] Address [address] [place] [address] Care Team Providers Care Glueline Worker Name Role Phone Unavailable Primary Care Provider Unavailabl e Encounter Details Date Type Department Care Team (Late st Contact Info) Description 07/08/2007 Before PRISM Converted Visit (Maple) [facility] - Maple conversion [address] [place] [address] Charlene Woods MD [address] [address] Social History Tobacco Use Types [...] examination. She was initially evaluated in the [facility] by Rachel Romero on 01/20/2007. At [...] point we recommend switching treatment therapies to [place]-Smoothe/FS which is an oil that they can [...] Charlene Woods MD - SHASHANK Job ID: [id number] Doc ID: [id number] cc: ERIK Puckett MD Patrick N Keith, MD - SHASHANK Job ID: [id number] Doc ID: [id number] cc: ERIK Puckett MD Patrick N Keith, MD documented in this encounter Plan of Treatment Not on file documented as of this encounter Visit Diagnoses Not on filedocumented in this encounter
--- OUTSIDE RECORDS SUMMARY | 2024-06-16 13:26 | XMS_ITS | Encounter Summary ---
Author Organization [facility] Address [address] [place] [address] Care Team Providers Care Battery Checker Name Role Phone Deandra Ramos MD Primary Care Provider [phone] Reason for Visit * Reason Onset Date Comments Results 06/15/2010 Medication Management 06/15/2010 Encounter Details Date Type Department Care Team (Late st Contact Info) Description 06/15/2010 Telephone [facility] Pediatric Endocrinology - [facility] [address] [place] [address] Kellie Marcus, RN [address] [place] [address] Results; Medication Management Social History Tobacco Use [...] Refills Last Filled Start Date End Date Cholecalciferol, Vitamin D3, 2,000 unit Cap Take 2,000 Units by mouth daily. 90 Cap 1 06/15/2010 documented in this encounter Miscellaneous Notes * Telephone Encounter - Kellie Marcus, RN - 06/15/2010 1422 EST Message copied [...] documented as of this encounter Care Teams Battery Checker Relationship Specialty Start Date End Date Deandra Ramos MD [address] [place] [phone] PCP - General 12/15/09 06/23/22 documented as of this encounter
--- OUTSIDE RECORDS SUMMARY | 2024-06-16 13:26 | XMS_ITS | Encounter Summary ---
Author Organization [facility] Address [address] [place] [address] Care Team Providers Care Oncology Social Work Name Role Phone Unavailable Primary Care Provider Unavailabl e Encounter Details Date Type Department Care Team (Late st Contact Info) Description 03/04/2007 Before PRISM Converted Visit (Maple) [facility] - Maple conversion [address] [place] [address] Santiago Dennis, Gypsy CCC-A [address] [facility], [address] [place] [address] Social History Tobacco Use Types Packs/Day Years Used Date Smoking Tobacco: Never Assessed Comments Unknown Sex and Gender Information Value Date Recorded Sex Assigned at Not on file Legal Sex Female 18:10 EST Gender Identity Not on file Sexual Orientation Not on file documented as of this encounter Progress Notes * Santiago Pimentel, CCC-A - 03/15/2009 1035 EST DIVISION OF [...] to pursue amplification closer to [place] in [place]. A subsequent telephone call to Faith Null M.A., CCC-A at [facility] revealed that the patient could be seen there. The ear impressions and past audiograms were sent to her. Follow up in our clinic per Dr. Huffman recommendations. Signed by Sánchez Skaggs MD 03/12/2007 14:37 Santiago Dennis MA, CCC-A Sánchez Skaggs MD D: - Santiago Dennis MA, CCC-A - [facility] Job ID: Doc ID: [id number] cc: documented in this encounter Plan of Treatment Not on file documented as of this encounter Visit Diagnoses Not on filedocumented in this encounter
--- OUTSIDE RECORDS SUMMARY | 2024-06-16 13:26 | XMS_ITS | Encounter Summary ---
Author Organization [facility] Address [address] [place] [address] Care Team Providers Care Oracle Agile Plm Consultant Name Role Phone Unavailable Primary Care Provider Unavailabl e Encounter Details Date Type Department Care Team (Latest Contact Info) Description 05/23/2006 8:21 EST - 05/23/2006 11:59 EST Hospital Encounter [facility] [address] [place] [address] Luzma Singh MD Discharge Disposition: Auto Discharge [...] (cm): 120.2. Weight (kg): 25.2. ??Patient location: [facility]. Height Centile: 0.71. ??Weight Centile: 10.69. ??Person requesting test: RUBIO AUGUSTIN MD Cottage Attendant: Lin Marcus. ??Reason for test: color/pulse Doppler. [...] LV Maximum Dimension ? 3.79 ? cm Nitro's Name: LUZMA SINGH MD Date/time of reading: [...] (cm): 120.2. Weight (kg): 25.2. Patient location: [facility]. Height Centile: 0.71. Weight Centile: 10.69. Person requesting test: RUBIO AUGUSTIN MD Cottage Attendant: Lin Marcus. Reason for test: color/pulse Doppler. [...] 1.96 2.95 LV Maximum Dimension 3.79 cm Nitro's Name: SAMANTHA FERRER,LUZMA PATEL Date/time of reading: May 23 2006 - 1:03:32 PM Report created at 1:05:19 PM on Tuesday, May 23, 2006 us Rubio Augustin MD CARDIAC ECHO ORDERABLES Final Result documented in this encounter Visit Diagnoses Not on filedocumented in this encounter
--- OUTSIDE RECORDS SUMMARY | 2024-06-16 13:26 | XMS_ITS | Encounter Summary ---
Author Organization [facility] Address [address] [place] [address] Care Team Providers Care Child Care Cook Name Role Phone Unavailable Primary Care Provider Unavailabl e Encounter Details Date Type Department Care Team (Late st Contact Info) Description 08/25/2006 9:49 EDT Hospital Encounter [facility] [address] [place] [address] Sánchez Skaggs MD [address] [facility], [address] [place] [address] Social History Tobacco Use Types [...]
--- OUTSIDE RECORDS SUMMARY | 2024-06-16 13:26 | XMS_ITS | Encounter Summary ---
Author Organization [facility] Address [address] [place] [address] Care Team Providers Care Study Specialist Name Role Phone Unavailable Primary Care Provider Unavailabl e Encounter Details Date Type Department Care Team (Late st Contact Info) Description 07/08/2007 14:05 EST Hospital Encounter [facility] [address] [place] [address] Charlene Woods MD [address] [address] Social History Tobacco Use Types [...]
--- OUTSIDE RECORDS SUMMARY | 2024-06-16 13:26 | XMS_ITS | Encounter Summary ---
Author Organization [facility] Address [address] [place] [address] Care Team Providers Care Valve Steamer Name Role Phone Deandra Ramos MD Primary Care Provider [phone] Encounter Details Date Type Department Care Team (Late st Contact Info) Description 12/26/2010 13:32 EDT - 12/26/2010 23:59 EDT Hospital Encounter [address] [address] [facility] [address] [place] [phone] Discharge Disposition: Home or Self Care Social History Tobacco Use Types Packs/Day Years Used Date Smoking Tobacco: Never Assessed Comments Unknown Sex and Gender Information Value Date Recorded Sex Assigned at Not on file Legal Sex Female 18:10 EST Gender Identity Not on file Sexual Orientation Not on file documented as of this encounter Medications at Time of Discharge Cholecalciferol, Vitamin D3, 2,000 unit Cap Take 2,000 Units by mouth daily. 90 Cap 1 06/15/2010 amoxicillin-clav ulanate (AUGMENTIN) 500-125 mg per tablet Take 4 Tabs by mouth once. 4 tabs, 500 mg each for dentist appointment today 12/26/2010 3 SODIUM FLUORIDE (FLUORIDE TATI ORAL) Take by mouth daily. 12/26/2010 1 documented as of this encounter Discharge Disposition Disposition Code Departure Means Destination Home or Self Shelter documented in this encounter Plan of Treatment Not on file documented as of this encounter Visit Diagnoses Not on filedocumented in this encounter Care Teams Valve Steamer Relationship Specialty Start Date End Date Deandra Ramos MD [address] [place] [phone] PCP - General 12/15/09 06/23/22 documented as of this encounter
--- OUTSIDE RECORDS SUMMARY | 2024-06-16 13:26 | XMS_ITS | Encounter Summary ---
Author Organization [facility] Address [address] [place] [address] Care Team Providers Care Sas Statistical Programmer Name Role Phone Unavailable Primary Care Provider Unavailabl e Encounter Details Date Type Department Care Team (Late st Contact Info) Description 11/20/2005 11:43 EDT - 11/20/2005 11:59 EDT Hospital Encounter [address] [address] Sánchez Skaggs MD [address] [place] [address], [address] [place] [phone] Discharge Disposition: Auto Discharge Social History Tobacco [...]
--- OUTSIDE RECORDS SUMMARY | 2024-06-16 13:26 | XMS_ITS | Encounter Summary ---
Author Organization [facility] Address [address] [place] [address] Care Team Providers Care Slate Splitter Name Role Phone Deandra Ramos MD Primary Care Provider [phone] Reason for Visit * Reason Onset Date Comments Medication Management 10/09/2010 Encounter Details Date Type Department Care Team (Late st Contact Info) Description 10/09/2010 Telephone [facility] Pediatric Endocrinology - [address] [phone] Rigoberto Donaldson, [facility] [address] [place] [phone] Medication Management Social History Tobacco Use Types [...] on filedocumented in this encounter Care Teams Slate Splitter Relationship Specialty Start Date End Date Deandra Ramos MD [address] [place] [address] PCP - General 12/15/09 06/23/22 documented as of this encounter
--- OUTSIDE RECORDS SUMMARY | 2024-06-16 13:26 | XMS_ITS | Encounter Summary ---
Author Organization [facility] Address [address] [place] [address] Care Team Providers Care Aircraft Fuselage Framer Name Role Phone Unavailable Primary Care Provider Unavailabl e Encounter Details Date Type Department Care Team (Late st Contact Info) Description 02/17/2006 9:44 EDT Hospital Encounter [facility] [address] [place] [address] Sánchez Skaggs MD [address] [facility], [address] [place] [address] Social History Tobacco Use Types [...]
--- OUTSIDE RECORDS SUMMARY | 2024-06-16 13:26 | XMS_ITS | Encounter Summary ---
Author Organization [facility] Address [address] [place] [address] Care Team Providers Care Vice President Pharmacy Name Role Phone Unavailable Primary Care Provider Unavailabl e Encounter Details Date Type Department Care Team (Latest Contact Info) Description 05/13/2008 8:07 EST - 05/13/2008 11:59 EST Hospital Encounter [facility] [address] [place] [address] Luzma Singh MD Discharge Disposition: Auto Discharge [...] EDT Patient Name: JUAN PARKER Chart Number: [id number] Site Location: Date of Appt: Tuesday, December 15, 2009, 8:45 AM Pediatric Echocardiogram Report Demographics and Visit Data: : 1995. ??Age: 14y/3m/26d. ??BSA (m 2): 1.22. ??Height (cm): 143. ?? Weight (kg): 37.8. ??BMI (kg/m 2): 18.49. ??Patient location: [facility]. ?? Height Centile: 1.02. ??Weight Centile: 10.65. ??Person requesting test: RUBIO AUGUSTIN MD. ?? Storage Worker: Linda Baeza. 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 LSVC. [...] valve is mildly thickened with leaflets that house superintendent towards the left atrium with no mitral [...] (using Diameter) ?2.01 ? cm 2 ? [place]'s Name: LUZMA SINGH MD Date/time of reading: Dec 22 2009 - 6:01:29 PM Report created at 6:02:12 PM on Tuesday, December 22, 2009 Report Number: Note:Study interpreted at [facility] unless otherwise noted Procedure Note 12/22/2009 Patient Name: JUAN PARKER Chart Number: [id number] Site Location: Date of Appt: Tuesday, December 15, 2009, 8:45 AM Pediatric Echocardiogram Report Demographics and Visit Data: : 1995. Age: 14y/3m/26d. BSA (m 2): 1.22. Height (cm): 143. Weight (kg): 37.8. BMI (kg/m 2): 18.49. Patient location: [facility]. Height Centile: 1.02. Weight Centile: 10.65. Person requesting test: RUBIO AUGUSTIN MD Storage Worker: Linda Baeza. 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 LSVC. [...] valve is mildly thickened with leaflets that house superintendent towards the left atrium with no mitral [...] AV Area (using Diameter) 2.01 cm 2 [place]'s Name: SAMANTHA FERRER,LUZMA PATEL Date/time of reading: Dec 22 2009 - 6:01:29 PM Report created at 6:02:12 PM on Tuesday, December 22, 2009 Report Number: Note:Study interpreted at [facility] unless otherwise noted us Rubio Augustin MD CARDIAC ECHO ORDERABLES Final Result * CONGENITAL ECHOCARDIOGRAM (05/13/2008 8:35 EST) Anatomical Region Laterality Modality Other 05/13/2008 8:35 EST Narrative 09/19/2008 11:04 EDT color pulse Doppler Site Location: Date of Appt: Tuesday, May 13, 2008, 8:35 AM Pediatric Echocardiogram Report Demographics and Visit Data: : 1995. ??Age: 12y/8m/22d. ??BSA (m 2): 1.11. ??Height (cm): 133. Weight (kg): 33.1. ??BMI (kg/m 2): 18.71. ??Patient location: [facility]. Height Centile: 0.73. ??Weight Centile: 14.67. ??Person requesting test: RUBIO AUGUSTIN MD. Storage Worker: Linda Baeza. ??Reason for test: color pulse [...] valve is mildly thickened with leaflets that house superintendent towards the left atrium with no mitral [...] (using Diameter) ? 2.11 ? cm 2 [place]'s Name: LUZMA SINGH MD Date/time of reading: [...] 33.1. BMI (kg/m 2): 18.71. Patient location: [facility]. Height Centile: 0.73. Weight Centile: 14.67. Person requesting test: FARIHA FERRER,RUBIO [place] Storage Worker: Linda Baeza. Reason for test: color pulse [...] valve is mildly thickened with leaflets that house superintendent towards the left atrium with no mitral [...] AV Area (using Diameter) 2.11 cm 2 [place]'s Name: SAMANTHA FERRER,LUZMA PATEL Date/time of reading: May 13 2008 - 2:38:41 PM Report created at 2:39:21 PM on Tuesday, May 13, 2008 us Rubio Augustin MD CARDIAC ECHO ORDERABLES Final Result documented in this encounter Visit Diagnoses Not on filedocumented in this encounter
--- OUTSIDE RECORDS SUMMARY | 2024-06-16 13:26 | XMS_ITS | Encounter Summary ---
Author Organization [facility] Address [address] [place] [address] Care Team Providers Care Survey Data Technician Name Role Phone Unavailable Primary Care Provider Unavailabl e Encounter Details Date Type Department Care Team (Late st Contact Info) Description 04/16/2006 Before PRISM Converted Visit (Maple) [facility] - Maple conversion [address] [place], [place] [address] Sánchez Skaggs MD [address] [facility], [address] [place] [address] Social History Tobacco Use Types Packs/Day Years Used Date Smoking Tobacco: Never Assessed Comments Unknown Sex and Gender Information Value Date Recorded Sex Assigned at Not on file Legal Sex Female 18:10 EST Gender Identity Not on file Sexual Orientation Not on file documented as of this encounter Progress Notes * Sánchez Skaggs MD - 05/08/2009 1480 EST DIVISION OF OTOLARYNGOLOGY PROGRESS/FOLLOWUP NOTE - [...] Skaggs MD A - wlp Job ID: [id number] Document ID: [id number] cc: documented in this encounter Plan of Treatment Not on file documented as of this encounter Visit Diagnoses Not on filedocumented in this encounter
--- OUTSIDE RECORDS SUMMARY | 2024-06-16 13:26 | XMS_ITS | Encounter Summary ---
Author Organization [facility] Address [address] [place] [address] Care Team Providers Care International Trade Compliance Manager Name Role Phone Deandra Silvestre MD Primary Care Provider [phone] Reason for Referral * (Routine/Next Available) - Closed Specialty Diagnoses / Procedures Referred By Camacho murray Referred To Contact Diagnoses CHL (conductive hearing loss) Procedures HEARING EVALUATION Pradeep Castillo MD Phone: tel: fax: Referral ID Status Reason Start Date Expiration Date Visits Re quested Visits Authorized [id number] Closed 11/10/2012 1 1 Reason for Visit * Reason Comments Hearing Loss Ear Drainage mostly right ear Encounter Details Date Type Department Care Team (Late st Contact Info) Description 11/09/2012 13:30 EDT Office Visit [facility] ENT- [place] [address] [place] [id number] Pradeep Castillo MD [address] [place] [address] [place] [phone] CHL (conductive hearing loss) [...] Notes * Pradeep Castillo MD - 11/09/2012 1445 EDT DIVISION OF OTOLARYNGOLOGY CONSULTATION 11/09/2012 CHIEF [...] ??? Asd repair 08/25/97 Dr. Gonzalez @ [facility] This was performed with a pericardial patch [...] ??? Heart Disease Other has had two FL's ??? Recurrent Fractures Neg Hx ??? Osteoporosis [...] testing and notes from Faith Null MS, [facility] have been reviewed. CT temporal bones from [...] with a magnetic attached to bone oscillator. [facility] has decided not to pursue this device. The [employer]chle[employer] cooperation has stated that they are coming out with a completely implantable device within the next 12 months. The patient's name has been reported by our implant director intelligence analysis programs and they will be contacted once this [...] we need to provide a different prescription. rPadeep Castillo MD CC: DEANDRA SILVESTRE MD documented in this encounter Procedure Notes * MORTGAGE LOAN OFFICER ORIGINATOR, SCAN 2 - 12/01/2012 0854 EDTAssociated Order(s): [...] EDT Narrative 12/01/2012 8:54 EDT Procedure Note MORTGAGE LOAN OFFICER ORIGINATOR, SCAN 2 - 12/01/2012 8:54 EDT Scan 2 Sports Physiologist PROCEDURE/MINOR SURGICAL OR DERABLES Final Result documented in this encounter Visit [...] documented as of this encounter Care Teams International Trade Compliance Manager Relationship Specialty Start Date End Date Deandra Silvestre MD [address] [address] PCP - General 12/15/09 06/23/22 documented as of this encounter
--- OUTSIDE RECORDS SUMMARY | 2024-06-16 13:26 | XMS_ITS | Encounter Summary ---
Author Organization [facility] Address [address] [place] [address] Care Team Providers Care Shoes Hand Sewer Name Role Phone Unavailable Primary Care Provider Unavailabl e Encounter Details Date Type Department Care Team (Late st Contact Info) Description 09/09/2007 Before PRISM Converted Visit (Maple) [facility] - Maple conversion [address] [place] [address] Charlene Woods MD [address] [phone] Social History Tobacco Use Types Packs/Day Years Used Date Smoking Tobacco: Never Assessed Comments Unknown Sex and Gender Information Value Date Recorded Sex Assigned at Not on file Legal Sex Female 18:10 EST Gender Identity Not on file Sexual Orientation Not on file documented as of this encounter Progress Notes * Charlene Woods MD - 02/03/2009 0946 EDT DIVISION OF DERMATOLOGY PROGRESS/FOLLOWUP NOTE - 09/09/2007 PROBLEM LIST Scalp psoriasis. SUBJECTIVE Alison returns today for a followup examination of the above-mentioned problem. She was last evaluated in the [facility]ology [facility] on 07/08/2007. At that time, [place]-Smoothe/FS was initiated. Dad notes that she has been using this nightly with good improvement. Also, they are using T-Gel shampoo daily. Alison no longer complains about the site, although he does find her scratching at this site at bedtime. They did use the hydroxyzine initially, but dad did not feel that it did much. He currently iscovering the [place]-Smoothe/FS with a shower cap so that Alison cannot grab at this area. They note [...] regularly. Recommend that he continue with the [place]- Smoothe/FS as needed. Prescriptions were not needed. [...] - MD Peggy - EDWARD Job ID: [id number] Doc ID: [id number] cc: Rubio Augustin MD - Charlene Woods MD - edward Job ID: [id number] Doc ID: [id number] cc: Rubio Augustin MD documented in this encounter Plan of Treatment Not on file documented as of this encounter Visit Diagnoses Not on filedocumented in this encounter
--- OUTSIDE RECORDS SUMMARY | 2024-06-16 13:26 | XMS_ITS | Encounter Summary ---
Author Organization [facility] Address [address] [place] [address] Care Team Providers Care Vice President Fixed Income Name Role Phone Unavailable Primary Care Provider Unavailabl e Encounter Details Date Type Department Care Team (Late st Contact Info) Description 04/16/2006 15:00 EST Hospital Encounter [facility] [address] [place] [address] Sánchez Skaggs MD 111 [facility], Level 4 [place] [address] Discharge Disposition: Auto Discharge Social [...]
--- OUTSIDE RECORDS SUMMARY | 2024-06-16 13:26 | XMS_ITS | Encounter Summary ---
Author Organization [facility] Address [address] [place] [address] Care Team Providers Care Bench Mechanic Name Role Phone Deandra Ramos MD Primary Care Provider [phone] Reason for Visit * Reason Comments Heart [...] Info) Description 05/29/2012 8:30 EST Office Visit [facility] Pediatric Cardiology - [address] [address] Luzma Singh MD Status post patch closure [...] 80.55% 05/29/2012 085 4 EST Growth Chart: [facility] (Girls, 2- 20 Years) documented in this [...] ??? Asd repair 08/25/97 Dr. Gonzalez @ [facility] This was performed with a [...] Heart Disease Other [facility] has had two RI's Provider Recurrent Fractures Neg Hx Provider Osteoporosis [...] Osiel Cooper mother's partner ??? Stepfather's employment carrier operator ??? Education Grade 9 ? ? Educational Aides 1-to-1 aide PT, OT & DIRECTOR OF CLINICAL EDUCATION at school ??? Reported academic performance Doing [...] on CDC 2-20 Years BMI-for-age data. Normalized iwzxkf-qme-agltvoyzx length data available only for age 0 to 36 months. 2.43%ile based on CDC 2-20 Years zwwxuzl-ntg-mvz data. 47.22%ile based on CDC 2-20 Years rhcizs-pol-peu data. Physical Exam Constitutional: She appears well-developed [...] of this letter will be sent to [facility] to be sure they are [...] documented in this encounter Procedure Notes * WOOD PILER, SCAN 2 - 06/09/2012 1012 ESTAssociated Order(s): [...] EST Narrative 06/09/2012 15:16 EST Procedure Note WOOD PILER, SCAN 2 - 06/09/2012 10:12 EST us Scan 2 Telecommunications Sales Representative PROCEDURE/MINOR SURGICAL OR DERABLES Final Result * EKG 12-LEAD (05/29/2012 8:49 EST) 05/29/2012 8:49 EST Narrative [facility] - 06/07/2012 9:36 EST ?[facility] ? Test Date: ?2012-05-29 Pat Name: ? JUAN ELENA ?Department: ?? Pedi-Card ? Room: ? Gender: ? F ?Skoog Operator: ?? [id number] : ?1995 ? Requested By: SAMANTHA ACOSTA JORGE Order Number: [id number] ?Reading MD: ?? LUZMA SINGH MD ? Measurements Intervals ?[place] ? Rate: ? 69 ? P: ?-22 NH: ? 115 ?QRS: ?19 QRSD: ? 80 [...] JUAN PARKER Department: Pedi-Card Room: Gender: F Skoog Operator: [id number] : 1995 Requested By: SAMANTHA PATEL Order Number: [id number] Reading MD: LUZMA SINGH MD Measurements Intervals [place] Rate: 69 P: -22 NH: 115 QRS: 19 QRSD: 80 T: 31 QT: 353 QTc: 372 Interpretive Statements ..PEDIATRIC ECG INTERPRETATION SINUS RHYTHM VS LOW RIGHT ATRIAL RHYTHM RV3 INTERVENTRICULAR CONDUCTION DELAY Electronically Signed On 06-07-12 09:36:01 EST by LUZMA SINGH MD us Luzma Singh MD CARDIAC ECG ORDERABLES Sandra carr Result [facility] [address] [place] [address] documented in this encounter Visit Diagnoses Diagnosis Status post patch closure of ASD- Primary Other postprocedural status Mitral regurgitation Mitral valve disorders Mitral valve insufficiency Mitral valve disorders documented in this encounter Historical Medications * This list may reflect changes made after this encounter. Psyllium Seed-Sucrose (METAMUCIL) Powd Take by mouth. Taking 1 tablespoon daily 4 added in this encounter Care Teams Bench Mechanic Relationship Specialty Start Date End Date Deandra Ramos MD [address] [place] [address] PCP - General 12/15/09 06/23/22 documented as of this encounter
--- OUTSIDE RECORDS SUMMARY | 2024-06-16 13:26 | XMS_ITS | Encounter Summary ---
Author Organization [facility] Address [address] [place] [address] Care Team Providers Care Whale Trainer Name Role Phone Unavailable Primary Care Provider Unavailabl e Encounter Details Date Type Department Care Team (Late st Contact Info) Description 11/07/2005 Before PRISM Converted Visit (Maple) [facility] - Maple conversion [address] [place], [place] [id number] Ginette Lobo MD [address] [facility], [address] 4 [place] [address] Social History Tobacco Use Types Packs/Day Years Used Date Smoking Tobacco: Never Assessed Comments Unknown Sex and Gender Information Value Date Recorded Sex Assigned at Not on file Legal Sex Female 18:10 EST Gender Identity Not on file Sexual Orientation Not on file documented as of this encounter Progress Notes * Ginette Lobo MD - 04/28/2009 0939 EST DIVISION OF OTOLARYNGOLOGY PROGRESS/FOLLOWUP NOTE - [...] Lobo MD A - wlp Job ID: [id number] Document ID: [id number] cc: Sánchez Skaggs MD documented in this encounter Plan of Treatment Not on file documented as of this encounter Visit Diagnoses Not on filedocumented in this encounter
--- OUTSIDE RECORDS SUMMARY | 2024-06-16 13:26 | XMS_ITS | Encounter Summary ---
Author Organization [facility] Address [address] [place] [address] Care Team Providers Care Agronomy Research Manager Name Role Phone Unavailable Primary Care Provider Unavailabl e Encounter Details Date Type Department Care Team (Latest Contact Info) Description 09/09/2007 15:38 EDT [place] [facility] [address] [place] [address] Charlene Woods MD [address] [address] Discharge Disposition: Auto Discharge Social [...]
--- OUTSIDE RECORDS SUMMARY | 2024-06-16 13:26 | XMS_ITS | Encounter Summary ---
Author Organization [facility] Address [address] [place] [address] Care Team Providers Care Stainless Steel Finisher Name Role Phone Unavailable Primary Care Provider Unavailabl e Encounter Details Date Type Department Care Team (Late st Contact Info) Description 07/09/2007 9:40 EST [place] [facility] [address] [place] [address] Sánchez Skaggs MD 111 [facility], [address] 4 [place] [address] Social History Tobacco Use [...]
--- OUTSIDE RECORDS SUMMARY | 2024-06-16 13:26 | XMS_ITS | Encounter Summary ---
Author Organization [facility] Address [address] [place] [address] Care Team Providers Care Zoology Professor Name Role Phone Unavailable Primary Care Provider Unavailabl e Encounter Details Date Type Department Care Team (Late st Contact Info) Description 12/26/2006 9:09 EDT Hospital Encounter [facility] [address] [place] [address] Sánchez Skaggs MD [address] [facility], [address] 4 [place] [address] Social History Tobacco Use [...]
--- OUTSIDE RECORDS SUMMARY | 2024-06-16 13:27 | XMS_ITS | Encounter Summary ---
Author Organization [facility] Address [address] [place] [address] Care Team Providers Care Glue Mill Operator Name Role Phone Unavailable Primary Care Provider Unavailabl e Encounter Details Date Type Department Care Team (Late st Contact Info) Description 08/07/2005 Before PRISM Converted Visit (Maple) [facility] - Maple conversion [address] [place], [place] [address] Sánchez Skaggs MD 111 [facility], [address] [place] [address] Social History Tobacco Use Types Packs/Day Years Used Date Smoking Tobacco: Never Assessed Comments Unknown Sex and Gender Information Value Date Recorded Sex Assigned at Not on file Legal Sex Female 18:10 EST Gender Identity Not on file Sexual Orientation Not on file documented as of this encounter Progress Notes * Sánchez Skaggs MD - 04/15/2009 1627 EST DIVISION OF OTOLARYNGOLOGY PROGRESS/FOLLOWUP NOTE - [...] Signed by Sánchez Skaggs MD 2005 13:41 Annmarie Pacheco MD Sánchez Skgags MD - Sánchez Skaggs MD A - mld Job ID: [id number] Document ID: [id number] cc: Christopher Angulo MD documented in this encounter Plan of Treatment Not on file documented as of this encounter Visit Diagnoses Not on filedocumented in this encounter
--- OUTSIDE RECORDS SUMMARY | 2024-06-16 13:27 | XMS_ITS | Encounter Summary ---
Author Organization [facility] Address [address] [place] [address] Care Team Providers Care Brazer Repair And Salvage Name Role Phone Unavailable Primary Care Provider Unavailabl e Encounter Details Date Type Department Care Team (Late st Contact Info) Description 08/07/2005 11:13 EDT - 08/07/2005 11:59 EDT Hospital Encounter [address] [address] Sánchez Skaggs MD [address] [place] [address] 4 [place] [phone] Discharge Disposition: Auto Discharge Social History Tobacco [...] HEMOLYTIC [facility] Report Status Final [id number] [facility] 08/07/2005 11:3 0 EDT 08/07/2005 11:46 EDT us Sánchez Skaggs MD MICROBIOLOGY - GENERAL ORDERABLES Final Result [facility] [address] [place] [address] documented in this encounter Visit Diagnoses Not on filedocumented in this encounter
--- OUTSIDE RECORDS SUMMARY | 2024-06-16 13:27 | XMS_ITS | Encounter Summary ---
Author Organization [facility] Address [address] [place] [address] Care Team Providers Care Dive Superintendent Name Role Phone Unavailable Primary Care Provider Unavailabl e Encounter Details Date Type Department Care Team (Late st Contact Info) Description 09/11/1999 8:30 EDT - 09/11/1999 11:59 EDT Hospital Encounter [address] [place] [address] [address] Christopher Angulo MD [address] [place] [address], Level [address] [place] [phone] Discharge Disposition: Home or Self Care Social [...]
--- OUTSIDE RECORDS SUMMARY | 2024-06-16 13:27 | XMS_ITS | Encounter Summary ---
Author Organization [facility] Address [address] [place] [address] Care Team Providers Care Dredge Pump Operator Name Role Phone Unavailable Primary Care Provider Unavailabl e Encounter Details Date Type Department Care Team (Latest Contact Info) Description 07/30/2002 13:46 EST Hospital Encounter [facility] [address] [place] [address] Luzma Neri MD Discharge Disposition: Auto Discharge [...]
--- OUTSIDE RECORDS SUMMARY | 2024-06-16 13:27 | XMS_ITS | Encounter Summary ---
Author Organization [facility] Address [address] [place] [address] Care Team Providers Care Bumboater Name Role Phone Unavailable Primary Care Provider Unavailabl e Encounter Details Date Type Department Care Team (Late st Contact Info) Description 08/28/2005 Before PRISM Converted Visit (Maple) [facility] - Maple conversion [address] [place], [place] [address] Sánchez Skaggs MD 111 [facility], [address] [place] [address] Social History Tobacco Use Types [...] very poor eustachian tube function here, the snf possibility of improved hearing is low, but hopefully we can makea safe ear that could be potentially aided in the future. He also understands the potential need for long-term cleaning. Written informed consent was obtained in the office today. Weplan this in the near [facility] an [facility]. Signed by Sánchez Skaggs MD 09/04/2005 09:51 Annmarie Pacheco MD Sánchez Skaggs MD - Sánchez Skaggs MD A - bryan Job ID: [id number] Document ID: [id number] cc: Rubio Augustin MD documented in this encounter Plan of Treatment Not on file documented as of this encounter Visit Diagnoses Not on filedocumented in this encounter
--- OUTSIDE RECORDS SUMMARY | 2024-06-16 13:27 | XMS_ITS | Encounter Summary ---
Author Organization [facility] Address [address] [place] [address] Care Team Providers Care Health/Safety Job Titles Name Role Phone Unavailable Primary Care Provider Unavailabl e Encounter Details Date Type Department Care Team (Late st Contact Info) Description 05/30/2005 Before PRISM Converted Visit (Maple) [facility] - Maple conversion [address] [place], [place] [address] Christopher Angulo MD 111 [facility], Level [address] [place] [address] Social History Tobacco Use Types Packs/Day Years Used Date Smoking Tobacco: Never Assessed Comments Unknown Sex and Gender Information Value Date Recorded Sex Assigned at Not on file Legal Sex Female 18:10 EST Gender Identity Not on file Sexual Orientation Not on file documented as of this encounter Progress Notes * Christopher Angulo MD - 07/05/2009 0540 EST DIVISION OF OTOLARYNGOLOGY - [facility] PROGRESS/FOLLOWUP NOTE - 05/30/2005 S:has had [...] to rule out cholesteatoma. Signed by Christopher Anguol MD 06/03/2005 17:17 Hector Carbajal MD Christopher Angulo MD - Christopher Angulo MD A - bryan Job ID: [id number] Document ID: [id number] cc: MD Jerod Nelson MD documented in this encounter Plan of Treatment Not on file documented as of this encounter Visit Diagnoses Not on filedocumented in this encounter
--- OUTSIDE RECORDS SUMMARY | 2024-06-16 13:27 | XMS_ITS | Encounter Summary ---
Author Organization [facility] Address [address] [place] [address] Care Team Providers Care Blankmaker Name Role Phone Unavailable Primary Care Provider Unavailabl e Encounter Details Date Type Department Care Team (Latest Contact Info) Description 12/08/2002 11:07 EDT - 12/08/2002 11:59 EDT Hospital Encounter [facility] [address] [place] [address] Jenny Solomon MD [address] [facility] [address] [place], [place] [address] Discharge Disposition: Auto Discharge Social History Tobacco [...] taken when reading/interpreting unformatted reports. Name: ? JUAN PARKER ? Accession #: ? [id number] ? : ? 1995 (Age: 7) ??F [...] case and concurs with the interpretation. ??(Dr. Merritt)/[facility] Microscopic Description: ? Sections consist of [...] face (Dr. Vasquez)/errol End of Report [facility] 12/08/2002 12/08/2002 13: 49 EDT us Jenny Solomon MD PATHOLOGY ORDERABLE S Final Result [facility] [address] [place] [address] documented in this encounter Visit Diagnoses Not on filedocumented in this encounter
--- OUTSIDE RECORDS SUMMARY | 2024-06-16 13:27 | XMS_ITS | Encounter Summary ---
Author Organization [facility] Address [address] [place] [address] Care Team Providers Care Gem Cutter Name Role Phone Unavailable Primary Care Provider Unavailabl e Encounter Details Date Type Department Care Team (Late st Contact Info) Description 08/28/2005 8:32 EDT - 08/28/2005 11:59 EDT Hospital Encounter [address] [address] Sánchez Skaggs MD [address] [place] [address], [address] [place] [phone] Discharge Disposition: Auto Discharge Social History Tobacco [...] cholesteatoma. lucila Sánchez Skaggs MD IMG CT ORDERABLES Final Result documented in this encounter Visit Diagnoses Not on filedocumented in this encounter
--- OUTSIDE RECORDS SUMMARY | 2024-06-16 13:27 | XMS_ITS | Encounter Summary ---
Author Organization [facility] Address [address] [place] [address] Care Team Providers Care Wallpaper Installer Name Role Phone Unavailable Primary Care Provider Unavailabl e Encounter Details Date Type Department Care Team (Late st Contact Info) Description 08/14/2005 11:35 EDT - 08/14/2005 11:59 EDT Hospital Encounter [address] [address] Sánchez Skaggs MD [address] [place] [address], [address] [place] [phone] Discharge Disposition: Auto Discharge Social History Tobacco [...]
--- OUTSIDE RECORDS SUMMARY | 2024-06-16 13:27 | XMS_ITS | Encounter Summary ---
Author Organization [facility] Address [address] [place] [address] Care Team Providers Care Assistant Hvac Mechanic Name Role Phone Unavailable Primary Care Provider Unavailabl e Encounter Details Date Type Department Care Team (Late st Contact Info) Description 02/21/1999 13:32 EDT Hospital Encounter [facility] [address] [place] [address] Rachel Rivera MD [address] [facility] [address] [place] [address] Discharge Disposition: Auto Discharge Social History Tobacco [...] with the findings described above. ; / Narrative 03/14/2009 10:11 EST F/UP TO MRI [...] with the findings described above. ; / us Rachel Rivera MD IMG MRI ORDERABLES Final R esult documented in this encounter Visit Diagnoses Not on filedocumented in this encounter
--- OUTSIDE RECORDS SUMMARY | 2024-06-16 13:27 | XMS_ITS | Encounter Summary ---
Author Organization [facility] Address [address] [place] [address] Care Team Providers Care Shotweld Operator Name Role Phone Unavailable Primary Care Provider Unavailabl e Encounter Details Date Type Department Care Team (Late st Contact Info) Description 06/14/2005 14:48 EST Hospital Encounter [facility] [address] [place] [address] Christopher Angulo MD 111 [facility], Level [address] [place] [address] Discharge Disposition: Auto Discharge Social [...] above interpretation and agree with the findings. us Christopher Angulo MD IMG CT ORDERABLES Fi nal Result documented in this encounter Visit Diagnoses Not on filedocumented in this encounter
--- OUTSIDE RECORDS SUMMARY | 2024-06-16 13:27 | XMS_ITS | Encounter Summary ---
Author Organization [facility] Address [address] [place] [address] Care Team Providers Care Youth Liaison Officer Name Role Phone Unavailable Primary Care Provider Unavailabl e Encounter Details Date Type Department Care Team (Late st Contact Info) Description 10/15/2004 Office Visit [facility] - Maple conversion [address] [place] [address] Ivonne Dickens MD [address] [place] [phone] Social History Tobacco Use Types Packs/Day Years Used Date Smoking Tobacco: Never Assessed Comments Unknown Sex and Gender Information Value Date Recorded Sex Assigned at Not on file Legal Sex Female 18:10 EST Gender Identity Not on file Sexual Orientation Not on file documented as of this encounter Progress Notes * Ivonne Dickens J - 07/05/2009 0132 EST [facility] - Physician Summary Registration Date/Time: 10/15/2004 11:45 Arrived- By private vehicle. Historian- patient. HISTORY OF PRESENT ILLNESS (Preop physical - see paper form.). CLINICAL IMPRESSION Preop physical see paper form. (Electronically signed by Maday Dickens M.D. 10/15/2004 13:05) Care Center - Nursing Summary Registration Date/Time: 10/15/2004 [...] Parent verbalized understanding. Written instructions provided in Ukrainian. The patient was discharged home and accompanied by parent. The patient left the Emergency Department ambulatory and via private vehicle. Parent driving. (Copy of POP form faxed bt lead front end developer). Patient has no belongings. --1413 Vickie Marin L.P.N. Locked/Released at 10/15/2004 14:13 by Vickie Marin L.P.N. documented in this encounter Plan of Treatment Not on file documented as of this encounter Visit Diagnoses Not on filedocumented in this encounter
--- OUTSIDE RECORDS SUMMARY | 2024-06-16 13:27 | XMS_ITS | Encounter Summary ---
Author Organization [facility] Address [address] [place] [address] Care Team Providers Care Hospital Unit Coordinator Name Role Phone Unavailable Primary Care Provider Unavailabl e Encounter Details Date Type Department Care Team (Late st Contact Info) Description 08/14/2005 Before PRISM Converted Visit (Maple) [facility] - Maple conversion [address] [place], [place] [address] Sánchez Skaggs MD 111 [facility], [address] [place] [address] Social History Tobacco Use Types [...] Signed by Sánchez Skaggs MD 08/25/2005 16:10 Sukh Skaggs MDWivciky Skaggs MD Sánchez Skaggs MD - Sánchez Skaggs MD A - kmb Job ID: [id number] Document ID: [id number] cc: Rubio Augustin MD documented in this encounter Plan of Treatment Not on file documented as of this encounter Visit Diagnoses Not on filedocumented in this encounter
--- OUTSIDE RECORDS SUMMARY | 2024-06-16 13:27 | XMS_ITS | Encounter Summary ---
Author Organization [facility] Address [address] [place] [address] Care Team Providers Care Pension Adviser Name Role Phone Unavailable Primary Care Provider Unavailabl e Encounter Details Date Type Department Care Team (Late st Contact Info) Description 10/22/2005 6:16 EDT - 10/22/2005 11:59 EDT Hospital Encounter [facility] Perioperative Services- [address] [address] Sánchez Skaggs MD [address] [place] [address] [address] [place] [phone] Discharge Disposition: Home or Self Care Social [...] PROCEDURE REPORT PT TYPE: OPPROC PT LOC: [id number] SERVICE DATE: 10/22/2005 SURGEON: ANSON Harrell MDEric Anderson, MDWilliam J Brundage, MD METAL TRIM ERECTOR: Vicente Cazares MD PREOPERATIVE DIAGNOSIS: Left chronic otitis media with cholesteatoma. POSTOPERATIVE DIAGNOSIS: Left chronic otitis media with cholesteatoma. PROCEDURE: 1. Left shqrm-oeht-aald mastoidectomy with tympanoplasty. 2. Left meatoplasty. ANESTHESIA: [...] fashion. These were then connected in a vdnydfn-ltz-kriuqzy fashion. The Estelita flap was then reflected and thinned with iris scissors. The appropriate amount of cartilage as excised using iris scissors. The flap was re-placed and the adequacy of the meat oplasty was confirmed. The ear was then reflected forward and held in place with self-retaining retractors. Attention was then turned to the rgbqi-pxzz-jqdy mastoidectomy. Using a 4 cutting corrine, mastoidectomy [...] Cazares MD P - ss Job ID: [id number] Document ID: [id number] cc: MD Sánchez Sanz MD Patrick N Keith, MD documented in this encounter Plan of Treatment Not on file documented as of this encounter Visit Diagnoses Not on filedocumented in this encounter
--- OUTSIDE RECORDS SUMMARY | 2024-06-16 13:27 | XMS_ITS | Encounter Summary ---
Author Organization [facility] Address [address] [place] [address] Care Team Providers Care Loan Processing Supervisor Name Role Phone Unavailable Primary Care Provider Unavailabl e Encounter Details Date Type Department Care Team (Late st Contact Info) Description 08/21/2005 10:13 EDT Hospital Encounter [facility] [address] [place] [address] Sánchez Skaggs MD 111 [facility], Level [address] [place] [address] Social History Tobacco Use Types [...]
--- OUTSIDE RECORDS SUMMARY | 2024-06-16 13:27 | XMS_ITS | Encounter Summary ---
Author Organization [facility] Address [address] [place] [address] Care Team Providers Care Regenerator Operator Name Role Phone Unavailable Primary Care Provider Unavailabl e Encounter Details Date Type Department Care Team (Latest Contact Info) Description 10/15/2004 11:44 EDT - 10/15/2004 11:59 EDT Hospital Encounter [address] [address] Maday Dickens MD [address] [place] [phone] Discharge Disposition: Auto Discharge Social History [...]
--- OUTSIDE RECORDS SUMMARY | 2024-06-16 13:27 | XMS_ITS | Encounter Summary ---
Author Organization [facility] Address [address] [place] [address] Care Team Providers Care Information Technology Officer Name Role Phone Unavailable Primary Care Provider Unavailabl e Encounter Details Date Type Department Care Team (Latest Contact Info) Description 10/17/2004 6:41 EDT - 10/17/2004 11:59 EDT Hospital Encounter [facility] Perioperative Services - [address] [address] Tray Napier DDS [address] [place], [place] [phone] Discharge Disposition: Home-Health Care Svc Social History [...] PROCEDURE REPORT PT TYPE: OPPROC PT LOC: [id number] SERVICE DATE: 10/17/2004 SURGEON: Tray Napier DDS TOOL DISTRIBUTOR: PREOPERATIVE DIAGNOSIS: 1. Chromosome II deletion with [...] Napier DDS P - mt Job ID: [id number] Document ID: [id number] cc: ERIK Puckett IV, DDS Patrick N Keith, MD George M Richardson, DDS . Main ?? documented in this encounter Plan of Treatment Not on file documented as of this encounter Visit Diagnoses Not on filedocumented in this encounter
--- OUTSIDE RECORDS SUMMARY | 2024-06-16 13:27 | XMS_ITS | Encounter Summary ---
Author Organization [facility] Address [address] [place] [address] Care Team Providers Care Publicity Manager Name Role Phone Unavailable Primary Care Provider Unavailabl e Encounter Details Date Type Department Care Team (Late st Contact Info) Description 09/02/2000 13:51 EDT Hospital Encounter [facility], [place] [address] [place] [address] Luzma Neri MD Social History Tobacco Use [...]
--- OUTSIDE RECORDS SUMMARY | 2024-06-16 13:27 | XMS_ITS | Encounter Summary ---
Author Organization [facility] Address [address] [place] [address] Care Team Providers Care Word Processor Name Role Phone Unavailable Primary Care Provider Unavailabl e Encounter Details Date Type Department Care Team (Late st Contact Info) Description 08/21/2005 Before PRISM Converted Visit ([place]) [facility] - [facility] conversion [address], [place] [address] Sánchez Skaggs MD [address] [facility], [address] [place] [address] Social History Tobacco Use Types [...] Signed by Sánchez Skaggs MD 08/28/2005 13:02 Sukh Skaggs MDWivicky Skaggs MD Sánchez Skaggs MD - Sánchez Skaggs MD P - wlp Job ID: [id number] Document ID: [id number] cc: Rubio Augustin MD documented in this encounter Plan of Treatment Not on file documented as of this encounter Visit Diagnoses Not on filedocumented in this encounter
--- OUTSIDE RECORDS SUMMARY | 2024-06-16 13:27 | XMS_ITS | Encounter Summary ---
Author Organization [facility] Address [address] [place] [address] Care Team Providers Care Scalp Treatment Operator Name Role Phone Unavailable Primary Care Provider Unavailabl e Encounter Details Date Type Department Care Team (Late st Contact Info) Description 11/07/2005 11:06 EDT Hospital Encounter [facility] [place] [address] [place] [address] Ginette Lobo MD [address] [facility], [address] [place] [address] Social History Tobacco Use Types [...]
== END 2024-06-16 13:23 | disposition home or self-care (01) ==
LOC: NCHCN 13:22
PROVIDERS: PCP Family Medicine; Visit Provider Family Medicine
DX: Z12.4 Encounter for screening for malignant neoplasm of cervix (principal)
CPT/HCPCS: 88142

== ENCOUNTER → 2024-06-21 14:25 | Outpatient (BNVA) | payer MEDICARE, MEDICAID, SELFPAY | PROVIDERS: PCP Family Medicine; Referring Provider Family Medicine; Visit Provider Student in an Organized Health Care Education/Training Program | DX: Z01.818 Encounter for other preprocedural examination (principal); R10.9 Unspecified abdominal pain; G89.29 Other chronic pain | CPT/HCPCS: 99214 ==

== ENCOUNTER 2024-09-21 07:44 | Emergency (ER) | payer MEDICARE, MEDICAID, SELFPAY ==
[2024-09-21 07:47] VITALS: BP 126/89; PULSE 103; RESP 18; TEMP 37.4; O2SAT 100
[2024-09-21 07:52] VITALS: BP 126/89; PULSE 103; RESP 18; TEMP 37.4; O2SAT 100
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
[2024-09-21 08:30] LABS: Bilirubin Negative (Negative); Blood Moderate (Negative); Clarity Clear (Clear); Glucose Negative (Negative); Ketones 15 mg/dL (Negative); Leukocyte Esterase Trace (Negative); Nitrite Negative (Negative)
[2024-09-21 08:39] LABS: Bacteria Moderate HPF (Negative); C & S Indicated? No; Casts Negative LPF (Negative); Crystals Negative HPF (Negative); Epithelial Cells Moderate HPF (Negative); Mucus Moderate (Negative)
[2024-09-21 08:56] VITALS: BP 119/77; PULSE 86; RESP 19; TEMP 37.3; O2SAT 98
[2024-09-21 09:36] VITALS: BP 139/89; PULSE 73; RESP 18; O2SAT 98
== END 2024-09-21 09:37 | disposition home or self-care (01) ==
PROVIDERS: Emergency Provider Emergency Medicine; PCP Family Medicine
DX: N89.8 Other specified noninflammatory disorders of vagina (principal); Q78.3 Progressive diaphyseal dysplasia; K59.00 Constipation, unspecified; Q93.59 Other deletions of part of a chromosome
CPT/HCPCS: 99283; 81003; 81015; 87480; 87510; 87660

== ENCOUNTER 2024-10-20 08:57 | Outpatient (REF) | payer MEDICARE, MEDICAID, SELFPAY ==
[2024-10-21 15:24] LABS: Bacterial Vaginosis (BV) Negative (Negative); Candida glabrata Negative (Negative); Candida species group Negative (Negative); Chlamydia Result Negative (Negative); GC Result Negative (Negative); Trichomonas vaginalis Negative (Negative)
== END 2024-10-20 08:58 | disposition home or self-care (01) ==
LOC: NCHCN 08:57
PROVIDERS: PCP Family Medicine; Visit Provider Family Medicine
DX: R30.0 Dysuria (principal); N89.8 Other specified noninflammatory disorders of vagina
CPT/HCPCS: 81513; 87481; 87491; 87591; 87661

== ENCOUNTER 2024-11-11 01:18 | Outpatient (CLI) | payer MEDICARE, MEDICAID, SELFPAY ==
--- NOTE | 2024-11-11 | DI.US_ITS ---
Exam(s) US PELVIS TRANSVAGINAL EXAM: US PELVIS TRANSVAGINAL CLINICAL HISTORY: abnl uterine/vgnl bleeding N93.9 TECHNIQUE: Transabdominal and transvaginal imaging was performed using standard protocol. COMPARISON: CT CT PELVIC W from 05/04/2024 FINDINGS: The bladder is unremarkable. UTERUS: Anteverted. 7.0 x 3.4 x 4.4 cm Endometrium: 6 mm Myometrium: Unremarkable. Cervix: Unremarkable. OVARIES: Right: Cyst or mass: None. Left: Cyst or mass: None. DOPPLER: Color: Symmetric and uniform flow to both ovaries. No hyperemia. CUL-DE-SAC: Free fluid: None. IMPRESSION: 1. Normal-appearing uterus with endometrial stripe within normal limits. 2. Unremarkable bilateral ovaries. DATA REPOSITORY:
== END 2024-11-11 01:38 ==
LOC: DI 01:18
PROVIDERS: PCP Family Medicine; Visit Provider Family Medicine
DX: N93.9 Abnormal uterine and vaginal bleeding, unspecified (principal)
CPT/HCPCS: 76830; 76856

== ENCOUNTER 2024-11-29 16:09 | Outpatient (REF) | payer MEDICARE, MEDICAID, SELFPAY | END 2024-11-29 16:10 | disposition home or self-care (01) | LOC: LBN 16:09 | PROVIDERS: PCP Family Medicine; Visit Provider Obstetrics & Gynecology | DX: R30.0 Dysuria (principal); N90.89 Other specified noninflammatory disorders of vulva and perineum; R82.89 Other abnormal findings on cytological and histological examination of urine | CPT/HCPCS: 87086 ==

== ENCOUNTER 2025-01-02 04:11 | Emergency (ER) | payer MEDICARE, MEDICAID, SELFPAY ==
[2025-01-02 04:12] VITALS: BP 120/85; PULSE 99; RESP 18; TEMP 36.1; O2SAT 100
--- NOTE | 2025-01-02 04:22 | W.ED.GENAD ---
Discharge Plan Disposition Patient Disposition: Home Condition: Good Discharge Details Clinical Impression: Rectal prolapse Primary Care Provider: Sara Gaines ED Provider: Shalom Martinez Meds and New Rx's Prescriptions: Continued clonazepam 0.125 mg tablet,disintegrating 0.125 mg PO DAILY PRN (DME) Left custom knee brace See Rx Instructions .ROUTE .MEDSUPPLY Qty: 1 0RF Rx Instructions: Use during activities polyethylene glycol 3350 [Miralax] 17 gram/dose powder 17 g PO DAILY clobetasol 0.05 % ointment 1 applic topical BID Qty: 60 1RF Rx Instructions: Apply a pea-sized amount twice daily to the vulva Metamucil Fiber (aspartame) 3.4 gram powder in packet 1 packet PO DAILY Linzess 72 mcg capsule 72 mcg PO QAM 365 Days Qty: 30 12RF clobetasol 0.05 % ointment 1 applic topical DAILY Qty: 30 0RF Rx Instructions: Apply a pea-sized amount to the vulva daily (DME) Hinged knee brace See Rx Instructions .Route .MEDSUPPLY Qty: 1 0RF Rx Instructions: As directed pantoprazole 20 mg tablet,delayed release (DR/EC) 40 mg PO DAILY cholecalciferol (vitamin D3) 1,000 UNIT capsule 2,000 unit PO DAILY Trulance 3 mg tablet 3 mg PO DAILY diazepam 5 mg tablet 5 mg PO DAILY PRN PRN Patient Comments: TAKE ONE TABLET BY MOUTH EVERY DAY FOR ANXIETY; HOLD FOR SEDATION OR CLUMSINESS fluoxetine 20 mg capsule 60 mg PO DAILY Discharge Instructions Instructions: Rectal prolapse in adults Additional Instructions: You were seen for a prolapsed rectum which we were able to reduce here with use of sugar and gentle pressure. Continue bowel regimen as before. If consideration for procedure will need follow-up with colorectal at either [facility] or [facility]. Should return to ED for any fever, abdominal pain, vomiting, other concerns. Discharge Data Discharge Date/Time-TO BE ENTERED AT DEPARTURE: 01/02/25 05:59 HPI General Mode of arrival: EMS. Date/Time Provider Initiated Documentation: 01/02/25 05:26. Limitations to Documentation: other (non-verbal). Information obtained by: family (office machinery or equipment installer) and EMS. HPI Narrative: Patient presents to ED by ambulance with tissue protruding from her rectum. Patient is a 29-year-old female who is nonverbal with deletion of chromosome 2P. She resides with a office machinery or equipment installer who reported to EMS that she has had similar episodes like this which they were able to push back in at home. This was significantly worse and office machinery or equipment installer was not comfortable with managing at home. Because the patient was unable to sit she elected to call EMS for transport to the hospital. By report patient has otherwise been baseline with no recent issues. Related Data Home Medications ?Medication ?Instructions ?Recorded ?Confirmed cholecalciferol (vitamin D3) 25 2,000 unit PO DAILY 12/20/13 01/02/25 mcg (1,000 unit) capsule clonazepam 0.125 mg disintegrating 0.125 mg PO DAILY PRN 03/09/21 01/02/25 tablet psyllium husk 3.4 gram oral powder 1 packet PO DAILY 05/21/22 01/02/25 packet (Metamucil Fiber (aspartame)) Left custom knee brace #1 ea 09/24/23 11/29/24 Hinged knee brace #1 ea 10/16/23 11/29/24 plecanatide 3 mg tablet (Trulance) 3 mg PO DAILY 02/06/24 01/02/25 pantoprazole 20 mg tablet,delayed 40 mg PO DAILY 04/14/24 01/02/25 release polyethylene glycol 3350 17 17 g PO DAILY 04/14/24 01/02/25 gram/dose oral powder (Miralax) linaclotide 72 mcg capsule 72 mcg PO QAM 365 days #30 caps 06/04/24 01/02/25 (Linzess) diazepam 5 mg tablet 5 mg PO DAILY PRN PRN 09/21/24 01/02/25 clobetasol 0.05 % topical ointment 1 applic topical BID #60 grams 10/22/24 01/02/25 fluoxetine 20 mg capsule 60 mg PO DAILY 11/29/24 01/02/25 clobetasol 0.05 % topical ointment 1 applic topical DAILY #30 grams 12/30/24 01/02/25 Previous Rx's ?Medication ?Instructions ?Recorded Left custom knee brace #1 ea 09/24/23 Hinged knee brace #1 ea 10/16/23 linaclotide 72 mcg capsule 72 mcg PO QAM 365 days #30 caps 06/04/24 (Linzess) clobetasol 0.05 % topical ointment 1 applic topical BID #60 grams 10/22/24 clobetasol 0.05 % topical ointment 1 applic topical DAILY #30 grams 12/30/24 Allergies Allergy/AdvReac Type Severity Reaction Status Date / Time No Known Allergies Allergy Verified 01/02/25 04:36 General YUSUF: 3 Exam Narrative Exam Narrative: Const: WDWN female in NAD. VS per triage. HEENT: NC/AT. Neck: Supple. Trachea midline. Lungs: Normal respiratory effort. GI: Soft/ND/NT. Rectal prolapse with approximately 10 inches of protrusion from the rectum. Neuro: Awake and alert, baseline neurologically, cooperative. Medical Decision Making Patient presenting to ED by EMS with fairly significant rectal prolapse. With the use of sugar as well as continuous gentle pressure I was able to fully reduce the prolapse without the need for sedation. Patient tolerated this very well. Registered Land Surveyor presented to room after reduction performed. She reports that typically when this happens it is minimal and she has been able to reduce it at home. She states this was much more significant. Patient apparently had gotten up to use the bathroom in the middle of the night. She typically does strain despite being on a bowel regimen. While the patient is nonverbal she is functional and came up to the caretakers bedroom to make her aware that she required help. Patient appears to be in no distress at this time. She is acting normal and is interactive with her office machinery or equipment installer. I did speak with surgery, Dr. Hinton. Given that I was able to reduce without difficulty did not feel further observation or imaging required. If this becomes a more continuous problem may need follow-up at tertiary care center with colorectal. Discussed return precautions with office machinery or equipment installer and patient discharged home. 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) Change in bowel habits (Acute) 2q partial monosomy syndrome (Acute) Chronic constipation (Acute) Multiple nevi (Acute) Pseudobulbar affect (Acute) Scoliosis (Acute) Kyphosis (Acute) Cholesteatoma (Acute) Seborrheic dermatitis (Acute) Acute medial meniscus tear of left knee (Acute ~10/2020) Left ACL tear (Acute) Medical History Urinary tract infection ASD (atrial septal defect) Rectal prolapse (~05/04/22) Hx of osteopenia History of speech problem 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 History of back surgery Per patient mother has Ralph in her back and has had multi back surgical procedures. History of repair of congenital atrial septal defect (ASD) Family History Maternal Grandmother Heart disease Paternal Grandfather Cancer Maternal Grandmother Cancer Maternal Grandmother Diabetes Social History Smoking/Tobacco Use Status: Never Second Hand Exposure: No Smoking risk assessment performed?: Yes Alcohol Intake: never Drug use: Never Substance use type: does not use Household members: family Sexually active: No Current gender identity: female What type of physical activity do you participate in: regular exercise Frequency: daily [place]/[employer]: [employer] Seatbelt use: always Helmet use: Yes Do you feel safe at home: Yes Do you feel safe in your relationship?: Yes Additional Social history: unable to assess privately Female Reproductive History Menstrual Age of Menarche: 13 Duration of menses: 3-5 days control method: none History History 0 Para Hx # Term Pregnancies Multiple births Hx # Pregnancies Ectopic pregnancies AB induced Hx Number of Living Children AB spontaneous
[2025-01-02 04:28] VITALS: BP 120/85; PULSE 99; RESP 16; RESP 18; TEMP 36.1; O2SAT 100
[2025-01-02 05:30] VITALS: BP 122/76; PULSE 87; RESP 16; O2SAT 100
== END 2025-01-02 05:59 | disposition home or self-care (01) ==
PROVIDERS: Emergency Provider Emergency Medicine; PCP Family Medicine
DX: K62.3 Rectal prolapse (principal)
CPT/HCPCS: 99283 ×2